=== PATIENT | female | born 1965 | race Caucasian/White ===

== ENCOUNTER 2021-01-20 10:37 | Inpatient (IN) | payer MEDICAID ==
[~2021-01-20] VITALS: Ht 165.1 cm; Wt 90.9 kg
[~2021-01-20 10:37] MED LIST: MAGN400C PO; MULT-1085 PO; TRAZ150T78 PO
[2021-01-20] MEDS ORDERED: normal saline 1000ML IV soln IVB ONE (11:35)
[2021-01-20 12:28] LABS: BASOPHILS # (AUTO) 0.1 X10'3 (0-0.2); BASOPHILS % (AUTO) 0.6 % (0-1); EOSINOPHILS # (AUTO) 0.1 X10'3 (0-0.9); EOSINOPHILS % (AUTO) 0.7 % (0-6); HEMOGLOBIN 13.5 g/dl (12.0-16.0); LYMPHOCYTES # (AUTO) 0.9 X10'3 (1.1-4.8); MEAN CORPUSCULAR HGB CONC 32.3 g/dL (33.0-36.5); MEAN CORPUSCULAR VOLUME 96.1 FL (78-98); MEAN PLATELET VOLUME 7.1 FL (7.4-10.4); MONOCYTES # (AUTO) 0.7 X10'3 (0-0.9); MONOCYTES % (AUTO) 7.9 % (2-12); NEUTROPHILS # (AUTO) 7.6 X10'3 (1.8-7.7); NEUTROPHILS % (AUTO) 80.8 % (42-75); PLATELET COUNT 237 X10'3 (140-440); RED BLOOD COUNT 4.37 X10'6 (4.20-5.60); RED CELL DISTRIBUTION WIDTH 16.2 % (11.5-14.5); WHITE BLOOD COUNT 9.4 X10'3 (4.5-11.0)
[2021-01-20] MEDS ORDERED: thiamine 100mg/ml 2ml inj. IV ONE (13:10)
[2021-01-20] MEDS ORDERED: folic acid 1mg/0.2ml inj IV ONE (13:10)
[2021-01-20] MEDS ORDERED: lactulose 20gm/30ml cup PO ONE (13:10)
[2021-01-20 13:15] LABS: ALANINE AMINOTRANSFERASE 50 U/L (12-78); ALBUMIN 3.1 G/DL (3.4-5.0); ALBUMIN/GLOBULIN RATIO 0.9 (1.1-1.5); ALKALINE PHOSPHATASE 119 IU/L (46-116); ANION GAP 15 (8-16); ASPARTATE AMINO TRANSFERASE 50 U/L (10-37); BILIRUBIN,TOTAL 0.6 MG/DL (0.1-1.0); BLOOD UREA NITROGEN 9 MG/DL (7-18); BUN/CREATININE RATIO 8.7 (6.6-38.0); CALCIUM 8.9 MG/DL (8.5-10.1); CHLORIDE 107 MMOL/L (99-107); CREATININE 1.04 MG/DL (0.40-0.90); GLUCOSE 124 MG/DL (70-104); POTASSIUM 4.1 MMOL/L (3.5-5.1); SODIUM 142 MMOL/L (135-145); TOTAL CARBON DIOXIDE 19.6 MMOL/L (24-32); TOTAL PROTEIN 6.5 G/DL (6.4-8.2); eGFR 55 ML/MIN
[2021-01-20 13:18] LABS: ETHANOL < 0.010 GM/DL (0.0-0.010); TROPONIN I < 0.04 NG/ML (0.0-0.05)
[2021-01-20] MEDS ORDERED: CefTRIAXone/D5W-Rocephin 1gm 50 ML IV ONE (14:35)
[2021-01-20] MEDS ORDERED: azithromycin/NS 500mg/250ml 250 ML IV ONE (14:35)
[2021-01-20] MEDS ORDERED: normal saline 1000ml 1,000 ML IV ONE (14:35)
[2021-01-20] MEDS ORDERED: ipratropium/albuterol 3ml nebule NEB PRN (14:50)
[2021-01-20] MEDS ORDERED: ondansetron/PF 4mg/2ml inj IV PRN (14:50)
[2021-01-20] MEDS ORDERED: potassium Cl 40MEQ/1/2NS 520ml 520 ML IV PRN ×2 (14:50)
[2021-01-20] MEDS ORDERED: mag hydrox/Alum hydrox/simeth 30ml oral suspension PO PRN (14:50)
[2021-01-20] MEDS ORDERED: potassium Cl 20 mEq SR tablet PO PRN ×2 (14:50)
[2021-01-20] MEDS ORDERED: HYDROcodone/acetaminophen 5mg/325mg tablet PO PRN (14:50)
[2021-01-20] MEDS ORDERED: magnesium 4gm in 100ml NS 100 ML IV PRN (14:50)
[2021-01-20] MEDS ORDERED: LORazepam 2 mg/ml vial IV PRN (14:50)
[2021-01-20] MEDS ORDERED: magnesium 2GM in 50ml NS 50 ML IV PRN (14:50)
[2021-01-20] MEDS ORDERED: albuterol 2.5 MG/3 ML nebule NEB PRN (14:50)
[2021-01-20] MEDS ORDERED: acetaminophen 325mg tablet PO PRN ×2 (14:50)
[2021-01-20] MEDS ORDERED: magnesium hydroxide 30ml (MOM) UD suspension PO PRN (14:50)
[2021-01-20] MEDS ORDERED: HYDROcodone/acetaminophen 10/325mg tab PO PRN (14:50)
[2021-01-20] MEDS ORDERED: thiamine inj. 100 MG in normal saline 100ml IV soln 100 ML IV ONE (14:50)
[2021-01-20] MEDS ORDERED: haloperidol lactate 5mg/ml inj IM PRN (14:50)
[2021-01-20] MEDS ORDERED: PANT40TA54 PO (15:26)
[2021-01-20] MEDS ORDERED: GABA300C PO (15:26)
[2021-01-20] MEDS: folic acid 1mg/0.2ml inj IV SCH (17:08)
[2021-01-20 18:39] LABS: URINE AMPHETAMINE SCREEN NEGATIVE (Neg); URINE BARBITUATE SCREEN NEGATIVE (Neg); URINE BENZODIAZEPINES SCREEN POSITIVE (Neg); URINE CANNABINOID SCREEN POSITIVE (Neg); URINE COCAINE SCREEN NEGATIVE (Neg); URINE METHADONE SCREEN NEGATIVE (Neg); URINE OPIATE SCREEN NEGATIVE (Neg); URINE PHENCYCLIDINE SCREEN NEGATIVE (Neg)
[2021-01-20 19:10] LABS: UA COLLECTION TYPE VOIDED
[2021-01-20 19:11] LABS: CLARITY,URINE CLEAR (Clear); COLOR,URINE YELLOW (Yellow)
[2021-01-20 19:12] LABS: GLUCOSE, URINE NEGATIVE (Neg); KETONES,URINE NEGATIVE (Neg); LEUKOCYTE ESTERASE ,URINE SMALL (Neg); NITRITES, URINE NEGATIVE (Neg); OCCULT BLOOD,URINE NEGATIVE (Neg); PROTEIN,URINE NEGATIVE (Neg); UROBILINOGEN,URINE 0.2 E.U/dL (0.2-1.0)
[2021-01-20 19:17] LABS: WBC,URINE 0-4 /HPF (0-4)
[2021-01-20 19:18] LABS: BACTERIA,URINE 2+ /HPF (Neg); RBC,URINE NONE SEEN /HPF (0-2); SQUAMOUS EPITHELIAL CELL,UR FEW /LPF (FEW)
[2021-01-20] MEDS: K and/or MAG REPLACEMENT MC SCH (20:00)
[2021-01-20] MEDS: gabapentin 300mg capsule PO SCH (20:36)
[2021-01-20] MEDS: traZODone 150mg tablet PO SCH (20:36)
[2021-01-20] MEDS: docusate sod 100mg capsule PO SCH (20:36)
[2021-01-20] MEDS: enoxaparin 40mg/0.4ml syringe SQ SCH (20:37)
[2021-01-20] MEDS: lactulose 20gm/30ml cup PO SCH (20:37)
--- NOTE | 2021-01-20 20:51 | NUR ---
PT BOYFRIEND CALLED, HE STATED PT HAS NOT HAD A DRINK IN OVER 2 WEEKS, DOES NOT FEEL LIKE SHE IS IN WITHDRAWL. STATES PT HAS NEGATIVE REACTION TO ATIVAN, STATING PT IN RESTRAINTS AFTER ATIVAN USE AT [facility]. JUSTINA CORDOVA [phone]
[2021-01-21 04:07] LABS: BASOPHILS % (AUTO) 0.9 % (0-1); EOSINOPHILS # (AUTO) 0.1 X10'3 (0-0.9); EOSINOPHILS % (AUTO) 2.5 % (0-6); HEMATOCRIT 36.3 % (35.0-45.0); LYMPHOCYTES # (AUTO) 1.3 X10'3 (1.1-4.8); LYMPHOCYTES % (AUTO) 30.5 % (21-51); MEAN CORPUSCULAR HEMOGLOBIN 31.9 PG (27.0-31.0); MEAN CORPUSCULAR HGB CONC 33.1 g/dL (33.0-36.5); MEAN CORPUSCULAR VOLUME 96.5 FL (78-98); MEAN PLATELET VOLUME 6.9 FL (7.4-10.4); MONOCYTES # (AUTO) 0.5 X10'3 (0-0.9); MONOCYTES % (AUTO) 10.5 % (2-12); NEUTROPHILS # (AUTO) 2.5 X10'3 (1.8-7.7); NEUTROPHILS % (AUTO) 55.6 % (42-75); PLATELET COUNT 188 X10'3 (140-440); RED BLOOD COUNT 3.76 X10'6 (4.20-5.60); RED CELL DISTRIBUTION WIDTH 16.2 % (11.5-14.5); WHITE BLOOD COUNT 4.4 X10'3 (4.5-11.0)
[2021-01-21 04:22] LABS: ALANINE AMINOTRANSFERASE 38 U/L (12-78); ALBUMIN 2.5 G/DL (3.4-5.0); ALBUMIN/GLOBULIN RATIO 0.8 (1.1-1.5); ALKALINE PHOSPHATASE 97 IU/L (46-116); ANION GAP 6 (8-16); ASPARTATE AMINO TRANSFERASE 33 U/L (10-37); BILIRUBIN,TOTAL 0.7 MG/DL (0.1-1.0); BLOOD UREA NITROGEN 7 MG/DL (7-18); BUN/CREATININE RATIO 7.5 (6.6-38.0); CALCIUM 8.3 MG/DL (8.5-10.1); CHLORIDE 110 MMOL/L (99-107); CREATININE 0.93 MG/DL (0.40-0.90); GLUCOSE 70 MG/DL (70-104); LIPASE < 50 U/L (73-393); MAGNESIUM 1.7 MG/DL (1.5-2.4); POTASSIUM 3.5 MMOL/L (3.5-5.1); SODIUM 145 MMOL/L (135-145); TOTAL CARBON DIOXIDE 29.3 MMOL/L (24-32); TOTAL PROTEIN 5.7 G/DL (6.4-8.2); eGFR 62 ML/MIN
[2021-01-21 08:00] VITALS: BP 115/50
[2021-01-21] MEDS ORDERED: thiamine inj. 100 MG in normal saline 100ml IV soln 100 ML IV SCH (08:00)
[2021-01-21] MEDS ORDERED: folic acid inj. 2 MG, thiamine inj. 100 MG, MVI, adult No.4 with vit. K 10 ML in dextro... IV SCH ×4 (08:00)
[2021-01-21] MEDS: K and/or MAG REPLACEMENT MC SCH ×2 (08:00→20:00)
[2021-01-21] MEDS: docusate sod 100mg capsule PO SCH ×2 (08:00→20:16)
[2021-01-21] MEDS ORDERED: CefTRIAXone/D5W-Rocephin 1gm 50 ML IV SCH (08:00)
--- NOTE | 2021-01-21 08:25 | NUR ---
Patient arrived to her assigned room from ER. Patient was alert, oriented x 2. She does not know where she was at, she thought she was at [facility]. Patient was reoriented. Patient's blood sugar was 53mg/dl, patient stated she has not been eaten. When I checked the eMAR, patient does not have hypoglycemia protocol order so I gave her jellos, 2 cups of orange juice, and 1 cup of apple juice.
--- NOTE | 2021-01-21 08:46 | NUR ---
Paged Dr. Xie PAGER ID: [phone] MESSAGE: Vivian Garibay RN ext [phone]. Bianca Alicia. Patient blood sugar this am was 53 mg/dl, she has not been eaten. I gave her food (clear liquid). Her sugar 91mg/dl. She has no order for hypoglycemia protocol.
[2021-01-21] MEDS: gabapentin 300mg capsule PO SCH ×3 (09:52→20:16)
[2021-01-21] MEDS: lactulose 20gm/30ml cup PO SCH ×3 (09:52→20:16)
[2021-01-21] MEDS: pantoprazole 40mg Tablet.DR PO SCH (09:52)
[2021-01-21 11:00] VITALS: BP 105/66
--- NOTE | 2021-01-21 11:20 | NUR ---
Dr. Xie was notified during his rounds that per report I got from ER, the boyfriend reported that patient ended up being on restraints at [facility] when she was given Ativan. When I asked Dr. Xie if she still want Ativan to be given to patient for withdrawal, he said yes. Dr. Xie also asked patient if she is okay with Ativan patient agreed with Ativan. Received order to change Ativan 1mg PO to Q8hrs prn.
[2021-01-21] MEDS: LORazepam 1 MG tablet PO PRN ×2 (11:24→20:16)
[2021-01-21] MEDS: azithromycin/NS 500mg/250ml 250 ML IV SCH (11:24)
[2021-01-21] MEDS: haloperidol 5mg tablet PO PRN (14:30)
--- NOTE | 2021-01-21 14:56 | NUR ---
Patient's boyfriend Jared came to visit patient. Per Jared, the patient can have Ativan but not too frequent and advised that patient should not get this as possible or avoid if not necessary as patient become more agitated previously and was restrained when patient was at [facility]. I told him that patient received Ativan PO today and was already discussed to the doctor about his concern of possible agitation with the Ativan. Patient's boyfriend was telling me that patient was admitted at [facility] previously due to DT. Patient's boyfriend also strongly denied that patient has been drinking recently when I told him that we are monitoring her condition for any possible withdrawal. Before the boyfriend left,he asked me to address the tremors. I gave Haldol PO to patient as indicated.
--- NOTE | 2021-01-21 18:25 | NUR ---
Problems reprioritized. Patient report given, questions answered & plan of care reviewed with Patrick CASTILLO.
[2021-01-21 18:35] VITALS: BP 90/50
[2021-01-21] MEDS: enoxaparin 40mg/0.4ml syringe SQ SCH (20:16)
[2021-01-21] MEDS: traZODone 150mg tablet PO SCH (20:16)
[2021-01-22] VITALS: BP 105/58
[2021-01-22] MEDS: haloperidol 5mg tablet PO PRN (02:16)
[2021-01-22] MEDS: LORazepam 1 MG tablet PO PRN (05:36)
[2021-01-22 06:14] LABS: ALANINE AMINOTRANSFERASE 30 U/L (12-78); ALBUMIN 2.3 G/DL (3.4-5.0); ALBUMIN/GLOBULIN RATIO 0.8 (1.1-1.5); ALKALINE PHOSPHATASE 82 IU/L (46-116); ANION GAP 6 (8-16); ASPARTATE AMINO TRANSFERASE 25 U/L (10-37); BILIRUBIN,TOTAL 0.4 MG/DL (0.1-1.0); BLOOD UREA NITROGEN 7 MG/DL (7-18); BUN/CREATININE RATIO 8.4 (6.6-38.0); CALCIUM 8.1 MG/DL (8.5-10.1); CHLORIDE 111 MMOL/L (99-107); CREATININE 0.83 MG/DL (0.40-0.90); GLUCOSE 88 MG/DL (70-104); LIPASE < 50 U/L (73-393); MAGNESIUM 1.8 MG/DL (1.5-2.4); PHOSPHORUS 4.4 MG/DL (2.3-4.5); POTASSIUM 3.6 MMOL/L (3.5-5.1); SODIUM 143 MMOL/L (135-145); TOTAL PROTEIN 5.1 G/DL (6.4-8.2); eGFR 71 ML/MIN
[2021-01-22 06:23] LABS: EOSINOPHILS # (AUTO) 0.1 X10'3 (0-0.9); EOSINOPHILS % (AUTO) 3.6 % (0-6); HEMATOCRIT 32.9 % (35.0-45.0); HEMOGLOBIN 11.1 g/dl (12.0-16.0); LYMPHOCYTES # (AUTO) 1.1 X10'3 (1.1-4.8); LYMPHOCYTES % (AUTO) 31.4 % (21-51); MEAN CORPUSCULAR HEMOGLOBIN 32.1 PG (27.0-31.0); MEAN CORPUSCULAR HGB CONC 33.6 g/dL (33.0-36.5); MEAN CORPUSCULAR VOLUME 95.4 FL (78-98); MONOCYTES # (AUTO) 0.3 X10'3 (0-0.9); MONOCYTES % (AUTO) 10.1 % (2-12); NEUTROPHILS # (AUTO) 1.8 X10'3 (1.8-7.7); NEUTROPHILS % (AUTO) 53.9 % (42-75); PLATELET COUNT 189 X10'3 (140-440); RED BLOOD COUNT 3.45 X10'6 (4.20-5.60); RED CELL DISTRIBUTION WIDTH 15.6 % (11.5-14.5); WHITE BLOOD COUNT 3.4 X10'3 (4.5-11.0)
--- NOTE | 2021-01-22 06:51 | NUR ---
Patient in room ATIF 359B. I have received report from JONATHAN GRANADOS and had the opportunity to ask questions and assume patient care.
--- NOTE | 2021-01-22 06:56 | NUR ---
Problems reprioritized. Patient report given, questions answered & plan of care reviewed with Elba CASTILLO.
[2021-01-22 07:00] VITALS: BP 110/58
[2021-01-22] MEDS: K and/or MAG REPLACEMENT MC SCH (08:00)
[2021-01-22] MEDS: docusate sod 100mg capsule PO SCH (08:20)
[2021-01-22] MEDS: lactulose 20gm/30ml cup PO SCH (08:20)
[2021-01-22] MEDS: gabapentin 300mg capsule PO SCH (08:21)
[2021-01-22] MEDS: pantoprazole 40mg Tablet.DR PO SCH (08:21)
[2021-01-22] MEDS: azithromycin/NS 500mg/250ml 250 ML IV SCH (08:21)
[2021-01-22] MEDS: folic acid 1mg/0.2ml inj IV SCH (08:26)
[2021-01-22 11:00] VITALS: BP 87/46
[2021-01-22] MEDS ORDERED: ATI1T PO (12:06)
[2021-01-22] MEDS ORDERED: LEVO750T46 PO (12:06)
[2021-01-22] MEDS ORDERED: LORazepam 2 mg/ml vial IV PRN (14:50)
[2021-01-22] MEDS ORDERED: LORazepam 1 MG tablet PO PRN (14:50)
--- NOTE | 2021-01-22 20:18 | NUR ---
PATIENT STABLE AND APPROPRIATE FOR DISCHARGE, IV TAKEN OUT, EDUCATION GIVEN, NEW MEDS E-SCRIPTED TO PREFERRED PHARMACY, SCRIPT FOR ATIVAN GIVEN TO PATIENT, ALL BELONGINGS SENT WITH PATIENT, PATIENT TAKEN TO LOBBY TO AN AWAITING CAR WHERE FAMILY MEMBER WILL TAKE PATIENT HOME
== END 2021-01-22 13:27 | disposition home or self-care (01) | DRG 720 ==
LOC: ER 10:38 → ED HOLD 14:59 → SUR 3N 01-21 07:47
PROVIDERS: ADMIT Family Medicine; ATTEND Family Medicine
DX: A41.9 Sepsis, unspecified organism (principal); G93.41 Metabolic encephalopathy; F10.231 Alcohol dependence with withdrawal delirium; K72.90 Hepatic failure, unspecified without coma; E46 Unspecified protein-calorie malnutrition; N17.9 Acute kidney failure, unspecified; J18.9 Pneumonia, unspecified organism; E86.0 Dehydration; F10.239 Alcohol dependence with withdrawal, unspecified; F32.9 Major depressive disorder, single episode, unspecified; F41.9 Anxiety disorder, unspecified; R47.81 Slurred speech; N39.0 Urinary tract infection, site not specified; Z20.822 Contact with and (suspected) exposure to COVID-19; Z79.899 Other long term (current) drug therapy; Z80.0 Family history of malignant neoplasm of digestive organs; Z80.3 Family history of malignant neoplasm of breast; Z80.51 Family history of malignant neoplasm of kidney; Z68.33 Body mass index [BMI] 33.0-33.9, adult; Z91.013 Allergy to seafood; Z90.49 Acquired absence of other specified parts of digestive tract; Z98.891 History of uterine scar from previous surgery
CPT/HCPCS: 36415; 70450; 71045; 80053; 80305; 80320; 81001; 82140; 82948; 83605; 83690; 83735; 84100; 84145; 84484; 85025; 85610; 87040; 87077; 87081; 87088; 87186; 87502; 87503; 87635; 93005; 94760; 96374; 99285; C9803; G0378; J0456; J0696; J1650; J3411; J3490; J7030

== ENCOUNTER → 2021-01-24 | Emergency (ER) | payer MEDICAID ==
[~2021-01-24] VITALS: Ht 162.6 cm; Wt 90.9 kg
[~2021-01-24] MED LIST changes: +ATI1T PO; +GABA300C PO; +LEVO750T46 PO; +PANT40TA54 PO; +normal saline 1000ML IV soln IVB ONE; +ondansetron/PF 4mg/2ml inj IV ONE
[2021-01-24 11:02] VITALS: BP 136/71
[2021-01-24 12:27] LABS: BASOPHILS % (AUTO) 0.4 % (0-1); EOSINOPHILS # (AUTO) 0.1 X10'3 (0-0.9); EOSINOPHILS % (AUTO) 1.7 % (0-6); HEMATOCRIT 36.1 % (35.0-45.0); HEMOGLOBIN 12.1 g/dl (12.0-16.0); LYMPHOCYTES # (AUTO) 0.9 X10'3 (1.1-4.8); LYMPHOCYTES % (AUTO) 18.7 % (21-51); MEAN CORPUSCULAR HGB CONC 33.5 g/dL (33.0-36.5); MEAN CORPUSCULAR VOLUME 95.7 FL (78-98); MEAN PLATELET VOLUME 6.8 FL (7.4-10.4); MONOCYTES # (AUTO) 0.7 X10'3 (0-0.9); MONOCYTES % (AUTO) 13.9 % (2-12); NEUTROPHILS # (AUTO) 3.2 X10'3 (1.8-7.7); NEUTROPHILS % (AUTO) 65.3 % (42-75); PLATELET COUNT 179 X10'3 (140-440); RED BLOOD COUNT 3.78 X10'6 (4.20-5.60); RED CELL DISTRIBUTION WIDTH 15.1 % (11.5-14.5); WHITE BLOOD COUNT 4.9 X10'3 (4.5-11.0)
[2021-01-24 12:41] LABS: ALANINE AMINOTRANSFERASE 28 U/L (12-78); ALBUMIN 2.6 G/DL (3.4-5.0); ALBUMIN/GLOBULIN RATIO 0.8 (1.1-1.5); ALKALINE PHOSPHATASE 97 IU/L (46-116); ANION GAP 8 (8-16); ASPARTATE AMINO TRANSFERASE 26 U/L (10-37); BILIRUBIN,TOTAL 0.6 MG/DL (0.1-1.0); BLOOD UREA NITROGEN 6 MG/DL (7-18); BUN/CREATININE RATIO 6.1 (6.6-38.0); CALCIUM 8.5 MG/DL (8.5-10.1); CHLORIDE 108 MMOL/L (99-107); CREATININE 0.98 MG/DL (0.40-0.90); ETHANOL < 0.010 GM/DL (0.0-0.010); GLUCOSE 76 MG/DL (70-104); POTASSIUM 3.3 MMOL/L (3.5-5.1); SODIUM 144 MMOL/L (135-145); TOTAL CARBON DIOXIDE 27.9 MMOL/L (24-32); TOTAL PROTEIN 5.9 G/DL (6.4-8.2); eGFR 59 ML/MIN
[2021-01-24 13:14] LABS: CLARITY,URINE CLEAR (Clear); COLOR,URINE STRAW (Yellow); GLUCOSE, URINE NEGATIVE (Neg); KETONES,URINE NEGATIVE (Neg); NITRITES, URINE NEGATIVE (Neg); OCCULT BLOOD,URINE NEGATIVE (Neg); PROTEIN,URINE NEGATIVE (Neg); UA COLLECTION TYPE CLN CATCH MIDSTREAM
[2021-01-24 13:15] LABS: LEUKOCYTE ESTERASE ,URINE NEGATIVE (Neg); UROBILINOGEN,URINE 0.2 E.U/dL (0.2-1.0)
== END | disposition home or self-care (01) ==
LOC: ER 10:38
DX: S09.90XA Unspecified injury of head, initial encounter (principal); M54.2 Cervicalgia; E86.0 Dehydration; F41.9 Anxiety disorder, unspecified; F32.9 Major depressive disorder, single episode, unspecified; Z91.013 Allergy to seafood; Z79.899 Other long term (current) drug therapy
CPT/HCPCS: 36415; 70450; 72125; 80053; 80320; 81003; 85025; 99285

== ENCOUNTER 2021-02-15 11:43 | Emergency (ER) | payer MEDICAID ==
[~2021-02-15] VITALS: Ht 162.6 cm; Wt 87.4 kg
[~2021-02-15 11:43] MED LIST changes: -LEVO750T46 PO; -normal saline 1000ML IV soln IVB ONE; -ondansetron/PF 4mg/2ml inj IV ONE
[2021-02-15] MEDS ORDERED: folic acid 1mg/0.2ml inj IV ONE (12:05)
[2021-02-15] MEDS ORDERED: LORazepam 2 mg/ml vial IV ONE ×2 (12:05→15:35)
[2021-02-15] MEDS ORDERED: ondansetron/PF 4mg/2ml inj IV ONE (12:05)
[2021-02-15] MEDS ORDERED: famotidine/PF 10 mg/ml inj IV ONE (12:05)
[2021-02-15] MEDS ORDERED: thiamine 100mg/ml 2ml inj. IV ONE (12:05)
[2021-02-15] MEDS ORDERED: normal saline 1000ML IV soln IV ONE (12:05)
[2021-02-15 12:58] LABS: BASOPHILS % (AUTO) 0.8 % (0-1); EOSINOPHILS % (AUTO) 0.4 % (0-6); HEMATOCRIT 46.3 % (35.0-45.0); HEMOGLOBIN 15.7 g/dl (12.0-16.0); LYMPHOCYTES # (AUTO) 1.1 X10'3 (1.1-4.8); LYMPHOCYTES % (AUTO) 22.3 % (21-51); MEAN CORPUSCULAR HEMOGLOBIN 32.5 PG (27.0-31.0); MEAN CORPUSCULAR HGB CONC 33.8 g/dL (33.0-36.5); MEAN CORPUSCULAR VOLUME 96.2 FL (78-98); MEAN PLATELET VOLUME 7.2 FL (7.4-10.4); MONOCYTES # (AUTO) 0.7 X10'3 (0-0.9); MONOCYTES % (AUTO) 13.7 % (2-12); NEUTROPHILS % (AUTO) 62.8 % (42-75); PLATELET COUNT 153 X10'3 (140-440); RED BLOOD COUNT 4.81 X10'6 (4.20-5.60); RED CELL DISTRIBUTION WIDTH 15.8 % (11.5-14.5); WHITE BLOOD COUNT 4.8 X10'3 (4.5-11.0)
[2021-02-15 13:12] LABS: ALANINE AMINOTRANSFERASE 76 U/L (12-78); ALBUMIN/GLOBULIN RATIO 0.8 (1.1-1.5); ALKALINE PHOSPHATASE 203 IU/L (46-116); ANION GAP 18 (8-16); ASPARTATE AMINO TRANSFERASE 145 U/L (10-37); BILIRUBIN,TOTAL 1.2 MG/DL (0.1-1.0); BLOOD UREA NITROGEN 8 MG/DL (7-18); BUN/CREATININE RATIO 11.8 (6.6-38.0); CHLORIDE 102 MMOL/L (99-107); CREATININE 0.68 MG/DL (0.40-0.90); GLUCOSE 152 MG/DL (70-104); MAGNESIUM 1.4 MG/DL (1.5-2.4); SODIUM 142 MMOL/L (135-145); TOTAL CARBON DIOXIDE 22.3 MMOL/L (24-32); TOTAL PROTEIN 6.9 G/DL (6.4-8.2); eGFR 90 ML/MIN
[2021-02-15 13:30] LABS: POTASSIUM 2.9 MMOL/L (3.5-5.1)
[2021-02-15] MEDS ORDERED: potassium Cl 20 mEq SR tablet PO STA (15:08)
--- NOTE | 2021-02-15 15:30 | NUR ---
PT ATTEMOTED UA IN BATHROOM WITH NO SUCCESS.
[2021-02-15] MEDS ORDERED: normal saline 1000ml 1,000 ML IV ONE (15:35)
[2021-02-15] MEDS ORDERED: CHLO25CA10 PO (16:46)
[2021-02-15 16:47] VITALS: BP 109/91
[2021-02-15] MEDS ORDERED: chlordiazePOXIDE 5mg capsule PO ONE (16:56)
[2021-02-15] MEDS: chlordiazePOXIDE 25mg capsule PO ONE ×2 (16:59→17:01)
== END 2021-02-15 17:22 | disposition home or self-care (01) ==
LOC: ER 11:44
DX: F10.239 Alcohol dependence with withdrawal, unspecified (principal); E87.6 Hypokalemia; F41.9 Anxiety disorder, unspecified; R11.2 Nausea with vomiting, unspecified; F32.9 Major depressive disorder, single episode, unspecified; Z72.89 Other problems related to lifestyle; Z90.49 Acquired absence of other specified parts of digestive tract; Z98.890 Other specified postprocedural states; Z91.013 Allergy to seafood; Z79.899 Other long term (current) drug therapy; Y90.9 Presence of alcohol in blood, level not specified
CPT/HCPCS: 36415; 80053; 83735; 85025; 93005; 96374; 96375; 96376; 99284; J2060; J2405; J3411; J3490; J7030

== ENCOUNTER → 2021-02-19 | Emergency (ER) | payer MEDICAID ==
[~2021-02-19] VITALS: Ht 162.6 cm; Wt 88.2 kg
[~2021-02-19] MED LIST changes: +CHLO25CA10 PO
[2021-02-19 19:25] VITALS: BP 109/80
== END | disposition left against medical advice (07) ==
LOC: ER 19:24
DX: F10.239 Alcohol dependence with withdrawal, unspecified (principal); Z53.21 Procedure and treatment not carried out due to patient leaving prior to being seen by health care provider; Y90.9 Presence of alcohol in blood, level not specified

== ENCOUNTER 2021-03-04 09:10 | Inpatient (IN) | payer MEDICAID ==
[~2021-03-04] VITALS: Ht 162.6 cm; Wt 89.6 kg
[2021-03-04] MEDS ORDERED: ondansetron/PF 4mg/2ml inj IV ONE ×2 (09:25→11:15)
[2021-03-04] MEDS ORDERED: normal saline 1000ML IV soln IVB ONE ×2 (09:25→11:15)
[2021-03-04 10:02] LABS: BASOPHILS % (AUTO) 0.7 % (0-1); EOSINOPHILS # (AUTO) 0.1 X10'3 (0-0.9); EOSINOPHILS % (AUTO) 1.9 % (0-6); HEMATOCRIT 37.5 % (35.0-45.0); LYMPHOCYTES # (AUTO) 1.2 X10'3 (1.1-4.8); LYMPHOCYTES % (AUTO) 30.7 % (21-51); MEAN CORPUSCULAR HEMOGLOBIN 33.5 PG (27.0-31.0); MEAN CORPUSCULAR HGB CONC 34.7 g/dL (33.0-36.5); MEAN CORPUSCULAR VOLUME 96.6 FL (78-98); MEAN PLATELET VOLUME 7.9 FL (7.4-10.4); MONOCYTES # (AUTO) 0.3 X10'3 (0-0.9); MONOCYTES % (AUTO) 6.6 % (2-12); NEUTROPHILS # (AUTO) 2.4 X10'3 (1.8-7.7); NEUTROPHILS % (AUTO) 60.1 % (42-75); PLATELET COUNT 134 X10'3 (140-440); RED BLOOD COUNT 3.89 X10'6 (4.20-5.60); RED CELL DISTRIBUTION WIDTH 20.7 % (11.5-14.5); WHITE BLOOD COUNT 3.9 X10'3 (4.5-11.0)
[2021-03-04 10:12] LABS: ALANINE AMINOTRANSFERASE 46 U/L (12-78); ALBUMIN 2.8 G/DL (3.4-5.0); ALBUMIN/GLOBULIN RATIO 0.8 (1.1-1.5); ALKALINE PHOSPHATASE 183 IU/L (46-116); ANION GAP 15 (8-16); ASPARTATE AMINO TRANSFERASE 146 U/L (10-37); BILIRUBIN,TOTAL 1.8 MG/DL (0.1-1.0); BLOOD UREA NITROGEN 7 MG/DL (7-18); BUN/CREATININE RATIO 6.5 (6.6-38.0); CHLORIDE 99 MMOL/L (99-107); CREATININE 1.07 MG/DL (0.40-0.90); GLUCOSE 148 MG/DL (70-104); LIPASE 137 U/L (73-393); SODIUM 137 MMOL/L (135-145); TOTAL CARBON DIOXIDE 22.6 MMOL/L (24-32); TOTAL PROTEIN 6.2 G/DL (6.4-8.2); eGFR 53 ML/MIN
[2021-03-04 10:18] LABS: POTASSIUM 2.4 MMOL/L (3.5-5.1)
[2021-03-04] MEDS ORDERED: potassium 10mEq/100ml NS w/LIDOcaine (10mg/bag) IV SCH (11:15)
[2021-03-04] MEDS ORDERED: thiamine 100mg tablet PO ONE (11:15)
[2021-03-04] MEDS ORDERED: pantoprazole 40 MG vial IV ONE (11:15)
[2021-03-04] MEDS ORDERED: LORazepam 2 mg/ml vial IV ONE (11:15)
[2021-03-04] MEDS ORDERED: folic acid 1mg tablet PO ONE (11:15)
[2021-03-04] MEDS ORDERED: metoclopramide 5 mg/ml inj IV ONE ×2 (11:20→22:05)
[2021-03-04 11:26] LABS: ANISOCYTOSIS 3+; PLATELET ESTIMATE DECREASED
[2021-03-04 11:27] LABS: HYPOCHROMASIA 1+; STOMATOCYTES 1+
[2021-03-04] MEDS: multivitamins, therapeutics tablet PO SCH ×2 (11:40→16:11)
[2021-03-04] MEDS: magnesium 2GM in 50ml NS 50 ML IV SCH ×2 (11:42→12:15)
[2021-03-04] MEDS ORDERED: potassium Cl 10 mEq/100mL bag IV SCH (11:42)
[2021-03-04] MEDS ORDERED: NO HOME MEDS (11:50)
[2021-03-04 12:22] LABS: ETHANOL < 0.010 GM/DL (0.0-0.010)
[2021-03-04 12:34] LABS: MAGNESIUM 0.7 MG/DL (1.5-2.4)
--- NOTE | 2021-03-04 12:55 | NUR ---
to ct via [facility]
[2021-03-04 13:07] LABS: ALBUMIN 2.3 G/DL (3.4-5.0); ANION GAP 8 (8-16); BLOOD UREA NITROGEN 6 MG/DL (7-18); BUN/CREATININE RATIO 6.9 (6.6-38.0); CHLORIDE 105 MMOL/L (99-107); CREATININE 0.87 MG/DL (0.40-0.90); GLUCOSE 104 MG/DL (70-104); MAGNESIUM 1.2 MG/DL (1.5-2.4); SODIUM 141 MMOL/L (135-145); TOTAL CARBON DIOXIDE 28.4 MMOL/L (24-32); eGFR 67 ML/MIN
[2021-03-04 13:11] LABS: CALCIUM 5.8 MG/DL (8.5-10.1)
--- NOTE | 2021-03-04 15:29 | NUR ---
pt brother Preet Nicholson [phone]
[2021-03-04] MEDS ORDERED: morphine 2 MG/ML inj. syringe IV PRN (15:55)
[2021-03-04] MEDS ORDERED: magnesium 4gm in 100ml NS 100 ML IV PRN (15:55)
[2021-03-04] MEDS ORDERED: PERFLUTREN PROTEIN-A MICROSPHR (Optison) 0.22 MG/ML 3ML VIAL IV ONE (15:55)
[2021-03-04] MEDS ORDERED: magnesium Cl slow-release 64mg tablet PO PRN (15:55)
[2021-03-04] MEDS ORDERED: potassium Cl 20 mEq SR tablet PO PRN (15:55)
[2021-03-04] MEDS ORDERED: magnesium hydroxide 30ml (MOM) UD suspension PO PRN (15:55)
[2021-03-04] MEDS ORDERED: acetaminophen 650mg rectal suppository RC PRN (15:55)
[2021-03-04] MEDS ORDERED: diphenhydrAMINE 25mg capsule PO PRN (15:55)
[2021-03-04] MEDS ORDERED: potassium Cl 40MEQ/1/2NS 520ml 520 ML IV PRN ×2 (15:55)
[2021-03-04] MEDS ORDERED: mag hydrox/Alum hydrox/simeth 30ml oral suspension PO PRN (15:55)
[2021-03-04] MEDS ORDERED: thiamine 100mg/ml 2ml inj. IV ONE (15:55)
[2021-03-04] MEDS ORDERED: bisacodyl 10mg suppository rectal RC PRN (15:55)
[2021-03-04] MEDS ORDERED: magnesium 2GM in 50ml NS 50 ML IV PRN (15:55)
[2021-03-04] MEDS ORDERED: acetaminophen 325mg tablet PO PRN ×2 (15:55)
[2021-03-04] MEDS ORDERED: dextrose 50%-water 50ml dispensing syringe IV PRN (15:55)
[2021-03-04] MEDS: thiamine 100mg tablet PO SCH (16:09)
[2021-03-04] MEDS: folic acid 1mg tablet PO SCH (16:11)
[2021-03-04] MEDS: dextrose 5%-normal saline 1,000 ML IV SCH (16:34)
[2021-03-04] MEDS: potassium Cl 20 mEq SR tablet PO PRN (16:34)
[2021-03-04 16:42] LABS: HEMOGLOBIN A1C 5.9 % (4.5-6.2)
--- NOTE | 2021-03-04 17:04 | NUR ---
ECHO AT BEDSIDE
[2021-03-04] MEDS: ondansetron/PF 4mg/2ml inj IV PRN (19:05)
[2021-03-04] MEDS: heparin, porcine 5000 units/ml vial SQ SCH (19:05)
[2021-03-04] MEDS: K and/or MAG REPLACEMENT MC SCH (19:11)
[2021-03-04] MEDS: LORazepam 2 mg/ml vial IV PRN (19:23)
[2021-03-04] MEDS: docusate sod 100mg capsule PO SCH (19:28)
--- NOTE | 2021-03-04 19:34 | NUR ---
Son Cory called for update. Pt gave verbal okay to discuss condition with son.
[2021-03-04] MEDS ORDERED: metoclopramide 10mg tablet PO PRN (22:05)
[2021-03-04] MEDS: morphine 2 MG/ML inj. syringe IV PRN (22:16)
[2021-03-04] MEDS: CALCIUM GLUC 1gm/50ml NACL,iso 50 ML IV SCH (23:03)
[2021-03-05] MEDS: dextrose 5%-normal saline 1,000 ML IV SCH ×3 (01:55→23:34)
--- NOTE | 2021-03-05 02:48 | NUR ---
Pt having pain at IV site r/t IV potassium administration. IV potassium rate turned down. Will continue to monitor.
[2021-03-05] MEDS: LORazepam 2 mg/ml vial IV PRN ×11 (04:05→23:17)
--- NOTE | 2021-03-05 07:00 | NUR ---
NOTED PT LEFT HAD IV INFILTRATED, PULLED IV AND IV CHANGED TO RIGHT WRIST IV.
[2021-03-05] MEDS: folic acid 1mg tablet PO SCH (07:31)
[2021-03-05] MEDS: docusate sod 100mg capsule PO SCH ×2 (07:31→20:00)
[2021-03-05] MEDS: thiamine 100mg tablet PO SCH (07:32)
[2021-03-05] MEDS: multivitamins, therapeutics tablet PO SCH ×2 (07:32→11:15)
[2021-03-05] MEDS: potassium Cl 20 mEq SR tablet PO PRN ×4 (07:32→23:55)
[2021-03-05] MEDS: ondansetron/PF 4mg/2ml inj IV PRN (07:33)
[2021-03-05] MEDS: heparin, porcine 5000 units/ml vial SQ SCH ×2 (07:33→23:42)
--- NOTE | 2021-03-05 07:36 | NUR ---
SPOKE TO MOTORCYCLE SUBASSEMBLER RN ADIS PINEDO: ERA PULLED FROM [place] @ 0082, SHE STATES THE MED WAS GIVEN AND THE SCANNER IN ROOM DOES NOT WORK. SHE WILL MAKE A NOTE TONIGHT WHEN SHE RETURNS.
[2021-03-05] MEDS ORDERED: folic acid inj. 2 MG, thiamine inj. 100 MG, MVI, adult No.4 with vit. K 10 ML in dextro... IV SCH ×4 (08:00)
[2021-03-05] MEDS: K and/or MAG REPLACEMENT MC SCH ×2 (08:00→20:00)
[2021-03-05] MEDS: CALCIUM GLUC 1gm/50ml NACL,iso 50 ML IV SCH (08:00)
--- NOTE | 2021-03-05 08:30 | NUR ---
LAB STATED PT PULLING AT IV. UPON ENTERING ROOM, PT SITTING UP ON SIDE OF BED, PT PULLED RIGHT IV OUT. STATES SHES HUNGRY. GIVEN BREAKFAST. WILL START IV ONCE FINISHED.
--- NOTE | 2021-03-05 08:50 | NUR ---
PT SPILLED COFFEE ON GROUND, EDUCATED PT ABOUT STAYING IN BED. EVS AWARE AND WILL MOP FLOOR.
[2021-03-05 08:54] LABS: BASOPHILS % (AUTO) 0.9 % (0-1); EOSINOPHILS # (AUTO) 0.1 X10'3 (0-0.9); EOSINOPHILS % (AUTO) 5.4 % (0-6); HEMATOCRIT 30.9 % (35.0-45.0); HEMOGLOBIN 10.4 g/dl (12.0-16.0); LYMPHOCYTES # (AUTO) 1.2 X10'3 (1.1-4.8); LYMPHOCYTES % (AUTO) 45.1 % (21-51); MEAN CORPUSCULAR HEMOGLOBIN 33.2 PG (27.0-31.0); MEAN CORPUSCULAR HGB CONC 33.9 g/dL (33.0-36.5); MEAN PLATELET VOLUME 7.8 FL (7.4-10.4); MONOCYTES # (AUTO) 0.3 X10'3 (0-0.9); MONOCYTES % (AUTO) 10.6 % (2-12); PLATELET COUNT 89 X10'3 (140-440); RED BLOOD COUNT 3.15 X10'6 (4.20-5.60); RED CELL DISTRIBUTION WIDTH 21.4 % (11.5-14.5); WHITE BLOOD COUNT 2.6 X10'3 (4.5-11.0)
--- NOTE | 2021-03-05 09:00 | NUR ---
PT WALKED OUT OF ROOM AND FELL ON GROUND, POWER SYSTEM ELECTRICAL ENGINEER NOTIFIED, PAGE TO DR BEARDEN SENT. PT HAS NO PAIN, NO INJURIES, PT GIVEN SITTER NOW.
[2021-03-05 09:17] LABS: ALANINE AMINOTRANSFERASE 36 U/L (12-78); ALBUMIN 2.3 G/DL (3.4-5.0); ALBUMIN/GLOBULIN RATIO 0.8 (1.1-1.5); ALKALINE PHOSPHATASE 139 IU/L (46-116); AMYLASE 27 U/L (25-115); ANION GAP 7 (8-16); ASPARTATE AMINO TRANSFERASE 94 U/L (10-37); BILIRUBIN,TOTAL 0.9 MG/DL (0.1-1.0); BLOOD UREA NITROGEN 6 MG/DL (7-18); CALCIUM 6.4 MG/DL (8.5-10.1); CHLORIDE 106 MMOL/L (99-107); CHOL/HDL RATIO 3.1 (0.00-4.99); CHOLESTEROL 160 MG/DL (0-200); CREATININE 0.75 MG/DL (0.40-0.90); GLUCOSE 121 MG/DL (70-104); HDL CHOLESTEROL 52 MG/DL (35-60); LDL CHOLESTEROL 81 MG/DL (50-100); MAGNESIUM 1.7 MG/DL (1.5-2.4); PHOSPHORUS 2.5 MG/DL (2.3-4.5); SODIUM 137 MMOL/L (135-145); TOTAL PROTEIN 5.2 G/DL (6.4-8.2); TRIGLYCERIDES 93 MG/DL (20-135); eGFR 80 ML/MIN
[2021-03-05 09:46] LABS: HIV ANTIBODY 1&2 RAPID NON-REACTIVE (Neg)
[2021-03-05 10:36] LABS: ANISOCYTOSIS 3+; HYPOCHROMASIA 1+; PLATELET ESTIMATE DECREASED; POLYCHROMASIA 1+; SMUDGE CELLS FEW; TOTAL CELLS COUNTED 100
[2021-03-05 10:37] LABS: STOMATOCYTES FEW
[2021-03-05 10:59] LABS: URINE AMPHETAMINE SCREEN NEGATIVE (Neg); URINE BARBITUATE SCREEN NEGATIVE (Neg); URINE BENZODIAZEPINES SCREEN POSITIVE (Neg); URINE CANNABINOID SCREEN POSITIVE (Neg); URINE COCAINE SCREEN NEGATIVE (Neg); URINE METHADONE SCREEN NEGATIVE (Neg); URINE OPIATE SCREEN POSITIVE (Neg); URINE PHENCYCLIDINE SCREEN NEGATIVE (Neg)
[2021-03-05 11:17] LABS: CLARITY,URINE CLOUDY (Clear); COLOR,URINE DARK YELLOW (Yellow); GLUCOSE, URINE NEGATIVE (Neg); KETONES,URINE NEGATIVE (Neg); NITRITES, URINE NEGATIVE (Neg); OCCULT BLOOD,URINE SMALL (Neg); PH,URINE 6.5 (4.8-8.0); PROTEIN,URINE TRACE mg/dl (Neg); UA COLLECTION TYPE CLN CATCH MIDSTREAM; UROBILINOGEN,URINE 0.2 E.U/dL (0.2-1.0)
[2021-03-05 11:18] LABS: BACTERIA,URINE 3+ /HPF (Neg); LEUKOCYTE ESTERASE ,URINE SMALL (Neg); MUCUS STRANDS NONE SEEN /LPF (Neg); SQUAMOUS EPITHELIAL CELL,UR FEW /LPF (FEW)
[2021-03-05 11:19] LABS: COARSE GRANULAR CAST 0-3 /LPF (NEGATIVE); FINE GRANULAR CAST 0-3 /LPF (NEGATIVE); TRANSITIONAL EPI CELLS,URINE FEW /HPF
--- NOTE | 2021-03-05 12:00 | NUR ---
PT CONFUSED AT BEDSIDE, WANTING TO PUT CLOTHES ON OVER HOSPITAL GOWN AND TAKE A SHOWER. STATED TO SITTER SHE WANTED TO LEAVE. AFTER EXPLAINING TO PT ABOUT REASON FOR ADMISSION PT AGREES TO STAY. IV REINFORCED WITH TEX
--- NOTE | 2021-03-05 12:15 | NUR ---
WAS NOTIFIED PT WAS YELLING/ THREATENING SITTER. PT AGGITATED WHILE IN ROOM. STATES SHE WANTS TO LEAVE TO LOOK AT PAPERWORK IN CAR. WAS ANGRY WHEN TOLD SHES ADMITTED. TREMORS PRESENT.
--- NOTE | 2021-03-05 13:07 | NUR ---
NOTED SECURITY AT BEDSIDE, PT STATES THAT HER FAMILY CALLED THE [facility]ERRI[facility] OFFICE. PT STILL AGGITATED WITH DELERIUM. VITALS STABLE.
--- NOTE | 2021-03-05 13:17 | NUR ---
PT GIVEN LUNCH TRAY, PT SITTING ON SIDE OF BED, NO DISTRESS. SITTER AT BEDSIDE.
[2021-03-05] MEDS: haloperidol lactate 5mg/ml inj IM PRN ×4 (13:57→23:16)
--- NOTE | 2021-03-05 16:43 | NUR ---
pt son at bedside, updated on pt condition. Addendum: 03/05/21 at 1643 by JERAMY note by akhil
--- NOTE | 2021-03-05 17:51 | NUR ---
PT FOUND OUTSIDE ROOM FOLDING BLANKETS AND PULLING CLEANING CLOTHS OFF OF EVS CART. DR BEARDEN ARRIVED TO SEE PT. ORDERED SITTER. PT HAS SON AT BEDSIDE STILL. PT PULLED OFF ALL CLOTHES, LEADS, NONSLIP SOCKS STATING SHES GETTING READY FOR HER DATE.
--- NOTE | 2021-03-05 17:55 | NUR ---
SITTER BACK IN ROOM, PT SON LEFT.
--- NOTE | 2021-03-05 18:04 | NUR ---
PT FELL OUT OF BED AGAIN.
[2021-03-05 21:00] VITALS: BP 116/80
--- NOTE | 2021-03-05 21:00 | NUR ---
Patient in room PCU 3025. I have received report from ADIS CASTILLO and had the opportunity to ask questions and assume patient care.
[2021-03-05] MEDS ORDERED: CALCIUM GLUC 1gm/50ml NACL,iso 50 ML IV ONE (22:05)
[2021-03-05] MEDS ORDERED: pantoprazole 40 MG vial IV ONE (22:10)
[2021-03-05 23:58] VITALS: BP 112/70
[2021-03-06] VITALS (7 sets, daily range): BP systolic 115–133; BP diastolic 68–87
--- NOTE | 2021-03-06 01:22 | NUR ---
GAVE PATIENT 2 MG OF ATIVAN AT 2210; INADVERTENTLY SELECTED 4 MG DOSE IN OMNICELL BY ACCIDENT AND CORRECTED COUNT IN OMNICELL PER PROTOCOL WITH PCU COMPLIANCE COORDINATOR FLORENTINO FELDER. COMPLIANCE COORDINATOR FLORENTINO FELDER WITNESSED ADMINISTRATION OF 2 MG TO PATIENT D[address];4 POINT RESTRAINTS INITIATED WITH MD ORDER FROM DR. GARCIA. PATIENT ORDERED TO HAVE SITTER BY DR BEARDEN. PATIENT CONTINUES TO DISPLAY AGITATION RELATED TO ALCOHOL WITHDRAWL. RUPERTO CASTILLO
[2021-03-06] MEDS: LORazepam 2 mg/ml vial IV PRN ×3 (03:00→13:06)
--- NOTE | 2021-03-06 06:21 | NUR ---
Problems reprioritized. Patient report given, questions answered & plan of care reviewed with ROSMERY CASTILLO.
--- NOTE | 2021-03-06 06:39 | NUR ---
Problems reprioritized. Patient report given, questions answered & plan of care reviewed with ROSMERY CASTILLO.
--- NOTE | 2021-03-06 07:24 | NUR ---
Patient in room PCU 3025B. I have received report from JONATHAN ORNELAS and had the opportunity to ask questions and assume patient care.
[2021-03-06 07:37] LABS: BASOPHILS % (AUTO) 0.9 % (0-1); EOSINOPHILS # (AUTO) 0.1 X10'3 (0-0.9); EOSINOPHILS % (AUTO) 3.2 % (0-6); HEMATOCRIT 27.9 % (35.0-45.0); HEMOGLOBIN 9.6 g/dl (12.0-16.0); LYMPHOCYTES # (AUTO) 0.5 X10'3 (1.1-4.8); LYMPHOCYTES % (AUTO) 30.8 % (21-51); MEAN CORPUSCULAR HEMOGLOBIN 33.6 PG (27.0-31.0); MEAN CORPUSCULAR HGB CONC 34.2 g/dL (33.0-36.5); MEAN CORPUSCULAR VOLUME 98.1 FL (78-98); MEAN PLATELET VOLUME 7.7 FL (7.4-10.4); MONOCYTES # (AUTO) 0.1 X10'3 (0-0.9); MONOCYTES % (AUTO) 8.4 % (2-12); NEUTROPHILS % (AUTO) 56.7 % (42-75); PLATELET COUNT 69 X10'3 (140-440); RED BLOOD COUNT 2.84 X10'6 (4.20-5.60); RED CELL DISTRIBUTION WIDTH 21.7 % (11.5-14.5); WHITE BLOOD COUNT 1.8 X10'3 (4.5-11.0)
[2021-03-06 07:50] LABS: ALANINE AMINOTRANSFERASE 45 U/L (12-78); ALBUMIN 2.2 G/DL (3.4-5.0); ALBUMIN/GLOBULIN RATIO 0.8 (1.1-1.5); ALKALINE PHOSPHATASE 133 IU/L (46-116); AMYLASE 26 U/L (25-115); ANION GAP 8 (8-16); ASPARTATE AMINO TRANSFERASE 97 U/L (10-37); BLOOD UREA NITROGEN 4 MG/DL (7-18); BUN/CREATININE RATIO 5.9 (6.6-38.0); CALCIUM 7.3 MG/DL (8.5-10.1); CHLORIDE 112 MMOL/L (99-107); CREATININE 0.68 MG/DL (0.40-0.90); GLUCOSE 96 MG/DL (70-104); MAGNESIUM 1.5 MG/DL (1.5-2.4); PHOSPHORUS 2.7 MG/DL (2.3-4.5); POTASSIUM 3.8 MMOL/L (3.5-5.1); SODIUM 143 MMOL/L (135-145); TOTAL CARBON DIOXIDE 23.5 MMOL/L (24-32); eGFR 90 ML/MIN
[2021-03-06] MEDS: heparin, porcine 5000 units/ml vial SQ SCH ×2 (08:00→19:25)
[2021-03-06] MEDS: K and/or MAG REPLACEMENT MC SCH ×2 (08:00→19:26)
[2021-03-06 08:06] LABS: ANISOCYTOSIS 3+; PLATELET ESTIMATE DECREASED; TOTAL CELLS COUNTED 100
[2021-03-06 08:07] LABS: HYPOCHROMASIA 1+; POLYCHROMASIA 2+; SMUDGE CELLS FEW; STOMATOCYTES FEW
[2021-03-06] MEDS ORDERED: CALCIUM GLUC 1gm/50ml NACL,iso 100 ML IV ONE (10:00)
[2021-03-06] MEDS: dextrose 5%-normal saline 1,000 ML IV SCH ×2 (10:59→17:55)
[2021-03-06] MEDS: pantoprazole 40 MG vial IV SCH (11:02)
[2021-03-06] MEDS: multivitamins, therapeutics tablet PO SCH (11:07)
[2021-03-06] MEDS: folic acid 1mg tablet PO SCH (11:07)
[2021-03-06] MEDS: thiamine 100mg tablet PO SCH (11:07)
[2021-03-06] MEDS: docusate sod 100mg capsule PO SCH ×2 (11:07→19:25)
[2021-03-06] MEDS: CALCIUM GLUC 1gm/50ml NACL,iso 50 ML IV SCH (12:06)
[2021-03-06] MEDS: CefTRIAXone/D5W-Rocephin 1gm 50 ML IV SCH (12:55)
[2021-03-06] MEDS: potassium Cl 20 mEq SR tablet PO PRN (13:06)
[2021-03-06] MEDS: LORazepam 1 MG tablet PO PRN (15:28)
--- NOTE | 2021-03-06 19:13 | NUR ---
Problems reprioritized. Patient report given, questions answered & plan of care reviewed with JONATHAN CORTEZ.
[2021-03-06] MEDS: HYDROcodone/acetaminophen 10/325mg tab PO PRN (19:25)
[2021-03-07 02:00] VITALS: BP 124/72
[2021-03-07] MEDS: dextrose 5%-normal saline 1,000 ML IV SCH ×3 (03:55→22:26)
--- NOTE | 2021-03-07 06:23 | NUR ---
Patient was agitated all night, fall precaution maintained will continue to monitor and report changes
--- NOTE | 2021-03-07 06:38 | NUR ---
Paged PICC RN multiple attempts for PIV, unable to obtain, Need assistance with PIV as soon as possible please, Thank you Tamiko CASTILLO
--- NOTE | 2021-03-07 07:09 | NUR ---
Problems reprioritized. Patient report given, questions answered & plan of care reviewed with KIRILL CASTILLO.
[2021-03-07] MEDS: multivitamins, therapeutics tablet PO SCH (07:19)
[2021-03-07] MEDS: folic acid 1mg tablet PO SCH (07:22)
[2021-03-07] MEDS: docusate sod 100mg capsule PO SCH ×2 (07:23→19:45)
[2021-03-07] MEDS: thiamine 100mg tablet PO SCH (07:23)
[2021-03-07] MEDS: heparin, porcine 5000 units/ml vial SQ SCH ×2 (07:26→19:46)
[2021-03-07] MEDS: CefTRIAXone/D5W-Rocephin 1gm 50 ML IV SCH ×2 (08:00→12:36)
[2021-03-07] MEDS: K and/or MAG REPLACEMENT MC SCH ×2 (08:00→20:36)
[2021-03-07] MEDS: CALCIUM GLUC 1gm/50ml NACL,iso 50 ML IV SCH ×2 (08:00→12:35)
[2021-03-07] MEDS: pantoprazole 40 MG vial IV SCH (08:00)
[2021-03-07 09:01] LABS: BASOPHILS % (AUTO) 0.7 % (0-1); EOSINOPHILS # (AUTO) 0.1 X10'3 (0-0.9); EOSINOPHILS % (AUTO) 3.2 % (0-6); HEMATOCRIT 32.6 % (35.0-45.0); HEMOGLOBIN 11.2 g/dl (12.0-16.0); LYMPHOCYTES # (AUTO) 1.1 X10'3 (1.1-4.8); LYMPHOCYTES % (AUTO) 36.9 % (21-51); MEAN CORPUSCULAR HGB CONC 34.2 g/dL (33.0-36.5); MEAN CORPUSCULAR VOLUME 99.2 FL (78-98); MONOCYTES # (AUTO) 0.3 X10'3 (0-0.9); MONOCYTES % (AUTO) 10.6 % (2-12); NEUTROPHILS # (AUTO) 1.5 X10'3 (1.8-7.7); NEUTROPHILS % (AUTO) 48.6 % (42-75); PLATELET COUNT 79 X10'3 (140-440); RED BLOOD COUNT 3.29 X10'6 (4.20-5.60); RED CELL DISTRIBUTION WIDTH 22.8 % (11.5-14.5); WHITE BLOOD COUNT 3.1 X10'3 (4.5-11.0)
[2021-03-07 09:18] LABS: ALANINE AMINOTRANSFERASE 47 U/L (12-78); ALBUMIN 2.3 G/DL (3.4-5.0); ALBUMIN/GLOBULIN RATIO 0.8 (1.1-1.5); ALKALINE PHOSPHATASE 148 IU/L (46-116); AMYLASE 25 U/L (25-115); ANION GAP 11 (8-16); ASPARTATE AMINO TRANSFERASE 105 U/L (10-37); BILIRUBIN,TOTAL 1.1 MG/DL (0.1-1.0); BLOOD UREA NITROGEN 3 MG/DL (7-18); BUN/CREATININE RATIO 4.7 (6.6-38.0); CALCIUM 7.4 MG/DL (8.5-10.1); CHLORIDE 107 MMOL/L (99-107); CREATININE 0.64 MG/DL (0.40-0.90); GLUCOSE 94 MG/DL (70-104); MAGNESIUM 1.3 MG/DL (1.5-2.4); PHOSPHORUS 4.1 MG/DL (2.3-4.5); POTASSIUM 3.7 MMOL/L (3.5-5.1); SODIUM 141 MMOL/L (135-145); TOTAL CARBON DIOXIDE 23.5 MMOL/L (24-32); TOTAL PROTEIN 5.3 G/DL (6.4-8.2); eGFR > 90 ML/MIN
[2021-03-07] MEDS: haloperidol lactate 5mg/ml inj IM PRN ×2 (09:28→12:29)
[2021-03-07 11:00] VITALS: BP 139/77
[2021-03-07] MEDS: LORazepam 2 mg/ml vial IV PRN ×2 (11:46→17:19)
[2021-03-07 15:00] VITALS: BP 127/70
[2021-03-07 18:00] VITALS: BP 131/78
--- NOTE | 2021-03-07 18:53 | NUR ---
Problems reprioritized. Patient report given, questions answered & plan of care reviewed with Tamiko CASTILLO.
[2021-03-07] MEDS: LORazepam 1 MG tablet PO PRN (19:45)
[2021-03-07] MEDS: HYDROcodone/acetaminophen 10/325mg tab PO PRN (19:45)
[2021-03-07 20:00] VITALS: BP 131/78
[2021-03-07 22:00] VITALS: BP 126/71
[2021-03-07] MEDS ORDERED: CALCIUM GLUC 1gm/50ml NACL,iso 50 ML IV ONE (23:00)
[2021-03-08 02:00] VITALS: BP 122/80
--- NOTE | 2021-03-08 06:44 | NUR ---
Problems reprioritized. Patient report given, questions answered & plan of care reviewed with Taryn Sanchez .
[2021-03-08 07:27] LABS: ALANINE AMINOTRANSFERASE 49 U/L (12-78); ALBUMIN 2.3 G/DL (3.4-5.0); ALBUMIN/GLOBULIN RATIO 0.7 (1.1-1.5); ALKALINE PHOSPHATASE 152 IU/L (46-116); ANION GAP 11 (8-16); ASPARTATE AMINO TRANSFERASE 83 U/L (10-37); BILIRUBIN,TOTAL 1.1 MG/DL (0.1-1.0); BLOOD UREA NITROGEN 4 MG/DL (7-18); BUN/CREATININE RATIO 6.1 (6.6-38.0); CHLORIDE 106 MMOL/L (99-107); CREATININE 0.66 MG/DL (0.40-0.90); GLUCOSE 118 MG/DL (70-104); MAGNESIUM 1.4 MG/DL (1.5-2.4); PHOSPHORUS 4.8 MG/DL (2.3-4.5); POTASSIUM 3.8 MMOL/L (3.5-5.1); SODIUM 139 MMOL/L (135-145); TOTAL CARBON DIOXIDE 22.3 MMOL/L (24-32); TOTAL PROTEIN 5.4 G/DL (6.4-8.2); eGFR > 90 ML/MIN
[2021-03-08 07:50] LABS: HBSAG SCREEN Negative (Negative); HEP A AB, IGM Negative (Negative); HEPATITIS C ANTIBODY <0.1 s/co ratio (0.0-0.9)
[2021-03-08] MEDS: K and/or MAG REPLACEMENT MC SCH ×2 (08:00→19:52)
[2021-03-08] MEDS: CefTRIAXone/D5W-Rocephin 1gm 50 ML IV SCH (08:03)
[2021-03-08] MEDS: pantoprazole 40mg Tablet.DR PO SCH (08:04)
[2021-03-08] MEDS: multivitamins, therapeutics tablet PO SCH (08:04)
[2021-03-08] MEDS: docusate sod 100mg capsule PO SCH ×2 (08:04→19:53)
[2021-03-08] MEDS: folic acid 1mg tablet PO SCH (08:04)
[2021-03-08] MEDS: LORazepam 1 MG tablet PO PRN (08:04)
[2021-03-08] MEDS: thiamine 100mg tablet PO SCH (08:05)
[2021-03-08] MEDS: heparin, porcine 5000 units/ml vial SQ SCH ×2 (08:05→19:13)
[2021-03-08] MEDS: CALCIUM GLUC 1gm/50ml NACL,iso 50 ML IV SCH (08:08)
[2021-03-08 08:39] LABS: BASOPHILS % (AUTO) 1.1 % (0-1); EOSINOPHILS # (AUTO) 0.1 X10'3 (0-0.9); EOSINOPHILS % (AUTO) 2.8 % (0-6); HEMATOCRIT 35.7 % (35.0-45.0); LYMPHOCYTES # (AUTO) 1.4 X10'3 (1.1-4.8); LYMPHOCYTES % (AUTO) 33.9 % (21-51); MEAN CORPUSCULAR HEMOGLOBIN 33.6 PG (27.0-31.0); MEAN CORPUSCULAR HGB CONC 33.5 g/dL (33.0-36.5); MEAN CORPUSCULAR VOLUME 100.3 FL (78-98); MEAN PLATELET VOLUME 7.8 FL (7.4-10.4); MONOCYTES # (AUTO) 0.6 X10'3 (0-0.9); MONOCYTES % (AUTO) 14.9 % (2-12); NEUTROPHILS # (AUTO) 1.9 X10'3 (1.8-7.7); NEUTROPHILS % (AUTO) 47.3 % (42-75); PLATELET COUNT 159 X10'3 (140-440); RED BLOOD COUNT 3.56 X10'6 (4.20-5.60); RED CELL DISTRIBUTION WIDTH 25.2 % (11.5-14.5)
[2021-03-08] MEDS: LORazepam 2 mg/ml vial IV PRN ×11 (09:21→23:00)
[2021-03-08] MEDS: dextrose 5%-normal saline 1,000 ML IV SCH ×2 (09:26→19:24)
[2021-03-08 09:52] LABS: ANISOCYTOSIS 3+; PLATELET ESTIMATE NORMAL
--- NOTE | 2021-03-08 10:11 | NUR ---
Initial: Pt admit for alcoholism with hypokalemia, hypomagnesemia, and hypocalcemia. Pt on EtOH w/d protocol receiving routine Thiamine, Folic acid, and MVI as well as calcium replacement. Pt A/O x 2 and confused per physical assessment. S/p BSS 03/[address] campos to continue regular diet as pt swallowing well. Noted pt initially refused the first two meals while being independent however up to average 50% PO intake at the following meals once pt started receiving assistance with meals. Per MD note pt is in restraints and undergoing withdrawals. Recommend continuing with assisting at meals and encouraging PO intake. D/w dietary to chop meat for further assistance while pt with decreased mentation. Noted pt receiving D5/NS at 100 mL/hr providing ~408 kcal/day. LBM 03/06. Will continue to follow and make recommendations as appropriate. Recommendations: 1) Continue regular diet 2) Chop meat BIDLD to assist with meals given decreased mentation 3) Assist with meals and encourage PO intake 4) Monitor need for ONS 5) Continue routine Thiamine, Folic acid, and MVI for EtOH hx 6) Routine bowel care 7) Scaled weight this admit; weekly scaled weights thereafter Addendum: 03/08/21 at [address] Amended: Links added.
[2021-03-08 11:00] VITALS: BP 144/72
[2021-03-08] MEDS: haloperidol lactate 5mg/ml inj IM PRN ×3 (11:08→21:18)
--- NOTE | 2021-03-08 14:19 | NUR ---
PATIENT SLEEPING. BLOOD SUGAR WAS TAKEN.
[2021-03-08 15:00] VITALS: BP 119/85
[2021-03-08] MEDS ORDERED: magnesium Cl slow-release 64mg tablet PO PRN (16:40)
--- NOTE | 2021-03-08 18:42 | NUR ---
Patient in room PCU 3025. I have received report from Taryn CASTILLO and Tiffany NOLAN and had the opportunity to ask questions and assume patient care.
[2021-03-08 20:04] VITALS: BP 136/84
[2021-03-08 20:09] VITALS: BP 136/84
[2021-03-08 23:00] VITALS: BP 97/66
--- NOTE | 2021-03-08 23:58 | NUR ---
patient has been refusing telemetry, aware
[2021-03-09] MEDS: LORazepam 2 mg/ml vial IV PRN ×11 (00:31→21:20)
[2021-03-09] MEDS: morphine 2 MG/ML inj. syringe IV PRN (01:00)
[2021-03-09] MEDS: haloperidol lactate 5mg/ml inj IM PRN (01:43)
[2021-03-09 02:15] VITALS: BP 96/60
[2021-03-09] MEDS: dextrose 5%-normal saline 1,000 ML IV SCH ×2 (04:52→16:23)
[2021-03-09 06:40] LABS: BASOPHILS % (AUTO) 0.9 % (0-1); EOSINOPHILS # (AUTO) 0.1 X10'3 (0-0.9); EOSINOPHILS % (AUTO) 3.4 % (0-6); HEMOGLOBIN 12.5 g/dl (12.0-16.0); LYMPHOCYTES # (AUTO) 1.7 X10'3 (1.1-4.8); LYMPHOCYTES % (AUTO) 47.1 % (21-51); MEAN CORPUSCULAR HEMOGLOBIN 33.8 PG (27.0-31.0); MEAN CORPUSCULAR HGB CONC 32.8 g/dL (33.0-36.5); MEAN CORPUSCULAR VOLUME 102.9 FL (78-98); MEAN PLATELET VOLUME 7.9 FL (7.4-10.4); MONOCYTES # (AUTO) 0.5 X10'3 (0-0.9); MONOCYTES % (AUTO) 15.2 % (2-12); NEUTROPHILS # (AUTO) 1.2 X10'3 (1.8-7.7); NEUTROPHILS % (AUTO) 33.4 % (42-75); PLATELET COUNT 138 X10'3 (140-440); RED BLOOD COUNT 3.69 X10'6 (4.20-5.60); RED CELL DISTRIBUTION WIDTH 24.8 % (11.5-14.5); WHITE BLOOD COUNT 3.5 X10'3 (4.5-11.0)
[2021-03-09 06:56] LABS: ALANINE AMINOTRANSFERASE 47 U/L (12-78); ALBUMIN 2.3 G/DL (3.4-5.0); ALBUMIN/GLOBULIN RATIO 0.7 (1.1-1.5); ALKALINE PHOSPHATASE 151 IU/L (46-116); ANION GAP 12 (8-16); ASPARTATE AMINO TRANSFERASE 72 U/L (10-37); BILIRUBIN,TOTAL 1.1 MG/DL (0.1-1.0); BLOOD UREA NITROGEN 3 MG/DL (7-18); BUN/CREATININE RATIO 4.5 (6.6-38.0); CALCIUM 7.7 MG/DL (8.5-10.1); CHLORIDE 112 MMOL/L (99-107); CREATININE 0.66 MG/DL (0.40-0.90); GLUCOSE 114 MG/DL (70-104); MAGNESIUM 1.5 MG/DL (1.5-2.4); PHOSPHORUS 4.2 MG/DL (2.3-4.5); POTASSIUM 3.3 MMOL/L (3.5-5.1); SODIUM 145 MMOL/L (135-145); TOTAL CARBON DIOXIDE 21.3 MMOL/L (24-32); TOTAL PROTEIN 5.7 G/DL (6.4-8.2); eGFR > 90 ML/MIN
--- NOTE | 2021-03-09 06:59 | NUR ---
Problems reprioritized. Patient report given, questions answered & plan of care reviewed with Jayna CASTILLO .
[2021-03-09 07:00] VITALS: BP 115/80
--- NOTE | 2021-03-09 07:02 | NUR ---
Patient in room PCU 3025. I have received report from JONATHAN Renee and had the opportunity to ask questions and assume patient care.
[2021-03-09] MEDS: pantoprazole 40mg Tablet.DR PO SCH (07:30)
[2021-03-09] MEDS: CALCIUM GLUC 1gm/50ml NACL,iso 50 ML IV SCH (07:42)
[2021-03-09] MEDS: heparin, porcine 5000 units/ml vial SQ SCH ×2 (07:49→20:50)
[2021-03-09] MEDS: thiamine 100mg tablet PO SCH (08:00)
[2021-03-09] MEDS: docusate sod 100mg capsule PO SCH ×2 (08:00→20:50)
[2021-03-09] MEDS: K and/or MAG REPLACEMENT MC SCH ×2 (08:00→20:00)
[2021-03-09] MEDS: folic acid 1mg tablet PO SCH (08:00)
[2021-03-09] MEDS: multivitamins, therapeutics tablet PO SCH (08:00)
--- NOTE | 2021-03-09 08:30 | NUR ---
Paged to notify Dr Minaya of Tele even. Hillary Howe [id number] had 12 beat run VTAC. VS stable pt sleeping during event. Jayna 1995
[2021-03-09] MEDS ORDERED: magnesium 4gm in 100ml NS 100 ML IV ONE (09:30)
[2021-03-09 11:00] VITALS: BP 108/71
[2021-03-09 11:10] LABS: LARGE PLATELETS FEW; PLATELET ESTIMATE DECREASED; TOTAL CELLS COUNTED 100
[2021-03-09 11:11] LABS: ANISOCYTOSIS 3+; MICROCYTOSIS FEW; TEAR DROP CELLS FEW
[2021-03-09 15:00] VITALS: BP 128/72
[2021-03-09] MEDS ORDERED: potassium Cl 40MEQ/1/2NS 520ml 520 ML IV PRN (15:50)
[2021-03-09 18:30] VITALS: BP 126/82
--- NOTE | 2021-03-09 18:52 | NUR ---
Problems reprioritized. Patient report given, questions answered & plan of care reviewed with Nancy RN.
[2021-03-09] MEDS: HYDROcodone/acetaminophen 10/325mg tab PO PRN (21:01)
[2021-03-09 22:00] VITALS: BP 129/95
[2021-03-10] VITALS (7 sets, daily range): BP systolic 113–138; BP diastolic 56–80
[2021-03-10] MEDS: dextrose 5%-normal saline 1,000 ML IV SCH ×3 (02:38→15:05)
[2021-03-10] MEDS: LORazepam 2 mg/ml vial IV PRN ×2 (03:52→08:38)
[2021-03-10] MEDS: K and/or MAG REPLACEMENT MC SCH ×2 (08:00→20:00)
[2021-03-10] MEDS: ondansetron/PF 4mg/2ml inj IV PRN (08:33)
[2021-03-10] MEDS: docusate sod 100mg capsule PO SCH ×2 (08:45→20:39)
[2021-03-10] MEDS: multivitamins, therapeutics tablet PO SCH (08:46)
[2021-03-10] MEDS: pantoprazole 40mg Tablet.DR PO SCH (08:46)
[2021-03-10] MEDS: folic acid 1mg tablet PO SCH (08:46)
[2021-03-10] MEDS: thiamine 100mg tablet PO SCH (08:46)
[2021-03-10] MEDS: CALCIUM GLUC 1gm/50ml NACL,iso 50 ML IV SCH (08:47)
[2021-03-10] MEDS: heparin, porcine 5000 units/ml vial SQ SCH ×2 (08:50→20:38)
[2021-03-10 10:26] LABS: ALANINE AMINOTRANSFERASE 45 U/L (12-78); ALBUMIN 2.2 G/DL (3.4-5.0); ALBUMIN/GLOBULIN RATIO 0.7 (1.1-1.5); ALKALINE PHOSPHATASE 141 IU/L (46-116); ANION GAP 6 (8-16); ASPARTATE AMINO TRANSFERASE 74 U/L (10-37); BILIRUBIN,TOTAL 1.2 MG/DL (0.1-1.0); BLOOD UREA NITROGEN 2 MG/DL (7-18); BUN/CREATININE RATIO 3.2 (6.6-38.0); CALCIUM 7.2 MG/DL (8.5-10.1); CHLORIDE 112 MMOL/L (99-107); CREATININE 0.63 MG/DL (0.40-0.90); GLUCOSE 98 MG/DL (70-104); MAGNESIUM 2.1 MG/DL (1.5-2.4); PHOSPHORUS 3.6 MG/DL (2.3-4.5); POTASSIUM 4.2 MMOL/L (3.5-5.1); SODIUM 141 MMOL/L (135-145); TOTAL PROTEIN 5.2 G/DL (6.4-8.2); eGFR > 90 ML/MIN
[2021-03-10] MEDS: CefTRIAXone/D5W-Rocephin 1gm 50 ML IV SCH (10:58)
[2021-03-10 11:36] LABS: BASOPHILS % (AUTO) 0.9 % (0-1); EOSINOPHILS # (AUTO) 0.2 X10'3 (0-0.9); EOSINOPHILS % (AUTO) 4.5 % (0-6); HEMATOCRIT 34.5 % (35.0-45.0); HEMOGLOBIN 11.5 g/dl (12.0-16.0); LYMPHOCYTES # (AUTO) 0.9 X10'3 (1.1-4.8); LYMPHOCYTES % (AUTO) 24.7 % (21-51); MEAN CORPUSCULAR HEMOGLOBIN 34.1 PG (27.0-31.0); MEAN CORPUSCULAR HGB CONC 33.4 g/dL (33.0-36.5); MEAN CORPUSCULAR VOLUME 102.1 FL (78-98); MONOCYTES # (AUTO) 0.6 X10'3 (0-0.9); MONOCYTES % (AUTO) 16.2 % (2-12); NEUTROPHILS % (AUTO) 53.7 % (42-75); PLATELET COUNT 164 X10'3 (140-440); RED BLOOD COUNT 3.38 X10'6 (4.20-5.60); RED CELL DISTRIBUTION WIDTH 24.2 % (11.5-14.5); WHITE BLOOD COUNT 3.8 X10'3 (4.5-11.0)
[2021-03-10 11:50] LABS: TOTAL CELLS COUNTED 100
[2021-03-10 11:51] LABS: ANISOCYTOSIS 3+; PLATELET ESTIMATE NORMAL
[2021-03-10 11:52] LABS: MICROCYTOSIS FEW; TEAR DROP CELLS FEW
[2021-03-10] MEDS: HYDROcodone/acetaminophen 5mg/325mg tablet PO PRN (16:19)
--- NOTE | 2021-03-10 18:02 | NUR ---
Extended PIV not drawing blood but easily flushed without s/s of extravastion. New y-port put on to test for aspiration but not successful. Blood draw obtained using ultrasound guidance. Addendum: 03/10/21 at 1807 by Ning Schaefer RN Amended: Links added.
--- NOTE | 2021-03-10 18:34 | NUR ---
Problems reprioritized. Patient report given, questions answered & plan of care reviewed with serenity barraza.
--- NOTE | 2021-03-10 18:36 | NUR ---
Patient in room PCU 3025. I have received report from JONATHAN Lemon and had the opportunity to ask questions and assume patient care.
[2021-03-11] VITALS (7 sets, daily range): BP systolic 116–153; BP diastolic 55–93
[2021-03-11] MEDS: LORazepam 2 mg/ml vial IV PRN ×3 (02:44→23:17)
--- NOTE | 2021-03-11 06:00 | NUR ---
Patient in room PCU 3025. I have received report from laverne barraza and had the opportunity to ask questions and assume patient care.
--- NOTE | 2021-03-11 06:15 | NUR ---
Problems reprioritized. Patient report given, questions answered & plan of care reviewed with JONATHAN Lemon.
[2021-03-11] MEDS: dextrose 5%-normal saline 1,000 ML IV SCH ×2 (07:55→16:39)
[2021-03-11] MEDS: K and/or MAG REPLACEMENT MC SCH ×2 (08:00→20:00)
[2021-03-11] MEDS: docusate sod 100mg capsule PO SCH ×2 (08:35→20:21)
[2021-03-11] MEDS: thiamine 100mg tablet PO SCH (08:35)
[2021-03-11] MEDS: CefTRIAXone/D5W-Rocephin 1gm 50 ML IV SCH (08:36)
[2021-03-11] MEDS: multivitamins, therapeutics tablet PO SCH (08:36)
[2021-03-11] MEDS: CALCIUM GLUC 1gm/50ml NACL,iso 50 ML IV SCH (08:36)
[2021-03-11] MEDS: pantoprazole 40mg Tablet.DR PO SCH (08:36)
[2021-03-11] MEDS: folic acid 1mg tablet PO SCH (08:36)
[2021-03-11] MEDS: heparin, porcine 5000 units/ml vial SQ SCH ×2 (08:38→20:22)
[2021-03-11] MEDS: HYDROcodone/acetaminophen 5mg/325mg tablet PO PRN (12:43)
[2021-03-11 12:46] LABS: EOSINOPHILS # (AUTO) 0.1 X10'3 (0-0.9); MONOCYTES # (AUTO) 0.7 X10'3 (0-0.9); WHITE BLOOD COUNT 3.8 X10'3 (4.5-11.0)
[2021-03-11 12:47] LABS: BASOPHILS % (AUTO) 0.9 % (0-1); EOSINOPHILS % (AUTO) 3.5 % (0-6); HEMATOCRIT 32.6 % (35.0-45.0); HEMOGLOBIN 10.8 g/dl (12.0-16.0); LYMPHOCYTES # (AUTO) 0.9 X10'3 (1.1-4.8); LYMPHOCYTES % (AUTO) 22.6 % (21-51); MEAN CORPUSCULAR HEMOGLOBIN 33.9 PG (27.0-31.0); MEAN CORPUSCULAR HGB CONC 33.3 g/dL (33.0-36.5); MEAN CORPUSCULAR VOLUME 101.9 FL (78-98); MEAN PLATELET VOLUME 7.7 FL (7.4-10.4); MONOCYTES % (AUTO) 17.1 % (2-12); NEUTROPHILS # (AUTO) 2.1 X10'3 (1.8-7.7); NEUTROPHILS % (AUTO) 55.9 % (42-75); PLATELET COUNT 183 X10'3 (140-440)
[2021-03-11 12:55] LABS: ALANINE AMINOTRANSFERASE 47 U/L (12-78); ALBUMIN 2.2 G/DL (3.4-5.0); ALBUMIN/GLOBULIN RATIO 0.7 (1.1-1.5); ALKALINE PHOSPHATASE 140 IU/L (46-116); ANION GAP 8 (8-16); ASPARTATE AMINO TRANSFERASE 64 U/L (10-37); BLOOD UREA NITROGEN 2 MG/DL (7-18); BUN/CREATININE RATIO 3.4 (6.6-38.0); CALCIUM 7.5 MG/DL (8.5-10.1); CHLORIDE 109 MMOL/L (99-107); CREATININE 0.59 MG/DL (0.40-0.90); GLUCOSE 93 MG/DL (70-104); MAGNESIUM 1.8 MG/DL (1.5-2.4); PHOSPHORUS 3.7 MG/DL (2.3-4.5); POTASSIUM 3.3 MMOL/L (3.5-5.1); SODIUM 145 MMOL/L (135-145); TOTAL CARBON DIOXIDE 28.1 MMOL/L (24-32); TOTAL PROTEIN 5.3 G/DL (6.4-8.2); eGFR > 90 ML/MIN
[2021-03-11] MEDS ORDERED: magnesium Cl slow-release 64mg tablet PO PRN (15:35)
[2021-03-11] MEDS ORDERED: potassium Cl 20 mEq SR tablet PO PRN (15:35)
[2021-03-11] MEDS: HYDROcodone/acetaminophen 10/325mg tab PO PRN ×2 (16:37→23:16)
[2021-03-11] MEDS: potassium Cl 20 mEq SR tablet PO PRN ×2 (16:37→22:28)
--- NOTE | 2021-03-11 18:25 | NUR ---
Patient in room PCU 3025. I have received report from Xochilt and had the opportunity to ask questions and assume patient care.
--- NOTE | 2021-03-11 18:25 | NUR ---
Patient in room PCU 3025. I have received report from JONATHAN Lemon and had the opportunity to ask questions and assume patient care.
[2021-03-12 02:55] VITALS: BP 93/55
[2021-03-12 06:00] VITALS: BP 122/80
[2021-03-12] MEDS ORDERED: dextrose ORAL solution 15 GM/59 ML bottle PO PRN ×2 (06:10)
[2021-03-12] MEDS ORDERED: glucagon, human recombinant 1mg kit SUBCUT PRN (06:10)
--- NOTE | 2021-03-12 06:15 | NUR ---
Problems reprioritized. Patient report given, questions answered & plan of care reviewed with JONATHAN Lemon.
--- NOTE | 2021-03-12 06:19 | NUR ---
Patient in room PCU 3025. I have received report from shraddha barraza and had the opportunity to ask questions and assume patient care.
[2021-03-12] MEDS: K and/or MAG REPLACEMENT MC SCH (08:00)
[2021-03-12] MEDS: multivitamins, therapeutics tablet PO SCH (08:03)
[2021-03-12] MEDS: thiamine 100mg tablet PO SCH (08:04)
[2021-03-12] MEDS: docusate sod 100mg capsule PO SCH ×2 (08:04→20:35)
[2021-03-12] MEDS: folic acid 1mg tablet PO SCH (08:04)
[2021-03-12] MEDS: pantoprazole 40mg Tablet.DR PO SCH (08:04)
[2021-03-12] MEDS: CefTRIAXone/D5W-Rocephin 1gm 50 ML IV SCH (08:05)
[2021-03-12] MEDS: heparin, porcine 5000 units/ml vial SQ SCH ×2 (08:07→20:36)
[2021-03-12] MEDS: dextrose 5%-normal saline 1,000 ML IV SCH ×3 (08:11→22:42)
[2021-03-12] MEDS: HYDROcodone/acetaminophen 10/325mg tab PO PRN ×3 (09:33→20:34)
[2021-03-12] MEDS: CALCIUM GLUC 1gm/50ml NACL,iso 50 ML IV SCH (09:33)
--- NOTE | 2021-03-12 10:40 | NUR ---
aware of yesterdays lab result. k-3.3. will continue to monitor no replacement at this time
[2021-03-12 10:50] VITALS: BP 112/59
--- NOTE | 2021-03-12 14:12 | NUR ---
Reassessment: Pt A/O x 1 and confused per physical assessment, currently in restraints per EMR. PO intake has decreased, down to 0% 03/09 to breakfast 03/10, though slowly improving documented with 25-50% PO intake at two most recent meals. Per EMR pt receiving moderate assistance with meals. Pt receiving chopped meat BIDLD for further assistance. Pt not likely to be accepting of ONS at this time. If poor PO persists pt would benefit from nutrition support to assist with meeting estimated nutrient needs. Noted pt continues with D5/NS at 100 mL/hr providing 408 kcal/day. LBM 03/10, documented as large. Pt continues receiving routine bowel care. Will continue to follow closely and make recommendations as appropriate. Recommendations: 1) Continue regular diet 2) Chop meat BIDLD to assist with meals given decreased mentation 3) Assist with meals and encourage PO intake 4) Monitor need for ONS; consider nutrition support if PO intake does not improve 5) Continue routine Thiamine, Folic acid, and MVI for EtOH hx 6) Routine bowel care 7) Scaled weight this admit; weekly scaled weights thereafter Addendum: 03/12/21 at [address] Amended: Links added.
[2021-03-12] MEDS: LORazepam 2 mg/ml vial IV PRN (14:51)
[2021-03-12 15:00] VITALS: BP 139/86
--- NOTE | 2021-03-12 16:46 | NUR ---
PAGER ID: [phone] MESSAGE: Xochilt barraza [phone] re: Bianca Alicia [id number]. LUE vascular report. Occlusive thrombus L cephalic vein. thank you.
[2021-03-12 17:19] VITALS: BP_SYST 118; BP_SYST 131; BP_DIAS 77; BP_DIAS 86
--- NOTE | 2021-03-12 17:22 | NUR ---
Pt was more alert today however continues to be confused. Pt stating "wheres the ping pong table?" and "When is the democrat, we are late". Performed trial without restraints however patient very quickly attempted to get out of the bed. Pt very unsteady on feet with physical therapy yesterday. MD notified and stated restraints will be renewed. MD also aware L midline unable to infuse/draw. AM labs not performed. R midline removed today. PIV placed in patients L breast by chargemaster analyst. Will continue to monitor patient. Addendum: 03/12/21 at 1739 by Xochilt Floyd RN Pt repositioned Q2h this shift. Heels floated with pillows.
--- NOTE | 2021-03-12 18:30 | NUR ---
Patient in room PCU 3025. I have received report from Xochilt CASTILLO and had the opportunity to ask questions and assume patient care.
[2021-03-12 22:00] VITALS: BP 124/61
[2021-03-13] MEDS: LORazepam 1 MG tablet PO PRN ×2 (00:34→07:27)
[2021-03-13] MEDS: K and/or MAG REPLACEMENT MC SCH ×5 (01:13→19:39)
--- NOTE | 2021-03-13 01:21 | NUR ---
Around 0040, pt.c/o chest pain. EKG order received, completed and shown to MD. Unable to get a troponin at this time as patient is an extremely hard stick and currently is w/o any IV access. MD aware and states to get lab in am. Have timed it for 0645 which would be the 6hr lab. Addendum: 03/13/21 at 0126 by Gracia Keyes RN Patient has since been given 4mg ativan and a norco 10 for pain. Pt. states that she has no more chest pain but pain to her R ankle and rosmery feet. Pt. is currently resting with 3 rails up and 3 point soft restraints. Bed low/locked, call light within reach.
[2021-03-13] MEDS: HYDROcodone/acetaminophen 10/325mg tab PO PRN ×3 (01:52→19:46)
[2021-03-13] MEDS ORDERED: potassium Cl 40MEQ/1/2NS 520ml 520 ML IV PRN ×2 (02:00)
[2021-03-13] MEDS ORDERED: potassium Cl 20 mEq SR tablet PO PRN (02:00)
[2021-03-13 05:14] VITALS: BP 142/85
--- NOTE | 2021-03-13 06:30 | NUR ---
Patient in room PCU 3025. I have received report from Gracia CASTILLO and had the opportunity to ask questions and assume patient care.
--- NOTE | 2021-03-13 06:37 | NUR ---
Problems reprioritized. Patient report given, questions answered & plan of care reviewed with Orion RN.
[2021-03-13] MEDS: pantoprazole 40mg Tablet.DR PO SCH (07:24)
[2021-03-13] MEDS: docusate sod 100mg capsule PO SCH ×2 (07:25→19:46)
[2021-03-13] MEDS: folic acid 1mg tablet PO SCH (07:25)
[2021-03-13] MEDS: multivitamins, therapeutics tablet PO SCH (07:26)
[2021-03-13] MEDS: thiamine 100mg tablet PO SCH (07:26)
[2021-03-13] MEDS: heparin, porcine 5000 units/ml vial SQ SCH ×2 (07:32→19:46)
[2021-03-13 07:40] VITALS: BP 134/64
[2021-03-13] MEDS: CefTRIAXone/D5W-Rocephin 1gm 50 ML IV SCH (08:00)
[2021-03-13] MEDS: CALCIUM GLUC 1gm/50ml NACL,iso 50 ML IV SCH (08:00)
[2021-03-13 12:02] VITALS: BP 119/64
[2021-03-13] MEDS: dextrose 5%-normal saline 1,000 ML IV SCH (15:02)
[2021-03-13 16:03] VITALS: BP 124/53
--- NOTE | 2021-03-13 18:25 | NUR ---
Problems reprioritized. Patient report given, questions answered & plan of care reviewed with Magda CASTILLO.
[2021-03-13 18:30] VITALS: BP 163/75
--- NOTE | 2021-03-13 18:30 | NUR ---
Patient in room U 3025. I have received report from JONATHAN SANDERSON and had the opportunity to ask questions and assume patient care. Addendum: 03/13/21 at 1934 by Rigo Mills RN Amended: Links added.
--- NOTE | 2021-03-13 19:00 | NUR ---
PT REFUSES TO ATTEMPT STANDING, OR SITTING, VERY UNSTEADY UNABLE TO OBTAIN. Addendum: 03/14/21 at 0115 by Rigo Mills RN Amended: Links added.
[2021-03-14] VITALS (7 sets, daily range): BP systolic 115–146; BP diastolic 53–91
[2021-03-14] MEDS: LORazepam 1 MG tablet PO PRN ×2 (00:49→17:20)
--- NOTE | 2021-03-14 00:57 | NUR ---
ATIVAN PO GIVEN FOR AGITATION AND ANXIETY. PULLING BLANKETS OFF TRYING TO COVER SELF UP WARM BLANKET GIVEN. PT ASKING ABOUT BROTHER, CONFUSED. Addendum: 03/14/21 at 0058 by Rigo Mills RN Amended: Links added.
--- NOTE | 2021-03-14 03:00 | NUR ---
pT REFUSES BLOOD GLUCOSE. Addendum: 03/14/21 at 0537 by Rigo Mills RN Amended: Links added.
[2021-03-14] MEDS: HYDROcodone/acetaminophen 10/325mg tab PO PRN ×3 (03:46→17:20)
[2021-03-14] MEDS: dextrose 5%-normal saline 1,000 ML IV SCH ×2 (04:22→10:54)
--- NOTE | 2021-03-14 06:46 | NUR ---
Problems reprioritized. Patient report given, questions answered & plan of care reviewed with JONATHAN Alonso. Addendum: 03/14/21 at 0647 by Rigo Mills RN Amended: Links added.
[2021-03-14 06:50] LABS: BASOPHILS % (AUTO) 1.3 % (0-1); EOSINOPHILS # (AUTO) 0.1 X10'3 (0-0.9); EOSINOPHILS % (AUTO) 2.6 % (0-6); HEMATOCRIT 29.2 % (35.0-45.0); HEMOGLOBIN 9.8 g/dl (12.0-16.0); LYMPHOCYTES # (AUTO) 0.9 X10'3 (1.1-4.8); LYMPHOCYTES % (AUTO) 29.1 % (21-51); MEAN CORPUSCULAR HEMOGLOBIN 34.1 PG (27.0-31.0); MEAN CORPUSCULAR HGB CONC 33.5 g/dL (33.0-36.5); MEAN CORPUSCULAR VOLUME 101.9 FL (78-98); MEAN PLATELET VOLUME 7.8 FL (7.4-10.4); MONOCYTES # (AUTO) 0.5 X10'3 (0-0.9); MONOCYTES % (AUTO) 14.8 % (2-12); NEUTROPHILS # (AUTO) 1.6 X10'3 (1.8-7.7); NEUTROPHILS % (AUTO) 52.2 % (42-75); PLATELET COUNT 180 X10'3 (140-440); RED BLOOD COUNT 2.87 X10'6 (4.20-5.60); RED CELL DISTRIBUTION WIDTH 23.1 % (11.5-14.5); WHITE BLOOD COUNT 3.1 X10'3 (4.5-11.0)
[2021-03-14 06:59] LABS: ALANINE AMINOTRANSFERASE 31 U/L (12-78); ALBUMIN 1.9 G/DL (3.4-5.0); ALBUMIN/GLOBULIN RATIO 0.5 (1.1-1.5); ALKALINE PHOSPHATASE 138 IU/L (46-116); ANION GAP 12 (8-16); ASPARTATE AMINO TRANSFERASE 53 U/L (10-37); BILIRUBIN,TOTAL 1.2 MG/DL (0.1-1.0); BLOOD UREA NITROGEN 9 MG/DL (7-18); CALCIUM 8.3 MG/DL (8.5-10.1); CHLORIDE 106 MMOL/L (99-107); MAGNESIUM 1.8 MG/DL (1.5-2.4); PHOSPHORUS 3.8 MG/DL (2.3-4.5); POTASSIUM 3.5 MMOL/L (3.5-5.1); SODIUM 141 MMOL/L (135-145); TOTAL CARBON DIOXIDE 23.1 MMOL/L (24-32); TOTAL PROTEIN 5.4 G/DL (6.4-8.2); eGFR > 90 ML/MIN
[2021-03-14 07:17] LABS: GLUCOSE 84 MG/DL (70-104)
--- NOTE | 2021-03-14 07:28 | NUR ---
paged critical lab PAGER ID: [phone] MESSAGE: room [id number] Bianca Alicia, critical lab Troponin:61
[2021-03-14] MEDS: K and/or MAG REPLACEMENT MC SCH ×4 (08:00→20:00)
[2021-03-14] MEDS: heparin, porcine 5000 units/ml vial SQ SCH ×2 (09:26→20:20)
[2021-03-14] MEDS: multivitamins, therapeutics tablet PO SCH (09:27)
[2021-03-14] MEDS: folic acid 1mg tablet PO SCH (09:27)
[2021-03-14] MEDS: docusate sod 100mg capsule PO SCH ×2 (09:27→20:17)
[2021-03-14] MEDS: pantoprazole 40mg Tablet.DR PO SCH (09:27)
[2021-03-14] MEDS: CALCIUM GLUC 1gm/50ml NACL,iso 50 ML IV SCH (09:28)
[2021-03-14] MEDS: thiamine 100mg tablet PO SCH (09:28)
--- NOTE | 2021-03-14 18:20 | NUR ---
Rounding on pt, pt reported her arm feeling warm and cold. Upon assessment found midline to be swollen ,red and bruised. IV fluid stopped and morning nurse notified. Left arm elevated and encouraged pt to keep her arm up on the pillow.
--- NOTE | 2021-03-14 19:08 | NUR ---
Problems reprioritized. Patient report given, questions answered & plan of care reviewed with Rosaline CASTILLO.
[2021-03-15] VITALS (8 sets, daily range): BP systolic 94–156; BP diastolic 49–76
[2021-03-15] MEDS: HYDROcodone/acetaminophen 5mg/325mg tablet PO PRN ×2 (01:20→12:58)
--- NOTE | 2021-03-15 02:00 | NUR ---
Pt refused blood glucose monitoring. Continue to monitor pt for fall and confusion. Pt reoriented to her room and bed.
[2021-03-15] MEDS: LORazepam 1 MG tablet PO PRN ×4 (02:08→19:55)
--- NOTE | 2021-03-15 06:20 | NUR ---
Patient in room PCU 3025. I have received report from Rosaline CASTILLO traveler and had the opportunity to ask questions and assume patient care.
[2021-03-15 06:28] LABS: BASOPHILS % (AUTO) 1.1 % (0-1); EOSINOPHILS # (AUTO) 0.1 X10'3 (0-0.9); EOSINOPHILS % (AUTO) 1.8 % (0-6); HEMATOCRIT 25.9 % (35.0-45.0); HEMOGLOBIN 8.7 g/dl (12.0-16.0); LYMPHOCYTES # (AUTO) 0.9 X10'3 (1.1-4.8); LYMPHOCYTES % (AUTO) 30.2 % (21-51); MEAN CORPUSCULAR HEMOGLOBIN 33.9 PG (27.0-31.0); MEAN CORPUSCULAR HGB CONC 33.4 g/dL (33.0-36.5); MEAN CORPUSCULAR VOLUME 101.4 FL (78-98); MEAN PLATELET VOLUME 7.6 FL (7.4-10.4); MONOCYTES # (AUTO) 0.4 X10'3 (0-0.9); MONOCYTES % (AUTO) 12.1 % (2-12); NEUTROPHILS # (AUTO) 1.7 X10'3 (1.8-7.7); NEUTROPHILS % (AUTO) 54.8 % (42-75); PLATELET COUNT 181 X10'3 (140-440); RED BLOOD COUNT 2.56 X10'6 (4.20-5.60); RED CELL DISTRIBUTION WIDTH 22.3 % (11.5-14.5)
--- NOTE | 2021-03-15 06:41 | NUR ---
Patient in room PCU 3025. I have received report from Rosaline CASTILLO Traveler PCU and had the opportunity to ask questions and assume patient care.
--- NOTE | 2021-03-15 06:51 | NUR ---
PAGED PICC NURSE: Good morning, could you please help get a PIV on this pt plz. Midline got infected/infiltrated. DC last night. Very hard stick. tried 2x. Thank you, Chantell RAMIREZU
[2021-03-15] MEDS: dextrose 5%-normal saline 1,000 ML IV SCH (07:02)
[2021-03-15 07:19] LABS: ALANINE AMINOTRANSFERASE 34 U/L (12-78); ALBUMIN 1.7 G/DL (3.4-5.0); ALBUMIN/GLOBULIN RATIO 0.5 (1.1-1.5); ALKALINE PHOSPHATASE 141 IU/L (46-116); ANION GAP 9 (8-16); ASPARTATE AMINO TRANSFERASE 55 U/L (10-37); BILIRUBIN,TOTAL 0.8 MG/DL (0.1-1.0); BLOOD UREA NITROGEN 7 MG/DL (7-18); BUN/CREATININE RATIO 11.7 (6.6-38.0); CALCIUM 8.1 MG/DL (8.5-10.1); CHLORIDE 107 MMOL/L (99-107); GLUCOSE 88 MG/DL (70-104); MAGNESIUM 1.8 MG/DL (1.5-2.4); PHOSPHORUS 4.2 MG/DL (2.3-4.5); POTASSIUM 3.4 MMOL/L (3.5-5.1); SODIUM 141 MMOL/L (135-145); TOTAL CARBON DIOXIDE 25.2 MMOL/L (24-32); TOTAL PROTEIN 5.1 G/DL (6.4-8.2); eGFR > 90 ML/MIN
[2021-03-15 07:40] LABS: ANISOCYTOSIS 3+; PLATELET ESTIMATE NORMAL; TOTAL CELLS COUNTED 100
[2021-03-15] MEDS: K and/or MAG REPLACEMENT MC SCH ×4 (08:00→20:00)
[2021-03-15] MEDS: docusate sod 100mg capsule PO SCH ×2 (09:04→19:55)
--- NOTE | 2021-03-15 09:04 | NUR ---
spoke to pharmacist and inquired about the need of Calcium Gluc. Pharmacist will page Dr Minaya to see if pt still needs this or it can be DC'ed.
[2021-03-15] MEDS: pantoprazole 40mg Tablet.DR PO SCH (09:05)
[2021-03-15] MEDS: potassium Cl 20 mEq SR tablet PO PRN ×3 (09:06→20:08)
[2021-03-15] MEDS: folic acid 1mg tablet PO SCH (09:06)
[2021-03-15] MEDS: multivitamins, therapeutics tablet PO SCH (09:06)
[2021-03-15] MEDS: thiamine 100mg tablet PO SCH (09:07)
[2021-03-15] MEDS: heparin, porcine 5000 units/ml vial SQ SCH ×2 (09:13→19:55)
[2021-03-15 12:21] LABS: % IRON SATURATION 12 % (11-46); IRON 23 UG/DL (49-151); TOTAL IRON BINDING CAPACITY 195 UG/DL (259-388)
--- NOTE | 2021-03-15 12:36 | NUR ---
Student documentation: I have reviewed and agree with all interventions, assessments performed and documented by Lilli Moon Percy student.
--- NOTE | 2021-03-15 14:37 | NUR ---
Reassessment: Pt more alert this assessment and withdrawals are mostly resolved per MD note; no restraints noted. Pt w/ slight improvement in PO, avg 50% of meals on regular diet partially meeting needs. Will add shakes BID LD for extra calories and protein, d/w dietary. LBM 03/12 receiving routine colace. Will continue to monitor. Recommendations: 1) Continue regular diet 2) Chop meat BIDLD to assist with meals given decreased mentation 3) Shakes BIDLD 4) Monitor need for ONS; consider nutrition support if PO intake does not improve 5) Continue routine Thiamine, Folic acid, and MVI for EtOH hx 6) Routine bowel care 7) Scaled weight this admit; weekly scaled weights thereafter Addendum: 03/15/21 at [address] Amended: Links added.
--- NOTE | 2021-03-15 14:45 | NUR ---
Discontinued midline, left upper arm. Catheter 9 cm long with a kink near the middle. The end appears to have been cut. Showed to charger tester Gary and verified. Addendum: 03/15/21 at 1456 by Chantell Vines RN Information verified by and Luciano Franco RN.
--- NOTE | 2021-03-15 16:38 | NUR ---
PT WAS GIVEN A NORCO AT 1300. AFTER 1 HR OF GIVING HER THE MEDICATION, PT HAS BECOME MORE CONFUSED. SHE WAS CONFUSED BUT CALM, A&OX1. AFTER NORCO, PT HAS BECOME ANXIOUS, MORE CONFUSED, NOT EASILY RE-DIRECTED. HAS STARTING TO TAKE OFF HER MONITOR, TRYING TO GET OFF BED, WONDER OFF ROOM, TURNING ALARM OFF, TAKING TABS OFF. CONTINUES TO THING SHE IS ELSEWHERE, STORE, [facility], ETC. WILL PASS ALONG INFO TO NOC NURSE TO NOT GIVE NORCO. CHARGE NURSE IS AWARE.
--- NOTE | 2021-03-15 18:12 | NUR ---
Problems reprioritized. Patient report given to Sarah CASTILLO, questions answered & plan of care reviewed with .
--- NOTE | 2021-03-15 18:12 | NUR ---
Problems reprioritized. Patient report given, questions answered & plan of care reviewed with burton CASTILLO.
--- NOTE | 2021-03-15 18:42 | NUR ---
Patient in room PCU 3025. I have received report from JONATHAN Abdul and had the opportunity to ask questions and assume patient care.
[2021-03-15] MEDS: haloperidol lactate 5mg/ml inj IM PRN (23:13)
--- NOTE | 2021-03-15 23:45 | NUR ---
Pt has been agitated and confused and getting out of her bed throughout the night. Gave PRN ativan and pt continued to be agitated and confused and getting out of bed. Spoke with Dr. Barrett she ordered soft restraints for the pt. Pt was also given PRN haldol and is still having moments of agitation but does seem calmer with fewer outbursts.
[2021-03-16] VITALS (7 sets, daily range): BP systolic 114–141; BP diastolic 56–75
--- NOTE | 2021-03-16 06:30 | NUR ---
Problems reprioritized. Patient report given, questions answered & plan of care reviewed with JONATHAN Zee.
[2021-03-16] MEDS: K and/or MAG REPLACEMENT MC SCH ×4 (08:00→21:00)
[2021-03-16] MEDS: pantoprazole 40mg Tablet.DR PO SCH (08:35)
[2021-03-16] MEDS: thiamine 100mg tablet PO SCH (08:35)
[2021-03-16] MEDS: folic acid 1mg tablet PO SCH (08:35)
[2021-03-16] MEDS: docusate sod 100mg capsule PO SCH ×2 (08:35→20:00)
[2021-03-16] MEDS: heparin, porcine 5000 units/ml vial SQ SCH ×2 (08:35→19:50)
[2021-03-16] MEDS: multivitamins, therapeutics tablet PO SCH (08:35)
[2021-03-16] MEDS ORDERED: iron sucrose complex injection 200 MG in normal saline 100ml IV soln 100 ML IV SCH (08:35)
[2021-03-16 09:54] LABS: ALANINE AMINOTRANSFERASE 62 U/L (12-78); ALBUMIN/GLOBULIN RATIO 0.5 (1.1-1.5); ALKALINE PHOSPHATASE 176 IU/L (46-116); ANION GAP 8 (8-16); ASPARTATE AMINO TRANSFERASE 112 U/L (10-37); BILIRUBIN,TOTAL 0.7 MG/DL (0.1-1.0); BLOOD UREA NITROGEN 5 MG/DL (7-18); BUN/CREATININE RATIO 9.8 (6.6-38.0); CALCIUM 8.3 MG/DL (8.5-10.1); CHLORIDE 108 MMOL/L (99-107); CREATININE 0.51 MG/DL (0.40-0.90); GLUCOSE 81 MG/DL (70-104); SODIUM 140 MMOL/L (135-145); TOTAL CARBON DIOXIDE 23.6 MMOL/L (24-32); TOTAL PROTEIN 5.8 G/DL (6.4-8.2); eGFR > 90 ML/MIN
[2021-03-16 09:55] LABS: POTASSIUM 4.1 MMOL/L (3.5-5.1)
[2021-03-16] MEDS: LORazepam 1 MG tablet PO PRN ×2 (10:11→16:13)
[2021-03-16] MEDS: haloperidol lactate 5mg/ml inj IM PRN ×2 (11:22→17:05)
--- NOTE | 2021-03-16 11:45 | NUR ---
Security bedside to assist patient back into her bed. Patient was found sitting in her neighbor's bed putting on her clothes. She states she wants to go home, but isn't making logical sense. She was yelling and being verbally aggressive. Dr. Abdalla was called with the update. Order placed for pham pena. Patient in bed with restraints in place.
[2021-03-16 12:18] LABS: BASOPHILS % (AUTO) 1.4 % (0-1); EOSINOPHILS % (AUTO) 2.1 % (0-6); LYMPHOCYTES # (AUTO) 0.5 X10'3 (1.1-4.8); LYMPHOCYTES % (AUTO) 27.2 % (21-51); MEAN CORPUSCULAR HEMOGLOBIN 33.7 PG (27.0-31.0); MEAN CORPUSCULAR HGB CONC 33.5 g/dL (33.0-36.5); MEAN CORPUSCULAR VOLUME 100.9 FL (78-98); MEAN PLATELET VOLUME 7.5 FL (7.4-10.4); MONOCYTES # (AUTO) 0.2 X10'3 (0-0.9); MONOCYTES % (AUTO) 12.9 % (2-12); NEUTROPHILS % (AUTO) 56.4 % (42-75); PLATELET COUNT 221 X10'3 (140-440); RED BLOOD COUNT 2.97 X10'6 (4.20-5.60); WHITE BLOOD COUNT 1.9 X10'3 (4.5-11.0)
[2021-03-16 13:19] LABS: TOTAL CELLS COUNTED 100
[2021-03-16 13:20] LABS: ANISOCYTOSIS 3+; PLATELET ESTIMATE NORMAL
[2021-03-16 15:33] LABS: OCCULT BLOOD STOOL NEGATIVE (Neg)
[2021-03-16] MEDS ORDERED: ziprasidone IM 20mg inj **IM only IM PRN (17:50)
--- NOTE | 2021-03-16 18:26 | NUR ---
Problems reprioritized. Patient report given, questions answered & plan of care reviewed with Rosaline CASTILLO.
--- NOTE | 2021-03-16 18:30 | NUR ---
PT walking in the room, appears very anxious. restraints not in use. Pt guided to her bed and instructed to stay in bed and call for assistance if needed. call light placed within reach
--- NOTE | 2021-03-16 19:51 | NUR ---
Pt grabbing the linen and leaving the room and stated that she is going to the laundromat; pt reoriented and i let her know that she is in the hospital and she needs to go back to bed. pt refused but sitting at the edge of bed ; IM medication given
[2021-03-17] MEDS: LORazepam 1 MG tablet PO PRN (00:37)
--- NOTE | 2021-03-17 03:40 | NUR ---
Pt is sleeping.
--- NOTE | 2021-03-17 06:00 | NUR ---
refused vitals for 0600
--- NOTE | 2021-03-17 06:47 | NUR ---
pt rested well, no agitation, no confusion, slept after being medicated for anxiety.
[2021-03-17 08:00] VITALS: BP 135/61
[2021-03-17] MEDS: docusate sod 100mg capsule PO SCH ×2 (08:00→19:58)
[2021-03-17] MEDS: K and/or MAG REPLACEMENT MC SCH ×4 (08:00→20:00)
[2021-03-17] MEDS: pantoprazole 40mg Tablet.DR PO SCH (08:17)
[2021-03-17] MEDS: folic acid 1mg tablet PO SCH (08:17)
[2021-03-17] MEDS: HYDROcodone/acetaminophen 10/325mg tab PO PRN ×2 (08:17→19:57)
[2021-03-17] MEDS: thiamine 100mg tablet PO SCH (08:17)
[2021-03-17] MEDS: multivitamins, therapeutics tablet PO SCH (08:17)
[2021-03-17] MEDS: heparin, porcine 5000 units/ml vial SQ SCH ×2 (08:17→19:57)
[2021-03-17] MEDS: iron sucrose complex injection 200 MG in normal saline 100ml IV soln 90 ML IV SCH (08:22)
[2021-03-17 10:41] LABS: BASOPHILS % (AUTO) 0.9 % (0-1); EOSINOPHILS # (AUTO) 0.1 X10'3 (0-0.9); EOSINOPHILS % (AUTO) 1.3 % (0-6); HEMATOCRIT 33.3 % (35.0-45.0); HEMOGLOBIN 11.2 g/dl (12.0-16.0); LYMPHOCYTES # (AUTO) 0.9 X10'3 (1.1-4.8); MEAN CORPUSCULAR HEMOGLOBIN 33.5 PG (27.0-31.0); MEAN CORPUSCULAR HGB CONC 33.5 g/dL (33.0-36.5); MEAN CORPUSCULAR VOLUME 99.8 FL (78-98); MEAN PLATELET VOLUME 7.2 FL (7.4-10.4); MONOCYTES # (AUTO) 0.4 X10'3 (0-0.9); MONOCYTES % (AUTO) 9.7 % (2-12); NEUTROPHILS # (AUTO) 2.5 X10'3 (1.8-7.7); NEUTROPHILS % (AUTO) 65.1 % (42-75); PLATELET COUNT 305 X10'3 (140-440); RED BLOOD COUNT 3.34 X10'6 (4.20-5.60); RED CELL DISTRIBUTION WIDTH 21.6 % (11.5-14.5); WHITE BLOOD COUNT 3.9 X10'3 (4.5-11.0)
[2021-03-17 10:54] LABS: ALANINE AMINOTRANSFERASE 94 U/L (12-78); ALBUMIN 2.5 G/DL (3.4-5.0); ALBUMIN/GLOBULIN RATIO 0.6 (1.1-1.5); ALKALINE PHOSPHATASE 201 IU/L (46-116); ANION GAP 11 (8-16); ASPARTATE AMINO TRANSFERASE 153 U/L (10-37); BILIRUBIN,TOTAL 0.7 MG/DL (0.1-1.0); BLOOD UREA NITROGEN 6 MG/DL (7-18); BUN/CREATININE RATIO 7.8 (6.6-38.0); CALCIUM 8.8 MG/DL (8.5-10.1); CHLORIDE 107 MMOL/L (99-107); CREATININE 0.77 MG/DL (0.40-0.90); GLUCOSE 102 MG/DL (70-104); POTASSIUM 4.1 MMOL/L (3.5-5.1); SODIUM 142 MMOL/L (135-145); TOTAL CARBON DIOXIDE 23.7 MMOL/L (24-32); TOTAL PROTEIN 6.9 G/DL (6.4-8.2); eGFR 78 ML/MIN
--- NOTE | 2021-03-17 11:00 | NUR ---
refused vitals for 1100
--- NOTE | 2021-03-17 11:52 | NUR ---
PT very agitated, 4mg IM ativan given. Dr. Abdalla aware that pt wont cooperate with MRI.
[2021-03-17] MEDS: LORazepam 0.5 MG tablet PO SCH ×2 (14:30→19:57)
[2021-03-17 15:00] VITALS: BP 122/65
[2021-03-17] MEDS ORDERED: ondansetron 4mg rapidly disintigrating tab PO PRN (15:55)
--- NOTE | 2021-03-17 17:44 | NUR ---
PAGER ID: [phone] MESSAGE: [id number] Maral: Patient left foot increased swelling and redness. Also warm to touch.
--- NOTE | 2021-03-17 18:00 | NUR ---
PATIENT REFUSED VITAL SIGNS . RUPERTO CASTILLO
[2021-03-17] MEDS ORDERED: CefTRIAXone/D5W-Rocephin 1gm 50 ML IV ONE (18:10)
[2021-03-17] MEDS: LORazepam 2 mg/ml vial IM PRN (18:41)
[2021-03-17 20:00] VITALS: BP 121/60
--- NOTE | 2021-03-18 00:17 | NUR ---
patient refused this nurse to put an IV lines in her arm, very agitated and confused
--- NOTE | 2021-03-18 01:20 | NUR ---
patient very agitated and confused stated she want to go home, PRN Ativan administered as ordered
[2021-03-18] MEDS: LORazepam 0.5 MG tablet PO SCH ×3 (02:58→13:41)
[2021-03-18 06:00] VITALS: BP 115/39
--- NOTE | 2021-03-18 06:18 | NUR ---
Problems reprioritized. Patient report given, questions answered & plan of care reviewed with Debi CASTILLO .
[2021-03-18] MEDS: pantoprazole 40mg Tablet.DR PO SCH (07:30)
[2021-03-18] MEDS: LORazepam 2 mg/ml vial IM PRN (07:46)
--- NOTE | 2021-03-18 07:53 | NUR ---
Pt is resistive to care. Refuses blood sugar check. Refuses morning medication and lab draw. Refuses to be assisted with everything. She is confused but alert. Reoriented helped but only for a few minutes. Gave IM ativan. Will let that take effect and try again. Monitoring
[2021-03-18] MEDS: thiamine 100mg tablet PO SCH (08:00)
[2021-03-18] MEDS: multivitamins, therapeutics tablet PO SCH (08:00)
[2021-03-18] MEDS ORDERED: CefTRIAXone/D5W-Rocephin 1gm 50 ML IV SCH (08:00)
[2021-03-18] MEDS: docusate sod 100mg capsule PO SCH (08:00)
[2021-03-18] MEDS: K and/or MAG REPLACEMENT MC SCH ×2 (08:00)
[2021-03-18] MEDS: heparin, porcine 5000 units/ml vial SQ SCH (08:00)
[2021-03-18] MEDS: iron sucrose complex injection 200 MG in normal saline 100ml IV soln 90 ML IV SCH (08:00)
[2021-03-18] MEDS: folic acid 1mg tablet PO SCH (08:00)
--- NOTE | 2021-03-18 08:00 | NUR ---
pt refused 0800 blood sugar check Addendum: 03/18/21 at 0942 by Jessica Reyes RN Amended: Links added.
[2021-03-18 11:00] VITALS: BP 134/45
--- NOTE | 2021-03-18 11:00 | NUR ---
Pt is still refusing care and has started to pee on the floor. She is walking around with her pants off. She has been re-directed numerous times and by numerous staff. She continues to raise her voice. "I don't care" "will the 5 piece course meal be ready? how about the cake. I want it to be perfect for them". When asked for whom she says "you're not helping, you didn't answer my question" "if you can't answer my questions then leave!" Tried to explain what was happening and it was too much for the pt. She agreed to take 4mg ativan PO. Will continue to approach pt with ease and try to assist with all pt care. So far she has been resistive to most care. MD Abdalla is aware.
[2021-03-18] MEDS: LORazepam 1 MG tablet PO PRN (11:07)
--- NOTE | 2021-03-18 11:53 | NUR ---
Lengthy conversation with sister in law, Lanette and brother, Walter Nicholson on speaker re: pts health. They advised that the pt has been in 4 treatment facilities with negative results each time. Last time she was hospitalized the facility d/c'd her to her ex-boyfriends house with the understanding that she needs proper follow up and assistance. He was not able to follow through and she was kicked out and her son, Boyd took her in, temporarily. Per Lanette, her son is a high functioning autistic individual who adores his mom. Neither him or Lanette or Walter are able to fully care for pt. Thanked them for their information. I will page CM to review note.
--- NOTE | 2021-03-18 13:40 | NUR ---
VL ultrasound on left leg completed. Pending results.
--- NOTE | 2021-03-18 14:11 | NUR ---
Pt refused 1400 blood sugar check. Addendum: 03/18/21 at 1411 by Jessica Reyes RN Amended: Links added.
--- NOTE | 2021-03-18 14:12 | NUR ---
Problems reprioritized. Patient report given, questions answered & plan of care reviewed with JONATHAN Rojas.
--- NOTE | 2021-03-18 14:13 | NUR ---
Received patient to room 356B via bed accompanied by x2 staff. x2 patient belongings bags placed in patient's closet. Patient appears to be sleeping comfortably respirations even and unlabored. Bed is low and locked, x2 side rails up, patient has non skid socks on.
--- NOTE | 2021-03-18 14:25 | NUR ---
Patient up to bathroom with SBA. Patient reports she does feel dizzy when up and let patient know bed alarm will be placed and educated to use call light. Patient oriented to room and call light. Call light placed within patient's reach. Patient refuses to have vitals taken as well as having physical assessment done. Will continue to monitor.
--- NOTE | 2021-03-18 15:26 | NUR ---
This RN was on lunch break and upon returning notified by balance truing inspector Jayna that patient had gone AMA and she had notified nursing supervisor carbon paper coating, Dr. Abdalla and patient's son.
--- NOTE | 2021-03-18 15:28 | NUR ---
Notified son of pt's leaving AMA.
== END 2021-03-18 15:17 | disposition left against medical advice (07) | DRG 463 ==
LOC: ER 09:11 → ED HOLD 15:59 → EDBEDREQ 03-05 19:34 → PCU 3S 03-05 20:56 → SUR 3N 03-18 14:14
PROVIDERS: ADMIT Family Medicine; ATTEND Family Medicine
DX: N39.0 Urinary tract infection, site not specified (principal); I47.2 Ventricular tachycardia; E51.2 Wernicke's encephalopathy; E83.51 Hypocalcemia; D64.9 Anemia, unspecified; E61.1 Iron deficiency; E83.42 Hypomagnesemia; E87.6 Hypokalemia; F10.239 Alcohol dependence with withdrawal, unspecified; F32.A Depression, unspecified; F41.9 Anxiety disorder, unspecified; G62.9 Polyneuropathy, unspecified; I82.612 Acute embolism and thrombosis of superficial veins of left upper extremity; R74.01 Elevation of levels of liver transaminase levels; R45.1 Restlessness and agitation; Z20.822 Contact with and (suspected) exposure to COVID-19; B96.1 Klebsiella pneumoniae [K. pneumoniae] as the cause of diseases classified elsewhere; R60.0 Localized edema; K21.9 Gastro-esophageal reflux disease without esophagitis; K52.9 Noninfective gastroenteritis and colitis, unspecified; Z53.29 Procedure and treatment not carried out because of patient's decision for other reasons; Z78.1 Physical restraint status; Z80.0 Family history of malignant neoplasm of digestive organs; Z80.3 Family history of malignant neoplasm of breast; Z80.51 Family history of malignant neoplasm of kidney; Z87.891 Personal history of nicotine dependence; Z98.84 Bariatric surgery status; Z91.013 Allergy to seafood; Z90.49 Acquired absence of other specified parts of digestive tract
CPT/HCPCS: 36415; 70450; 70551; 71045; 76700; 76937; 80048; 80053; 80061; 80305; 80320; 81001; 82140; 82150; 82272; 82330; 82948; 83036; 83540; 83550; 83605; 83690; 83735; 84100; 84145; 84443; 84484; 85007; 85008; 85025; 85610; 86703; 86705; 86706; 86709; 86803; 87040; 87077; 87081; 87088; 87186; 87340; 87635; 92508; 92616; 93005; 93306; 93971; 96365; 96368; 96375; 96376; 97110; 97530; 99285; C9113; C9803; G0378; J0696; J1630; J1644; J1756; J2060; J2270; J2405; J2765; J3475; J3480; J3486; J7030; J7042

== ENCOUNTER 2021-03-28 14:36 | Emergency (ER) | payer MEDICAID ==
[~2021-03-28] VITALS: Ht 165.1 cm; Wt 84.1 kg
[~2021-03-28 14:36] MED LIST changes: -ATI1T PO; -CHLO25CA10 PO; -GABA300C PO; -MAGN400C PO; -MULT-1085 PO; +NO HOME MEDS; -PANT40TA54 PO; -TRAZ150T78 PO
[2021-03-28 14:54] VITALS: BP 126/74
== END 2021-03-28 16:12 | disposition home or self-care (01) ==
LOC: ER 14:36
DX: F10.10 Alcohol abuse, uncomplicated (principal); F41.9 Anxiety disorder, unspecified; F32.9 Major depressive disorder, single episode, unspecified; Z90.49 Acquired absence of other specified parts of digestive tract; Z86.69 Personal history of other diseases of the nervous system and sense organs; Z98.890 Other specified postprocedural states; Z72.89 Other problems related to lifestyle; Z91.013 Allergy to seafood; Y90.9 Presence of alcohol in blood, level not specified
CPT/HCPCS: 99281

== ENCOUNTER 2021-04-01 07:49 | Emergency (ER) | payer MEDICAID ==
[~2021-04-01] VITALS: Ht 162.6 cm; Wt 80.9 kg
[2021-04-01 07:58] VITALS: BP 103/69
[2021-04-01 10:49] LABS: EOSINOPHILS # (AUTO) 0.1 X10'3 (0-0.9); EOSINOPHILS % (AUTO) 1.9 % (0-6); MONOCYTES # (AUTO) 0.4 X10'3 (0-0.9)
[2021-04-01 10:52] LABS: BASOPHILS % (AUTO) 0.6 % (0-1); HEMATOCRIT 39.8 % (35.0-45.0); HEMOGLOBIN 13.4 g/dl (12.0-16.0); LYMPHOCYTES # (AUTO) 1.3 X10'3 (1.1-4.8); LYMPHOCYTES % (AUTO) 24.5 % (21-51); MEAN CORPUSCULAR HEMOGLOBIN 33.9 PG (27.0-31.0); MEAN CORPUSCULAR HGB CONC 33.8 g/dL (33.0-36.5); MEAN CORPUSCULAR VOLUME 100.4 FL (78-98); MEAN PLATELET VOLUME 7.5 FL (7.4-10.4); NEUTROPHILS # (AUTO) 3.6 X10'3 (1.8-7.7); PLATELET COUNT 189 X10'3 (140-440); RED BLOOD COUNT 3.96 X10'6 (4.20-5.60); RED CELL DISTRIBUTION WIDTH 23.2 % (11.5-14.5); WHITE BLOOD COUNT 5.4 X10'3 (4.5-11.0)
[2021-04-01 11:01] LABS: ALANINE AMINOTRANSFERASE 48 U/L (12-78); ALBUMIN/GLOBULIN RATIO 0.7 (1.1-1.5); ALKALINE PHOSPHATASE 175 IU/L (46-116); ANION GAP 10 (8-16); ASPARTATE AMINO TRANSFERASE 68 U/L (10-37); BILIRUBIN,TOTAL 1.2 MG/DL (0.1-1.0); BLOOD UREA NITROGEN 6 MG/DL (7-18); BUN/CREATININE RATIO 6.5 (6.6-38.0); CALCIUM 8.8 MG/DL (8.5-10.1); CHLORIDE 100 MMOL/L (99-107); CREATININE 0.92 MG/DL (0.40-0.90); GLUCOSE 99 MG/DL (70-104); MAGNESIUM 1.9 MG/DL (1.5-2.4); POTASSIUM 3.3 MMOL/L (3.5-5.1); SODIUM 140 MMOL/L (135-145); TOTAL CARBON DIOXIDE 29.8 MMOL/L (24-32); TOTAL PROTEIN 7.1 G/DL (6.4-8.2); eGFR 63 ML/MIN
[2021-04-01] MEDS ORDERED: POTA-205 PO (11:39)
--- NOTE | 2021-04-01 12:04 | NUR ---
pt seen and dc/d by provider, attempted to contact [facility], no answer, left brief message asking for them to call back, called winter for pt to return to [facility]
[2021-04-01 12:37] LABS: ANISOCYTOSIS 3+; PLATELET ESTIMATE NORMAL; POLYCHROMASIA FEW
[2021-04-01 12:38] LABS: STOMATOCYTES 1+
== END 2021-04-01 12:11 | disposition home or self-care (01) ==
LOC: ER 07:50
DX: R53.1 Weakness (principal); E87.6 Hypokalemia; R05.9 Cough, unspecified; R11.2 Nausea with vomiting, unspecified; R19.7 Diarrhea, unspecified; F41.9 Anxiety disorder, unspecified; F32.9 Major depressive disorder, single episode, unspecified; Z86.69 Personal history of other diseases of the nervous system and sense organs; Z90.49 Acquired absence of other specified parts of digestive tract; Z98.890 Other specified postprocedural states; Z72.89 Other problems related to lifestyle; Z91.013 Allergy to seafood; Z79.899 Other long term (current) drug therapy
CPT/HCPCS: 36415; 80053; 83735; 85008; 85025; 99283

== ENCOUNTER 2021-04-03 18:03 | Emergency (ER) | payer MEDICAID ==
[~2021-04-03] VITALS: Ht 162.6 cm; Wt 85.0 kg
[~2021-04-03 18:03] MED LIST changes: +POTA-205 PO
[2021-04-03 18:18] VITALS: BP 114/85
[2021-04-03] MEDS ORDERED: ketorolac trometh. 30mg/ml inj. IM ONE (19:50)
[2021-04-03] MEDS ORDERED: predniSONE 20 mg tablet PO ONE (19:50)
[2021-04-03] MEDS ORDERED: PRED20TA PO (20:01)
[2021-04-03] MEDS ORDERED: IBUP-1984 PO (20:01)
== END 2021-04-03 20:14 | disposition home or self-care (01) ==
LOC: ER 18:03
DX: M10.9 Gout, unspecified (principal); F41.9 Anxiety disorder, unspecified; F32.9 Major depressive disorder, single episode, unspecified; Z91.013 Allergy to seafood; Z79.899 Other long term (current) drug therapy
CPT/HCPCS: 96372; 99283; J1885; J7512

== ENCOUNTER 2021-05-06 03:16 | Inpatient (IN) | payer MEDICAID ==
[~2021-05-06] VITALS: Ht 165.1 cm; Wt 84.8 kg
[2021-05-06] VITALS (8 sets, daily range): BP systolic 124–148; BP diastolic 67–87
[2021-05-06] MEDS ORDERED: octreotide inj. 1,250 MCG in normal saline 250ml IV soln 243.75 ML IV ONE (03:35)
[2021-05-06] MEDS ORDERED: ondansetron/PF 4mg/2ml inj IV ONE (03:35)
[2021-05-06] MEDS ORDERED: phenobarbital inj 260 MG in normal saline 100ml IV soln 100 ML IV ONE (03:35)
[2021-05-06] MEDS ORDERED: famotidine/PF 10 mg/ml inj IV ONE (03:35)
[2021-05-06] MEDS ORDERED: normal saline 1000ML IV soln IV ONE (03:35)
[2021-05-06] MEDS ORDERED: pantoprazole 40MG/NS 100ML BAG 100 ML IV ONE (03:35)
[2021-05-06] MEDS ORDERED: magnesium 2GM in 50ml NS 50 ML IV ONE (03:35)
[2021-05-06] MEDS ORDERED: normal saline 1000ML IV soln IVB ONE (03:35)
[2021-05-06] MEDS ORDERED: thiamine inj. 100 MG in normal saline 100ml IV soln 99 ML IV ONE (03:35)
[2021-05-06] MEDS ORDERED: metoclopramide 5 mg/ml inj IV ONE (03:40)
[2021-05-06] MEDS ORDERED: thiamine inj. 100 MG in normal saline 100ml IV soln 100 ML IV ONE (03:45)
[2021-05-06] MEDS ORDERED: phenobarbital inj 260 MG in normal saline 100ml IV soln 98 ML IV ONE (03:50)
[2021-05-06 03:52] LABS: BASOPHILS % (AUTO) 0.7 % (0-1); EOSINOPHILS % (AUTO) 0.4 % (0-6); HEMATOCRIT 41.3 % (35.0-45.0); LYMPHOCYTES % (AUTO) 34.1 % (21-51); MEAN CORPUSCULAR HEMOGLOBIN 31.9 PG (27.0-31.0); MEAN CORPUSCULAR HGB CONC 33.8 g/dL (33.0-36.5); MEAN CORPUSCULAR VOLUME 94.6 FL (78-98); MEAN PLATELET VOLUME 7.2 FL (7.4-10.4); MONOCYTES # (AUTO) 0.5 X10'3 (0-0.9); NEUTROPHILS # (AUTO) 3.3 X10'3 (1.8-7.7); NEUTROPHILS % (AUTO) 55.8 % (42-75); PLATELET COUNT 183 X10'3 (140-440); RED BLOOD COUNT 4.37 X10'6 (4.20-5.60); RED CELL DISTRIBUTION WIDTH 18.1 % (11.5-14.5)
[2021-05-06 04:04] LABS: APTT 25 SECONDS (22-32)
[2021-05-06 04:06] LABS: ALANINE AMINOTRANSFERASE 31 U/L (12-78); ALBUMIN 2.9 G/DL (3.4-5.0); ALBUMIN/GLOBULIN RATIO 0.9 (1.1-1.5); ALKALINE PHOSPHATASE 156 IU/L (46-116); ANION GAP 21 (8-16); ASPARTATE AMINO TRANSFERASE 60 U/L (10-37); BILIRUBIN,TOTAL 0.8 MG/DL (0.1-1.0); BLOOD UREA NITROGEN 9 MG/DL (7-18); BUN/CREATININE RATIO 11.7 (6.6-38.0); CHLORIDE 101 MMOL/L (99-107); CREATININE 0.77 MG/DL (0.40-0.90); ETHANOL 0.187 GM/DL (0.0-0.010); GLUCOSE 141 MG/DL (70-104); MAGNESIUM 1.3 MG/DL (1.5-2.4); SODIUM 141 MMOL/L (135-145); TOTAL CARBON DIOXIDE 19.3 MMOL/L (24-32); TOTAL PROTEIN 6.2 G/DL (6.4-8.2); eGFR 77 ML/MIN
[2021-05-06 04:16] LABS: POTASSIUM 2.8 MMOL/L (3.5-5.1)
[2021-05-06] MEDS ORDERED: potassium Cl 40 mEq/0.45% sodium chloride IV soln 520ml IV ONE (04:20)
[2021-05-06] MEDS ORDERED: phenobarbital inj 130 MG in normal saline 100ml IV soln 99 ML IV ONE (04:25)
[2021-05-06] MEDS: potassium Cl 10 mEq/100mL bag IV SCH ×4 (05:30→09:43)
[2021-05-06] MEDS ORDERED: FOLI0.4T14 PO (05:31)
[2021-05-06] MEDS ORDERED: magnesium 2GM in 50ml NS 50 ML IV PRN (05:40)
[2021-05-06] MEDS ORDERED: acetaminophen 650mg rectal suppository RC PRN (05:40)
[2021-05-06] MEDS ORDERED: magnesium hydroxide 30ml (MOM) UD suspension PO PRN (05:40)
[2021-05-06] MEDS ORDERED: HYDROmorphone inj. 0.5 MG/0.5 ML DISP.SYRIN IV PRN (05:40)
[2021-05-06] MEDS ORDERED: acetaminophen 325mg tablet PO PRN ×2 (05:40)
[2021-05-06] MEDS ORDERED: diphenhydrAMINE 50 mg/ml inj IV PRN (05:40)
[2021-05-06] MEDS ORDERED: mag hydrox/Alum hydrox/simeth 30ml oral suspension PO PRN (05:40)
[2021-05-06] MEDS ORDERED: diphenhydrAMINE 25mg capsule PO PRN (05:40)
[2021-05-06] MEDS ORDERED: magnesium 4gm in 100ml NS 100 ML IV PRN (05:40)
[2021-05-06] MEDS ORDERED: bisacodyl 10mg suppository rectal RC PRN (05:40)
[2021-05-06] MEDS ORDERED: magnesium Cl slow-release 64mg tablet PO PRN (05:40)
[2021-05-06] MEDS ORDERED: morphine 2 MG/ML inj. syringe IV PRN ×2 (05:40)
[2021-05-06] MEDS ORDERED: potassium CL 10mEq/100ml bag 100 ML IV PRN (05:40)
[2021-05-06] MEDS ORDERED: LORazepam 2 mg/ml vial IV PRN ×2 (05:45)
[2021-05-06] MEDS ORDERED: haloperidol lactate 5mg/ml inj IM PRN (05:45)
[2021-05-06] MEDS ORDERED: dextrose 50%-water 50ml dispensing syringe IV PRN (05:45)
[2021-05-06] MEDS ORDERED: octreotide inj. 500 MCG in normal saline 100ml IV soln 97.5 ML IV SCH (05:45)
[2021-05-06] MEDS ORDERED: octreotide inj. 1,250 MCG in normal saline 250ml IV soln 243.75 ML IV SCH (05:56)
[2021-05-06] MEDS ORDERED: pantoprazole 40MG/NS 100ML BAG 100 ML IV SCH (06:00)
[2021-05-06 07:00] LABS: HEMOGLOBIN A1C 5.1 % (4.5-6.2)
[2021-05-06 07:06] LABS: LIPASE 61 U/L (73-393); PHOSPHORUS 3.4 MG/DL (2.3-4.5)
[2021-05-06] MEDS: docusate sod 100mg capsule PO SCH ×2 (08:00→20:05)
[2021-05-06] MEDS: normal saline 1000ml 1,000 ML IV SCH ×2 (08:31→18:39)
[2021-05-06] MEDS: pantoprazole 40MG/NS 100ML BAG 100 ML IV SCH ×4 (08:36→21:00)
[2021-05-06] MEDS: thiamine 100mg/ml 2ml inj. IV SCH ×2 (08:43→21:00)
[2021-05-06] MEDS: folic acid 1mg/0.2ml inj IV SCH (08:44)
[2021-05-06] MEDS: K and/or MAG REPLACEMENT MC SCH ×2 (08:46→20:11)
[2021-05-06] MEDS: ondansetron/PF 4mg/2ml inj IV PRN ×2 (09:47→15:45)
[2021-05-06 11:28] LABS: BASOPHILS % (AUTO) 0.6 % (0-1); EOSINOPHILS % (AUTO) 0.3 % (0-6); HEMATOCRIT 33.3 % (35.0-45.0); HEMOGLOBIN 11.6 g/dl (12.0-16.0); LYMPHOCYTES # (AUTO) 1.1 X10'3 (1.1-4.8); LYMPHOCYTES % (AUTO) 15.2 % (21-51); MEAN CORPUSCULAR HEMOGLOBIN 32.6 PG (27.0-31.0); MEAN CORPUSCULAR HGB CONC 34.8 g/dL (33.0-36.5); MEAN CORPUSCULAR VOLUME 93.6 FL (78-98); MEAN PLATELET VOLUME 7.3 FL (7.4-10.4); MONOCYTES # (AUTO) 0.6 X10'3 (0-0.9); MONOCYTES % (AUTO) 8.9 % (2-12); NEUTROPHILS # (AUTO) 5.2 X10'3 (1.8-7.7); PLATELET COUNT 143 X10'3 (140-440); RED BLOOD COUNT 3.56 X10'6 (4.20-5.60); RED CELL DISTRIBUTION WIDTH 17.8 % (11.5-14.5)
--- NOTE | 2021-05-06 11:28 | NUR ---
tachy up to 130's even after morphine 1mg for headache,no reported cp.Paged Dr. Xie.
--- NOTE | 2021-05-06 11:32 | NUR ---
Admin 2mg ativan iv per Dr. Xie.
[2021-05-06] MEDS ORDERED: MIDAZolam 1 MG/ML 5ML VIAL ONE (16:25)
[2021-05-06] MEDS ORDERED: LIDOcaine Viscous 15ml cup ONE (16:25)
[2021-05-06] MEDS ORDERED: fentaNYL/PF 50MCG/1 ML 2ML syringe ONE (16:25)
--- NOTE | 2021-05-06 17:00 | NUR ---
patient at GI lab
--- NOTE | 2021-05-06 18:45 | NUR ---
Problems reprioritized. Patient report given, questions answered & plan of care reviewed with Viola CASTILLO.
[2021-05-06] MEDS: potassium Cl 20 mEq SR tablet PO PRN ×2 (19:58→20:00)
[2021-05-06] MEDS: HYDROcodone/acetaminophen 10/325mg tab PO PRN (20:08)
[2021-05-06] MEDS ORDERED: temazepam 15mg capsule PO PRN (21:00)
[2021-05-07] MEDS: ondansetron/PF 4mg/2ml inj IV PRN ×2 (01:08→15:43)
[2021-05-07] MEDS: normal saline 1000ml 1,000 ML IV SCH ×3 (01:40→21:40)
[2021-05-07] MEDS: pantoprazole 40MG/NS 100ML BAG 100 ML IV SCH (01:50)
--- NOTE | 2021-05-07 06:01 | NUR ---
Problems reprioritized. Patient report given, questions answered & plan of care reviewed with
--- NOTE | 2021-05-07 06:34 | NUR ---
Patient in room PCU 3009. I have received report from Viola CASTILLO and had the opportunity to ask questions and assume patient care.
[2021-05-07 07:00] VITALS: BP 136/72
[2021-05-07] MEDS: thiamine 100mg/ml 2ml inj. IV SCH ×3 (07:40→21:00)
[2021-05-07] MEDS: folic acid 1mg/0.2ml inj IV SCH (07:42)
[2021-05-07] MEDS: docusate sod 100mg capsule PO SCH ×2 (08:00→19:43)
[2021-05-07] MEDS: K and/or MAG REPLACEMENT MC SCH ×2 (08:00→20:00)
--- NOTE | 2021-05-07 08:50 | NUR ---
Patient yelling out from room that she needed help and was bleeding. Upon entering room, patient found standing in the doorway with a puddle of blood coming from her groin around the size of a dinner plate. She stated that she fell in the bathroom and that the IV in her groin came out. Maryann Shukla RN and I assisted the patient back to bed and Maryann held pressure while I located the primary RN, Ning. After holding pressure for roughly 10 minutes a pressure dressing was applied. The patient stated that she asked for help to the bathroom but couldn't wait anymore. Patient will be moved to a room closer to the nurses station. Patient states that she hit her head in the fall. She also had a bruise on her medial right knee, but stated that she wasn't sure if she hit it or not. Paged Dr Xie... awaiting call back.
--- NOTE | 2021-05-07 08:57 | NUR ---
Paged Dr Xie "PAGER ID: [phone] MESSAGE: [phone] Ning [phone] Bianca Alicia patient fell in bathroom, femoral art line came out during fall. Patient states she also hit her head"
[2021-05-07 11:00] VITALS: BP 122/78
[2021-05-07 11:07] LABS: BASOPHILS % (AUTO) 0.5 % (0-1); EOSINOPHILS # (AUTO) 0.2 X10'3 (0-0.9); EOSINOPHILS % (AUTO) 5.2 % (0-6); HEMATOCRIT 31.6 % (35.0-45.0); HEMOGLOBIN 10.7 g/dl (12.0-16.0); LYMPHOCYTES # (AUTO) 1.2 X10'3 (1.1-4.8); MEAN CORPUSCULAR HEMOGLOBIN 32.1 PG (27.0-31.0); MEAN CORPUSCULAR HGB CONC 33.8 g/dL (33.0-36.5); MEAN CORPUSCULAR VOLUME 95.2 FL (78-98); MEAN PLATELET VOLUME 7.3 FL (7.4-10.4); MONOCYTES # (AUTO) 0.2 X10'3 (0-0.9); MONOCYTES % (AUTO) 6.1 % (2-12); NEUTROPHILS # (AUTO) 2.5 X10'3 (1.8-7.7); NEUTROPHILS % (AUTO) 60.2 % (42-75); PLATELET COUNT 79 X10'3 (140-440); RED BLOOD COUNT 3.32 X10'6 (4.20-5.60); WHITE BLOOD COUNT 4.1 X10'3 (4.5-11.0)
[2021-05-07 11:17] LABS: ALANINE AMINOTRANSFERASE 22 U/L (12-78); ALBUMIN 2.4 G/DL (3.4-5.0); ALBUMIN/GLOBULIN RATIO 0.9 (1.1-1.5); ALKALINE PHOSPHATASE 126 IU/L (46-116); ANION GAP 7 (8-16); ASPARTATE AMINO TRANSFERASE 55 U/L (10-37); BILIRUBIN,TOTAL 1.1 MG/DL (0.1-1.0); BLOOD UREA NITROGEN 4 MG/DL (7-18); BUN/CREATININE RATIO 5.6 (6.6-38.0); CALCIUM 7.6 MG/DL (8.5-10.1); CHLORIDE 105 MMOL/L (99-107); CREATININE 0.72 MG/DL (0.40-0.90); GLUCOSE 144 MG/DL (70-104); POTASSIUM 3.6 MMOL/L (3.5-5.1); SODIUM 136 MMOL/L (135-145); TOTAL CARBON DIOXIDE 24.2 MMOL/L (24-32); TOTAL PROTEIN 5.1 G/DL (6.4-8.2); eGFR 83 ML/MIN
[2021-05-07 11:22] VITALS: BP 112/55
[2021-05-07] MEDS: HYDROcodone/acetaminophen 5mg/325mg tablet PO PRN (13:58)
[2021-05-07 15:00] VITALS: BP 112/81
--- NOTE | 2021-05-07 16:28 | NUR ---
Gout concern.. Dr. Xie made aware that patient's been complaining of her gout but doesn't recall what medication she is on. PAGER ID: [phone] MESSAGE: [phone]-Bianca Alicia: doc, patient just want to let u know ankle xray came back with no fracture or sprain found but she is complaining a lot of arthritis. but i couldnt see in her med ronciliation that she has gout medications. -julissa
[2021-05-07 18:00] VITALS: BP 142/82
[2021-05-07] MEDS: HYDROcodone/acetaminophen 10/325mg tab PO PRN (19:45)
[2021-05-07] MEDS: ondansetron 4mg rapidly disintigrating tab PO PRN (19:48)
[2021-05-07] MEDS ORDERED: pantoprazole 40MG/NS 100ML BAG 100 ML IV SCH (20:00)
[2021-05-07 22:00] VITALS: BP 111/72
[2021-05-08] MEDS: HYDROcodone/acetaminophen 10/325mg tab PO PRN ×4 (00:34→16:53)
[2021-05-08 02:00] VITALS: BP 145/77
[2021-05-08 06:00] VITALS: BP 129/82
--- NOTE | 2021-05-08 06:42 | NUR ---
Problems reprioritized. Patient report given, questions answered & plan of care reviewed with Violeta.
[2021-05-08 07:12] LABS: BASOPHILS % (AUTO) 0.4 % (0-1); EOSINOPHILS # (AUTO) 0.1 X10'3 (0-0.9); EOSINOPHILS % (AUTO) 4.5 % (0-6); HEMATOCRIT 27.4 % (35.0-45.0); HEMOGLOBIN 9.5 g/dl (12.0-16.0); LYMPHOCYTES # (AUTO) 1.2 X10'3 (1.1-4.8); LYMPHOCYTES % (AUTO) 46.7 % (21-51); MEAN CORPUSCULAR HEMOGLOBIN 32.2 PG (27.0-31.0); MEAN CORPUSCULAR HGB CONC 34.6 g/dL (33.0-36.5); MEAN CORPUSCULAR VOLUME 93.2 FL (78-98); MEAN PLATELET VOLUME 7.5 FL (7.4-10.4); MONOCYTES # (AUTO) 0.2 X10'3 (0-0.9); MONOCYTES % (AUTO) 7.8 % (2-12); NEUTROPHILS # (AUTO) 1.1 X10'3 (1.8-7.7); NEUTROPHILS % (AUTO) 40.6 % (42-75); PLATELET COUNT 67 X10'3 (140-440); RED BLOOD COUNT 2.94 X10'6 (4.20-5.60); RED CELL DISTRIBUTION WIDTH 16.9 % (11.5-14.5); WHITE BLOOD COUNT 2.6 X10'3 (4.5-11.0)
[2021-05-08 07:34] LABS: ALANINE AMINOTRANSFERASE 22 U/L (12-78); ALBUMIN 2.3 G/DL (3.4-5.0); ALBUMIN/GLOBULIN RATIO 0.9 (1.1-1.5); ALKALINE PHOSPHATASE 115 IU/L (46-116); ANION GAP 6 (8-16); ASPARTATE AMINO TRANSFERASE 39 U/L (10-37); BILIRUBIN,TOTAL 0.9 MG/DL (0.1-1.0); BLOOD UREA NITROGEN 2 MG/DL (7-18); BUN/CREATININE RATIO 3.8 (6.6-38.0); CALCIUM 7.6 MG/DL (8.5-10.1); CHLORIDE 106 MMOL/L (99-107); CREATININE 0.52 MG/DL (0.40-0.90); GLUCOSE 87 MG/DL (70-104); SODIUM 141 MMOL/L (135-145); TOTAL CARBON DIOXIDE 28.8 MMOL/L (24-32); eGFR > 90 ML/MIN
[2021-05-08] MEDS: K and/or MAG REPLACEMENT MC SCH ×2 (08:00→20:00)
[2021-05-08 08:07] LABS: ANISOCYTOSIS 1+; PLATELET ESTIMATE DECREASED; TOTAL CELLS COUNTED 100
[2021-05-08] MEDS: ondansetron 4mg rapidly disintigrating tab PO PRN ×2 (09:25→20:31)
[2021-05-08] MEDS: thiamine 100mg tablet PO SCH ×2 (09:27→20:01)
[2021-05-08] MEDS: folic acid 1mg tablet PO SCH (09:27)
[2021-05-08] MEDS: potassium Cl 20 mEq SR tablet PO PRN ×2 (09:27→16:53)
[2021-05-08] MEDS: docusate sod 100mg capsule PO SCH ×2 (09:28→20:00)
[2021-05-08] MEDS: pantoprazole 40mg Tablet.DR PO SCH ×2 (09:28→20:00)
[2021-05-08 11:00] VITALS: BP 106/67
--- NOTE | 2021-05-08 13:00 | NUR ---
NO IV ACCESS Dr. Syed informed of inability to obtain IV access; Dr. Syed informed via page of inability to give ativan, asked to get it switched to PO for the time being. [facility]
[2021-05-08 15:00] VITALS: BP 124/58
--- NOTE | 2021-05-08 15:00 | NUR ---
No IV Access No page back from Dr. Syed. Will continue to page Violeta [facility]
[2021-05-08] MEDS: normal saline 1000ml 1,000 ML IV SCH ×2 (17:40→17:43)
[2021-05-08 18:00] VITALS: BP 154/94
--- NOTE | 2021-05-08 18:37 | NUR ---
Patient in room PCU 3012. I have received report from Jammie Sanchez and had the opportunity to ask questions and assume patient care.
--- NOTE | 2021-05-08 18:53 | NUR ---
Problems reprioritized. Patient report given Gracia RN, questions answered & plan of care reviewed with Gracia RN.
--- NOTE | 2021-05-08 19:38 | NUR ---
Patient was found ambulating in hallway stating that she will not stay in her room and accused the sitter of talking about porn(which on questioning the lpn private duty, he stated he was absolutely not ). Instructed patient that we would change the male sitter for a female sitter. Pt. stated that she still wants to go home. Called son who was not picking up. Pt. called her brother Walter who this nurse spoke with and he stated that she does not have a home to go to as the son is away working and then he hung up on me. advised of situation and states that patient is to stay tonight and renal social worker will have to see pt. in the morning. Male sitter now replaced by female sitter and patient is back in her room.
[2021-05-09 02:00] VITALS: BP 133/53
--- NOTE | 2021-05-09 03:11 | NUR ---
Patient c/o chest pain. EKG performed. Er MD noted no stemi. Dr Barrett ordered a troponin to be drawn.
[2021-05-09] MEDS: normal saline 1000ml 1,000 ML IV SCH ×3 (03:40→23:40)
[2021-05-09 04:00] LABS: BASOPHILS % (AUTO) 0.3 % (0-1); EOSINOPHILS # (AUTO) 0.1 X10'3 (0-0.9); EOSINOPHILS % (AUTO) 2.6 % (0-6); HEMATOCRIT 27.3 % (35.0-45.0); HEMOGLOBIN 9.4 g/dl (12.0-16.0); MEAN CORPUSCULAR HEMOGLOBIN 32.1 PG (27.0-31.0); MEAN CORPUSCULAR HGB CONC 34.3 g/dL (33.0-36.5); MEAN CORPUSCULAR VOLUME 93.7 FL (78-98); MEAN PLATELET VOLUME 7.7 FL (7.4-10.4); MONOCYTES # (AUTO) 0.3 X10'3 (0-0.9); MONOCYTES % (AUTO) 10.2 % (2-12); NEUTROPHILS # (AUTO) 1.5 X10'3 (1.8-7.7); NEUTROPHILS % (AUTO) 51.9 % (42-75); PLATELET COUNT 81 X10'3 (140-440); RED BLOOD COUNT 2.92 X10'6 (4.20-5.60); RED CELL DISTRIBUTION WIDTH 17.1 % (11.5-14.5); WHITE BLOOD COUNT 2.9 X10'3 (4.5-11.0)
[2021-05-09 04:14] LABS: ALANINE AMINOTRANSFERASE 19 U/L (12-78); ALBUMIN 2.3 G/DL (3.4-5.0); ALBUMIN/GLOBULIN RATIO 0.8 (1.1-1.5); ALKALINE PHOSPHATASE 119 IU/L (46-116); ANION GAP 11 (8-16); ASPARTATE AMINO TRANSFERASE 33 U/L (10-37); BILIRUBIN,TOTAL 0.9 MG/DL (0.1-1.0); BLOOD UREA NITROGEN 4 MG/DL (7-18); BUN/CREATININE RATIO 7.8 (6.6-38.0); CALCIUM 7.8 MG/DL (8.5-10.1); CHLORIDE 101 MMOL/L (99-107); CREATININE 0.51 MG/DL (0.40-0.90); GLUCOSE 68 MG/DL (70-104); POTASSIUM 3.1 MMOL/L (3.5-5.1); SODIUM 139 MMOL/L (135-145); TOTAL CARBON DIOXIDE 27.2 MMOL/L (24-32); TOTAL PROTEIN 5.2 G/DL (6.4-8.2); eGFR > 90 ML/MIN
[2021-05-09 04:37] LABS: ANISOCYTOSIS 1+; PLATELET ESTIMATE DECREASED; STOMATOCYTES FEW; TOTAL CELLS COUNTED 100
--- NOTE | 2021-05-09 06:56 | NUR ---
Patient in room PCU 3012. I have received report from Gracia CASTILLO and had the opportunity to ask questions and assume patient care.
--- NOTE | 2021-05-09 07:23 | NUR ---
Messaged PICC nurse: Pt lost groin IV since yesterday no one able to start a new IV. Thank you Chantell Penaloza [facility] [id number]
[2021-05-09] MEDS: K and/or MAG REPLACEMENT MC SCH ×2 (08:00→20:00)
[2021-05-09] MEDS: folic acid 1mg tablet PO SCH (09:29)
[2021-05-09] MEDS: pantoprazole 40mg Tablet.DR PO SCH ×2 (09:29→21:39)
[2021-05-09] MEDS: thiamine 100mg tablet PO SCH ×2 (09:29→21:38)
[2021-05-09] MEDS: docusate sod 100mg capsule PO SCH ×2 (09:29→20:00)
--- NOTE | 2021-05-09 09:40 | NUR ---
PAGER ID: [phone] MESSAGE: Bianca Coker #[id number]- K 3.1, can I please get K protocol and PO Ativan. Pt anxious, NO IV. Thank you. Chantell Penaloza [facility] [phone]
[2021-05-09] MEDS ORDERED: magnesium 4gm in 100ml NS 100 ML IV PRN (09:50)
[2021-05-09] MEDS ORDERED: LORazepam 1 MG tablet PO PRN (09:50)
[2021-05-09] MEDS ORDERED: magnesium 2GM in 50ml NS 50 ML IV PRN (09:50)
[2021-05-09] MEDS ORDERED: magnesium Cl slow-release 64mg tablet PO PRN (09:50)
[2021-05-09] MEDS ORDERED: potassium Cl 20 mEq SR tablet PO PRN ×2 (09:50)
[2021-05-09] MEDS ORDERED: potassium CL 10mEq/100ml bag 100 ML IV PRN (09:50)
[2021-05-09] MEDS: ondansetron 4mg rapidly disintigrating tab PO PRN (09:54)
[2021-05-09] MEDS: HYDROcodone/acetaminophen 5mg/325mg tablet PO PRN (09:55)
[2021-05-09 11:00] VITALS: BP 123/72
[2021-05-09] MEDS ORDERED: POTASSIUM BICARB 20meq eff tab 20 MEQ TABLET.EFF PO PRN (11:07)
[2021-05-09] MEDS: POTASSIUM BICARB 20meq eff tab 20 MEQ TABLET.EFF PO PRN (13:33)
[2021-05-09 15:00] VITALS: BP 121/76
[2021-05-09 18:30] VITALS: BP 149/92
--- NOTE | 2021-05-09 18:48 | NUR ---
Problems reprioritized. Patient report given, questions answered & plan of care reviewed with Kym CASTILLO.
[2021-05-09] MEDS: HYDROcodone/acetaminophen 10/325mg tab PO PRN (21:56)
[2021-05-09 22:00] VITALS: BP 158/77
[2021-05-10 02:00] VITALS: BP 117/70
[2021-05-10] MEDS: HYDROcodone/acetaminophen 10/325mg tab PO PRN ×2 (03:12→09:48)
[2021-05-10] MEDS: LORazepam 1 MG tablet PO PRN ×2 (05:35→11:49)
[2021-05-10] MEDS: normal saline 1000ml 1,000 ML IV SCH (05:45)
--- NOTE | 2021-05-10 06:36 | NUR ---
Patient in room PCU 3012. I have received report from Kym CASTILLO and had the opportunity to ask questions and assume patient care.
[2021-05-10 06:59] VITALS: BP 117/70
[2021-05-10] MEDS: docusate sod 100mg capsule PO SCH (07:29)
[2021-05-10] MEDS: thiamine 100mg tablet PO SCH (07:29)
[2021-05-10] MEDS: pantoprazole 40mg Tablet.DR PO SCH (07:30)
[2021-05-10] MEDS: folic acid 1mg tablet PO SCH (07:30)
[2021-05-10] MEDS ORDERED: thiamine 100mg tablet PO SCH (08:00)
[2021-05-10] MEDS ORDERED: folic acid 1mg tablet PO SCH (08:00)
[2021-05-10] MEDS: K and/or MAG REPLACEMENT MC SCH (08:00)
[2021-05-10 08:48] LABS: BASOPHILS % (AUTO) 0.4 % (0-1); EOSINOPHILS # (AUTO) 0.1 X10'3 (0-0.9); EOSINOPHILS % (AUTO) 2.5 % (0-6); HEMOGLOBIN 10.5 g/dl (12.0-16.0); LYMPHOCYTES # (AUTO) 1.8 X10'3 (1.1-4.8); LYMPHOCYTES % (AUTO) 50.1 % (21-51); MEAN CORPUSCULAR HEMOGLOBIN 32.3 PG (27.0-31.0); MEAN CORPUSCULAR HGB CONC 33.9 g/dL (33.0-36.5); MEAN CORPUSCULAR VOLUME 95.1 FL (78-98); MEAN PLATELET VOLUME 7.8 FL (7.4-10.4); MONOCYTES # (AUTO) 0.4 X10'3 (0-0.9); MONOCYTES % (AUTO) 10.2 % (2-12); NEUTROPHILS # (AUTO) 1.3 X10'3 (1.8-7.7); NEUTROPHILS % (AUTO) 36.8 % (42-75); PLATELET COUNT 102 X10'3 (140-440); RED BLOOD COUNT 3.26 X10'6 (4.20-5.60); RED CELL DISTRIBUTION WIDTH 17.3 % (11.5-14.5); WHITE BLOOD COUNT 3.5 X10'3 (4.5-11.0)
[2021-05-10 08:54] LABS: ALANINE AMINOTRANSFERASE 20 U/L (12-78); ALBUMIN 2.4 G/DL (3.4-5.0); ALBUMIN/GLOBULIN RATIO 0.7 (1.1-1.5); ALKALINE PHOSPHATASE 124 IU/L (46-116); ANION GAP 5 (8-16); ASPARTATE AMINO TRANSFERASE 30 U/L (10-37); BILIRUBIN,TOTAL 0.7 MG/DL (0.1-1.0); BLOOD UREA NITROGEN 6 MG/DL (7-18); BUN/CREATININE RATIO 9.8 (6.6-38.0); CALCIUM 8.5 MG/DL (8.5-10.1); CHLORIDE 105 MMOL/L (99-107); CREATININE 0.61 MG/DL (0.40-0.90); GLUCOSE 95 MG/DL (70-104); POTASSIUM 3.3 MMOL/L (3.5-5.1); SODIUM 139 MMOL/L (135-145); TOTAL CARBON DIOXIDE 28.6 MMOL/L (24-32); TOTAL PROTEIN 5.7 G/DL (6.4-8.2); eGFR > 90 ML/MIN
[2021-05-10] MEDS ORDERED: PANT40TA54 PO (09:03)
[2021-05-10] MEDS ORDERED: MULT-1085 PO (09:06)
--- NOTE | 2021-05-10 09:18 | NUR ---
Initial: Pt admitted w/ upper GI bleed s/p egd with findings of esophagitis and w/ EtOH hx, apparently drinks a pint of vodka daily per EMR. Pt still complains of nausea though is able to eat avg 52% of meals on Heart Healthy diet since 05/07 which meets approximately 88% of est energy needs and 96% of est protein needs. LBM 05/07 receiving routine colace. No nutrition intervention implemented at this time, will continue to monitor. Recs: 1. Continue Heart healthy diet as tolerated 2. Routine folic acid, thiamine for EtOH hx 3. Bowel care per rx 4. Scaled wt this admit, subsequent weekly wts Addendum: 05/10/21 at [address] Amended: Links added.
[2021-05-10] MEDS: ondansetron 4mg rapidly disintigrating tab PO PRN (09:47)
[2021-05-10 12:11] VITALS: BP 153/83
[2021-05-10] MEDS: POTASSIUM BICARB 20meq eff tab 20 MEQ TABLET.EFF PO PRN (13:14)
--- NOTE | 2021-05-10 15:45 | NUR ---
Patient discharge teaching prior to the patients pickup. Patient expressed verbal understanding of the discharge teaching and new medications teaching. patients IV taken out at this time as well. Canula was whole and intact upon inspection and site showed minimal bleeding after removal. Patient left in private vehicle with son after going down to vehicle in wheelchair. Patient aware to follow up with primary in 1 weeks time.
== END 2021-05-10 15:37 | disposition home or self-care (01) | DRG 243 ==
LOC: ER 03:17 → ED HOLD 05:40 → PCU 3S 16:07
PROVIDERS: ADMIT Family Medicine; ATTEND Internal Medicine
PROC: 0DB38ZX Excision of Lower Esophagus, Via Natural or Artificial Opening Endoscopic, Diagnostic (ICD-10-PCS; principal; 2021-05-06)
PROC: 0DB68ZX Excision of Stomach, Via Natural or Artificial Opening Endoscopic, Diagnostic (ICD-10-PCS; 2021-05-06)
PROC: 06HY33Z Insertion of Infusion Device into Lower Vein, Percutaneous Approach (ICD-10-PCS; 2021-05-06)
PROC: B54BZZA Ultrasonography of Right Lower Extremity Veins, Guidance (ICD-10-PCS; 2021-05-06)
DX: K21.01 Gastro-esophageal reflux disease with esophagitis, with bleeding (principal); E87.2 Acidosis; K29.21 Alcoholic gastritis with bleeding; D62 Acute posthemorrhagic anemia; E86.1 Hypovolemia; I50.9 Heart failure, unspecified; I48.91 Unspecified atrial fibrillation; I11.0 Hypertensive heart disease with heart failure; E83.42 Hypomagnesemia; Z20.822 Contact with and (suspected) exposure to COVID-19; E87.6 Hypokalemia; F10.220 Alcohol dependence with intoxication, uncomplicated; F10.230 Alcohol dependence with withdrawal, uncomplicated; K44.9 Diaphragmatic hernia without obstruction or gangrene; K76.0 Fatty (change of) liver, not elsewhere classified; Y90.6 Blood alcohol level of 120-199 mg/100 ml; F32.A Depression, unspecified; F41.9 Anxiety disorder, unspecified; Z80.3 Family history of malignant neoplasm of breast; Z91.013 Allergy to seafood; Z90.49 Acquired absence of other specified parts of digestive tract; Z80.8 Family history of malignant neoplasm of other organs or systems; Z79.899 Other long term (current) drug therapy
CPT/HCPCS: 36415; 36569; 43239; 71045; 73600; 80053; 80320; 83036; 83690; 83735; 83880; 84100; 84484; 85007; 85025; 85610; 85730; 86885; 86900; 86901; 87635; 93005; 96365; 96366; 96368; 96375; 99152; 99285; A4620; C9113; G0378; J2060; J2250; J2270; J2354; J2405; J2560; J2765; J3010; J3411; J3475; J3480; J3490; J7030; J7050

== ENCOUNTER 2021-12-08 16:37 | Emergency (ER) | payer MEDICAID ==
[~2021-12-08] VITALS: Ht 165.1 cm; Wt 85.0 kg
[~2021-12-08 16:37] MED LIST changes: +FOLI0.4T14 PO; +MULT-1085 PO; -NO HOME MEDS; +PANT40TA54 PO; -POTA-205 PO
[2021-12-08 17:10] LABS: BASOPHILS # (AUTO) 0.1 X10'3 (0-0.2); BASOPHILS % (AUTO) 0.8 % (0-1); EOSINOPHILS # (AUTO) 0.1 X10'3 (0-0.9); EOSINOPHILS % (AUTO) 0.8 % (0-6); HEMATOCRIT 44.3 % (35.0-45.0); HEMOGLOBIN 15.1 g/dl (12.0-16.0); LYMPHOCYTES # (AUTO) 3.3 X10'3 (1.1-4.8); LYMPHOCYTES % (AUTO) 46.9 % (21-51); MEAN CORPUSCULAR HGB CONC 34.1 g/dL (33.0-36.5); MEAN CORPUSCULAR VOLUME 85.1 FL (78-98); MEAN PLATELET VOLUME 6.6 FL (7.4-10.4); MONOCYTES # (AUTO) 0.3 X10'3 (0-0.9); NEUTROPHILS # (AUTO) 3.4 X10'3 (1.8-7.7); NEUTROPHILS % (AUTO) 47.5 % (42-75); PLATELET COUNT 199 X10'3 (140-440); RED CELL DISTRIBUTION WIDTH 13.5 % (11.5-14.5); WHITE BLOOD COUNT 7.1 X10'3 (4.5-11.0)
[2021-12-08 17:34] LABS: ALANINE AMINOTRANSFERASE 55 U/L (12-78); ALBUMIN 3.6 G/DL (3.4-5.0); ALKALINE PHOSPHATASE 150 IU/L (46-116); ANION GAP 15 (8-16); ASPARTATE AMINO TRANSFERASE 50 U/L (10-37); BLOOD UREA NITROGEN 16 MG/DL (7-18); BUN/CREATININE RATIO 23.2 (6.6-38.0); CALCIUM 8.2 MG/DL (8.5-10.1); CHLORIDE 104 MMOL/L (99-107); CREATININE 0.69 MG/DL (0.40-0.90); GLUCOSE 108 MG/DL (70-104); POTASSIUM 3.4 MMOL/L (3.5-5.1); SODIUM 142 MMOL/L (135-145); TOTAL CARBON DIOXIDE 23.1 MMOL/L (24-32); TOTAL PROTEIN 7.2 G/DL (6.4-8.2); eGFR 88 ML/MIN
[2021-12-08 17:58] LABS: MAGNESIUM 1.8 MG/DL (1.5-2.4)
[2021-12-08 18:01] LABS: ETHANOL 0.364 GM/DL (0.0-0.010)
[2021-12-08] MEDS ORDERED: normal saline 1000ml 1,000 ML IV ONE ×2 (18:05)
[2021-12-08] MEDS ORDERED: ondansetron 4mg rapidly disintigrating tab PO ONE (18:10)
[2021-12-08] MEDS ORDERED: LORazepam 1 MG tablet PO ONE (18:10)
[2021-12-08] MEDS ORDERED: POTASSIUM BICARB 20meq eff tab 20 MEQ TABLET.EFF PO ONE (18:15)
[2021-12-08] MEDS ORDERED: LORA-269 PO (18:37)
[2021-12-08] MEDS ORDERED: ONDA4TAB12 PO (18:37)
[2021-12-08 20:02] LABS: CLARITY,URINE CLEAR (Clear); COLOR,URINE YELLOW (Yellow); GLUCOSE, URINE NEGATIVE (Neg); KETONES,URINE NEGATIVE (Neg); LEUKOCYTE ESTERASE ,URINE NEGATIVE (Neg); NITRITES, URINE NEGATIVE (Neg); OCCULT BLOOD,URINE NEGATIVE (Neg); PH,URINE 5.5 (4.8-8.0); PROTEIN,URINE NEGATIVE (Neg); UROBILINOGEN,URINE 0.2 E.U/dL (0.2-1.0)
[2021-12-08 20:11] LABS: URINE AMPHETAMINE SCREEN NEGATIVE (Neg); URINE BARBITUATE SCREEN NEGATIVE (Neg); URINE BENZODIAZEPINES SCREEN NEGATIVE (Neg); URINE CANNABINOID SCREEN NEGATIVE (Neg); URINE COCAINE SCREEN NEGATIVE (Neg); URINE METHADONE SCREEN NEGATIVE (Neg); URINE OPIATE SCREEN NEGATIVE (Neg); URINE PHENCYCLIDINE SCREEN NEGATIVE (Neg)
[2021-12-08 20:25] LABS: UA COLLECTION TYPE CLN CATCH MIDSTREAM
[2021-12-08 21:10] VITALS: BP 136/87
== END 2021-12-08 21:16 | disposition home or self-care (01) ==
LOC: ER 16:38
DX: F10.129 Alcohol abuse with intoxication, unspecified (principal); Z91.013 Allergy to seafood; Z90.49 Acquired absence of other specified parts of digestive tract; Z98.890 Other specified postprocedural states; Y90.9 Presence of alcohol in blood, level not specified
CPT/HCPCS: 36415; 80053; 80305; 80320; 81003; 83735; 84484; 85025; 93005; 96360; 99284; J7030

== ENCOUNTER 2021-12-19 11:53 | Emergency (ER) | payer MEDICAID ==
[~2021-12-19] VITALS: Ht 162.6 cm; Wt 72.7 kg
[~2021-12-19 11:53] MED LIST changes: +LORA-269 PO; +ONDA4TAB12 PO
[2021-12-19] MEDS ORDERED: ondansetron 4mg rapidly disintigrating tab PO ONE ×2 (15:40→16:10)
[2021-12-19] MEDS ORDERED: normal saline 1000ML IV soln IVB ONE (16:10)
[2021-12-19 16:27] LABS: BASOPHILS % (AUTO) 0.2 % (0-1); EOSINOPHILS % (AUTO) 0.1 % (0-6); HEMATOCRIT 44.3 % (35.0-45.0); HEMOGLOBIN 14.9 g/dl (12.0-16.0); LYMPHOCYTES # (AUTO) 1.5 X10'3 (1.1-4.8); LYMPHOCYTES % (AUTO) 18.6 % (21-51); MEAN CORPUSCULAR HEMOGLOBIN 29.1 PG (27.0-31.0); MEAN CORPUSCULAR HGB CONC 33.6 g/dL (33.0-36.5); MEAN CORPUSCULAR VOLUME 86.5 FL (78-98); MEAN PLATELET VOLUME 7.9 FL (7.4-10.4); MONOCYTES # (AUTO) 0.8 X10'3 (0-0.9); MONOCYTES % (AUTO) 9.8 % (2-12); NEUTROPHILS # (AUTO) 5.6 X10'3 (1.8-7.7); NEUTROPHILS % (AUTO) 71.3 % (42-75); PLATELET COUNT 95 X10'3 (140-440); RED BLOOD COUNT 5.12 X10'6 (4.20-5.60); WHITE BLOOD COUNT 7.9 X10'3 (4.5-11.0)
[2021-12-19 16:38] LABS: ALANINE AMINOTRANSFERASE 43 U/L (12-78); ALBUMIN 2.6 G/DL (3.4-5.0); ALBUMIN/GLOBULIN RATIO 0.8 (1.1-1.5); ALKALINE PHOSPHATASE 183 IU/L (46-116); ANION GAP 17 (8-16); ASPARTATE AMINO TRANSFERASE 50 U/L (10-37); BILIRUBIN,TOTAL 1.5 MG/DL (0.1-1.0); BLOOD UREA NITROGEN 17 MG/DL (7-18); BUN/CREATININE RATIO 25.8 (6.6-38.0); CALCIUM 7.7 MG/DL (8.5-10.1); CHLORIDE 95 MMOL/L (99-107); CREATININE 0.66 MG/DL (0.40-0.90); GLUCOSE 122 MG/DL (70-104); LIPASE 152 U/L (73-393); SODIUM 132 MMOL/L (135-145); TOTAL CARBON DIOXIDE 20.1 MMOL/L (24-32); TOTAL PROTEIN 5.9 G/DL (6.4-8.2); eGFR > 90 ML/MIN
[2021-12-19 16:57] LABS: POTASSIUM 2.9 MMOL/L (3.5-5.1)
--- NOTE | 2021-12-19 16:57 | NUR ---
K 2.9. INFORMED JONATHAN CALERO, RONAN HONG.
[2021-12-19] MEDS ORDERED: potassium Cl 20 mEq SR tablet PO ONE (17:10)
[2021-12-19] MEDS ORDERED: potassium Cl 10 mEq/100mL bag IV ONE (17:10)
[2021-12-19] MEDS ORDERED: magnesium 2GM in 50ml NS 50 ML IV ONE (17:10)
[2021-12-19] MEDS ORDERED: proCHLORperazine 10 MG/2 ml inj IV ONE (19:00)
[2021-12-19] MEDS ORDERED: ONDA8TAB13 PO (19:54)
[2021-12-19] MEDS ORDERED: POTASSIUM BICARB 20meq eff tab 20 MEQ TABLET.EFF PO SCH (21:35)
[2021-12-19 21:46] VITALS: BP 132/91
== END 2021-12-19 21:47 | disposition home or self-care (01) ==
LOC: ER 11:54
DX: K92.0 Hematemesis (principal); Z79.899 Other long term (current) drug therapy; F41.9 Anxiety disorder, unspecified; F32.A Depression, unspecified; Z98.890 Other specified postprocedural states; Z91.013 Allergy to seafood
CPT/HCPCS: 36415; 80053; 83690; 85025; 96361; 96365; 96375; 99284; J0780; J3475; J3480; J7030

== ENCOUNTER 2022-05-25 21:26 | Emergency (ER) | payer MEDICAID ==
[~2022-05-25] VITALS: Ht 162.6 cm; Wt 80.0 kg
[~2022-05-25 21:26] MED LIST changes: +ONDA8TAB13 PO
[2022-05-25 22:46] LABS: BASOPHILS # (AUTO) 0.1 X10'3 (0-0.2); BASOPHILS % (AUTO) 0.6 % (0-1); EOSINOPHILS % (AUTO) 0.1 % (0-6); HEMATOCRIT 40.5 % (35.0-45.0); HEMOGLOBIN 13.7 g/dl (12.0-16.0); LYMPHOCYTES # (AUTO) 2.2 X10'3 (1.1-4.8); LYMPHOCYTES % (AUTO) 27.5 % (21-51); MEAN CORPUSCULAR HEMOGLOBIN 28.5 PG (27.0-31.0); MEAN CORPUSCULAR HGB CONC 33.8 g/dL (33.0-36.5); MEAN CORPUSCULAR VOLUME 84.2 FL (78-98); MEAN PLATELET VOLUME 6.3 FL (7.4-10.4); MONOCYTES # (AUTO) 0.8 X10'3 (0-0.9); MONOCYTES % (AUTO) 9.4 % (2-12); NEUTROPHILS # (AUTO) 5.1 X10'3 (1.8-7.7); NEUTROPHILS % (AUTO) 62.4 % (42-75); PLATELET COUNT 205 X10'3 (140-440); RED CELL DISTRIBUTION WIDTH 17.3 % (11.5-14.5); WHITE BLOOD COUNT 8.1 X10'3 (4.5-11.0)
[2022-05-25 22:58] LABS: ALANINE AMINOTRANSFERASE 23 U/L (12-78); ALBUMIN 3.5 G/DL (3.4-5.0); ALBUMIN/GLOBULIN RATIO 1.1 (1.1-1.5); ALKALINE PHOSPHATASE 110 IU/L (46-116); ANION GAP 14 (8-16); ASPARTATE AMINO TRANSFERASE 22 U/L (10-37); BLOOD UREA NITROGEN 12 MG/DL (7-18); BUN/CREATININE RATIO 18.5 (6.6-38.0); CALCIUM 8.4 MG/DL (8.5-10.1); CHLORIDE 100 MMOL/L (99-107); CREATININE 0.65 MG/DL (0.40-0.90); GLUCOSE 132 MG/DL (70-104); POTASSIUM 3.2 MMOL/L (3.5-5.1); SODIUM 137 MMOL/L (135-145); TOTAL CARBON DIOXIDE 23.2 MMOL/L (24-32); TOTAL PROTEIN 6.6 G/DL (6.4-8.2); eGFR > 90 ML/MIN
[2022-05-26] MEDS ORDERED: ondansetron/PF 4mg/2ml inj IV STA ×2 (00:51→02:39)
[2022-05-26] MEDS ORDERED: normal saline 1000ml 1,000 ML IV ONE (01:15)
[2022-05-26] MEDS ORDERED: normal saline 1000ML IV soln IVB ONE (02:50)
[2022-05-26] MEDS ORDERED: famotidine/PF 10 mg/ml inj IV ONE (02:50)
[2022-05-26] MEDS ORDERED: magnesium 2GM in 50ml NS 50 ML IV ONE (02:50)
[2022-05-26] MEDS ORDERED: diazepam inj 5 MG/ML inj. IV ONE (02:50)
[2022-05-26] MEDS: potassium CL 10mEq/100ml bag 100 ML IV SCH ×2 (02:55→03:55)
[2022-05-26] MEDS ORDERED: chlordiazePOXIDE 25mg capsule PO ONE ×2 (04:15)
[2022-05-26] MEDS ORDERED: CHLO25CA10 PO (04:20)
[2022-05-26] MEDS ORDERED: potassium chloride 10mEq ER tablet PO STA (04:36)
[2022-05-26] MEDS ORDERED: potassium Cl 20 mEq SR tablet PO STA (04:56)
[2022-05-26 05:10] VITALS: BP 134/78
== END 2022-05-26 05:12 | disposition home or self-care (01) ==
LOC: ER 21:26
DX: F10.239 Alcohol dependence with withdrawal, unspecified (principal); F41.9 Anxiety disorder, unspecified; K92.0 Hematemesis; R10.84 Generalized abdominal pain; F32.9 Major depressive disorder, single episode, unspecified; Z90.49 Acquired absence of other specified parts of digestive tract; Z98.890 Other specified postprocedural states; Z72.89 Other problems related to lifestyle; Z91.013 Allergy to seafood; Z79.899 Other long term (current) drug therapy; Y90.0 Blood alcohol level of less than 20 mg/100 ml
CPT/HCPCS: 36415; 71045; 80053; 83880; 84484; 85025; 85730; 86900; 86901; 93005; 96365; 96366; 96375; 96376; 99285; A6258; J2405; J3360; J3475; J3480; J3490; J7030

== ENCOUNTER 2022-10-30 22:24 | Emergency (ER) | payer MEDICAID ==
[~2022-10-30] VITALS: Ht 165.1 cm; Wt 84.1 kg
[~2022-10-30 22:24] MED LIST changes: +CYAN500T71 PO; -MULT-1085 PO; +MULT-25 PO; -ONDA4TAB12 PO; -ONDA8TAB13 PO; +QUET100T34 PO; +VENL50TA4 PO
[2022-10-30 23:54] LABS: URINE AMPHETAMINE SCREEN NEGATIVE (Neg); URINE BARBITUATE SCREEN NEGATIVE (Neg); URINE BENZODIAZEPINES SCREEN NEGATIVE (Neg); URINE CANNABINOID SCREEN NEGATIVE (Neg); URINE COCAINE SCREEN NEGATIVE (Neg); URINE METHADONE SCREEN NEGATIVE (Neg); URINE OPIATE SCREEN NEGATIVE (Neg); URINE PHENCYCLIDINE SCREEN NEGATIVE (Neg)
[2022-10-31 00:29] LABS: BASOPHILS # (AUTO) 0.1 X10'3 (0-0.2); BASOPHILS % (AUTO) 1.9 % (0-1); EOSINOPHILS % (AUTO) 0.7 % (0-6); HEMATOCRIT 39.8 % (35.0-45.0); HEMOGLOBIN 12.9 g/dl (12.0-16.0); LYMPHOCYTES # (AUTO) 2.1 X10'3 (1.1-4.8); MEAN CORPUSCULAR HEMOGLOBIN 27.7 PG (27.0-31.0); MEAN CORPUSCULAR HGB CONC 32.4 g/dL (33.0-36.5); MEAN CORPUSCULAR VOLUME 85.6 FL (78-98); MEAN PLATELET VOLUME 6.6 FL (7.4-10.4); MONOCYTES # (AUTO) 0.7 X10'3 (0-0.9); MONOCYTES % (AUTO) 11.8 % (2-12); NEUTROPHILS # (AUTO) 2.7 X10'3 (1.8-7.7); NEUTROPHILS % (AUTO) 47.6 % (42-75); PLATELET COUNT 343 X10'3 (140-440); RED BLOOD COUNT 4.65 X10'6 (4.20-5.60); RED CELL DISTRIBUTION WIDTH 18.2 % (11.5-14.5); WHITE BLOOD COUNT 5.6 X10'3 (4.5-11.0)
[2022-10-31 00:36] LABS: ALANINE AMINOTRANSFERASE 49 U/L (12-78); ALBUMIN 3.2 G/DL (3.4-5.0); ALBUMIN/GLOBULIN RATIO 0.9 (1.1-1.5); ALKALINE PHOSPHATASE 103 IU/L (46-116); ANION GAP 17 (8-16); ASPARTATE AMINO TRANSFERASE 62 U/L (10-37); BILIRUBIN,TOTAL 0.8 MG/DL (0.1-1.0); BLOOD UREA NITROGEN 12 MG/DL (7-18); BUN/CREATININE RATIO 16.2 (10.0-20.0); CALCIUM 8.3 MG/DL (8.5-10.1); CHLORIDE 106 MMOL/L (99-107); CREATININE 0.74 MG/DL (0.40-0.90); ETHANOL 0.237 GM/DL (0.0-0.010); GLUCOSE 120 MG/DL (70-104); POTASSIUM 3.2 MMOL/L (3.5-5.1); SODIUM 144 MMOL/L (135-145); TOTAL CARBON DIOXIDE 20.6 MMOL/L (24-32); TOTAL PROTEIN 6.7 G/DL (6.4-8.2); eGFR 81 ML/MIN
[2022-10-31 00:44] LABS: ACETAMINOPHEN < 2.0 UG/ML (10-30)
[2022-10-31] MEDS ORDERED: thiamine 100mg/ml 2ml inj. IV ONE ×2 (01:30→20:40)
[2022-10-31] MEDS ORDERED: normal saline 1000ML IV soln IVB ONE (01:30)
[2022-10-31] MEDS ORDERED: ondansetron/PF 4mg/2ml inj IV ONE ×3 (04:45→10:50)
--- NOTE | 2022-10-31 04:48 | NUR ---
PT RETCHING. INFORMED ORDERS RECEIVED
[2022-10-31] MEDS ORDERED: potassium Cl 20 mEq SR tablet PO STA (05:27)
[2022-10-31] MEDS ORDERED: POTASSIUM CL IV ONE (05:40)
[2022-10-31] MEDS ORDERED: NORMAL SALINE IV ONE (05:40)
[2022-10-31 07:02] LABS: ALBUMIN 2.7 G/DL (3.4-5.0); ANION GAP 16 (8-16); BLOOD UREA NITROGEN 10 MG/DL (7-18); BUN/CREATININE RATIO 16.1 (10.0-20.0); CALCIUM 7.7 MG/DL (8.5-10.1); CHLORIDE 110 MMOL/L (99-107); CREATININE 0.62 MG/DL (0.40-0.90); ETHANOL 0.099 GM/DL (0.0-0.010); GLUCOSE 107 MG/DL (70-104); POTASSIUM 3.7 MMOL/L (3.5-5.1); SODIUM 146 MMOL/L (135-145); TOTAL CARBON DIOXIDE 20.5 MMOL/L (24-32); eGFR > 90 ML/MIN
[2022-10-31] MEDS ORDERED: LORazepam 2 mg/ml vial IV ONE ×2 (07:40→20:40)
[2022-10-31] MEDS ORDERED: LORazepam 2 mg/ml vial ONE ×2 (07:43→07:45)
--- NOTE | 2022-10-31 08:30 | NUR ---
Received pt from ED RM 14, and received report from BEATRIZ Enrique. Patient is in green scrubs, fluids present. Patient is in no acute distress. Bed locked/ lowest level, non slip socks on, SRx2. Pt in room 22 now in ER over flow. Will CTM.
--- NOTE | 2022-10-31 09:00 | NUR ---
Pt was compliant with physical assessment and SI questions (denies). Patients' VS WNL. No current w/d s/s of ETOH . Color is pale but no juandice, no tremors, no tendorsness upon palpation in abd, stedy gait.
[2022-10-31 09:31] LABS: CLARITY,URINE CLOUDY (Clear); COLOR,URINE YELLOW (Yellow); GLUCOSE, URINE NEGATIVE (Neg); KETONES,URINE NEGATIVE (Neg); LEUKOCYTE ESTERASE ,URINE NEGATIVE (Neg); NITRITES, URINE NEGATIVE (Neg); OCCULT BLOOD,URINE NEGATIVE (Neg); PROTEIN,URINE 30 mg/dl (Neg); UROBILINOGEN,URINE 0.2 E.U/dL (0.2-1.0)
[2022-10-31 09:38] LABS: UA COLLECTION TYPE CLN CATCH MIDSTREAM
[2022-10-31 09:40] LABS: MUCUS STRANDS FEW /LPF (Neg); SQUAMOUS EPITHELIAL CELL,UR MODERATE /LPF (FEW)
[2022-10-31 09:41] LABS: CAL OXALATE CRYSTALS 4+ /HPF (NEGATIVE)
[2022-10-31 09:43] LABS: BACTERIA,URINE 1+ /HPF (Neg); RBC,URINE 0-2 /HPF (0-2); TRANSITIONAL EPI CELLS,URINE FEW /HPF; WBC,URINE 0-4 /HPF (0-4)
--- NOTE | 2022-10-31 10:46 | NUR ---
CIWA flow sheet performed with the pt: scored a 11, mild tremors and very mild vomiting. NO acute distress. Received an order for Zofran and Ativan.
[2022-10-31] MEDS ORDERED: LORazepam 1 MG tablet PO PRN (10:50)
--- NOTE | 2022-10-31 11:38 | NUR ---
Patient is now sleeping in bed, no acute distress. N/v has stopped and tremors decreased. Relieved by the Ativan and Zofran. Will CTM, VS stable.
--- NOTE | 2022-10-31 13:00 | NUR ---
Pt has been sleeping on and off. Ate a little bit of lunch, still has a decrease in appetite. Patient has non slip socks on, bed locked/ lowest position. No acute distress at this time.
--- NOTE | 2022-10-31 14:10 | NUR ---
Pt has had great relief of ETOH withdraw sx after PO PRN medication was administered. VS have been stable throughout the shift. Appears to be comortaeble laying up in bed. Patient has non slip socks on, bed locked/ lowest position. Pt has been in no acute distress.
[2022-10-31] MEDS: LORazepam 1 MG tablet PO PRN ×2 (14:46→19:20)
--- NOTE | 2022-10-31 15:10 | NUR ---
Obtained an increase in Ativan order from the doctor for the patient due to the first dose just minorly helping the pt's w/d symtoms. NAD
--- NOTE | 2022-10-31 16:30 | NUR ---
Pt is pleasent and cooperative at this time. No s/s of w/d from ETOH at this current time. Will continue to monitor, in line of site. Patients son is visiting at this time.
--- NOTE | 2022-10-31 17:55 | NUR ---
Margot (nurse) [facility] in [facility] called in re: patients status and seeking potential placement.
--- NOTE | 2022-10-31 18:30 | NUR ---
Pt ate 75% of dinner. Appears to be comfortable sitting up in chair at bedside w/ sitter. Patient has non slip socks on, bed locked/ lowest position. No acute distress at this time. Ambulating on and off around the unit with 1:1 sitter.
[2022-10-31] MEDS: ondansetron 4mg rapidly disintigrating tab PO PRN (18:36)
--- NOTE | 2022-10-31 19:15 | NUR ---
CIWA score 0f 9 at this time. Very minimal output of vomiting (bile) reported by pt. Administer PO zofran, will administer Ativan at time due. Minimal upper extremity tremors, N/V, tactile disturbance. Will CTM VS WNL.
--- NOTE | 2022-10-31 19:27 | NUR ---
Sammie from [facility] called and stated the pt was accepted to a facility called [facility] near [place]. Phone number to the facility is: [phone]. Accepting MD is Dr. Guevara. Estimated the pt brick picker time would be in the morning at sometime. They will call in the morning and give more of an idea. Also requested the ER med req to be faxed to Sammie at [phone].
[2022-10-31] MEDS ORDERED: normal saline 1000ml 1,000 ML IV ONE (20:30)
--- NOTE | 2022-10-31 21:00 | NUR ---
Patient had very minimal affect of PO PRN medications that where administered to help with her sx's; consulted w/ the ER MD and got new order for Vit B1, Normal saline bolus, and ativan IV. A new IV was started in the left hand with a 22g, CDI. IV medications where administered and patient is stable at this time laying in bed, bolus running by gravity/ pressure bag. Will CTM.
--- NOTE | 2022-10-31 23:00 | NUR ---
Patient checked on, no acute distress at this time. Bed locked/ lowest position, q15 rounds, non slip socks on. 1:1 sitter present at bedside, fluids present. Pt is laying in bed at this time, used the BR x2. Fluids running.
[2022-11-01] MEDS: LORazepam 1 MG tablet PO PRN ×4 (00:11→16:51)
--- NOTE | 2022-11-01 00:51 | NUR ---
The patient appears to be sleeping
--- NOTE | 2022-11-01 01:46 | NUR ---
Patient checked on, no acute distress at this time. Bed locked/ lowest position, q15 rounds, non slip socks on. No current s/s of ETOH w/d at this time; sleeping in bed.
--- NOTE | 2022-11-01 03:20 | NUR ---
Patient checked on, no acute distress at this time. Sleeping at this time. Bed locked/ lowest position, q15 rounds, non slip socks on. 1:1 sitter present at bedside, fluids present. No observant s/s of ETOH w/d at this current time.
[2022-11-01] MEDS: ondansetron 4mg rapidly disintigrating tab PO PRN ×3 (03:45→19:22)
--- NOTE | 2022-11-01 04:45 | NUR ---
Patient checked on, no acute distress at this time. Used the BR. Bed locked/ lowest position, q15 rounds, non slip socks on. 1:1 sitter present at bedside, fluids present. Patient had a little bit of anxiety Addendum: 11/01/22 at 0446 by SONJA PO Ativan administered. CTM Addendum: 11/01/22 at 0446 by SONJA *Line of site* disregard the 1:1.
--- NOTE | 2022-11-01 05:51 | NUR ---
Patient checked on,sleeping; no acute distress at this time. Bed locked/ lowest position, q15 rounds, non slip socks on. Will relay patients current status of the night to the oncoming nurse.
--- NOTE | 2022-11-01 07:00 | NUR ---
Pt resting comfortably with covers pulled over her head, able to see rise and fall of chest. RR even and unlabored.
[2022-11-01] MEDS ORDERED: lactose-reduced food (Ensure Enlive) - 237ml bottle PO SCH (08:00)
[2022-11-01] MEDS ORDERED: QUET100T34 PO (08:19)
[2022-11-01] MEDS ORDERED: MULT-1085 PO (08:19)
[2022-11-01] MEDS ORDERED: FOLI0.4T6 PO (08:19)
[2022-11-01] MEDS ORDERED: MULT-661 PO (08:19)
[2022-11-01] MEDS ORDERED: VENL25TA48 PO (08:19)
[2022-11-01] MEDS ORDERED: CYAN500T71 PO (08:19)
[2022-11-01] MEDS ORDERED: OSC500T PO (08:19)
[2022-11-01] MEDS ORDERED: CHOL10006 PO (08:19)
[2022-11-01] MEDS ORDERED: PANT40TA54 PO (08:19)
[2022-11-01] MEDS ORDERED: folic acid 0.4mg tablet PO SCH (09:00)
[2022-11-01] MEDS ORDERED: venlafaxine 25mg tablet PO SCH ×2 (09:00→20:00)
[2022-11-01] MEDS ORDERED: cholecalciferol (vitamin D3) 1,000 unit (25mcg) tablet PO SCH (09:00)
[2022-11-01] MEDS ORDERED: cyanocobalamin 500mcg tablet PO SCH (09:00)
[2022-11-01] MEDS ORDERED: multivitamins, therapeutics tablet PO SCH (09:00)
--- NOTE | 2022-11-01 09:00 | NUR ---
Pt walked abruptly up to nurses station tearful "I want to go home." "No one care about what I want." "I haven't had my medication." Toll Line Repairer had kept pt in the loop, there were multiple requests and medication administration as soon as shift started. Pt's medication required a clarification as her med rec wasn't completed. Pt was upset earlier, around shift change demanding breakfast "What am I supposed to do not eat?" Other options were offered, however pt refused.
--- NOTE | 2022-11-01 09:30 | NUR ---
Coining Press Operator called NATALI Ackerman regarding pt's diet. Pt reports hx of gastric bypass surgery. Received order from Dr. Morfin for high protein shake, MV, and supplements.
--- NOTE | 2022-11-01 09:57 | NUR ---
Pt woke this morning around 0645- very tearful. She told this science writer that she is STARVING and hasn't been given food in days. This science writer worked with her yesterday and provided her food, but pt states she does not like jello, crackers, etc. so she is still hungry. During shift change this science writer was told she basically refused to eat the meal that was sent down for dinner last night.
[2022-11-01] MEDS: calcium carbonate 500mg tablet PO SCH ×2 (10:43→19:21)
[2022-11-01] MEDS: pantoprazole 40mg Tablet.DR PO SCH ×2 (10:43→19:22)
[2022-11-01] MEDS ORDERED: venlafaxine 25mg tablet PO ONE (11:05)
--- NOTE | 2022-11-01 11:56 | NUR ---
Pt resting comfortably, rr even and unlabored.
--- NOTE | 2022-11-01 11:57 | NUR ---
IV saline lock pulled from left wrist. Cannula intact.
[2022-11-01] MEDS: lactose-reduced food (Ensure High Protein) 237ml bottle PO SCH ×2 (12:06→19:03)
[2022-11-01] MEDS ORDERED: loperamide 2mg capsule PO ONE ×2 (13:10→19:05)
--- NOTE | 2022-11-01 13:10 | NUR ---
Pt c/o loose stool. Received order for Loperamide 2mg. CTM.
--- NOTE | 2022-11-01 15:10 | NUR ---
Pt resting comfortably, rr even and unlabored.
--- NOTE | 2022-11-01 18:10 | NUR ---
Pt ate about 75% of her dinner. Pt presents anxious as she doesn't want to go to [facility]. "I just can't do this."
--- NOTE | 2022-11-01 19:45 | NUR ---
NURSE TO NURSE WITH JONATHAN PAGE - AT [facility].
--- NOTE | 2022-11-01 20:00 | NUR ---
Pt was told she would be discharged tonight. Pt suddenly began to c/o "nausea and diarrhea." Pt was administered zofran and another dose of loperamide with her HS medications.
[2022-11-01] MEDS ORDERED: quetiapine 100mg tablet PO SCH (21:00)
--- NOTE | 2022-11-01 21:55 | NUR ---
Pt was transferred out of unit to [facility]. Pt left with all personal belongings. Pt was irritated saying "this is all ridiculous." Pt was escorted to transportation van without issue with security and [facility] patient transportation driver.
[2022-11-01] MEDS ORDERED: LORazepam 1 MG tablet PO PRN (22:00)
[2022-11-01 23:38] VITALS: BP 142/78
== END 2022-11-01 21:45 ==
LOC: ER 22:25
DX: R45.851 Suicidal ideations (principal); Z20.822 Contact with and (suspected) exposure to COVID-19; F10.920 Alcohol use, unspecified with intoxication, uncomplicated; F31.9 Bipolar disorder, unspecified; Z98.890 Other specified postprocedural states; Z91.013 Allergy to seafood; Z88.8 Allergy status to other drugs, medicaments and biological substances; Z79.899 Other long term (current) drug therapy
CPT/HCPCS: 36415; 80048; 80053; 80305; 80320; 80329; 81001; 84443; 85025; 87811; 96361; 96365; 96375; 96376; 99285; J2060; J2405; J3411; J3480; J3490; J7030

== ENCOUNTER 2023-03-30 16:22 | Inpatient (IN) | payer MEDICAID ==
[~2023-03-30] VITALS: Ht 165.1 cm; Wt 86.4 kg
[~2023-03-30 16:22] MED LIST changes: +CHOL10006 PO; -FOLI0.4T14 PO; +FOLI0.4T6 PO; -LORA-269 PO; -MULT-25 PO; +MULT-661 PO; +OSC500T PO; +VENL25TA48 PO; -VENL50TA4 PO
[2023-03-30] MEDS ORDERED: morphine 4 MG/ML inj SYRINge IV ONE (17:00)
[2023-03-30] MEDS ORDERED: ringers solution, lactated 1000ml IV soln IV ONE (17:00)
[2023-03-30] MEDS ORDERED: ondansetron/PF 4mg/2ml inj IV ONE (17:00)
[2023-03-30] MEDS ORDERED: LORazepam 2 mg/ml vial IV ONE (17:00)
[2023-03-30 17:30] LABS: WHITE BLOOD COUNT 4.6 X10'3 (4.5-11.0)
[2023-03-30] MEDS ORDERED: pantoprazole 40MG/NS 100ML BAG 100 ML IV SCH (17:30)
[2023-03-30 17:31] LABS: BASOPHILS % (AUTO) 0.2 % (0-1); EOSINOPHILS % (AUTO) 0.4 % (0-6); HEMATOCRIT 30.1 % (35.0-45.0); HEMOGLOBIN 10.4 g/dl (12.0-16.0); LYMPHOCYTES # (AUTO) 0.7 X10'3 (1.1-4.8); LYMPHOCYTES % (AUTO) 15.9 % (21-51); MEAN CORPUSCULAR HEMOGLOBIN 32.2 PG (27.0-31.0); MEAN CORPUSCULAR HGB CONC 34.7 g/dL (33.0-36.5); MEAN CORPUSCULAR VOLUME 92.8 FL (78-98); MEAN PLATELET VOLUME 7.6 FL (7.4-10.4); MONOCYTES # (AUTO) 0.8 X10'3 (0-0.9); MONOCYTES % (AUTO) 17.8 % (2-12); NEUTROPHILS % (AUTO) 65.7 % (42-75); PLATELET COUNT 284 X10'3 (140-440); RED BLOOD COUNT 3.24 X10'6 (4.20-5.60); RED CELL DISTRIBUTION WIDTH 16.9 % (11.5-14.5)
[2023-03-30 17:37] LABS: APTT 23 SECONDS (22-32); INR 1.2 INR; PROTHROMBIN TIME 12.5 SECONDS (9.0-12.0)
[2023-03-30 17:48] LABS: ALANINE AMINOTRANSFERASE 60 U/L (12-78); ALBUMIN 2.5 G/DL (3.4-5.0); ALBUMIN/GLOBULIN RATIO 0.9 (1.1-1.5); ALKALINE PHOSPHATASE 210 IU/L (46-116); ANION GAP 15 (8-16); ASPARTATE AMINO TRANSFERASE 106 U/L (10-37); BLOOD UREA NITROGEN 4 MG/DL (7-18); BUN/CREATININE RATIO 3.8 (10.0-20.0); CALCIUM 6.8 MG/DL (8.5-10.1); CHLORIDE 87 MMOL/L (99-107); CREATININE 1.04 MG/DL (0.40-0.90); GLUCOSE 204 MG/DL (70-104); PRO BRAIN NATRIURETIC PEPTIDE 169 PG/ML (0-125); SODIUM 125 MMOL/L (135-145); TOTAL CARBON DIOXIDE 23.3 MMOL/L (24-32); TOTAL PROTEIN 5.4 G/DL (6.4-8.2); eCRCL 53 ML/MIN; eGFR 54 ML/MIN
[2023-03-30 17:50] LABS: ANISOCYTOSIS 1+; PLATELET ESTIMATE NORMAL; POLYCHROMASIA 1+
[2023-03-30 17:51] LABS: POTASSIUM 1.9 MMOL/L (3.5-5.1)
[2023-03-30] MEDS ORDERED: iohexol 300mg/ml 100ml inj. ONE (18:02)
[2023-03-30] MEDS ORDERED: potassium 20mEq/D5LR 1000ml bag IV ONE (18:05)
[2023-03-30] MEDS ORDERED: potassium 20mEq/D5LR 1,000 ML IV SCH (18:10)
[2023-03-30 18:26] LABS: MAGNESIUM 0.6 MG/DL (1.5-2.4)
[2023-03-30] MEDS ORDERED: ringers solution, lacted 1,000 ML IV ONE (18:30)
[2023-03-30] MEDS ORDERED: magnesium 2GM in 50ml NS 50 ML IV ONE (18:30)
[2023-03-30 18:49] LABS: ETHANOL < 10 MG/DL (<10)
--- NOTE | 2023-03-30 19:04 | NUR ---
to ct scan.
[2023-03-30] MEDS ORDERED: mag hydrox/Alum hydrox/simeth 30ml oral suspension PO PRN (19:40)
[2023-03-30] MEDS ORDERED: haloperidol 5mg tablet PO PRN (19:40)
[2023-03-30] MEDS ORDERED: acetaminophen 325mg tablet PO PRN (19:40)
[2023-03-30] MEDS ORDERED: HYDROcodone/acetaminophen 5mg/325mg tablet PO PRN (19:40)
[2023-03-30] MEDS ORDERED: haloperidol lactate 5mg/ml inj IM PRN (19:40)
[2023-03-30] MEDS ORDERED: magnesium 4gm in 100ml NS 100 ML IV PRN (19:40)
[2023-03-30] MEDS ORDERED: magnesium Cl slow-release 64mg tablet PO PRN (19:40)
[2023-03-30] MEDS: potassium cl 20mEq in 1/2 NS 1,000 ML IV SCH (19:40)
[2023-03-30] MEDS ORDERED: magnesium hydroxide 30ml (MOM) UD suspension PO PRN (19:40)
[2023-03-30] MEDS ORDERED: potassium Cl 40MEQ/1/2NS 520ml 520 ML IV PRN (19:40)
[2023-03-30] MEDS ORDERED: magnesium 2GM in 50ml NS 50 ML IV PRN (19:40)
[2023-03-30] MEDS ORDERED: dextrose 50%-water 50ml dispensing syringe IV PRN (19:40)
[2023-03-30] MEDS ORDERED: potassium Cl 20 mEq SR tablet PO PRN (19:40)
[2023-03-30] MEDS ORDERED: ondansetron/PF 4mg/2ml inj IV PRN (19:40)
[2023-03-30] MEDS ORDERED: potassium Cl 20 mEq SR tablet PO STA (19:42)
[2023-03-30] MEDS ORDERED: pantoprazole 40 MG vial IV SCH (19:45)
[2023-03-30] MEDS ORDERED: potassium CL 10mEq/100ml bag 100 ML IV ONE ×2 (19:45)
--- NOTE | 2023-03-30 19:47 | NUR ---
dr rivas at bedside informed md that pt is getting iv potassium 20 mEq in 1000 ml bag over 10 hr and pt k+ is 1.9 as per md verbal order to admin potassium 10 mEq x 2 bag and potassium chloride 40 mEq PO once and also informed md that pt is getting pantaprazole over 5 hr or does he want bolus dose ,as per md cancel the german order of pantaprozole and infuse as bolus.
[2023-03-30] MEDS: K and/or MAG REPLACEMENT MC SCH (20:00)
[2023-03-30] MEDS: docusate sod 100mg capsule PO SCH (20:00)
--- NOTE | 2023-03-30 20:18 | NUR ---
SPOKE TO PHARMACIST DU TO INFORMED THAT PT K+ IS 1.9 IS OK IF WE INFUSE 2 BAG OF IV POTASSIUM THROUGH DIFFERENT IV LINE AT THE SAME TIME , PT HAS 3 PERIPHERAL IV LINES,HE OKAY TO INFUSE AT SAME TIME,ALSO INFORMED TO GET IV 40 mEq POTASSIUM IN 520 ML K+ REPLACEMENT PROTOCOL BAG READY TOO FOR INFUSION, PER PHARMACIST HE WILL GET IT READY IN [address] MOROCHO GIVEN VERBAL ORDER TO STOP THE KCL 20 mEq with d5 LR .
[2023-03-30] MEDS: piperacillin/tazo 3.375gm/50ml 50 ML IV STA ×2 (20:42→20:44)
[2023-03-30] MEDS: folic acid 1mg/0.2ml inj IV SCH (20:42)
[2023-03-30] MEDS: thiamine 100mg/ml 2ml inj. IV SCH (20:57)
[2023-03-30 21:58] LABS: URINE AMPHETAMINE SCREEN NEGATIVE (Neg); URINE BARBITUATE SCREEN NEGATIVE (Neg); URINE BENZODIAZEPINES SCREEN NEGATIVE (Neg); URINE CANNABINOID SCREEN NEGATIVE (Neg); URINE COCAINE SCREEN NEGATIVE (Neg); URINE METHADONE SCREEN NEGATIVE (Neg); URINE OPIATE SCREEN POSITIVE (Neg); URINE PHENCYCLIDINE SCREEN NEGATIVE (Neg)
[2023-03-30 22:00] VITALS: BP 102/46; PULSE 92; RESP 18; TEMP 97.6; O2SAT 98
[2023-03-30 23:00] VITALS: RESP 24; O2SAT 92
[2023-03-30] MEDS: potassium Cl 20 mEq SR tablet PO PRN (23:36)
[2023-03-31] VITALS (8 sets, daily range): BP systolic 78–150; BP diastolic 42–113; PULSE 87–111; RESP 15–26; TEMP 97.5–99.4; O2SAT 92–100
[2023-03-31 04:00] LABS: HEMATOCRIT 25.4 % (35.0-45.0); HEMOGLOBIN 8.8 g/dl (12.0-16.0); MEAN CORPUSCULAR HEMOGLOBIN 32.3 PG (27.0-31.0); MEAN CORPUSCULAR HGB CONC 34.6 g/dL (33.0-36.5); MEAN CORPUSCULAR VOLUME 93.5 FL (78-98); MEAN PLATELET VOLUME 7.5 FL (7.4-10.4); PLATELET COUNT 198 X10'3 (140-440); RED BLOOD COUNT 2.71 X10'6 (4.20-5.60); RED CELL DISTRIBUTION WIDTH 17.2 % (11.5-14.5); WHITE BLOOD COUNT 3.5 X10'3 (4.5-11.0)
[2023-03-31 04:22] LABS: ALANINE AMINOTRANSFERASE 49 U/L (12-78); ALBUMIN 2.1 G/DL (3.4-5.0); ALBUMIN/GLOBULIN RATIO 0.8 (1.1-1.5); ALKALINE PHOSPHATASE 171 IU/L (46-116); ANION GAP 4 (8-16); ASPARTATE AMINO TRANSFERASE 72 U/L (10-37); BILIRUBIN,TOTAL 1.3 MG/DL (0.1-1.0); BLOOD UREA NITROGEN 2 MG/DL (7-18); BUN/CREATININE RATIO 2.6 (10.0-20.0); CALCIUM 6.5 MG/DL (8.5-10.1); CHLORIDE 98 MMOL/L (99-107); CREATININE 0.77 MG/DL (0.40-0.90); GLUCOSE 102 MG/DL (70-104); MAGNESIUM 1.3 MG/DL (1.5-2.4); SODIUM 132 MMOL/L (135-145); TOTAL PROTEIN 4.7 G/DL (6.4-8.2); eCRCL 72 ML/MIN; eGFR 77 ML/MIN
[2023-03-31 04:27] LABS: POTASSIUM 2.8 MMOL/L (3.5-5.1)
[2023-03-31 04:58] LABS: NUCLEATED RED BLOOD CELLS 1 /100WBC (0-0); PLATELET ESTIMATE NORMAL; TOTAL CELLS COUNTED 100
[2023-03-31 04:59] LABS: ANISOCYTOSIS 1+; HYPERSEGMENTED NEUTROPHILS 1+; SMUDGE CELLS FEW
[2023-03-31 05:02] LABS: POIKILOCYTOSIS FEW; POLYCHROMASIA FEW
[2023-03-31 05:04] LABS: ELLIPTOCYTES FEW
[2023-03-31] MEDS: LORazepam 2 mg/ml vial IV PRN ×5 (05:11→21:04)
[2023-03-31] MEDS: potassium Cl 20 mEq SR tablet PO PRN ×3 (05:13→13:28)
[2023-03-31] MEDS: potassium cl 20mEq in 1/2 NS 1,000 ML IV SCH ×3 (05:20→16:45)
[2023-03-31] MEDS ORDERED: glucagon, human recombinant 1mg kit SUBCUT PRN (06:10)
[2023-03-31] MEDS ORDERED: DEXTROSE 15 GM of carb/4 tabs (each vial/BOTTLE has 4 tablets) PO PRN ×2 (06:10)
[2023-03-31] MEDS ORDERED: dextrose 50%-water 50ml dispensing syringe IV PRN ×2 (06:10)
[2023-03-31] MEDS ORDERED: insulin Lispro (HumaLOG) vial - multi-dose SQ SCH (06:10)
[2023-03-31] MEDS ORDERED: MESSAGE TO PHARMACY PO ONE (06:10)
--- NOTE | 2023-03-31 06:27 | NUR ---
Patient in room U 3023. I have received report from Luis CASTILLO and had the opportunity to ask questions and assume patient care. Addendum: 03/31/23 at 0627 by Kavita Rae RN Amended: Links added.
[2023-03-31] MEDS ORDERED: pantoprazole 40MG/NS 100ML BAG 100 ML IV SCH (08:00)
[2023-03-31] MEDS: K and/or MAG REPLACEMENT MC SCH ×2 (08:00→20:00)
[2023-03-31] MEDS: thiamine 100mg/ml 2ml inj. IV SCH ×2 (08:33→13:27)
[2023-03-31] MEDS: docusate sod 100mg capsule PO SCH ×2 (08:33→20:00)
[2023-03-31] MEDS: enoxaparin 40mg/0.4ml syringe SUBCUT SCH (08:33)
[2023-03-31] MEDS: folic acid 1mg/0.2ml inj IV SCH (09:14)
[2023-03-31] MEDS: HYDROcodone/acetaminophen 10/325mg tab PO PRN ×2 (11:06→21:05)
[2023-03-31] MEDS: potassium Cl 20mEq in NS 1,000 ML IV SCH (17:35)
--- NOTE | 2023-03-31 18:16 | NUR ---
Problems reprioritized. Patient report given, questions answered & plan of care reviewed with Luis CASTILLO. Addendum: 03/31/23 at 1816 by Kavita Rae RN Amended: Links added.
[2023-03-31] MEDS: insulin glargine (Lantus) pen - multi-dose SQ SCH (21:00)
[2023-04-01 02:00] VITALS: BP 84/48; PULSE 92; RESP 27; TEMP 98.1; O2SAT 92
[2023-04-01] MEDS: potassium Cl 20mEq in NS 1,000 ML IV SCH (03:57)
[2023-04-01] MEDS: LORazepam 2 mg/ml vial IV PRN ×2 (05:25→09:03)
[2023-04-01 07:25] VITALS: BP 117/70; PULSE 108; RESP 22; TEMP 98.8; O2SAT 96
[2023-04-01] MEDS: enoxaparin 40mg/0.4ml syringe SUBCUT SCH (07:39)
[2023-04-01] MEDS: pantoprazole 40mg Tablet.DR PO SCH (07:39)
[2023-04-01] MEDS: docusate sod 100mg capsule PO SCH (07:39)
[2023-04-01 08:00] VITALS: RESP 18; O2SAT 98
[2023-04-01] MEDS: K and/or MAG REPLACEMENT MC SCH ×2 (08:00→20:00)
[2023-04-01 08:14] LABS: BASOPHILS % (AUTO) 0.3 % (0-1); EOSINOPHILS % (AUTO) 0.5 % (0-6); HEMATOCRIT 26.1 % (35.0-45.0); HEMOGLOBIN 8.7 g/dl (12.0-16.0); LYMPHOCYTES # (AUTO) 0.4 X10'3 (1.1-4.8); LYMPHOCYTES % (AUTO) 7.7 % (21-51); MEAN CORPUSCULAR HEMOGLOBIN 32.6 PG (27.0-31.0); MEAN CORPUSCULAR HGB CONC 33.4 g/dL (33.0-36.5); MEAN CORPUSCULAR VOLUME 97.6 FL (78-98); MEAN PLATELET VOLUME 6.9 FL (7.4-10.4); MONOCYTES # (AUTO) 0.4 X10'3 (0-0.9); MONOCYTES % (AUTO) 7.4 % (2-12); NEUTROPHILS # (AUTO) 4.7 X10'3 (1.8-7.7); NEUTROPHILS % (AUTO) 84.1 % (42-75); PLATELET COUNT 253 X10'3 (140-440); RED BLOOD COUNT 2.67 X10'6 (4.20-5.60); RED CELL DISTRIBUTION WIDTH 16.9 % (11.5-14.5); WHITE BLOOD COUNT 5.6 X10'3 (4.5-11.0)
[2023-04-01 08:40] LABS: ALANINE AMINOTRANSFERASE 44 U/L (12-78); ALBUMIN/GLOBULIN RATIO 0.7 (1.1-1.5); ALKALINE PHOSPHATASE 160 IU/L (46-116); ANION GAP 4 (8-16); ASPARTATE AMINO TRANSFERASE 62 U/L (10-37); BILIRUBIN,TOTAL 1.1 MG/DL (0.1-1.0); BLOOD UREA NITROGEN 1 MG/DL (7-18); BUN/CREATININE RATIO 1.4 (10.0-20.0); CHLORIDE 103 MMOL/L (99-107); FERRITIN 577 NG/ML (8-252); GLUCOSE 101 MG/DL (70-104); MAGNESIUM 1.5 MG/DL (1.5-2.4); POTASSIUM 4.7 MMOL/L (3.5-5.1); SODIUM 133 MMOL/L (135-145); TOTAL CARBON DIOXIDE 26.3 MMOL/L (24-32); TOTAL PROTEIN 4.7 G/DL (6.4-8.2); eCRCL 79 ML/MIN; eGFR 86 ML/MIN
[2023-04-01 09:35] LABS: % IRON SATURATION 25 % (11-46); IRON 49 UG/DL (49-151); TOTAL IRON BINDING CAPACITY 200 UG/DL (259-388)
--- NOTE | 2023-04-01 11:05 | NUR ---
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 Current wt in EMR of 86.36kg(190 pounds) verbalized not scaled and wt hx in EMR of 84kg (185 pounds) on 10/17/22 suggest wt overall is stable/slightly higher than previously, if verbalized wt is correct. Will monitor for scaled wt this admit. Pt is not appropriate for interview at this time due to pt on Etoh withdraw protocol, documented A0x1, and agitated at this time per EMR. Per MD note pt states is really hungry and wants a regular diet since she currently is on full liquids of which is eating 75-100%. Pt does not present with edema at this time. Pt lacks a minimum of two malnutrition criteria at this time. Will continue to monitor and make recommendations as appropriate. Addendum: 04/01/23 at [address] Amended: Links added.
--- NOTE | 2023-04-01 17:25 | NUR ---
Fall Report Filed
[2023-04-01 18:00] VITALS: BP 98/40; PULSE 100; RESP 18; TEMP 99.4; O2SAT 100
[2023-04-01] MEDS ORDERED: LORazepam 2 mg/ml vial IV PRN (19:40)
[2023-04-01 20:00] VITALS: RESP 18; O2SAT 100
[2023-04-01] MEDS: LORazepam 1 MG tablet PO PRN ×2 (20:10→23:12)
[2023-04-01] MEDS: insulin glargine (Lantus) pen - multi-dose SQ SCH (20:12)
[2023-04-01 23:15] VITALS: BP 95/42; PULSE 97; RESP 16; TEMP 99.9; O2SAT 97
[2023-04-02] MEDS: LORazepam 1 MG tablet PO PRN ×6 (03:50→23:06)
[2023-04-02 06:30] VITALS: BP 100/53; PULSE 98; RESP 21; TEMP 98.7; O2SAT 100
[2023-04-02 07:19] LABS: BASOPHILS % (AUTO) 0.3 % (0-1); EOSINOPHILS # (AUTO) 0.1 X10'3 (0-0.9); EOSINOPHILS % (AUTO) 1.4 % (0-6); HEMATOCRIT 24.3 % (35.0-45.0); HEMOGLOBIN 8.1 g/dl (12.0-16.0); LYMPHOCYTES # (AUTO) 0.6 X10'3 (1.1-4.8); LYMPHOCYTES % (AUTO) 17.1 % (21-51); MEAN CORPUSCULAR HEMOGLOBIN 32.9 PG (27.0-31.0); MEAN CORPUSCULAR HGB CONC 33.2 g/dL (33.0-36.5); MEAN PLATELET VOLUME 7.3 FL (7.4-10.4); MONOCYTES # (AUTO) 0.4 X10'3 (0-0.9); MONOCYTES % (AUTO) 11.7 % (2-12); NEUTROPHILS # (AUTO) 2.6 X10'3 (1.8-7.7); NEUTROPHILS % (AUTO) 69.5 % (42-75); PLATELET COUNT 205 X10'3 (140-440); RED BLOOD COUNT 2.46 X10'6 (4.20-5.60); RED CELL DISTRIBUTION WIDTH 19.3 % (11.5-14.5); WHITE BLOOD COUNT 3.7 X10'3 (4.5-11.0)
[2023-04-02 07:24] LABS: ALANINE AMINOTRANSFERASE 40 U/L (12-78); ALBUMIN 1.8 G/DL (3.4-5.0); ALBUMIN/GLOBULIN RATIO 0.8 (1.1-1.5); ALKALINE PHOSPHATASE 140 IU/L (46-116); ANION GAP 5 (8-16); ASPARTATE AMINO TRANSFERASE 44 U/L (10-37); BILIRUBIN,TOTAL 0.9 MG/DL (0.1-1.0); BLOOD UREA NITROGEN 4 MG/DL (7-18); BUN/CREATININE RATIO 6.9 (10.0-20.0); CALCIUM 7.3 MG/DL (8.5-10.1); CHLORIDE 106 MMOL/L (99-107); CREATININE 0.58 MG/DL (0.40-0.90); GLUCOSE 76 MG/DL (70-104); MAGNESIUM 1.4 MG/DL (1.5-2.4); POTASSIUM 3.6 MMOL/L (3.5-5.1); SODIUM 138 MMOL/L (135-145); TOTAL CARBON DIOXIDE 27.3 MMOL/L (24-32); TOTAL PROTEIN 4.2 G/DL (6.4-8.2); eCRCL 95 ML/MIN; eGFR > 90 ML/MIN
[2023-04-02] MEDS: pantoprazole 40mg Tablet.DR PO SCH (07:44)
[2023-04-02] MEDS: enoxaparin 40mg/0.4ml syringe SUBCUT SCH (08:00)
[2023-04-02] MEDS: K and/or MAG REPLACEMENT MC SCH ×2 (08:00→20:00)
[2023-04-02] MEDS ORDERED: thiamine tablet PO (11:53)
[2023-04-02] MEDS ORDERED: HYDROcodone/acetaminophen 5mg/325mg tablet PO PRN (13:40)
[2023-04-02] MEDS ORDERED: HYDROcodone/acetaminophen 10/325mg tab PO PRN (13:40)
[2023-04-02] MEDS: ondansetron 4mg rapidly disintigrating tab PO PRN (14:39)
[2023-04-02 18:00] VITALS: BP 108/68; PULSE 91; RESP 19; TEMP 98.8; O2SAT 98
[2023-04-02] MEDS ORDERED: loperamide 2mg capsule PO PRN (19:20)
[2023-04-02] MEDS ORDERED: proCHLORperazine 10mg tablet PO PRN (19:20)
[2023-04-02 20:00] VITALS: RESP 19; O2SAT 98
[2023-04-02] MEDS: insulin glargine (Lantus) pen - multi-dose SQ SCH (20:54)
--- NOTE | 2023-04-02 22:54 | NUR ---
pt refused 2200 vitals on 04/02/2023
--- NOTE | 2023-04-03 00:20 | NUR ---
pt at beginning of shift vomited and said had diarrhea, by time i got imodium and compazine pt was asleep, when pt woke up about an hour later she said she did not feel nv
--- NOTE | 2023-04-03 04:14 | NUR ---
pt refused 0200 vitals on
--- NOTE | 2023-04-03 05:45 | NUR ---
I agree with all assessment findings by Silverio HENDERSON, except as charted in behavior.
[2023-04-03] MEDS: pantoprazole 40mg Tablet.DR PO SCH (07:07)
[2023-04-03] MEDS: LORazepam 1 MG tablet PO PRN (07:07)
[2023-04-03] MEDS ORDERED: thiamine 100mg tablet PO SCH (08:00)
[2023-04-03] MEDS: enoxaparin 40mg/0.4ml syringe SUBCUT SCH (08:00)
[2023-04-03] MEDS: K and/or MAG REPLACEMENT MC SCH (08:00)
[2023-04-03 08:05] VITALS: RESP 16; O2SAT 97
[2023-04-03 08:38] LABS: BASOPHILS % (AUTO) 0.8 % (0-1); EOSINOPHILS # (AUTO) 0.1 X10'3 (0-0.9); EOSINOPHILS % (AUTO) 2.1 % (0-6); HEMATOCRIT 27.4 % (35.0-45.0); LYMPHOCYTES % (AUTO) 29.3 % (21-51); MEAN CORPUSCULAR HEMOGLOBIN 32.5 PG (27.0-31.0); MEAN CORPUSCULAR HGB CONC 32.8 g/dL (33.0-36.5); MEAN CORPUSCULAR VOLUME 99.2 FL (78-98); MEAN PLATELET VOLUME 7.1 FL (7.4-10.4); MONOCYTES # (AUTO) 0.4 X10'3 (0-0.9); MONOCYTES % (AUTO) 12.8 % (2-12); NEUTROPHILS # (AUTO) 1.8 X10'3 (1.8-7.7); PLATELET COUNT 276 X10'3 (140-440); RED BLOOD COUNT 2.76 X10'6 (4.20-5.60); RED CELL DISTRIBUTION WIDTH 24.8 % (11.5-14.5); WHITE BLOOD COUNT 3.3 X10'3 (4.5-11.0)
[2023-04-03 09:06] LABS: ALANINE AMINOTRANSFERASE 41 U/L (12-78); ALBUMIN/GLOBULIN RATIO 0.6 (1.1-1.5); ALKALINE PHOSPHATASE 157 IU/L (46-116); ANION GAP 7 (8-16); ASPARTATE AMINO TRANSFERASE 42 U/L (10-37); BILIRUBIN,TOTAL 0.7 MG/DL (0.1-1.0); BLOOD UREA NITROGEN 4 MG/DL (7-18); BUN/CREATININE RATIO 5.9 (10.0-20.0); CALCIUM 7.6 MG/DL (8.5-10.1); CHLORIDE 105 MMOL/L (99-107); CREATININE 0.68 MG/DL (0.40-0.90); GLUCOSE 109 MG/DL (70-104); MAGNESIUM 1.3 MG/DL (1.5-2.4); POTASSIUM 3.7 MMOL/L (3.5-5.1); SODIUM 137 MMOL/L (135-145); TOTAL CARBON DIOXIDE 24.9 MMOL/L (24-32); TOTAL PROTEIN 5.1 G/DL (6.4-8.2); eCRCL 81 ML/MIN; eGFR 89 ML/MIN
[2023-04-03 09:41] LABS: ANISOCYTOSIS 3+; PLATELET ESTIMATE NORMAL
[2023-04-03 09:43] LABS: POIKILOCYTOSIS FEW; POLYCHROMASIA 1+; STOMATOCYTES FEW; TEAR DROP CELLS FEW
--- NOTE | 2023-04-03 10:27 | NUR ---
Patient in room PCU 3016. I have received report from Saman CASTILLO and had the opportunity to ask questions and assume patient care.
[2023-04-03 11:00] VITALS: BP 101/74; PULSE 76; RESP 16; TEMP 97.8; O2SAT 96
[2023-04-03] MEDS ORDERED: magnesium 4gm in 100ml NS 100 ML IV PRN (11:45)
[2023-04-03] MEDS ORDERED: magnesium 2GM in 50ml NS 50 ML IV PRN (11:45)
[2023-04-03] MEDS ORDERED: magnesium Cl slow-release 64mg tablet PO PRN (11:45)
--- NOTE | 2023-04-03 13:11 | NUR ---
Called patient's son. Son verbalizes he will come get her.
[2023-04-03] MEDS: ondansetron 4mg rapidly disintigrating tab PO PRN (13:15)
--- NOTE | 2023-04-03 13:30 | NUR ---
Patient discharged home with all belongings and discharge instructions. No IV and no tele monitor. Offered patient pants and a gown. Patient refused pants and didn't want a new gown. Patient escorted out via wheel chair and left in private vehicle.
[2023-04-03] MEDS ORDERED: LORazepam 2 mg/ml vial IV PRN (19:40)
[2023-04-03] MEDS ORDERED: LORazepam 1 MG tablet PO PRN (19:40)
[2023-04-04] MEDS ORDERED: folic acid 1mg tablet PO SCH (08:00)
== END 2023-04-03 13:32 | disposition home or self-care (01) | DRG 253 ==
LOC: ER 16:22 → ED HOLD 19:43 → EDBEDREQ 21:17 → PCU 3S 21:50
PROVIDERS: ADMIT Internal Medicine; ATTEND Internal Medicine
PROC: BW211ZZ Computerized Tomography (CT Scan) of Abdomen and Pelvis using Low Osmolar Contrast (ICD-10-PCS; principal; 2023-03-30)
DX: K92.2 Gastrointestinal hemorrhage, unspecified (principal); D64.9 Anemia, unspecified; F20.9 Schizophrenia, unspecified; F10.139 Alcohol abuse with withdrawal, unspecified; F10.129 Alcohol abuse with intoxication, unspecified; E87.6 Hypokalemia; F32.A Depression, unspecified; E66.01 Morbid (severe) obesity due to excess calories; F41.9 Anxiety disorder, unspecified; E83.42 Hypomagnesemia; Z91.013 Allergy to seafood; Z98.84 Bariatric surgery status; Z90.49 Acquired absence of other specified parts of digestive tract; Z68.31 Body mass index [BMI] 31.0-31.9, adult; Z98.891 History of uterine scar from previous surgery; Z80.0 Family history of malignant neoplasm of digestive organs; Z80.3 Family history of malignant neoplasm of breast
CPT/HCPCS: 36415; 71045; 74177; 80053; 80305; 80320; 82607; 82728; 82948; 83036; 83540; 83550; 83605; 83735; 83880; 84145; 84484; 85007; 85008; 85025; 85610; 85730; 87081; 97161; 97530; 97535; 99291; 99292; A4615; A6258; C9113; J1650; J1815; J2060; J2270; J2405; J2543; J3411; J3475; J3480; J3490; J7030; J7040; J7120; Q9967

== ENCOUNTER 2023-08-18 15:35 | Inpatient (IN) | payer MEDICAID ==
[~2023-08-18] VITALS: Ht 162.6 cm; Wt 95.0 kg
[~2023-08-18 15:35] MED LIST changes: +thiamine tablet PO
[2023-08-18] MEDS: ondansetron/PF 4mg/2ml inj IV ONE (16:52)
[2023-08-18] MEDS: normal saline 1000ml 1,000 ML IV ONE ×2 (16:52→18:06)
[2023-08-18] MEDS: LORazepam 2 mg/ml vial IV ONE (16:52)
[2023-08-18 16:56] LABS: BASOPHILS % (AUTO) 0.7 % (0-1); EOSINOPHILS % (AUTO) 0.9 % (0-6); HEMATOCRIT 32.5 % (35.0-45.0); HEMOGLOBIN 10.6 g/dl (12.0-16.0); LYMPHOCYTES # (AUTO) 0.7 X10'3 (1.1-4.8); LYMPHOCYTES % (AUTO) 13.1 % (21-51); MEAN CORPUSCULAR HEMOGLOBIN 31.4 PG (27.0-31.0); MEAN CORPUSCULAR HGB CONC 32.7 g/dL (33.0-36.5); MEAN CORPUSCULAR VOLUME 96.1 FL (78-98); MEAN PLATELET VOLUME 6.9 FL (7.4-10.4); MONOCYTES # (AUTO) 0.4 X10'3 (0-0.9); MONOCYTES % (AUTO) 7.4 % (2-12); NEUTROPHILS % (AUTO) 77.9 % (42-75); PLATELET COUNT 193 X10'3 (140-440); RED BLOOD COUNT 3.38 X10'6 (4.20-5.60); WHITE BLOOD COUNT 5.1 X10'3 (4.5-11.0)
[2023-08-18 17:08] LABS: MAGNESIUM 1.5 MG/DL (1.5-2.4)
[2023-08-18 17:12] LABS: ALANINE AMINOTRANSFERASE 40 U/L (12-78); ALBUMIN 2.1 G/DL (3.4-5.0); ALBUMIN/GLOBULIN RATIO 0.5 (1.1-1.5); ALKALINE PHOSPHATASE 169 IU/L (46-116); ANION GAP 16 (8-16); BLOOD UREA NITROGEN 4 MG/DL (7-18); CALCIUM 8.4 MG/DL (8.5-10.1); CHLORIDE 107 MMOL/L (99-107); CREATININE 0.67 MG/DL (0.40-0.90); GLUCOSE 102 MG/DL (70-104); LIPASE 25 U/L (16-77); SODIUM 140 MMOL/L (135-145); TOTAL CARBON DIOXIDE 16.9 MMOL/L (24-32); TOTAL PROTEIN 6.3 G/DL (6.4-8.2); eCRCL 78 ML/MIN; eGFR 90 ML/MIN
[2023-08-18 17:13] LABS: ASPARTATE AMINO TRANSFERASE 149 U/L (10-37); POTASSIUM 4.1 MMOL/L (3.5-5.1)
[2023-08-18 17:16] LABS: PLATELET ESTIMATE NORMAL
[2023-08-18 17:17] LABS: ANISOCYTOSIS 2+; ELLIPTOCYTES FEW; STOMATOCYTES FEW; TEAR DROP CELLS FEW
[2023-08-18] MEDS ORDERED: iohexol 300mg/ml 100ml inj. ONE (18:21)
[2023-08-18] MEDS: piperacillin/tazo 4.5gm/100ml 100 ML IV ONE (19:57)
[2023-08-18] MEDS ORDERED: magnesium Cl slow-release 64mg tablet PO PRN (22:35)
[2023-08-18] MEDS ORDERED: potassium Cl 40MEQ/1/2NS 520ml 520 ML IV PRN (22:35)
[2023-08-18] MEDS ORDERED: magnesium 4gm in 100ml NS 100 ML IV PRN (22:35)
[2023-08-18] MEDS ORDERED: magnesium 2GM in 50ml NS 50 ML IV PRN (22:35)
[2023-08-18] MEDS ORDERED: potassium Cl 20 mEq SR tablet PO PRN (22:35)
[2023-08-18] MEDS: ondansetron/PF 4mg/2ml inj IV PRN (23:01)
[2023-08-18] MEDS: HYDROmorphone inj. 0.5 MG/0.5 ML DISP.SYRIN IV ONE (23:01)
[2023-08-18] MEDS: normal saline 1000ml 1,000 ML IV SCH (23:09)
[2023-08-19 00:49] VITALS: BP 138/70; PULSE 90; RESP 20; TEMP 97.9; O2SAT 100
[2023-08-19 01:30] VITALS: RESP 20; O2SAT 98
[2023-08-19] MEDS ORDERED: QUET-1 PO (01:47)
[2023-08-19] MEDS ORDERED: GABA-535 PO (01:56)
[2023-08-19] MEDS ORDERED: GABA600T13 PO (01:56)
[2023-08-19] MEDS: morphine 2 MG/ML inj. syringe IV PRN (01:59)
[2023-08-19] MEDS: CefTRIAXone/D5W-Rocephin 1gm 50 ML IV SCH (02:51)
[2023-08-19] MEDS: quetiapine 100mg tablet PO SCH (05:14)
[2023-08-19 06:00] VITALS: BP 117/53; PULSE 95; RESP 20; TEMP 97.9; O2SAT 95
[2023-08-19 07:54] LABS: BASOPHILS % (AUTO) 0.9 % (0-1); EOSINOPHILS # (AUTO) 0.1 X10'3 (0-0.9); EOSINOPHILS % (AUTO) 3.1 % (0-6); HEMATOCRIT 29.9 % (35.0-45.0); HEMOGLOBIN 9.7 g/dl (12.0-16.0); LYMPHOCYTES # (AUTO) 0.8 X10'3 (1.1-4.8); MEAN CORPUSCULAR HEMOGLOBIN 31.3 PG (27.0-31.0); MEAN CORPUSCULAR HGB CONC 32.6 g/dL (33.0-36.5); MEAN CORPUSCULAR VOLUME 96.3 FL (78-98); MEAN PLATELET VOLUME 6.8 FL (7.4-10.4); MONOCYTES # (AUTO) 0.4 X10'3 (0-0.9); MONOCYTES % (AUTO) 10.1 % (2-12); NEUTROPHILS # (AUTO) 2.6 X10'3 (1.8-7.7); NEUTROPHILS % (AUTO) 65.9 % (42-75); PLATELET COUNT 186 X10'3 (140-440); RED BLOOD COUNT 3.11 X10'6 (4.20-5.60); RED CELL DISTRIBUTION WIDTH 18.9 % (11.5-14.5); WHITE BLOOD COUNT 3.9 X10'3 (4.5-11.0)
[2023-08-19] MEDS: pantoprazole 40 MG vial IV SCH (07:56)
[2023-08-19 07:59] LABS: ALBUMIN 1.6 G/DL (3.4-5.0); ANION GAP 8 (8-16); BLOOD UREA NITROGEN 3 MG/DL (7-18); BUN/CREATININE RATIO 4.5 (10.0-20.0); CALCIUM 7.8 MG/DL (8.5-10.1); CHLORIDE 110 MMOL/L (99-107); CREATININE 0.66 MG/DL (0.40-0.90); GLUCOSE 84 MG/DL (70-104); MAGNESIUM 1.4 MG/DL (1.5-2.4); POTASSIUM 3.1 MMOL/L (3.5-5.1); SODIUM 140 MMOL/L (135-145); TOTAL CARBON DIOXIDE 21.8 MMOL/L (24-32); eCRCL 79 ML/MIN; eGFR > 90 ML/MIN
[2023-08-19] MEDS ORDERED: magnesium 4gm in 100ml NS 100 ML IV PRN (08:45)
[2023-08-19] MEDS: magnesium 2GM in 50ml NS 50 ML IV PRN (08:53)
[2023-08-19 09:55] LABS: APTT 22 SECONDS (22-32); INR 1.1 INR; PROTHROMBIN TIME 11.3 SECONDS (9.0-12.0)
[2023-08-19] MEDS: K and/or MAG REPLACEMENT MC SCH (10:20)
[2023-08-19 11:00] VITALS: BP 124/75; PULSE 89; RESP 16; TEMP 98.3; O2SAT 95
[2023-08-19] MEDS: octreotide inj. 500 MCG in normal saline 100ml IV soln 97.5 ML IV SCH (11:00)
[2023-08-19] MEDS: potassium Cl 20 mEq SR tablet PO PRN (13:49)
[2023-08-19] MEDS: pantoprazole 40MG/NS 100ML BAG 100 ML IV SCH (14:26)
[2023-08-19] MEDS: LORazepam 1 MG tablet PO PRN (16:58)
[2023-08-19 20:00] VITALS: RESP 16; O2SAT 96
[2023-08-19] MEDS: magnesium Cl slow-release 64mg tablet PO PRN (21:12)
[2023-08-19] MEDS: HYDROcodone/acetaminophen 5mg/325mg tablet PO PRN (21:13)
[2023-08-20 06:00] VITALS: BP 113/54; PULSE 87; RESP 15; TEMP 98.1; O2SAT 97
[2023-08-20 07:03] LABS: ALBUMIN 1.6 G/DL (3.4-5.0); ANION GAP 12 (8-16); BLOOD UREA NITROGEN 2 MG/DL (7-18); BUN/CREATININE RATIO 3.5 (10.0-20.0); CALCIUM 8.2 MG/DL (8.5-10.1); CHLORIDE 111 MMOL/L (99-107); CREATININE 0.57 MG/DL (0.40-0.90); GLUCOSE 92 MG/DL (70-104); SODIUM 141 MMOL/L (135-145); eCRCL 92 ML/MIN; eGFR > 90 ML/MIN
[2023-08-20 07:10] LABS: POTASSIUM 4.1 MMOL/L (3.5-5.1)
[2023-08-20 10:00] VITALS: BP 131/71; PULSE 95; RESP 16; TEMP 97.4; O2SAT 99
[2023-08-20 10:21] LABS: BASOPHILS % (AUTO) 0.8 % (0-1); EOSINOPHILS # (AUTO) 0.1 X10'3 (0-0.9); EOSINOPHILS % (AUTO) 3.2 % (0-6); HEMATOCRIT 30.3 % (35.0-45.0); HEMOGLOBIN 9.4 g/dl (12.0-16.0); LYMPHOCYTES # (AUTO) 0.5 X10'3 (1.1-4.8); LYMPHOCYTES % (AUTO) 20.4 % (21-51); MEAN CORPUSCULAR HEMOGLOBIN 30.9 PG (27.0-31.0); MEAN CORPUSCULAR HGB CONC 31.1 g/dL (33.0-36.5); MEAN CORPUSCULAR VOLUME 99.2 FL (78-98); MONOCYTES # (AUTO) 0.3 X10'3 (0-0.9); NEUTROPHILS # (AUTO) 1.6 X10'3 (1.8-7.7); NEUTROPHILS % (AUTO) 63.6 % (42-75); PLATELET COUNT 111 X10'3 (140-440); RED BLOOD COUNT 3.05 X10'6 (4.20-5.60); RED CELL DISTRIBUTION WIDTH 18.8 % (11.5-14.5); WHITE BLOOD COUNT 2.5 X10'3 (4.5-11.0)
[2023-08-20 10:47] LABS: TOTAL CELLS COUNTED 100
[2023-08-20 10:48] LABS: ANISOCYTOSIS 2+; PLATELET ESTIMATE NORMAL
[2023-08-20 10:49] LABS: ELLIPTOCYTES FEW; TEAR DROP CELLS FEW
[2023-08-20 18:00] VITALS: BP 142/69; PULSE 91; RESP 19; TEMP 97.3; O2SAT 97
[2023-08-20] MEDS: furosemide 40mg/4ml inj IV SCH (19:53)
[2023-08-20 20:00] VITALS: RESP 19; O2SAT 98
[2023-08-20 22:00] VITALS: BP 98/44; PULSE 96; RESP 18; TEMP 98.6; O2SAT 96
[2023-08-21 07:10] LABS: BASOPHILS % (AUTO) 1.1 % (0-1); EOSINOPHILS # (AUTO) 0.1 X10'3 (0-0.9); EOSINOPHILS % (AUTO) 2.9 % (0-6); HEMATOCRIT 31.1 % (35.0-45.0); HEMOGLOBIN 10.1 g/dl (12.0-16.0); LYMPHOCYTES # (AUTO) 0.9 X10'3 (1.1-4.8); LYMPHOCYTES % (AUTO) 29.7 % (21-51); MEAN CORPUSCULAR HEMOGLOBIN 31.1 PG (27.0-31.0); MEAN CORPUSCULAR HGB CONC 32.5 g/dL (33.0-36.5); MEAN CORPUSCULAR VOLUME 95.7 FL (78-98); MEAN PLATELET VOLUME 6.9 FL (7.4-10.4); MONOCYTES # (AUTO) 0.3 X10'3 (0-0.9); MONOCYTES % (AUTO) 11.6 % (2-12); NEUTROPHILS # (AUTO) 1.6 X10'3 (1.8-7.7); NEUTROPHILS % (AUTO) 54.7 % (42-75); PLATELET COUNT 165 X10'3 (140-440); RED BLOOD COUNT 3.25 X10'6 (4.20-5.60); RED CELL DISTRIBUTION WIDTH 18.2 % (11.5-14.5)
[2023-08-21 07:26] LABS: ALBUMIN 1.8 G/DL (3.4-5.0); ANION GAP 8 (8-16); BLOOD UREA NITROGEN 1 MG/DL (7-18); BUN/CREATININE RATIO 1.4 (10.0-20.0); CHLORIDE 108 MMOL/L (99-107); GLUCOSE 89 MG/DL (70-104); MAGNESIUM 1.4 MG/DL (1.5-2.4); POTASSIUM 3.2 MMOL/L (3.5-5.1); SODIUM 141 MMOL/L (135-145); TOTAL CARBON DIOXIDE 25.1 MMOL/L (24-32); eCRCL 75 ML/MIN; eGFR 86 ML/MIN
[2023-08-21 07:54] VITALS: BP 139/79; PULSE 95; RESP 20; TEMP 98.2; O2SAT 98
[2023-08-21 08:00] VITALS: RESP 18; O2SAT 97
[2023-08-21 08:34] LABS: TOTAL CELLS COUNTED 100
[2023-08-21 08:35] LABS: ANISOCYTOSIS 2+; ELLIPTOCYTES FEW; PLATELET ESTIMATE NORMAL; TEAR DROP CELLS FEW
[2023-08-21 14:00] VITALS: BP 130/66; PULSE 53; RESP 18; TEMP 98.5; O2SAT 97
[2023-08-21] MEDS: pantoprazole 40mg Tablet.DR PO SCH (14:59)
[2023-08-21 15:39] LABS: HBSAG SCREEN Negative (Negative); HEP B CORE AB, IGM Negative (Negative); HEP B CORE AB, TOT Negative (Negative)
== END 2023-08-21 15:30 | disposition home or self-care (01) | DRG 249 ==
LOC: ER 15:35 → ED HOLD 22:38 → ORTHO 4S 08-19 00:41
PROVIDERS: ADMIT Internal Medicine; ATTEND Family Medicine
PROC: BW211ZZ Computerized Tomography (CT Scan) of Abdomen and Pelvis using Low Osmolar Contrast (ICD-10-PCS; principal; 2023-08-18)
DX: K52.9 Noninfective gastroenteritis and colitis, unspecified (principal); D61.818 Other pancytopenia; N17.9 Acute kidney failure, unspecified; R18.8 Other ascites; K74.60 Unspecified cirrhosis of liver; K92.1 Melena; E87.6 Hypokalemia; F10.21 Alcohol dependence, in remission; E83.42 Hypomagnesemia; Y90.9 Presence of alcohol in blood, level not specified; M79.661 Pain in right lower leg; G40.909 Epilepsy, unspecified, not intractable, without status epilepticus; M79.89 Other specified soft tissue disorders; F32.A Depression, unspecified; F41.9 Anxiety disorder, unspecified; Z80.3 Family history of malignant neoplasm of breast; Z81.8 Family history of other mental and behavioral disorders; Z80.0 Family history of malignant neoplasm of digestive organs; Z90.49 Acquired absence of other specified parts of digestive tract; Z80.51 Family history of malignant neoplasm of kidney; Z98.84 Bariatric surgery status; Z91.013 Allergy to seafood; Z79.899 Other long term (current) drug therapy; Z98.891 History of uterine scar from previous surgery
CPT/HCPCS: 36415; 71045; 74177; 80048; 80053; 82140; 83690; 83735; 83880; 85007; 85008; 85025; 85610; 85730; 86704; 86705; 87081; 87340; 93971; 99285; C9113; G0378; J0696; J1170; J1940; J2060; J2270; J2354; J2405; J2543; J3475; J3490; J7030; Q9967

== ENCOUNTER 2023-10-13 19:45 | Inpatient (IN) | payer MEDICAID ==
[~2023-10-13] VITALS: Ht 162.6 cm; Wt 97.9 kg
[~2023-10-13 19:45] MED LIST changes: +GABA-535 PO; +GABA600T13 PO; +QUET-1 PO; -QUET100T34 PO
[2023-10-13] MEDS: morphine 4 MG/ML inj SYRINge IV ONE (20:10)
[2023-10-13] MEDS ORDERED: pantoprazole 40mg IV 80 MG in normal saline 100ml IV soln 100 ML IV ONE (20:15)
[2023-10-13] MEDS: ondansetron/PF 4mg/2ml inj IV ONE (20:15)
[2023-10-13 21:16] LABS: ALANINE AMINOTRANSFERASE 40 U/L (12-78); ALBUMIN/GLOBULIN RATIO 0.5 (1.1-1.5); ALKALINE PHOSPHATASE 208 IU/L (46-116); ANION GAP 13 (8-16); ASPARTATE AMINO TRANSFERASE 90 U/L (10-37); BILIRUBIN,TOTAL 1.2 MG/DL (0.1-1.0); BLOOD UREA NITROGEN 3 MG/DL (7-18); BUN/CREATININE RATIO 5.1 (10.0-20.0); CALCIUM 8.2 MG/DL (8.5-10.1); CHLORIDE 105 MMOL/L (99-107); CREATININE 0.59 MG/DL (0.40-0.90); ETHANOL 210 MG/DL (<10); GLUCOSE 126 MG/DL (70-104); LIPASE 21 U/L (16-77); SODIUM 141 MMOL/L (135-145); TOTAL CARBON DIOXIDE 23.2 MMOL/L (24-32); eCRCL 89 ML/MIN; eGFR > 90 ML/MIN
[2023-10-13 21:27] LABS: POTASSIUM 2.6 MMOL/L (3.5-5.1)
[2023-10-13 21:58] LABS: INR 1.2 INR; PROTHROMBIN TIME 12.8 SECONDS (9.0-12.0)
[2023-10-13] MEDS: normal saline 1000ML IV soln IVB ONE ×2 (22:15→22:37)
[2023-10-13] MEDS: thiamine 100mg/ml 2ml inj. IV ONE (22:17)
[2023-10-13] MEDS: CefTRIAXone/D5W-Rocephin 1gm 50 ML IV ONE (22:18)
[2023-10-13] MEDS: pantoprazole 40 MG vial IV ONE (22:20)
[2023-10-13] MEDS: potassium CL 10mEq/100ml bag 100 ML IV SCH (22:21)
[2023-10-13] MEDS ORDERED: iohexol 300mg/ml 100ml inj. ONE (23:51)
[2023-10-14] VITALS (12 sets, daily range): BP systolic 107–135; BP diastolic 60–93; PULSE 104–123; RESP 12–26; TEMP 97.8–98.8; O2SAT 92–100
[2023-10-14 00:39] LABS: BILIRUBIN,URINE NEGATIVE (Neg); CLARITY,URINE CLEAR (Clear); COLOR,URINE YELLOW (Yellow); GLUCOSE, URINE NEGATIVE (Neg); KETONES,URINE NEGATIVE (Neg); LEUKOCYTE ESTERASE ,URINE TRACE (Neg); NITRITES, URINE NEGATIVE (Neg); OCCULT BLOOD,URINE TRACE-INTACT (Neg); PH,URINE 6.5 (4.8-8.0); PROTEIN,URINE NEGATIVE (Neg)
[2023-10-14 00:42] LABS: URINE HCG NEGATIVE (NEG)
[2023-10-14 00:45] LABS: UA COLLECTION TYPE CLN CATCH MIDSTREAM
[2023-10-14 00:46] LABS: SQUAMOUS EPITHELIAL CELL,UR MANY /LPF (FEW)
[2023-10-14 00:47] LABS: BACTERIA,URINE 2+ /HPF (Neg); RBC,URINE 0-2 /HPF (0-2); WBC,URINE 0-4 /HPF (0-4)
[2023-10-14 01:22] LABS: BASOPHILS # (AUTO) 0.1 X10'3 (0-0.2); BASOPHILS % (AUTO) 1.2 % (0-1); EOSINOPHILS # (AUTO) 0.1 X10'3 (0-0.9); EOSINOPHILS % (AUTO) 2.8 % (0-6); HEMATOCRIT 29.7 % (35.0-45.0); HEMOGLOBIN 9.5 g/dl (12.0-16.0); LYMPHOCYTES # (AUTO) 1.4 X10'3 (1.1-4.8); LYMPHOCYTES % (AUTO) 30.4 % (21-51); MEAN CORPUSCULAR HEMOGLOBIN 28.7 PG (27.0-31.0); MEAN CORPUSCULAR HGB CONC 32.1 g/dL (33.0-36.5); MEAN CORPUSCULAR VOLUME 89.2 FL (78-98); MEAN PLATELET VOLUME 6.6 FL (7.4-10.4); MONOCYTES # (AUTO) 0.5 X10'3 (0-0.9); MONOCYTES % (AUTO) 11.2 % (2-12); NEUTROPHILS # (AUTO) 2.5 X10'3 (1.8-7.7); NEUTROPHILS % (AUTO) 54.4 % (42-75); PLATELET COUNT 169 X10'3 (140-440); RED BLOOD COUNT 3.33 X10'6 (4.20-5.60); RED CELL DISTRIBUTION WIDTH 17.2 % (11.5-14.5); WHITE BLOOD COUNT 4.6 X10'3 (4.5-11.0)
[2023-10-14] MEDS ORDERED: potassium Cl 20 mEq SR tablet PO PRN (02:25)
[2023-10-14] MEDS ORDERED: magnesium Cl slow-release 64mg tablet PO PRN (02:25)
[2023-10-14] MEDS ORDERED: ondansetron/PF 4mg/2ml inj IV PRN (02:25)
[2023-10-14] MEDS: morphine 4 MG/ML inj SYRINge IV ONE (03:19)
[2023-10-14] MEDS: ondansetron/PF 4mg/2ml inj IV ONE (03:19)
[2023-10-14] MEDS: normal saline 1000ml 1,000 ML IV SCH ×2 (04:58→12:37)
[2023-10-14] MEDS: LORazepam 0.5 MG tablet PO PRN (05:29)
[2023-10-14 05:41] LABS: MAGNESIUM 1.3 MG/DL (1.5-2.4)
[2023-10-14 05:47] LABS: POTASSIUM 2.7 MMOL/L (3.5-5.1)
[2023-10-14] MEDS: potassium Cl 40MEQ/1/2NS 520ml 520 ML IV PRN (06:11)
[2023-10-14] MEDS: proCHLORperazine 10 MG/2 ml inj IV PRN (07:09)
[2023-10-14] MEDS ORDERED: LORazepam 2 mg/ml vial IV PRN (07:40)
[2023-10-14] MEDS ORDERED: haloperidol lactate 5mg/ml inj IM PRN (07:40)
[2023-10-14] MEDS: CefTRIAXone/D5W-Rocephin 1gm 50 ML IV SCH (08:00)
[2023-10-14] MEDS ORDERED: pantoprazole 40MG/NS 100ML BAG 100 ML IV SCH (08:00)
[2023-10-14] MEDS: K and/or MAG REPLACEMENT MC SCH (08:00)
[2023-10-14] MEDS: folic acid 1mg/0.2ml inj IV SCH (08:00)
[2023-10-14] MEDS: thiamine 100mg/ml 2ml inj. IV SCH (09:02)
[2023-10-14] MEDS: pantoprazole 40 MG vial IV SCH (09:02)
[2023-10-14] MEDS: magnesium 2GM in 50ml NS 50 ML IV PRN (09:02)
[2023-10-14] MEDS: diazepam inj 5 MG/ML inj. IV PRN (09:19)
[2023-10-14] MEDS: magnesium 4gm in 100ml NS 100 ML IV PRN (11:06)
[2023-10-14 12:44] LABS: HEMATOCRIT 32.6 % (35.0-45.0); HEMOGLOBIN 10.6 g/dl (12.0-16.0); MEAN CORPUSCULAR HEMOGLOBIN 29.3 PG (27.0-31.0); MEAN CORPUSCULAR HGB CONC 32.6 g/dL (33.0-36.5); MEAN CORPUSCULAR VOLUME 89.8 FL (78-98); PLATELET COUNT 180 X10'3 (140-440); RED BLOOD COUNT 3.63 X10'6 (4.20-5.60); RED CELL DISTRIBUTION WIDTH 17.6 % (11.5-14.5)
[2023-10-14 12:47] LABS: FIBRINOGEN 173 MG/DL (177-424)
[2023-10-14 12:53] LABS: ALANINE AMINOTRANSFERASE 33 U/L (12-78); ALBUMIN 1.9 G/DL (3.4-5.0); ALBUMIN/GLOBULIN RATIO 0.5 (1.1-1.5); ALKALINE PHOSPHATASE 202 IU/L (46-116); ANION GAP 7 (8-16); ASPARTATE AMINO TRANSFERASE 79 U/L (10-37); BILIRUBIN,TOTAL 1.5 MG/DL (0.1-1.0); BLOOD UREA NITROGEN 2 MG/DL (7-18); BUN/CREATININE RATIO 3.1 (10.0-20.0); CALCIUM 7.7 MG/DL (8.5-10.1); CHLORIDE 108 MMOL/L (99-107); CREATININE 0.64 MG/DL (0.40-0.90); GLUCOSE 120 MG/DL (70-104); POTASSIUM 3.3 MMOL/L (3.5-5.1); SODIUM 140 MMOL/L (135-145); TOTAL CARBON DIOXIDE 25.4 MMOL/L (24-32); TOTAL PROTEIN 5.5 G/DL (6.4-8.2); eCRCL 82 ML/MIN; eGFR > 90 ML/MIN
[2023-10-14] MEDS ORDERED: fentaNYL/PF 50MCG/1 ML 2ML syringe ONE (16:27)
[2023-10-14] MEDS ORDERED: MIDAZolam 1 MG/ML 5ML VIAL ONE (16:28)
[2023-10-14] MEDS ORDERED: LIDOcaine 2% Viscous 15ml cup ONE (16:28)
[2023-10-14] MEDS: gabapentin 300mg capsule PO SCH (19:44)
[2023-10-14] MEDS: morphine 2 MG/ML inj. syringe IV ONE (19:45)
[2023-10-14] MEDS: quetiapine 100mg tablet PO SCH (21:09)
[2023-10-14 21:49] LABS: MAGNESIUM 2.2 MG/DL (1.5-2.4); POTASSIUM 3.3 MMOL/L (3.5-5.1)
[2023-10-15] VITALS (11 sets, daily range): BP systolic 95–124; BP diastolic 45–76; PULSE 69–134; RESP 16–24; TEMP 97.9–99.8; O2SAT 94–100
[2023-10-15 03:02] LABS: BASOPHILS % (AUTO) 0.9 % (0-1); EOSINOPHILS # (AUTO) 0.2 X10'3 (0-0.9); EOSINOPHILS % (AUTO) 4.7 % (0-6); HEMATOCRIT 29.3 % (35.0-45.0); HEMOGLOBIN 9.1 g/dl (12.0-16.0); LYMPHOCYTES # (AUTO) 1.4 X10'3 (1.1-4.8); LYMPHOCYTES % (AUTO) 38.6 % (21-51); MEAN CORPUSCULAR HEMOGLOBIN 28.7 PG (27.0-31.0); MEAN CORPUSCULAR HGB CONC 31.2 g/dL (33.0-36.5); MEAN CORPUSCULAR VOLUME 91.9 FL (78-98); MEAN PLATELET VOLUME 7.2 FL (7.4-10.4); MONOCYTES # (AUTO) 0.2 X10'3 (0-0.9); MONOCYTES % (AUTO) 6.9 % (2-12); NEUTROPHILS # (AUTO) 1.8 X10'3 (1.8-7.7); NEUTROPHILS % (AUTO) 48.9 % (42-75); PLATELET COUNT 97 X10'3 (140-440); RED BLOOD COUNT 3.19 X10'6 (4.20-5.60); RED CELL DISTRIBUTION WIDTH 17.6 % (11.5-14.5); WHITE BLOOD COUNT 3.6 X10'3 (4.5-11.0)
[2023-10-15 03:15] LABS: INR 1.2 INR; PROTHROMBIN TIME 12.4 SECONDS (9.0-12.0)
[2023-10-15 03:19] LABS: ALANINE AMINOTRANSFERASE 28 U/L (12-78); ALBUMIN 1.7 G/DL (3.4-5.0); ALBUMIN/GLOBULIN RATIO 0.5 (1.1-1.5); ALKALINE PHOSPHATASE 184 IU/L (46-116); AMYLASE 18 U/L (25-115); ANION GAP 5 (8-16); ASPARTATE AMINO TRANSFERASE 62 U/L (10-37); BILIRUBIN,TOTAL 1.4 MG/DL (0.1-1.0); BLOOD UREA NITROGEN 3 MG/DL (7-18); BUN/CREATININE RATIO 3.9 (10.0-20.0); CALCIUM 7.4 MG/DL (8.5-10.1); CHLORIDE 110 MMOL/L (99-107); CREATININE 0.77 MG/DL (0.40-0.90); GLUCOSE 104 MG/DL (70-104); LIPASE 12 U/L (16-77); MAGNESIUM 2.3 MG/DL (1.5-2.4); PHOSPHORUS 3.9 MG/DL (2.3-4.5); POTASSIUM 3.2 MMOL/L (3.5-5.1); SODIUM 144 MMOL/L (135-145); TOTAL CARBON DIOXIDE 29.5 MMOL/L (24-32); eCRCL 68 ML/MIN; eGFR 77 ML/MIN
[2023-10-15 04:31] LABS: ABG OXYGEN SATURATION 95.7 % (94-97); ABG PCO2 (T) 32.7 mmHg (32.0-45.0); ABG PH (T) 7.483 (7.350-7.450); ABG PO2 (T) 78.5 mmHg (75.0-100.0); ALLEN'S TEST Modified; FCOHb 0.7 % (0.0-3.9); FHHb 4.3 % (0.0-5.0); FLOW 2 L/min; FMetHb 0.3 % (0.0-1.5); FO2Hb 94.7 % (94-97); MODE NC; PATIENT TEMPERATURE 37.3; TOTAL HEMOGLOBIN 10.3 G/dl (12.0-16.0)
[2023-10-15] MEDS: potassium Cl 20 mEq SR tablet PO PRN (09:03)
[2023-10-15 10:08] LABS: HIV ANTIBODY 1&2 RAPID NON-REACTIVE (Neg)
[2023-10-15] MEDS: propranolol 10mg tablet PO SCH (13:28)
[2023-10-15] MEDS: chlordiazePOXIDE 25mg capsule PO SCH (13:29)
[2023-10-15] MEDS: lactulose 20gm/30ml cup PO SCH (13:29)
[2023-10-15 15:02] LABS: C DIFF ANTIGEN NEGATIVE (NEGATIVE); C DIFF SPECIMEN=DIARRHEA? ACCEPTABLE; C DIFFICILE TOXINS A&B NEGATIVE (Neg)
[2023-10-16] VITALS (10 sets, daily range): BP systolic 95–127; BP diastolic 57–81; PULSE 65–105; RESP 16–21; TEMP 97.1–98.6; O2SAT 96–100
[2023-10-16] MEDS: spironolactone 25 MG tablet PO SCH (08:30)
[2023-10-16 08:42] LABS: INR 1.4 INR; PROTHROMBIN TIME 14.6 SECONDS (9.0-12.0)
[2023-10-16 08:59] LABS: ALANINE AMINOTRANSFERASE 22 U/L (12-78); ALBUMIN 1.4 G/DL (3.4-5.0); ALBUMIN/GLOBULIN RATIO 0.5 (1.1-1.5); ALKALINE PHOSPHATASE 134 IU/L (46-116); AMYLASE 17 U/L (25-115); ANION GAP 6 (8-16); ASPARTATE AMINO TRANSFERASE 46 U/L (10-37); BILIRUBIN,TOTAL 1.1 MG/DL (0.1-1.0); BLOOD UREA NITROGEN 6 MG/DL (7-18); BUN/CREATININE RATIO 10.2 (10.0-20.0); CALCIUM 7.4 MG/DL (8.5-10.1); CHLORIDE 110 MMOL/L (99-107); CREATININE 0.59 MG/DL (0.40-0.90); GLUCOSE 80 MG/DL (70-104); LIPASE 10 U/L (16-77); MAGNESIUM 1.8 MG/DL (1.5-2.4); POTASSIUM 3.4 MMOL/L (3.5-5.1); SODIUM 141 MMOL/L (135-145); TOTAL CARBON DIOXIDE 25.4 MMOL/L (24-32); TOTAL PROTEIN 4.5 G/DL (6.4-8.2); eCRCL 89 ML/MIN; eGFR > 90 ML/MIN
[2023-10-16 09:56] LABS: BASOPHILS % (AUTO) 0.5 % (0-1); EOSINOPHILS # (AUTO) 0.3 X10'3 (0-0.9); EOSINOPHILS % (AUTO) 8.8 % (0-6); HEMATOCRIT 27.4 % (35.0-45.0); HEMOGLOBIN 8.7 g/dl (12.0-16.0); LYMPHOCYTES # (AUTO) 1.1 X10'3 (1.1-4.8); LYMPHOCYTES % (AUTO) 38.7 % (21-51); MEAN CORPUSCULAR HEMOGLOBIN 28.7 PG (27.0-31.0); MEAN CORPUSCULAR HGB CONC 31.7 g/dL (33.0-36.5); MEAN CORPUSCULAR VOLUME 90.6 FL (78-98); MEAN PLATELET VOLUME 7.3 FL (7.4-10.4); MONOCYTES # (AUTO) 0.2 X10'3 (0-0.9); MONOCYTES % (AUTO) 5.1 % (2-12); NEUTROPHILS # (AUTO) 1.4 X10'3 (1.8-7.7); NEUTROPHILS % (AUTO) 46.9 % (42-75); PLATELET COUNT 92 X10'3 (140-440); RED BLOOD COUNT 3.03 X10'6 (4.20-5.60); RED CELL DISTRIBUTION WIDTH 16.9 % (11.5-14.5); WHITE BLOOD COUNT 2.9 X10'3 (4.5-11.0)
[2023-10-16] MEDS ORDERED: LORazepam 2 mg/ml vial IV PRN (10:00)
[2023-10-16 11:20] LABS: TOTAL CELLS COUNTED 100
[2023-10-16 11:22] LABS: ANISOCYTOSIS 1+; PLATELET ESTIMATE DECREASED
[2023-10-16] MEDS: albumin (human) 25% 100ml IV 100 ML IV ONE (13:57)
[2023-10-16] MEDS: chlordiazePOXIDE 25mg capsule PO SCH (14:10)
[2023-10-16] MEDS: LORazepam 1 MG tablet PO PRN (14:10)
[2023-10-16] MEDS: CefTRIAXone/D5W-Rocephin 1gm 50 ML IV ONE (14:13)
[2023-10-16 15:28] LABS: AMYLASE,BODY FLUID 10 U/L; BF BILI 0.3 MG/DL; GLUCOSE,BODY FLUID 95 MG/DL; LDH,BODY FLUID 41 U/L; LIPASE,BODY FLUID 10 U/L; TRIGLYCERIDES,BODY FLUID 37 MG/DL
[2023-10-16 16:14] LABS: BFAPPEAR HAZY; BFCOLOR YELLOW; BFSOURCE ASCITES FLD; BFVOLUME 55 ML
[2023-10-16 16:15] LABS: BF RBC COUNT 39 /CU MM; BF WBC COUNT 122 /CU MM (0-1000); LYMPHOCYTES,BODY FLUID 50 %; MONOCYTES,BODY FLUID 3 %; NEUTROPHILS,BODY FLUID 47 %
[2023-10-16 16:19] LABS: ALBUMIN,BODY FLUID < 0.6 G/DL
[2023-10-16 16:22] LABS: TOTAL PROTEIN,BODY FLUID < 2.0 G/DL
[2023-10-16 18:23] LABS: HBSAG SCREEN Negative (Negative); HEP B CORE AB, IGM Negative (Negative); HEPATITIS C VIRUS ANTIBODY Non Reactive (Non Reactive)
[2023-10-16] MEDS: gabapentin 300mg capsule PO SCH (20:23)
[2023-10-16] MEDS: pantoprazole 40mg Tablet.DR PO SCH (20:23)
[2023-10-16] MEDS ORDERED: quetiapine 100mg tablet PO SCH (21:00)
[2023-10-17] VITALS (7 sets, daily range): BP systolic 106–125; BP diastolic 48–76; PULSE 69–105; RESP 14–28; TEMP 97.4–99.8; O2SAT 95–100
[2023-10-17 06:26] LABS: AFP,SERUM, TUMOR MARKER 8.3 ng/mL (0.0-9.2)
[2023-10-17] MEDS ORDERED: CefTRIAXone 2gm/D5W 50ml BAG 50 ML IV SCH (08:00)
[2023-10-17 08:06] LABS: INR 1.2 INR; PROTHROMBIN TIME 12.8 SECONDS (9.0-12.0)
[2023-10-17] MEDS ORDERED: albuterol 2.5 MG/3 ML nebule NEB PRN (12:25)
[2023-10-17] MEDS: chlordiazePOXIDE 25mg capsule PO SCH (13:00)
[2023-10-17 15:33] LABS: BASOPHILS % (AUTO) 0.4 % (0-1); EOSINOPHILS # (AUTO) 0.3 X10'3 (0-0.9); EOSINOPHILS % (AUTO) 6.1 % (0-6); HEMATOCRIT 28.3 % (35.0-45.0); HEMOGLOBIN 9.1 g/dl (12.0-16.0); LYMPHOCYTES % (AUTO) 21.2 % (21-51); MEAN CORPUSCULAR HEMOGLOBIN 29.3 PG (27.0-31.0); MEAN CORPUSCULAR HGB CONC 32.2 g/dL (33.0-36.5); MEAN CORPUSCULAR VOLUME 91.1 FL (78-98); MEAN PLATELET VOLUME 7.4 FL (7.4-10.4); MONOCYTES # (AUTO) 0.3 X10'3 (0-0.9); MONOCYTES % (AUTO) 6.9 % (2-12); NEUTROPHILS # (AUTO) 2.9 X10'3 (1.8-7.7); NEUTROPHILS % (AUTO) 65.4 % (42-75); PLATELET COUNT 127 X10'3 (140-440); RED BLOOD COUNT 3.11 X10'6 (4.20-5.60); RED CELL DISTRIBUTION WIDTH 16.6 % (11.5-14.5); WHITE BLOOD COUNT 4.5 X10'3 (4.5-11.0)
[2023-10-17 15:45] LABS: ALANINE AMINOTRANSFERASE 32 U/L (12-78); ALBUMIN 1.7 G/DL (3.4-5.0); ALBUMIN/GLOBULIN RATIO 0.5 (1.1-1.5); ALKALINE PHOSPHATASE 135 IU/L (46-116); AMYLASE 23 U/L (25-115); ANION GAP 5 (8-16); ASPARTATE AMINO TRANSFERASE 52 U/L (10-37); BILIRUBIN,TOTAL 1.3 MG/DL (0.1-1.0); BLOOD UREA NITROGEN 5 MG/DL (7-18); BUN/CREATININE RATIO 7.7 (10.0-20.0); CALCIUM 7.7 MG/DL (8.5-10.1); CHLORIDE 108 MMOL/L (99-107); CREATININE 0.65 MG/DL (0.40-0.90); GLUCOSE 84 MG/DL (70-104); LIPASE 30 U/L (16-77); MAGNESIUM 1.5 MG/DL (1.5-2.4); PHOSPHORUS 3.4 MG/DL (2.3-4.5); POTASSIUM 3.5 MMOL/L (3.5-5.1); SODIUM 140 MMOL/L (135-145); TOTAL CARBON DIOXIDE 27.1 MMOL/L (24-32); eCRCL 80 ML/MIN; eGFR > 90 ML/MIN
[2023-10-17] MEDS: propranolol 10mg tablet PO SCH (23:40)
[2023-10-17] MEDS: folic acid 1mg tablet PO SCH (23:40)
[2023-10-17] MEDS: thiamine 100mg tablet PO SCH (23:40)
[2023-10-18] MEDS: LORazepam 1 MG tablet PO PRN (00:13)
[2023-10-18 02:00] VITALS: BP_SYST 100; BP_SYST 89; BP_DIAS 41; BP_DIAS 62; PULSE 69; RESP 22; TEMP 97.5; O2SAT 97
[2023-10-18 06:47] VITALS: BP 103/56; PULSE 67; RESP 12; TEMP 97.9; O2SAT 100
[2023-10-18] MEDS: lactulose 20gm/30ml cup PO SCH (07:14)
[2023-10-18] MEDS: chlordiazePOXIDE 25mg capsule PO SCH (07:15)
[2023-10-18 07:31] VITALS: PULSE 69; RESP 15; O2SAT 99
[2023-10-18] MEDS ORDERED: spironolactone 50 MG tablet PO SCH (07:33)
[2023-10-18 07:39] LABS: MEAN CORPUSCULAR HEMOGLOBIN 29.1 PG (27.0-31.0); MONOCYTES # (AUTO) 0.3 X10'3 (0-0.9); NEUTROPHILS # (AUTO) 2.1 X10'3 (1.8-7.7); RED CELL DISTRIBUTION WIDTH 16.6 % (11.5-14.5)
[2023-10-18 07:44] LABS: BASOPHILS % (AUTO) 0.8 % (0-1); EOSINOPHILS # (AUTO) 0.3 X10'3 (0-0.9); EOSINOPHILS % (AUTO) 6.2 % (0-6); HEMATOCRIT 29.5 % (35.0-45.0); HEMOGLOBIN 9.5 g/dl (12.0-16.0); LYMPHOCYTES # (AUTO) 1.4 X10'3 (1.1-4.8); LYMPHOCYTES % (AUTO) 33.7 % (21-51); MEAN CORPUSCULAR HGB CONC 32.2 g/dL (33.0-36.5); MEAN CORPUSCULAR VOLUME 90.2 FL (78-98); MEAN PLATELET VOLUME 7.5 FL (7.4-10.4); MONOCYTES % (AUTO) 7.4 % (2-12); NEUTROPHILS % (AUTO) 51.9 % (42-75); PLATELET COUNT 132 X10'3 (140-440); RED BLOOD COUNT 3.27 X10'6 (4.20-5.60); WHITE BLOOD COUNT 4.1 X10'3 (4.5-11.0)
[2023-10-18 07:53] LABS: INR 1.1 INR; PROTHROMBIN TIME 11.7 SECONDS (9.0-12.0)
[2023-10-18 08:01] LABS: ALANINE AMINOTRANSFERASE 25 U/L (12-78); ALBUMIN 1.7 G/DL (3.4-5.0); ALBUMIN/GLOBULIN RATIO 0.5 (1.1-1.5); ALKALINE PHOSPHATASE 124 IU/L (46-116); AMYLASE 26 U/L (25-115); ANION GAP 6 (8-16); ASPARTATE AMINO TRANSFERASE 50 U/L (10-37); BILIRUBIN,TOTAL 0.9 MG/DL (0.1-1.0); BLOOD UREA NITROGEN 5 MG/DL (7-18); BUN/CREATININE RATIO 7.8 (10.0-20.0); CALCIUM 7.8 MG/DL (8.5-10.1); CHLORIDE 110 MMOL/L (99-107); CREATININE 0.64 MG/DL (0.40-0.90); GLUCOSE 74 MG/DL (70-104); LIPASE 34 U/L (16-77); MAGNESIUM 1.6 MG/DL (1.5-2.4); PHOSPHORUS 3.8 MG/DL (2.3-4.5); POTASSIUM 3.6 MMOL/L (3.5-5.1); SODIUM 142 MMOL/L (135-145); TOTAL CARBON DIOXIDE 26.1 MMOL/L (24-32); TOTAL PROTEIN 5.1 G/DL (6.4-8.2); eCRCL 82 ML/MIN; eGFR > 90 ML/MIN
[2023-10-18] MEDS: spironolactone 50 MG tablet PO SCH (10:04)
[2023-10-18 11:00] VITALS: BP 89/33; PULSE 71; RESP 14; TEMP 98.5; O2SAT 96
[2023-10-18] MEDS: acetaminophen 325mg tablet PO PRN (14:36)
[2023-10-18 15:00] VITALS: BP 119/68; PULSE 76; RESP 28; TEMP 98.6; O2SAT 96
[2023-10-18] MEDS ORDERED: FURO40TA4 PO (16:59)
[2023-10-18] MEDS ORDERED: SPIR50TA5 PO (17:17)
[2023-10-19] MEDS ORDERED: PANT-47 PO (12:23)
[2023-10-23 11:19] LABS: OCCULT BLOOD STOOL POSITIVE (Neg)
== END 2023-10-18 17:34 | disposition home health service (06) | DRG 243 ==
LOC: ER 19:45 → ED HOLD 10-14 02:30 → PCU 3S 10-14 04:48
PROVIDERS: ADMIT Internal Medicine; ATTEND Family Medicine
PROC: 0DJ08ZZ Inspection of Upper Intestinal Tract, Via Natural or Artificial Opening Endoscopic (ICD-10-PCS; 2023-10-14)
PROC: 0W9G3ZZ Drainage of Peritoneal Cavity, Percutaneous Approach (ICD-10-PCS; principal; 2023-10-16)
PROC: 05HC33Z Insertion of Infusion Device into Left Basilic Vein, Percutaneous Approach (ICD-10-PCS; 2023-10-17)
DX: K21.01 Gastro-esophageal reflux disease with esophagitis, with bleeding (principal); K76.82 Hepatic encephalopathy; K70.31 Alcoholic cirrhosis of liver with ascites; I82.891 Chronic embolism and thrombosis of other specified veins; K76.6 Portal hypertension; K76.0 Fatty (change of) liver, not elsewhere classified; F20.9 Schizophrenia, unspecified; F32.A Depression, unspecified; K31.89 Other diseases of stomach and duodenum; F41.9 Anxiety disorder, unspecified; D64.9 Anemia, unspecified; E87.6 Hypokalemia; F10.229 Alcohol dependence with intoxication, unspecified; G40.909 Epilepsy, unspecified, not intractable, without status epilepticus; Z79.899 Other long term (current) drug therapy; Z91.013 Allergy to seafood; Z85.528 Personal history of other malignant neoplasm of kidney; Z95.1 Presence of aortocoronary bypass graft; Z98.84 Bariatric surgery status; Z98.891 History of uterine scar from previous surgery; Z80.3 Family history of malignant neoplasm of breast
CPT/HCPCS: 36410; 36415; 36600; 43235; 49083; 71045; 74177; 76937; 80053; 80320; 81001; 81025; 82042; 82103; 82140; 82150; 82247; 82272; 82570; 82803; 82945; 83605; 83615; 83690; 83735; 84100; 84132; 84157; 84478; 85007; 85018; 85025; 85027; 85384; 85610; 86703; 86705; 86803; 86885; 86900; 86901; 87040; 87070; 87075; 87324; 87340; 87449; 87522; 89051; 93975; 94760; 96365; 96368; 96375; 97116; 97161; 97530; 97535; 99152; 99285; A4620; A6258; A6455; C1751; C9113; G0378; J0696; J0780; J2250; J2270; J2405; J3010; J3360; J3411; J3475; J3480; J3490; J7030; Q9967

== ENCOUNTER 2024-01-22 11:27 | Emergency (ER) | payer MEDICAID ==
[~2024-01-22] VITALS: Ht 165.1 cm; Wt 87.0 kg
[~2024-01-22 11:27] MED LIST changes: +PANT-47 PO; +SPIR50TA5 PO
[2024-01-22 12:19] LABS: BASOPHILS # (AUTO) 0.1 X10'3 (0-0.2); BASOPHILS % (AUTO) 1.1 % (0-1); EOSINOPHILS % (AUTO) 0.5 % (0-6); HEMATOCRIT 37.5 % (35.0-45.0); HEMOGLOBIN 11.9 g/dl (12.0-16.0); LYMPHOCYTES # (AUTO) 0.9 X10'3 (1.1-4.8); LYMPHOCYTES % (AUTO) 11.4 % (21-51); MEAN CORPUSCULAR HEMOGLOBIN 25.5 PG (27.0-31.0); MEAN CORPUSCULAR HGB CONC 31.7 g/dL (33.0-36.5); MEAN CORPUSCULAR VOLUME 80.3 FL (78-98); MEAN PLATELET VOLUME 6.4 FL (7.4-10.4); MONOCYTES # (AUTO) 0.6 X10'3 (0-0.9); MONOCYTES % (AUTO) 7.2 % (2-12); NEUTROPHILS # (AUTO) 6.2 X10'3 (1.8-7.7); NEUTROPHILS % (AUTO) 79.8 % (42-75); PLATELET COUNT 222 X10'3 (140-440); RED BLOOD COUNT 4.67 X10'6 (4.20-5.60); RED CELL DISTRIBUTION WIDTH 18.2 % (11.5-14.5); WHITE BLOOD COUNT 7.8 X10'3 (4.5-11.0)
[2024-01-22 12:31] LABS: ALANINE AMINOTRANSFERASE 13 U/L (12-78); ALBUMIN 2.2 G/DL (3.4-5.0); ALBUMIN/GLOBULIN RATIO 0.5 (1.1-1.5); ALKALINE PHOSPHATASE 135 IU/L (46-116); AMYLASE 29 U/L (25-115); ANION GAP 12 (8-16); ASPARTATE AMINO TRANSFERASE 32 U/L (10-37); BILIRUBIN,TOTAL 1.4 MG/DL (0.1-1.0); BLOOD UREA NITROGEN 2 MG/DL (7-18); BUN/CREATININE RATIO 3.8 (10.0-20.0); CALCIUM 8.4 MG/DL (8.5-10.1); CHLORIDE 108 MMOL/L (99-107); CREATININE 0.52 MG/DL (0.40-0.90); GLUCOSE 117 MG/DL (70-104); LIPASE 16 U/L (16-77); SODIUM 144 MMOL/L (135-145); TOTAL CARBON DIOXIDE 23.7 MMOL/L (24-32); TOTAL PROTEIN 6.3 G/DL (6.4-8.2); eCRCL 105 ML/MIN; eGFR > 90 ML/MIN
[2024-01-22 15:48] LABS: APTT 24 SECONDS (22-32); INR 1.2 INR
[2024-01-22 16:31] LABS: OCCULT BLOOD STOOL NEGATIVE (Neg)
[2024-01-22] MEDS: ondansetron/PF 4mg/2ml inj IV ONE ×2 (17:16→19:35)
[2024-01-22] MEDS ORDERED: iohexol 300mg/ml 100ml inj. ONE (17:32)
[2024-01-22 17:34] LABS: BASOPHILS # (AUTO) 0.2 X10'3 (0-0.2); BASOPHILS % (AUTO) 1.9 % (0-1); EOSINOPHILS % (AUTO) 0.2 % (0-6); HEMATOCRIT 37.4 % (35.0-45.0); HEMOGLOBIN 11.9 g/dl (12.0-16.0); LYMPHOCYTES % (AUTO) 12.1 % (21-51); MEAN CORPUSCULAR HEMOGLOBIN 25.7 PG (27.0-31.0); MEAN CORPUSCULAR HGB CONC 31.9 g/dL (33.0-36.5); MEAN CORPUSCULAR VOLUME 80.5 FL (78-98); MEAN PLATELET VOLUME 6.7 FL (7.4-10.4); MONOCYTES # (AUTO) 0.8 X10'3 (0-0.9); MONOCYTES % (AUTO) 9.6 % (2-12); NEUTROPHILS # (AUTO) 6.3 X10'3 (1.8-7.7); NEUTROPHILS % (AUTO) 76.2 % (42-75); PLATELET COUNT 222 X10'3 (140-440); RED BLOOD COUNT 4.65 X10'6 (4.20-5.60); RED CELL DISTRIBUTION WIDTH 17.9 % (11.5-14.5); WHITE BLOOD COUNT 8.2 X10'3 (4.5-11.0)
[2024-01-22 17:47] LABS: ALANINE AMINOTRANSFERASE 15 U/L (12-78); ALBUMIN 2.4 G/DL (3.4-5.0); ALBUMIN/GLOBULIN RATIO 0.5 (1.1-1.5); ALKALINE PHOSPHATASE 142 IU/L (46-116); ANION GAP 11 (8-16); ASPARTATE AMINO TRANSFERASE 34 U/L (10-37); BILIRUBIN,TOTAL 2.1 MG/DL (0.1-1.0); BLOOD UREA NITROGEN 3 MG/DL (7-18); BUN/CREATININE RATIO 5.2 (10.0-20.0); CALCIUM 8.3 MG/DL (8.5-10.1); CHLORIDE 107 MMOL/L (99-107); CREATININE 0.58 MG/DL (0.40-0.90); ETHANOL < 10 MG/DL (<10); GLUCOSE 111 MG/DL (70-104); LIPASE 16 U/L (16-77); MAGNESIUM 1.2 MG/DL (1.5-2.4); POTASSIUM 3.3 MMOL/L (3.5-5.1); SODIUM 145 MMOL/L (135-145); TOTAL CARBON DIOXIDE 27.2 MMOL/L (24-32); TOTAL PROTEIN 6.8 G/DL (6.4-8.2); eCRCL 94 ML/MIN; eGFR > 90 ML/MIN
[2024-01-22 17:50] LABS: LACTIC SEPSIS 2.3 MMOL/L (0.4-2.0)
[2024-01-22] MEDS: albumin (human) 25% 100 ML IV solution IV ONE (21:19)
[2024-01-22] MEDS: proCHLORperazine 10 MG/2 ml inj IM ONE (22:08)
[2024-01-22 22:18] VITALS: BP 124/77; PULSE 89; RESP 19; TEMP 99.2; O2SAT 99
== END 2024-01-22 22:23 | disposition home or self-care (01) ==
LOC: ER 11:28
DX: K70.31 Alcoholic cirrhosis of liver with ascites (principal); F41.9 Anxiety disorder, unspecified; F32.A Depression, unspecified; F10.10 Alcohol abuse, uncomplicated; Z91.013 Allergy to seafood; Z90.49 Acquired absence of other specified parts of digestive tract; Z98.890 Other specified postprocedural states; Z79.899 Other long term (current) drug therapy
CPT/HCPCS: 36415; 49083; 71260; 74177; 80053; 80320; 82140; 82150; 82272; 83605; 83690; 83735; 85025; 85610; 85730; 93005; 96365; 96372; 96375; 96376; 99285; J0780; J2405; P9047; Q9967

== ENCOUNTER 2024-02-27 08:51 | Emergency (ER) | payer MEDICAID ==
[~2024-02-27] VITALS: Ht 162.6 cm; Wt 85.4 kg
[2024-02-27 10:11] LABS: BILIRUBIN,URINE NEGATIVE (Neg); CLARITY,URINE SLIGHTLY CLOUDY (Clear); COLOR,URINE YELLOW (Yellow); GLUCOSE, URINE NEGATIVE (Neg); KETONES,URINE NEGATIVE (Neg); LEUKOCYTE ESTERASE ,URINE NEGATIVE (Neg); NITRITES, URINE NEGATIVE (Neg); OCCULT BLOOD,URINE SMALL (Neg); PROTEIN,URINE NEGATIVE (Neg); UROBILINOGEN,URINE 0.2 E.U/dL (0.2-1.0)
[2024-02-27 10:14] VITALS: TEMP 98
[2024-02-27 10:14] LABS: URINE HCG NEGATIVE (NEG)
[2024-02-27 10:17] LABS: UA COLLECTION TYPE OTHER
[2024-02-27 10:18] LABS: AMORPHOUS URATES 1+; BACTERIA,URINE FEW /HPF (Neg); RBC,URINE 20-50 /HPF (0-2); SQUAMOUS EPITHELIAL CELL,UR MANY /LPF (FEW); WBC,URINE 0-4 /HPF (0-4)
[2024-02-27] MEDS ORDERED: FURO-150 PO (10:33)
[2024-02-27] MEDS ORDERED: SPIR50TA5 PO (10:33)
[2024-02-27] MEDS: albumin (human) 25% 100 ML IV solution IV ONE (11:21)
[2024-02-27 11:43] LABS: BASOPHILS % (AUTO) 0.7 % (0-1); EOSINOPHILS # (AUTO) 0.1 X10'3 (0-0.9); EOSINOPHILS % (AUTO) 2.3 % (0-6); HEMATOCRIT 28.7 % (35.0-45.0); HEMOGLOBIN 9.1 g/dl (12.0-16.0); LYMPHOCYTES # (AUTO) 0.5 X10'3 (1.1-4.8); LYMPHOCYTES % (AUTO) 20.1 % (21-51); MEAN CORPUSCULAR HEMOGLOBIN 25.8 PG (27.0-31.0); MEAN CORPUSCULAR HGB CONC 31.6 g/dL (33.0-36.5); MEAN CORPUSCULAR VOLUME 81.7 FL (78-98); MEAN PLATELET VOLUME 7.1 FL (7.4-10.4); MONOCYTES # (AUTO) 0.2 X10'3 (0-0.9); NEUTROPHILS # (AUTO) 1.6 X10'3 (1.8-7.7); NEUTROPHILS % (AUTO) 66.9 % (42-75); PLATELET COUNT 98 X10'3 (140-440); RED BLOOD COUNT 3.52 X10'6 (4.20-5.60); RED CELL DISTRIBUTION WIDTH 17.9 % (11.5-14.5); WHITE BLOOD COUNT 2.4 X10'3 (4.5-11.0)
[2024-02-27 12:01] LABS: ALANINE AMINOTRANSFERASE 11 U/L (12-78); ALBUMIN/GLOBULIN RATIO 0.6 (1.1-1.5); ALKALINE PHOSPHATASE 92 IU/L (46-116); ANION GAP 8 (8-16); ASPARTATE AMINO TRANSFERASE 26 U/L (10-37); BLOOD UREA NITROGEN 2 MG/DL (7-18); BUN/CREATININE RATIO 4.4 (10.0-20.0); CHLORIDE 107 MMOL/L (99-107); CREATININE 0.45 MG/DL (0.40-0.90); GLUCOSE 76 MG/DL (70-104); LIPASE 32 U/L (16-77); SODIUM 141 MMOL/L (135-145); TOTAL CARBON DIOXIDE 26.1 MMOL/L (24-32); TOTAL PROTEIN 5.3 G/DL (6.4-8.2); eCRCL 116 ML/MIN; eGFR > 90 ML/MIN
[2024-02-27 12:04] LABS: ANISOCYTOSIS 1+; PLATELET ESTIMATE DECREASED; TOTAL CELLS COUNTED 100
[2024-02-27 12:05] LABS: GIANT PLATELET FEW; LARGE PLATELETS FEW
[2024-02-27] MEDS ORDERED: potassium CL 10mEq/100ml bag 100 ML IV PRN (12:15)
[2024-02-27] MEDS ORDERED: potassium Cl 20mEq/100mL bag 100 ML IV PRN (12:15)
[2024-02-27] MEDS ORDERED: potassium Cl 40MEQ/1/2NS 520ml 520 ML IV PRN (12:15)
[2024-02-27] MEDS ORDERED: magnesium sulf-water 4G/100mL 100 ML IV PRN (12:15)
[2024-02-27] MEDS ORDERED: potassium Cl 40MEQ/270ML bag 250 ML IV PRN (12:15)
[2024-02-27] MEDS ORDERED: magnesium sulf-water 2g/50mL 50 ML IV PRN (12:15)
[2024-02-27] MEDS: acetaminophen 325mg tablet PO ONE (12:22)
[2024-02-27] MEDS: potassium Cl 20 mEq SR tablet PO PRN (12:41)
[2024-02-27 13:07] VITALS: BP 142/71; PULSE 82; RESP 14; O2SAT 100
== END 2024-02-27 13:08 | disposition home or self-care (01) ==
LOC: ER 08:52
DX: F10.10 Alcohol abuse, uncomplicated (principal); F41.9 Anxiety disorder, unspecified; F32.A Depression, unspecified; Z90.49 Acquired absence of other specified parts of digestive tract; Z91.013 Allergy to seafood; Z79.899 Other long term (current) drug therapy
CPT/HCPCS: 49082; 80053; 81001; 81025; 83690; 85007; 85025; 96374; 99285; P9047; 99283

== ENCOUNTER 2024-03-22 20:36 | Emergency (ER) | payer MEDICAID ==
[~2024-03-22] VITALS: Ht 162.6 cm; Wt 76.0 kg
[~2024-03-22 20:36] MED LIST changes: +FURO-150 PO; +GABA-1405 PO; -GABA600T13 PO
[2024-03-22] MEDS: normal saline 1000ML IV soln IVB ONE ×2 (21:56→22:46)
[2024-03-22] MEDS: ondansetron/PF 4mg/2ml inj IV ONE (22:02)
[2024-03-22] MEDS: LORazepam 2 mg/ml vial IV ONE (22:02)
[2024-03-22 22:13] LABS: BASOPHILS % (AUTO) 0.2 % (0-1); EOSINOPHILS % (AUTO) 0.1 % (0-6); HEMATOCRIT 35.9 % (35.0-45.0); HEMOGLOBIN 11.9 g/dl (12.0-16.0); LYMPHOCYTES # (AUTO) 0.6 X10'3 (1.1-4.8); LYMPHOCYTES % (AUTO) 5.5 % (21-51); MEAN CORPUSCULAR HEMOGLOBIN 25.3 PG (27.0-31.0); MEAN CORPUSCULAR HGB CONC 33.1 g/dL (33.0-36.5); MEAN CORPUSCULAR VOLUME 76.6 FL (78-98); MEAN PLATELET VOLUME 6.6 FL (7.4-10.4); MONOCYTES # (AUTO) 0.8 X10'3 (0-0.9); MONOCYTES % (AUTO) 7.1 % (2-12); NEUTROPHILS # (AUTO) 9.4 X10'3 (1.8-7.7); NEUTROPHILS % (AUTO) 87.1 % (42-75); PLATELET COUNT 138 X10'3 (140-440); RED BLOOD COUNT 4.69 X10'6 (4.20-5.60); RED CELL DISTRIBUTION WIDTH 17.1 % (11.5-14.5); WHITE BLOOD COUNT 10.8 X10'3 (4.5-11.0)
[2024-03-22] MEDS ORDERED: CHLO25CA10 PO (22:41)
[2024-03-22] MEDS ORDERED: ONDA-243 PO (22:41)
[2024-03-22 23:03] LABS: ALBUMIN 2.6 G/DL (3.4-5.0); ANION GAP 7 (8-16); BLOOD UREA NITROGEN 15 MG/DL (7-18); CALCIUM 7.1 MG/DL (8.5-10.1); CHLORIDE 92 MMOL/L (99-107); CREATININE 0.88 MG/DL (0.40-0.90); GLUCOSE 97 MG/DL (70-104); POTASSIUM 3.4 MMOL/L (3.5-5.1); SODIUM 127 MMOL/L (135-145); TOTAL CARBON DIOXIDE 28.3 MMOL/L (24-32); eCRCL 59 ML/MIN; eGFR 66 ML/MIN
[2024-03-22 23:05] LABS: MAGNESIUM 0.8 MG/DL (1.5-2.4)
[2024-03-22] MEDS ORDERED: MAGN400T52 PO (23:43)
[2024-03-22] MEDS: chlordiazePOXIDE 25mg capsule PO ONE (23:47)
[2024-03-22] MEDS: potassium Cl 20 mEq SR tablet PO STA (23:48)
[2024-03-22] MEDS: magnesium sulf-water 2g/50mL 50 ML IV ONE (23:58)
[2024-03-23] MEDS: thiamine 100mg tablet PO ONE (00:46)
[2024-03-23 01:14] VITALS: BP 143/85; PULSE 108; RESP 18; TEMP 97.8; O2SAT 99
== END 2024-03-23 01:08 | disposition home or self-care (01) ==
LOC: ER 20:37
DX: F10.239 Alcohol dependence with withdrawal, unspecified (principal); E83.42 Hypomagnesemia; K46.9 Unspecified abdominal hernia without obstruction or gangrene; F41.9 Anxiety disorder, unspecified; F32.A Depression, unspecified; Z91.013 Allergy to seafood; Z79.899 Other long term (current) drug therapy; Z90.49 Acquired absence of other specified parts of digestive tract; Z98.890 Other specified postprocedural states
CPT/HCPCS: 36415; 80048; 83735; 85025; 93005; 96361; 96365; 96375; 99284; J2060; J2405; J7030

== ENCOUNTER 2024-04-14 17:10 | Emergency (ER) | payer MEDICAID ==
[~2024-04-14] VITALS: Ht 162.6 cm; Wt 81.3 kg
[~2024-04-14 17:10] MED LIST changes: +CHLO25CA10 PO; -FURO-150 PO; +MAGN400T52 PO; +ONDA-243 PO
[2024-04-14 17:18] VITALS: TEMP 98.3
[2024-04-14 18:32] LABS: ALBUMIN 2.7 G/DL (3.4-5.0); ALKALINE PHOSPHATASE 141 IU/L (46-116); BLOOD UREA NITROGEN 5 MG/DL (7-18); BUN/CREATININE RATIO 6.8 (10.0-20.0); CALCIUM 8.9 MG/DL (8.5-10.1); CREATININE 0.74 MG/DL (0.40-0.90); GLUCOSE 93 MG/DL (70-104); LIPASE 40 U/L (16-77); eCRCL 71 ML/MIN; eGFR 80 ML/MIN
[2024-04-14 18:34] LABS: ALANINE AMINOTRANSFERASE 32 U/L (12-78); ALBUMIN/GLOBULIN RATIO 0.6 (1.1-1.5); ANION GAP 7 (8-16); ASPARTATE AMINO TRANSFERASE 53 U/L (10-37); BILIRUBIN,TOTAL 0.9 MG/DL (0.1-1.0); CHLORIDE 107 MMOL/L (99-107); POTASSIUM 4.5 MMOL/L (3.5-5.1); SODIUM 140 MMOL/L (135-145)
[2024-04-14] MEDS ORDERED: iohexol 300mg/ml 100ml inj. ONE (19:05)
[2024-04-14 19:17] LABS: APTT 22 SECONDS (22-32); PROTHROMBIN TIME 10.9 SECONDS (9.0-12.0)
[2024-04-14 19:20] LABS: EOSINOPHILS # (AUTO) 0.1 X10'3 (0-0.9); HEMATOCRIT 31.1 % (35.0-45.0); MEAN PLATELET VOLUME 7.5 FL (7.4-10.4); MONOCYTES # (AUTO) 0.5 X10'3 (0-0.9); RED BLOOD COUNT 3.86 X10'6 (4.20-5.60)
[2024-04-14 19:22] LABS: BASOPHILS % (AUTO) 1.2 % (0-1); EOSINOPHILS % (AUTO) 2.9 % (0-6); LYMPHOCYTES % (AUTO) 26.6 % (21-51); MEAN CORPUSCULAR HEMOGLOBIN 25.9 PG (27.0-31.0); MEAN CORPUSCULAR HGB CONC 32.1 g/dL (33.0-36.5); MEAN CORPUSCULAR VOLUME 80.6 FL (78-98); NEUTROPHILS # (AUTO) 2.2 X10'3 (1.8-7.7); NEUTROPHILS % (AUTO) 57.3 % (42-75); PLATELET COUNT 125 X10'3 (140-440); RED CELL DISTRIBUTION WIDTH 18.4 % (11.5-14.5); WHITE BLOOD COUNT 3.8 X10'3 (4.5-11.0)
[2024-04-14 19:27] LABS: BILIRUBIN,URINE NEGATIVE (Neg); CLARITY,URINE CLEAR (Clear); COLOR,URINE YELLOW (Yellow); GLUCOSE, URINE NEGATIVE (Neg); KETONES,URINE NEGATIVE (Neg); LEUKOCYTE ESTERASE ,URINE NEGATIVE (Neg); NITRITES, URINE NEGATIVE (Neg); OCCULT BLOOD,URINE NEGATIVE (Neg); PROTEIN,URINE NEGATIVE (Neg); UROBILINOGEN,URINE 0.2 E.U/dL (0.2-1.0)
[2024-04-14 19:28] LABS: URINE HCG NEGATIVE (NEG)
[2024-04-14 19:36] LABS: UA COLLECTION TYPE CLN CATCH MIDSTREAM
[2024-04-14] MEDS: HYDROmorphone inj. 0.5 MG/0.5 ML DISP.SYRIN IV ONE ×2 (19:41→21:49)
[2024-04-14] MEDS: ondansetron/PF 4mg/2ml inj IV ONE (19:45)
[2024-04-14] MEDS ORDERED: HYDR-3965 PO (21:42)
[2024-04-14] MEDS: HYDROmorphone 1 mg/ml syringe ONE (21:48)
[2024-04-14 22:13] VITALS: BP 97/47; PULSE 83; RESP 16; O2SAT 98
== END 2024-04-14 22:29 | disposition home or self-care (01) ==
LOC: ER 17:10
DX: K42.9 Umbilical hernia without obstruction or gangrene (principal); R18.8 Other ascites; R79.1 Abnormal coagulation profile; Z91.013 Allergy to seafood; Z88.8 Allergy status to other drugs, medicaments and biological substances; Z88.5 Allergy status to narcotic agent; Z90.49 Acquired absence of other specified parts of digestive tract; Z98.84 Bariatric surgery status
CPT/HCPCS: 36415; 71270; 74177; 80053; 81003; 81025; 83690; 85025; 85610; 85730; 96374; 96376; 99285; J1171; Q9967

== ENCOUNTER 2024-04-21 16:33 | Emergency (ER) | payer MEDICAID ==
[~2024-04-21] VITALS: Ht 162.6 cm; Wt 67.9 kg
[2024-04-21 17:29] LABS: BASOPHILS % (AUTO) 0.7 % (0-1); EOSINOPHILS # (AUTO) 0.1 X10'3 (0-0.9); HEMOGLOBIN 10.7 g/dl (12.0-16.0); MONOCYTES # (AUTO) 0.5 X10'3 (0-0.9); NEUTROPHILS # (AUTO) 3.4 X10'3 (1.8-7.7)
[2024-04-21 17:45] LABS: EOSINOPHILS % (AUTO) 1.8 % (0-6); HEMATOCRIT 33.4 % (35.0-45.0); LYMPHOCYTES # (AUTO) 1.1 X10'3 (1.1-4.8); LYMPHOCYTES % (AUTO) 20.6 % (21-51); MEAN CORPUSCULAR HEMOGLOBIN 25.5 PG (27.0-31.0); MEAN CORPUSCULAR HGB CONC 32.1 g/dL (33.0-36.5); MEAN CORPUSCULAR VOLUME 79.6 FL (78-98); MEAN PLATELET VOLUME 6.8 FL (7.4-10.4); MONOCYTES % (AUTO) 10.1 % (2-12); NEUTROPHILS % (AUTO) 66.8 % (42-75); PLATELET COUNT 172 X10'3 (140-440); RED CELL DISTRIBUTION WIDTH 18.6 % (11.5-14.5); WHITE BLOOD COUNT 5.2 X10'3 (4.5-11.0)
[2024-04-21 18:00] LABS: ALBUMIN 2.5 G/DL (3.4-5.0); ANION GAP 12 (8-16); BLOOD UREA NITROGEN 4 MG/DL (7-18); BUN/CREATININE RATIO 5.8 (10.0-20.0); CALCIUM 8.3 MG/DL (8.5-10.1); CHLORIDE 102 MMOL/L (99-107); CREATININE 0.69 MG/DL (0.40-0.90); ETHANOL 239 MG/DL (<10); GLUCOSE 88 MG/DL (70-104); SALICYLATE 0.6 MG/DL (4.0-20.0); SODIUM 143 MMOL/L (135-145); THYROID STIMULATING HORMONE 2.71 ulU/ml (0.34-4.50); TOTAL CARBON DIOXIDE 29.3 MMOL/L (24-32); eCRCL 76 ML/MIN; eGFR 87 ML/MIN
[2024-04-21 18:10] LABS: ACETAMINOPHEN < 2.0 UG/ML (10-30); POTASSIUM 2.1 MMOL/L (3.5-5.1)
[2024-04-21 18:51] LABS: ANISOCYTOSIS 2+; HYPOCHROMASIA 1+; MICROCYTOSIS 1+; PLATELET ESTIMATE NORMAL
[2024-04-21 18:52] LABS: POLYCHROMASIA FEW
[2024-04-21 19:39] LABS: URINE HCG NEGATIVE (NEG)
[2024-04-21 19:40] LABS: BILIRUBIN,URINE NEGATIVE (Neg); CLARITY,URINE CLEAR (Clear); COLOR,URINE YELLOW (Yellow); GLUCOSE, URINE NEGATIVE (Neg); KETONES,URINE NEGATIVE (Neg); LEUKOCYTE ESTERASE ,URINE TRACE (Neg); NITRITES, URINE NEGATIVE (Neg); OCCULT BLOOD,URINE NEGATIVE (Neg); PROTEIN,URINE NEGATIVE (Neg); UROBILINOGEN,URINE 0.2 E.U/dL (0.2-1.0)
[2024-04-21 19:53] LABS: BACTERIA,URINE FEW /HPF (Neg); RBC,URINE NONE SEEN /HPF (0-2); SQUAMOUS EPITHELIAL CELL,UR FEW /LPF (FEW); UA COLLECTION TYPE CLN CATCH MIDSTREAM; WBC,URINE 0-4 /HPF (0-4)
[2024-04-21 19:58] LABS: URINE AMPHETAMINE SCREEN NEGATIVE (Neg); URINE BARBITUATE SCREEN NEGATIVE (Neg); URINE BENZODIAZEPINES SCREEN POSITIVE (Neg); URINE CANNABINOID SCREEN NEGATIVE (Neg); URINE COCAINE SCREEN NEGATIVE (Neg); URINE METHADONE SCREEN NEGATIVE (Neg); URINE OPIATE SCREEN NEGATIVE (Neg); URINE PHENCYCLIDINE SCREEN NEGATIVE (Neg)
[2024-04-21] MEDS: normal saline 1000ml 1,000 ML IV ONE (20:42)
[2024-04-21] MEDS: thiamine 100mg/ml 2ml inj. IV ONE (20:42)
[2024-04-21] MEDS: ondansetron/PF 4mg/2ml inj IV ONE (20:42)
[2024-04-21] MEDS: potassium Cl 20 mEq SR tablet PO ONE (20:43)
[2024-04-21] MEDS: potassium Cl 20mEq/100mL bag 100 ML IV ONE (20:43)
[2024-04-21] MEDS: LORazepam 2 mg/ml vial IV ONE (20:43)
[2024-04-21] MEDS ORDERED: FURO20TA4 PO (20:44)
[2024-04-21] MEDS ORDERED: ONDA-243 PO (20:45)
[2024-04-21] MEDS: potassium CL 10mEq/100ml bag 100 ML IV STA ×2 (21:31→21:44)
[2024-04-21] MEDS: potassium Cl 20 mEq SR tablet PO STA (21:41)
[2024-04-21] MEDS: potassium CL 10mEq/100ml bag 100 ML IV ONE (22:13)
[2024-04-21] MEDS: ondansetron 4mg rapidly disintigrating tab PO PRN (23:01)
[2024-04-22 00:08] LABS: ALANINE AMINOTRANSFERASE 18 U/L (12-78); ALBUMIN 2.1 G/DL (3.4-5.0); ALBUMIN/GLOBULIN RATIO 0.6 (1.1-1.5); ALKALINE PHOSPHATASE 108 IU/L (46-116); ANION GAP 7 (8-16); ASPARTATE AMINO TRANSFERASE 28 U/L (10-37); BILIRUBIN,TOTAL 0.5 MG/DL (0.1-1.0); BLOOD UREA NITROGEN 3 MG/DL (7-18); BUN/CREATININE RATIO 4.5 (10.0-20.0); CALCIUM 7.2 MG/DL (8.5-10.1); CHLORIDE 109 MMOL/L (99-107); CREATININE 0.66 MG/DL (0.40-0.90); ETHANOL 113 MG/DL (<10); GLUCOSE 98 MG/DL (70-104); SODIUM 145 MMOL/L (135-145); TOTAL CARBON DIOXIDE 28.7 MMOL/L (24-32); TOTAL PROTEIN 5.6 G/DL (6.4-8.2); eCRCL 79 ML/MIN; eGFR > 90 ML/MIN
[2024-04-22 00:25] LABS: POTASSIUM 2.8 MMOL/L (3.5-5.1)
[2024-04-22] MEDS: potassium Cl 20 mEq SR tablet PO STA (00:39)
[2024-04-22] MEDS: normal saline 1000ml 1,000 ML IV ONE (08:15)
[2024-04-22] MEDS: metoclopramide 5 mg/ml inj IV ONE (08:33)
[2024-04-22] MEDS: ketorolac trometh 30MG/ML vial 30 MG/ML VIAL IV ONE (08:34)
[2024-04-22 12:02] VITALS: BP 99/51; PULSE 79; RESP 14; TEMP 98.1; O2SAT 98
== END 2024-04-22 11:57 | disposition home or self-care (01) ==
LOC: ER 16:33
DX: R45.851 Suicidal ideations (principal); F32.A Depression, unspecified; E87.6 Hypokalemia; F10.129 Alcohol abuse with intoxication, unspecified; F41.9 Anxiety disorder, unspecified; K74.60 Unspecified cirrhosis of liver; Z20.822 Contact with and (suspected) exposure to COVID-19; Z91.013 Allergy to seafood; Z79.899 Other long term (current) drug therapy; Z90.49 Acquired absence of other specified parts of digestive tract; Z98.84 Bariatric surgery status; Y90.9 Presence of alcohol in blood, level not specified
CPT/HCPCS: 36415; 74176; 80048; 80053; 80305; 80320; 80329; 81001; 81025; 84132; 84443; 85008; 85025; 87811; 96361; 96365; 96366; 96375; 99285; C2617; J1885; J2060; J2405; J2765; J3411; J3480; J7030

== ENCOUNTER 2024-06-17 17:39 | Inpatient (IN) | payer MEDICAID ==
[~2024-06-17] VITALS: Ht 162.6 cm; Wt 75.0 kg
[~2024-06-17 17:39] MED LIST changes: -CHLO25CA10 PO; -CHOL10006 PO; -CYAN500T71 PO; -FOLI0.4T6 PO; +FURO20TA4 PO; -GABA-1405 PO; -GABA-535 PO; -MAGN400T52 PO; -MULT-661 PO; -OSC500T PO; -PANT-47 PO; -PANT40TA54 PO; -QUET-1 PO; -SPIR50TA5 PO; -VENL25TA48 PO; -thiamine tablet PO
[2024-06-17] MEDS ORDERED: ondansetron/PF 4mg/2ml inj IV ONE (18:40)
[2024-06-17] MEDS ORDERED: iohexol 300mg/ml 100ml inj. ONE (18:45)
[2024-06-17] MEDS: proCHLORperazine 10 MG/2 ml inj IV ONE (19:13)
[2024-06-17 19:14] LABS: ALANINE AMINOTRANSFERASE 15 U/L (12-78); ALBUMIN 2.9 G/DL (3.4-5.0); ALBUMIN/GLOBULIN RATIO 0.7 (1.1-1.5); ALKALINE PHOSPHATASE 163 IU/L (46-116); ANION GAP 13 (8-16); ASPARTATE AMINO TRANSFERASE 35 U/L (10-37); BILIRUBIN,TOTAL 2.1 MG/DL (0.1-1.0); BLOOD UREA NITROGEN 8 MG/DL (7-18); BUN/CREATININE RATIO 8.9 (10.0-20.0); CALCIUM 8.3 MG/DL (8.5-10.1); CHLORIDE 96 MMOL/L (99-107); GLUCOSE 128 MG/DL (70-104); LIPASE 24 U/L (16-77); SODIUM 135 MMOL/L (135-145); TOTAL CARBON DIOXIDE 25.7 MMOL/L (24-32); TOTAL PROTEIN 7.2 G/DL (6.4-8.2); eCRCL 57 ML/MIN; eGFR 64 ML/MIN
[2024-06-17] MEDS: fentaNYL/PF 50MCG/1 ML 2ML syringe IV ONE (19:14)
[2024-06-17] MEDS: normal saline 1000ml 1,000 ML IV ONE (19:16)
[2024-06-17 19:22] LABS: HEMOGLOBIN 9.2 g/dl (12.0-16.0); LYMPHOCYTES # (AUTO) 0.4 X10'3 (1.1-4.8); MEAN CORPUSCULAR HEMOGLOBIN 24.6 PG (27.0-31.0); MONOCYTES # (AUTO) 0.3 X10'3 (0-0.9); WHITE BLOOD COUNT 2.6 X10'3 (4.5-11.0)
[2024-06-17 19:24] LABS: BASOPHILS % (AUTO) 0.8 % (0-1); EOSINOPHILS % (AUTO) 0.4 % (0-6); LYMPHOCYTES % (AUTO) 15.5 % (21-51); MEAN CORPUSCULAR HGB CONC 32.8 g/dL (33.0-36.5); MEAN CORPUSCULAR VOLUME 75.1 FL (78-98); MEAN PLATELET VOLUME 6.2 FL (7.4-10.4); MONOCYTES % (AUTO) 12.8 % (2-12); NEUTROPHILS # (AUTO) 1.9 X10'3 (1.8-7.7); NEUTROPHILS % (AUTO) 70.5 % (42-75); PLATELET COUNT 68 X10'3 (140-440); RED BLOOD COUNT 3.72 X10'6 (4.20-5.60)
[2024-06-17 19:28] VITALS: PULSE 62; RESP 18; O2SAT 98
[2024-06-17] MEDS: propofol 10mg/ml 20ml vial IV ONE (19:29)
[2024-06-17 19:30] VITALS: PULSE 76; RESP 12; O2SAT 93
[2024-06-17 19:32] VITALS: PULSE 78; RESP 12; O2SAT 92
[2024-06-17 19:34] VITALS: PULSE 78; RESP 16; O2SAT 99
[2024-06-17 19:42] LABS: POTASSIUM 2.6 MMOL/L (3.5-5.1)
[2024-06-17 19:56] LABS: TOTAL CELLS COUNTED 100
[2024-06-17 19:58] LABS: ANISOCYTOSIS 1+; MICROCYTOSIS 1+; PLATELET ESTIMATE DECREASED
[2024-06-17 20:01] LABS: PHOSPHORUS 3.1 MG/DL (2.3-4.5)
[2024-06-17] MEDS ORDERED: CLON0.1T2 PO (20:01)
[2024-06-17] MEDS ORDERED: GABA300T28 (20:01)
[2024-06-17] MEDS ORDERED: QUET100T34 (20:01)
[2024-06-17 20:26] LABS: MAGNESIUM 0.7 MG/DL (1.5-2.4)
[2024-06-17] MEDS ORDERED: acetaminophen 325mg tablet PO PRN (20:30)
[2024-06-17] MEDS ORDERED: morphine 2 MG/ML inj. syringe IV PRN (20:30)
[2024-06-17] MEDS ORDERED: magnesium hydroxide 30ml (MOM) UD suspension PO PRN (20:30)
[2024-06-17] MEDS ORDERED: potassium Cl 20 mEq SR tablet PO PRN (20:30)
[2024-06-17] MEDS ORDERED: potassium Cl 40MEQ/1/2NS 520ml 520 ML IV PRN (20:30)
[2024-06-17] MEDS ORDERED: magnesium Cl slow-release 64mg tablet PO PRN (20:30)
[2024-06-17] MEDS ORDERED: magnesium sulf-water 4G/100mL 100 ML IV PRN (20:30)
[2024-06-17] MEDS ORDERED: magnesium sulf-water 2g/50mL 50 ML IV PRN (20:30)
[2024-06-17] MEDS: normal saline 1000ML IV soln IVB ONE (20:47)
[2024-06-17] MEDS: magnesium sulf-water 2g/50mL 50 ML IV ONE (21:04)
[2024-06-17] MEDS: potassium Cl 20 mEq SR tablet PO ONE (21:05)
[2024-06-17] MEDS: potassium Cl 40MEQ/1/2NS 520ml 520 ML IV SCH (21:41)
[2024-06-17] MEDS: normal saline 1000ml 1,000 ML IV SCH (22:44)
[2024-06-17] MEDS: morphine 2 MG/ML inj. syringe IV PRN (23:01)
[2024-06-17 23:14] LABS: APTT 25 SECONDS (22-32); INR 1.3 INR; PROTHROMBIN TIME 13.4 SECONDS (9.0-12.0)
[2024-06-18] VITALS (21 sets, daily range): BP systolic 117–159; BP diastolic 62–92; PULSE 61–114; RESP 15–29; TEMP 98.1–98.8; O2SAT 90–100
[2024-06-18] MEDS: magnesium sulf-water 2g/50mL 50 ML IV ONE (01:07)
[2024-06-18 01:39] LABS: EOSINOPHILS % (AUTO) 0.5 % (0-6); HEMOGLOBIN 8.6 g/dl (12.0-16.0); LYMPHOCYTES # (AUTO) 0.8 X10'3 (1.1-4.8); NEUTROPHILS # (AUTO) 1.4 X10'3 (1.8-7.7)
[2024-06-18 01:41] LABS: BASOPHILS % (AUTO) 0.5 % (0-1); LYMPHOCYTES % (AUTO) 31.5 % (21-51); MEAN CORPUSCULAR HEMOGLOBIN 24.8 PG (27.0-31.0); MEAN PLATELET VOLUME 6.1 FL (7.4-10.4); MONOCYTES # (AUTO) 0.2 X10'3 (0-0.9); MONOCYTES % (AUTO) 8.9 % (2-12); NEUTROPHILS % (AUTO) 58.6 % (42-75); PLATELET COUNT 63 X10'3 (140-440); RED BLOOD COUNT 3.47 X10'6 (4.20-5.60); RED CELL DISTRIBUTION WIDTH 17.4 % (11.5-14.5); WHITE BLOOD COUNT 2.4 X10'3 (4.5-11.0)
[2024-06-18 01:51] LABS: ALANINE AMINOTRANSFERASE 17 U/L (12-78); ALBUMIN 2.3 G/DL (3.4-5.0); ALBUMIN/GLOBULIN RATIO 0.7 (1.1-1.5); ALKALINE PHOSPHATASE 135 IU/L (46-116); ANION GAP 5 (8-16); ASPARTATE AMINO TRANSFERASE 26 U/L (10-37); BILIRUBIN,DIRECT 0.5 MG/DL (0-0.3); BILIRUBIN,TOTAL 1.6 MG/DL (0.1-1.0); BLOOD UREA NITROGEN 8 MG/DL (7-18); BUN/CREATININE RATIO 11.9 (10.0-20.0); CALCIUM 6.8 MG/DL (8.5-10.1); CHLORIDE 106 MMOL/L (99-107); CREATININE 0.67 MG/DL (0.40-0.90); GLUCOSE 95 MG/DL (70-104); MAGNESIUM 1.5 MG/DL (1.5-2.4); POTASSIUM 3.9 MMOL/L (3.5-5.1); SODIUM 142 MMOL/L (135-145); TOTAL PROTEIN 5.6 G/DL (6.4-8.2); eCRCL 77 ML/MIN; eGFR 90 ML/MIN
[2024-06-18 02:43] LABS: TOTAL CELLS COUNTED 100
[2024-06-18] MEDS: potassium Cl 40MEQ/1/2NS 520ml 520 ML IV ONE (03:14)
[2024-06-18 05:51] LABS: BILIRUBIN,URINE NEGATIVE (Neg); CLARITY,URINE CLEAR (Clear); COLOR,URINE YELLOW (Yellow); GLUCOSE, URINE NEGATIVE (Neg); KETONES,URINE NEGATIVE (Neg); LEUKOCYTE ESTERASE ,URINE NEGATIVE (Neg); NITRITES, URINE NEGATIVE (Neg); OCCULT BLOOD,URINE TRACE-INTACT (Neg); PROTEIN,URINE NEGATIVE (Neg)
[2024-06-18 05:58] LABS: URINE HCG NEGATIVE (NEG)
[2024-06-18 05:59] LABS: UA COLLECTION TYPE NON-SPECIFIED
[2024-06-18 06:00] LABS: BACTERIA,URINE NONE SEEN /HPF (Neg); SQUAMOUS EPITHELIAL CELL,UR NONE SEEN /LPF (FEW); WBC,URINE NONE SEEN /HPF (0-4)
[2024-06-18] MEDS: K and/or MAG REPLACEMENT MC SCH (07:58)
[2024-06-18] MEDS: docusate sod 100mg capsule PO SCH (07:58)
[2024-06-18] MEDS: morphine 2 MG/ML inj. syringe IV PRN (10:51)
[2024-06-18] MEDS ORDERED: BUPIVACAINE liposomal/PF 13.3 MG/ML 10mL vial IM ONE (13:31)
[2024-06-18] MEDS ORDERED: BUPIVAcaine 2.5mg/ml inj 50ml vial (contains preservative) ONE (13:31)
[2024-06-18] MEDS ORDERED: BUPIVAcaine/PF 2.5mg/ml (0.25%) 10ml vial ONE (13:31)
[2024-06-18] MEDS: cefazolin 2gm/D5W 100mL 100 ML IV ONE (14:32)
[2024-06-18] MEDS: ceFAZolin 2gm in dextrose, iso 50 ML IV ONE (14:46)
[2024-06-18] MEDS ORDERED: sevoflurane 250ml liquid IH ONE (15:26)
[2024-06-18] MEDS ORDERED: midazolam 1 mg/ML 2ml injection ONE (15:29)
[2024-06-18] MEDS ORDERED: fentaNYL /PF 50mcg/ml 5ml ampule ONE (15:55)
[2024-06-18] MEDS ORDERED: LIDOcaine 2% (20mg/ml) 5ml vial ONE (15:55)
[2024-06-18] MEDS ORDERED: propofol inj 20 ML IV ONE (15:55)
[2024-06-18] MEDS ORDERED: ondansetron/PF 4mg/2ml inj ONE (15:55)
[2024-06-18] MEDS ORDERED: dexamethasone sod phosphate 4mg/ml inj. ONE (15:56)
[2024-06-18] MEDS ORDERED: glycopyrrolate 0.2mg/ml inj ONE (16:59)
[2024-06-18] MEDS: BUPIVAcaine/PF 2.5 mg/ml (0.25%) 30ml vial IJ ONE (17:01)
[2024-06-18] MEDS ORDERED: meperidine/PF 25mg/ml syringe ONE (17:15)
[2024-06-18] MEDS ORDERED: naloxone 0.4 mg/ml inj IV PRN (17:15)
[2024-06-18] MEDS ORDERED: proCHLORperazine 10 MG/2 ml inj IV PRN (17:20)
[2024-06-18] MEDS ORDERED: ondansetron/PF 4mg/2ml inj IV PRN (17:20)
[2024-06-18] MEDS: ringers solution, lacted 1,000 ML IV SCH (17:20)
[2024-06-18] MEDS ORDERED: morphine 2 MG/ML inj. syringe IV PRN (17:20)
[2024-06-18] MEDS ORDERED: labetalol 20mg/4ml (5mg/ml) syringe IV PRN (17:20)
[2024-06-18] MEDS ORDERED: HYDROmorphone/PF 0.2 MG/ML SYRINGE IV PRN (17:20)
[2024-06-18] MEDS ORDERED: morphine 4 MG/ML inj SYRINge IV PRN (17:20)
[2024-06-18] MEDS ORDERED: hydrALAZINE 20mg/ml inj. IV PRN (17:20)
[2024-06-18] MEDS: HYDROmorphone/PF 0.2 MG/ML SYRINGE IV PRN (17:57)
[2024-06-18] MEDS: acetaminophen 1,000mg/100ml IV 100 ML IV PRN (18:12)
[2024-06-18] MEDS: HYDROmorphone inj. 0.5 MG/0.5 ML DISP.SYRIN IV PRN (19:58)
[2024-06-18] MEDS: HYDROcodone/acetaminophen 5mg/325mg tablet PO PRN (22:25)
[2024-06-19] VITALS (12 sets, daily range): BP systolic 124–157; BP diastolic 63–68; PULSE 61–90; RESP 16–20; TEMP 97.9–98.5; O2SAT 88–99
[2024-06-19] MEDS: ceFAZolin/D5W- 1GM premix 50 ML IV SCH (01:30)
[2024-06-19 05:03] LABS: BASOPHILS % (AUTO) 0.1 % (0-1); NEUTROPHILS # (AUTO) 2.3 X10'3 (1.8-7.7); WHITE BLOOD COUNT 2.9 X10'3 (4.5-11.0)
[2024-06-19 05:05] LABS: EOSINOPHILS % (AUTO) 0 % (0-6); HEMATOCRIT 29.1 % (35.0-45.0); HEMOGLOBIN 9.2 g/dl (12.0-16.0); LYMPHOCYTES # (AUTO) 0.3 X10'3 (1.1-4.8); LYMPHOCYTES % (AUTO) 11.1 % (21-51); MEAN CORPUSCULAR HEMOGLOBIN 24.4 PG (27.0-31.0); MEAN CORPUSCULAR HGB CONC 31.5 g/dL (33.0-36.5); MEAN CORPUSCULAR VOLUME 77.4 FL (78-98); MEAN PLATELET VOLUME 7.9 FL (7.4-10.4); MONOCYTES # (AUTO) 0.2 X10'3 (0-0.9); MONOCYTES % (AUTO) 8.6 % (2-12); NEUTROPHILS % (AUTO) 80.2 % (42-75); PLATELET COUNT 67 X10'3 (140-440); RED BLOOD COUNT 3.76 X10'6 (4.20-5.60); RED CELL DISTRIBUTION WIDTH 18.2 % (11.5-14.5)
[2024-06-19 05:19] LABS: TOTAL CELLS COUNTED 100
[2024-06-19 05:23] LABS: ALANINE AMINOTRANSFERASE 11 U/L (12-78); ALBUMIN 2.3 G/DL (3.4-5.0); ALBUMIN/GLOBULIN RATIO 0.6 (1.1-1.5); ALKALINE PHOSPHATASE 143 IU/L (46-116); ANION GAP 11 (8-16); ASPARTATE AMINO TRANSFERASE 29 U/L (10-37); BILIRUBIN,TOTAL 1.3 MG/DL (0.1-1.0); BLOOD UREA NITROGEN 7 MG/DL (7-18); BUN/CREATININE RATIO 14.6 (10.0-20.0); CALCIUM 7.5 MG/DL (8.5-10.1); CHLORIDE 106 MMOL/L (99-107); CREATININE 0.48 MG/DL (0.40-0.90); GLUCOSE 97 MG/DL (70-104); MAGNESIUM 1.7 MG/DL (1.5-2.4); POTASSIUM 3.8 MMOL/L (3.5-5.1); SODIUM 139 MMOL/L (135-145); TOTAL PROTEIN 6.1 G/DL (6.4-8.2); eCRCL 108 ML/MIN; eGFR > 90 ML/MIN
[2024-06-19] MEDS ORDERED: QUET-1 PO (18:20)
[2024-06-19] MEDS: cloNIDine 0.1 mg tablet PO SCH (20:14)
[2024-06-20] MEDS: mag hydrox/Alum hydrox/simeth 30ml oral suspension PO PRN (00:30)
[2024-06-20] MEDS: ondansetron/PF 4mg/2ml inj IV PRN (03:46)
[2024-06-20 05:22] LABS: BASOPHILS % (AUTO) 0.5 % (0-1); EOSINOPHILS # (AUTO) 0.1 X10'3 (0-0.9); EOSINOPHILS % (AUTO) 4.1 % (0-6); HEMATOCRIT 30.4 % (35.0-45.0); HEMOGLOBIN 9.6 g/dl (12.0-16.0); LYMPHOCYTES # (AUTO) 0.9 X10'3 (1.1-4.8); LYMPHOCYTES % (AUTO) 30.4 % (21-51); MEAN CORPUSCULAR HEMOGLOBIN 24.5 PG (27.0-31.0); MEAN CORPUSCULAR HGB CONC 31.5 g/dL (33.0-36.5); MEAN CORPUSCULAR VOLUME 77.7 FL (78-98); MEAN PLATELET VOLUME 6.7 FL (7.4-10.4); MONOCYTES # (AUTO) 0.3 X10'3 (0-0.9); MONOCYTES % (AUTO) 10.1 % (2-12); NEUTROPHILS # (AUTO) 1.7 X10'3 (1.8-7.7); NEUTROPHILS % (AUTO) 54.9 % (42-75); PLATELET COUNT 73 X10'3 (140-440); RED BLOOD COUNT 3.91 X10'6 (4.20-5.60); RED CELL DISTRIBUTION WIDTH 18.4 % (11.5-14.5); WHITE BLOOD COUNT 3.1 X10'3 (4.5-11.0)
[2024-06-20 05:44] LABS: ALANINE AMINOTRANSFERASE 12 U/L (12-78); ALBUMIN 2.2 G/DL (3.4-5.0); ALBUMIN/GLOBULIN RATIO 0.7 (1.1-1.5); ALKALINE PHOSPHATASE 116 IU/L (46-116); ANION GAP 5 (8-16); ASPARTATE AMINO TRANSFERASE 17 U/L (10-37); BLOOD UREA NITROGEN 6 MG/DL (7-18); BUN/CREATININE RATIO 12.5 (10.0-20.0); CALCIUM 7.7 MG/DL (8.5-10.1); CHLORIDE 111 MMOL/L (99-107); CREATININE 0.48 MG/DL (0.40-0.90); GLUCOSE 98 MG/DL (70-104); MAGNESIUM 1.6 MG/DL (1.5-2.4); POTASSIUM 3.3 MMOL/L (3.5-5.1); SODIUM 144 MMOL/L (135-145); TOTAL CARBON DIOXIDE 28.1 MMOL/L (24-32); TOTAL PROTEIN 5.4 G/DL (6.4-8.2); eCRCL 108 ML/MIN; eGFR > 90 ML/MIN
[2024-06-20 06:00] VITALS: BP 128/56; PULSE 62; RESP 18; TEMP 97.8; O2SAT 97
[2024-06-20] MEDS: potassium Cl 20 mEq SR tablet PO PRN (08:36)
[2024-06-20] MEDS ORDERED: HYDROmorphone 1 mg/ml syringe ONE (08:51)
[2024-06-20] MEDS: HYDROmorphone 1 mg/ml syringe ONE (08:57)
[2024-06-20 09:01] VITALS: RESP 16; O2SAT 97
[2024-06-20] MEDS ORDERED: HYDR-3965 PO (11:19)
[2024-06-20] MEDS ORDERED: LACT-373 PO (11:19)
[2024-06-20] MEDS ORDERED: SPIR25TA5 PO (11:19)
== END 2024-06-20 12:50 | disposition home or self-care (01) | DRG 228 ==
LOC: ER 17:39 → ED HOLD 20:32 → SUR 3N 06-18 18:45
PROVIDERS: ADMIT Surgery Surgical Critical Care; ATTEND Internal Medicine
PROC: 8E0W4CZ Robotic Assisted Procedure of Trunk Region, Percutaneous Endoscopic Approach (ICD-10-PCS; 2024-06-18)
PROC: 30233R1 Transfusion of Nonautologous Platelets into Peripheral Vein, Percutaneous Approach (ICD-10-PCS; 2024-06-18)
PROC: 0WUF4JZ Supplement Abdominal Wall with Synthetic Substitute, Percutaneous Endoscopic Approach (ICD-10-PCS; principal; 2024-06-18 15:26)
DX: K42.0 Umbilical hernia with obstruction, without gangrene (principal); D61.818 Other pancytopenia; K65.2 Spontaneous bacterial peritonitis; K70.31 Alcoholic cirrhosis of liver with ascites; E83.42 Hypomagnesemia; E80.6 Other disorders of bilirubin metabolism; N13.30 Unspecified hydronephrosis; K52.89 Other specified noninfective gastroenteritis and colitis; E87.6 Hypokalemia; F41.9 Anxiety disorder, unspecified; K43.9 Ventral hernia without obstruction or gangrene; D50.8 Other iron deficiency anemias; Z98.84 Bariatric surgery status; Z90.49 Acquired absence of other specified parts of digestive tract; Z98.891 History of uterine scar from previous surgery
CPT/HCPCS: 36415; 36430; 74177; 76705; 80053; 81001; 81025; 82248; 82948; 83605; 83690; 83735; 84100; 85007; 85025; 85610; 85730; 86885; 86900; 86901; 87081; 93005; 97116; 97161; 97530; 99291; 99292; A4215; A4314; A4615; A4618; A4620; A5200; C1781; G0378; J0131; J0666; J0690; J0780; J1100; J1171; J2003; J2175; J2250; J2270; J2405; J2704; J2710; J3010; J3480; J3490; J7030; J7120; P9035; Q9967

== ENCOUNTER 2024-08-05 17:00 | Inpatient (IN) | payer MEDICAID ==
[~2024-08-05] VITALS: Ht 165.1 cm; Wt 71.8 kg
[~2024-08-05 17:00] MED LIST changes: +CLON0.1T2 PO; +FLUO-81 PO; -ONDA-243 PO; +PANT-47 PO; +QUET-1 PO
[2024-08-05] MEDS ORDERED: acetaminophen 325mg tablet PO PRN ×2 (23:10)
[2024-08-05] MEDS ORDERED: mag hydrox/Alum hydrox/simeth 30ml oral suspension PO PRN (23:10)
[2024-08-05] MEDS ORDERED: loperamide 2mg capsule PO PRN (23:10)
[2024-08-05] MEDS: LORazepam 1 MG tablet PO ONE (23:11)
[2024-08-05 23:32] VITALS: RESP 18; O2SAT 92
[2024-08-05] MEDS ORDERED: QUET100T34 PO (23:40)
[2024-08-05] MEDS ORDERED: FURO-149 PO (23:40)
[2024-08-05] MEDS ORDERED: FLUO-331 PO (23:40)
[2024-08-06] MEDS: HYDROcodone/acetaminophen 10/325mg tab PO ONE (04:12)
[2024-08-06 07:47] LABS: BASOPHILS % (AUTO) 0.5 % (0-1); EOSINOPHILS # (AUTO) 0.1 X10'3 (0-0.9); EOSINOPHILS % (AUTO) 3.3 % (0-6); HEMOGLOBIN 8.2 g/dl (12.0-16.0); LYMPHOCYTES # (AUTO) 0.6 X10'3 (1.1-4.8); LYMPHOCYTES % (AUTO) 31.8 % (21-51); MEAN CORPUSCULAR HEMOGLOBIN 24.1 PG (27.0-31.0); MEAN CORPUSCULAR HGB CONC 31.4 g/dL (33.0-36.5); MEAN PLATELET VOLUME 6.9 FL (7.4-10.4); MONOCYTES # (AUTO) 0.2 X10'3 (0-0.9); MONOCYTES % (AUTO) 10.7 % (2-12); NEUTROPHILS % (AUTO) 53.7 % (42-75); RED BLOOD COUNT 3.38 X10'6 (4.20-5.60); WHITE BLOOD COUNT 1.9 X10'3 (4.5-11.0)
[2024-08-06 07:50] VITALS: BP 102/40; PULSE 80; RESP 16; TEMP 98.7; O2SAT 94
[2024-08-06 08:02] LABS: PLATELET COUNT 50 X10'3 (140-440)
[2024-08-06 08:08] LABS: ALANINE AMINOTRANSFERASE 10 U/L (12-78); ALBUMIN 2.3 G/DL (3.4-5.0); ALBUMIN/GLOBULIN RATIO 0.7 (1.1-1.5); ALKALINE PHOSPHATASE 123 IU/L (46-116); ANION GAP 4 (8-16); ASPARTATE AMINO TRANSFERASE 17 U/L (10-37); BILIRUBIN,TOTAL 0.8 MG/DL (0.1-1.0); BLOOD UREA NITROGEN 7 MG/DL (7-18); BUN/CREATININE RATIO 11.3 (10.0-20.0); CHLORIDE 108 MMOL/L (99-107); CREATININE 0.62 MG/DL (0.40-0.90); GLUCOSE 80 MG/DL (70-104); POTASSIUM 4.2 MMOL/L (3.5-5.1); SODIUM 138 MMOL/L (135-145); TOTAL PROTEIN 5.6 G/DL (6.4-8.2); eCRCL 87 ML/MIN; eGFR > 90 ML/MIN
[2024-08-06] MEDS: FLUoxetine 10mg capsule PO SCH (08:25)
[2024-08-06 08:48] LABS: ANISOCYTOSIS 3+; MICROCYTOSIS 1+; PLATELET ESTIMATE DECREASED; TOTAL CELLS COUNTED 100
[2024-08-06] MEDS: oxyCODONE IR 5mg (immed. release) tablet PO PRN (08:48)
[2024-08-06] MEDS: LORazepam 1 MG tablet PO PRN ×2 (08:48→13:10)
[2024-08-06 08:49] LABS: TEAR DROP CELLS FEW
[2024-08-06] MEDS: pantoprazole 40mg Tablet.DR PO ONE (08:49)
[2024-08-06 08:58] VITALS: RESP 16; O2SAT 94
[2024-08-06] MEDS: thiamine 100mg tablet PO ONE (13:09)
[2024-08-06] MEDS: folic acid 1mg tablet PO ONE (13:09)
[2024-08-06] MEDS: ondansetron 4mg rapidly disintigrating tab PO PRN (16:02)
[2024-08-06 19:35] VITALS: RESP 18; O2SAT 98
[2024-08-06 19:40] VITALS: BP 125/61; PULSE 93; RESP 18; TEMP 99.2; O2SAT 98
[2024-08-06] MEDS: pantoprazole 40mg Tablet.DR PO SCH (20:14)
[2024-08-06] MEDS: quetiapine 100mg tablet PO SCH (20:14)
[2024-08-07 07:00] VITALS: RESP 18; O2SAT 98
[2024-08-07 08:00] VITALS: BP 124/64; PULSE 75; RESP 18; TEMP 96.9; O2SAT 98
[2024-08-07 08:16] VITALS: BP 124/64; RESP 18; TEMP 96.9; O2SAT 98
[2024-08-07] MEDS: FLUoxetine 10mg capsule PO SCH (08:26)
[2024-08-07] MEDS: thiamine 100mg tablet PO SCH (08:26)
[2024-08-07] MEDS: folic acid 1mg tablet PO SCH (08:27)
[2024-08-07 19:00] VITALS: RESP 18
[2024-08-07] MEDS ORDERED: ondansetron 4mg rapidly disintigrating tab PO PRN (19:10)
[2024-08-07 20:00] VITALS: BP 111/55; PULSE 83; RESP 18; TEMP 99.8; O2SAT 95
[2024-08-07 21:00] VITALS: TEMP 97.5
[2024-08-08 07:20] LABS: HEMOGLOBIN 7.9 g/dl (12.0-16.0); LYMPHOCYTES # (AUTO) 0.6 X10'3 (1.1-4.8); MONOCYTES # (AUTO) 0.2 X10'3 (0-0.9); NEUTROPHILS # (AUTO) 0.7 X10'3 (1.8-7.7); WHITE BLOOD COUNT 1.6 X10'3 (4.5-11.0)
[2024-08-08 07:22] LABS: BASOPHILS % (AUTO) 0.8 % (0-1); EOSINOPHILS % (AUTO) 2.9 % (0-6); HEMATOCRIT 25.4 % (35.0-45.0); LYMPHOCYTES % (AUTO) 39.1 % (21-51); MEAN CORPUSCULAR HEMOGLOBIN 24.3 PG (27.0-31.0); MEAN CORPUSCULAR HGB CONC 31.1 g/dL (33.0-36.5); MEAN PLATELET VOLUME 6.8 FL (7.4-10.4); MONOCYTES % (AUTO) 14.2 % (2-12); PLATELET COUNT 54 X10'3 (140-440); RED BLOOD COUNT 3.26 X10'6 (4.20-5.60); RED CELL DISTRIBUTION WIDTH 21.2 % (11.5-14.5)
[2024-08-08 07:30] VITALS: BP 116/60; PULSE 63; RESP 15; TEMP 98.1; O2SAT 93
[2024-08-08 08:04] LABS: ANISOCYTOSIS 3+; MICROCYTOSIS 1+; PLATELET ESTIMATE DECREASED; TOTAL CELLS COUNTED 100
[2024-08-08 08:05] LABS: ELLIPTOCYTES FEW; HYPOCHROMASIA 1+; STOMATOCYTES 1+
[2024-08-08] MEDS: magnesium hydroxide 30ml (MOM) UD suspension PO PRN (08:54)
[2024-08-08] MEDS: ferrous sulfate 325mg tablet PO SCH (17:54)
[2024-08-08 19:00] VITALS: RESP 18; O2SAT 98
[2024-08-08] MEDS: LORazepam 1 MG tablet PO ONE (19:08)
[2024-08-08 20:00] VITALS: BP 115/67; PULSE 87; RESP 16; TEMP 98.2; O2SAT 98
[2024-08-09 07:40] VITALS: BP 106/52; PULSE 55; RESP 16; TEMP 97.8; O2SAT 97
[2024-08-09] MEDS ORDERED: iron sucrose complex injection 200 MG in normal saline 100ml IV soln 100 ML IV SCH (08:00)
[2024-08-09 08:46] LABS: ANISOCYTOSIS 3+; HYPOCHROMASIA 1+; MICROCYTOSIS 1+; PLATELET ESTIMATE DECREASED; TOTAL CELLS COUNTED 100
[2024-08-09 08:47] LABS: ELLIPTOCYTES 1+; POLYCHROMASIA 1+; SCHISTOCYTES 1+
[2024-08-09 08:57] LABS: BASOPHILS % (AUTO) 0.9 % (0-1); EOSINOPHILS # (AUTO) 0.1 X10'3 (0-0.9); EOSINOPHILS % (AUTO) 3.1 % (0-6); HEMATOCRIT 25.8 % (35.0-45.0); HEMOGLOBIN 8.1 g/dl (12.0-16.0); LYMPHOCYTES # (AUTO) 0.7 X10'3 (1.1-4.8); LYMPHOCYTES % (AUTO) 40.1 % (21-51); MEAN CORPUSCULAR HEMOGLOBIN 24.5 PG (27.0-31.0); MEAN CORPUSCULAR HGB CONC 31.5 g/dL (33.0-36.5); MEAN CORPUSCULAR VOLUME 77.6 FL (78-98); MEAN PLATELET VOLUME 7.5 FL (7.4-10.4); MONOCYTES # (AUTO) 0.3 X10'3 (0-0.9); MONOCYTES % (AUTO) 15.4 % (2-12); NEUTROPHILS # (AUTO) 0.7 X10'3 (1.8-7.7); NEUTROPHILS % (AUTO) 40.5 % (42-75); PLATELET COUNT 74 X10'3 (140-440); RED BLOOD COUNT 3.32 X10'6 (4.20-5.60); RED CELL DISTRIBUTION WIDTH 20.8 % (11.5-14.5); WHITE BLOOD COUNT 1.7 X10'3 (4.5-11.0)
[2024-08-09] MEDS: lactulose 20gm/30ml cup PO SCH (09:00)
[2024-08-09 19:00] VITALS: RESP 16; O2SAT 99
[2024-08-09 19:40] VITALS: BP 129/63; PULSE 92; RESP 16; TEMP 98.4; O2SAT 99
[2024-08-10 07:30] VITALS: BP 98/46; PULSE 79; RESP 16; TEMP 98.6; O2SAT 98
[2024-08-10 07:52] LABS: HEMATOCRIT 24.8 % (35.0-45.0); HEMOGLOBIN 7.8 g/dl (12.0-16.0); MEAN CORPUSCULAR HEMOGLOBIN 24.6 PG (27.0-31.0); WHITE BLOOD COUNT 1.8 X10'3 (4.5-11.0)
[2024-08-10 07:55] LABS: MEAN CORPUSCULAR HGB CONC 31.7 g/dL (33.0-36.5); MEAN CORPUSCULAR VOLUME 77.6 FL (78-98); MEAN PLATELET VOLUME 7.3 FL (7.4-10.4); PLATELET COUNT 75 X10'3 (140-440); RED BLOOD COUNT 3.19 X10'6 (4.20-5.60); RED CELL DISTRIBUTION WIDTH 20.6 % (11.5-14.5)
[2024-08-10 08:52] LABS: PLATELET ESTIMATE DECREASED; TOTAL CELLS COUNTED 100
[2024-08-10 08:53] LABS: ANISOCYTOSIS 3+; MICROCYTOSIS 1+
[2024-08-10 08:54] LABS: ELLIPTOCYTES FEW; HYPOCHROMASIA 1+; POLYCHROMASIA FEW; SCHISTOCYTES FEW
[2024-08-10 13:31] VITALS: BP 125/69; PULSE 83
[2024-08-10] MEDS: cloNIDine 0.1 mg tablet PO PRN (13:32)
[2024-08-10] MEDS: simethicone 125mg capsule PO ONE (16:22)
[2024-08-10 19:00] VITALS: RESP 18; O2SAT 98
[2024-08-10 20:00] VITALS: BP 142/71; PULSE 71; RESP 18; TEMP 98; O2SAT 98
[2024-08-11 07:26] VITALS: BP 93/54; PULSE 62; RESP 16; TEMP 98; O2SAT 97
[2024-08-11 08:59] VITALS: BP 109/50; PULSE 79; RESP 16; O2SAT 97
[2024-08-11] MEDS: FLUoxetine 20mg capsule PO ONE (13:21)
[2024-08-11 19:00] VITALS: RESP 16; O2SAT 100
[2024-08-11 20:00] VITALS: BP 131/60; PULSE 65; RESP 16; TEMP 98.9; O2SAT 100
[2024-08-11] MEDS: quetiapine 100mg tablet PO SCH (21:10)
[2024-08-12 07:16] VITALS: BP 125/55; PULSE 76; RESP 16; TEMP 99.3; O2SAT 99
[2024-08-12] MEDS: FLUoxetine 20mg capsule PO SCH (09:11)
[2024-08-12 09:17] VITALS: RESP 15; O2SAT 100
[2024-08-12] MEDS: furosemide 20MG tablet PO ONE (11:16)
[2024-08-12] MEDS ORDERED: FLUO-167 PO (16:08)
[2024-08-12] MEDS ORDERED: FER325T PO (16:08)
[2024-08-12] MEDS ORDERED: LACT-373 PO (16:08)
[2024-08-12] MEDS ORDERED: FOLI1TAB27 PO (16:08)
[2024-08-12] MEDS ORDERED: QUET100T34 PO (16:08)
[2024-08-12] MEDS ORDERED: thiamine tablet PO (16:08)
[2024-08-12] MEDS ORDERED: PANT40TA54 PO (16:08)
[2024-08-12 20:00] VITALS: RESP 16
[2024-08-12] MEDS: oxyCODONE IR 5mg (immed. release) tablet PO PRN (21:35)
[2024-08-13 07:30] VITALS: BP 132/67; PULSE 75; RESP 17; TEMP 98.8; O2SAT 99
[2024-08-13] MEDS ORDERED: furosemide 40mg tablet PO ONE (07:40)
[2024-08-13] MEDS: furosemide 20MG tablet PO ONE ×2 (07:42→07:45)
[2024-08-13 08:40] LABS: ALBUMIN 2.8 G/DL (3.4-5.0); ANION GAP 10 (8-16); BLOOD UREA NITROGEN 5 MG/DL (7-18); BUN/CREATININE RATIO 7.7 (10.0-20.0); CALCIUM 8.4 MG/DL (8.5-10.1); CHLORIDE 108 MMOL/L (99-107); CREATININE 0.65 MG/DL (0.40-0.90); GLUCOSE 106 MG/DL (70-104); POTASSIUM 3.5 MMOL/L (3.5-5.1); SODIUM 142 MMOL/L (135-145); TOTAL CARBON DIOXIDE 24.2 MMOL/L (24-32); eCRCL 83 ML/MIN; eGFR > 90 ML/MIN
== END 2024-08-13 13:30 | disposition home or self-care (01) | DRG 751 ==
LOC: UNDOADMIN 17:00 → ADULT MH 17:00
PROVIDERS: ADMIT Psychiatry & Neurology Psychiatry; ATTEND Psychiatry & Neurology Psychiatry
PROC: GZHZZZZ Group Psychotherapy (ICD-10-PCS; principal; 2024-08-13)
DX: F33.9 Major depressive disorder, recurrent, unspecified (principal); D61.818 Other pancytopenia; R18.8 Other ascites; K74.60 Unspecified cirrhosis of liver; F10.20 Alcohol dependence, uncomplicated; F41.9 Anxiety disorder, unspecified; K21.9 Gastro-esophageal reflux disease without esophagitis; R45.851 Suicidal ideations; Z90.49 Acquired absence of other specified parts of digestive tract; Z98.84 Bariatric surgery status; Z98.891 History of uterine scar from previous surgery; Z87.891 Personal history of nicotine dependence; Z91.013 Allergy to seafood
CPT/HCPCS: 36415; 80048; 80053; 85007; 85025; 87081

== ENCOUNTER 2024-11-10 19:09 | Inpatient (IN) | payer MEDICAID ==
[~2024-11-10] VITALS: Ht 165.1 cm; Wt 75.0 kg
[~2024-11-10 19:09] MED LIST changes: +FER325T PO; +FLUO-167 PO; -FLUO-81 PO; +FOLI1TAB27 PO; +FURO-149 PO; -FURO20TA4 PO; +LACT-373 PO; -PANT-47 PO; +PANT40TA54 PO; -QUET-1 PO; +QUET100T34 PO
--- NOTE | 2024-11-10 19:22 | ELECTROCARDIOGRAPH REPORT ---
[facility] Test Date: 2024-11-10 Test Time: 19:21:16 Pat Name: HOANG WALTON Department: EMERGENCY ROOM Room: Gender: F Lie Detector Operator: NICK : 1965 Requested By: MICHELET AGUILAR Order Number: [id number] Reading MD: Measurements Intervals [place] Rate: 90 P: -28 MI: 143 QRS: -4 QRSD: 104 T: 40 QT: 502 QTc: 615 Interpretive Statements Sinus rhythm Borderline T abnormalities, anterior leads Prolonged QT interval Please click the below link to view image of tracing.
--- NOTE | 2024-11-10 19:23 | Physician Documentation ---
History of Present Illness ~ Chief Complaint: Mechanical Fall Stated Complaint: FALL Time Seen by MD: 19:18 Primary Medical Doctor: Dr. Camara. [facility] Patient presents to the emergency room for evaluation of fall. She is not on blood thinners. She endorses alcohol in his endorsing significant drinking the past 1-2 weeks. Last drink just before coming to our facility. She reports falling a proximally 1 hour prior to exam time. Positive loss of consciousness fell to hit her left face. She also reports falling yesterday. She reports right hand pain. Also reporting coccyx and back pain. History of cirrhosis. Tetanus within 5 Years?: Yes Medication Reconciliation Allergies: Coded Allergies: shellfish derived (Verified Allergy, Unknown, 11/10/24) Scheduled Ferrous Sulfate (Ferrous Sulfate), 325 MG PO DAILY Fluoxetine HCl (Fluoxetine HCl), 40 MG PO DAILY Folic Acid* (Folic Acid*), 1 MG PO DAILY Furosemide (Lasix), 40 MG PO DAILY, (Reported) Lactulose (Lactulose), 20 GM PO DAILY Pantoprazole Sodium (Pantoprazole Sodium), 40 MG PO BID Quetiapine Fumarate (Quetiapine Fumarate), 200 MG PO HS Scheduled PRN Clonidine HCl (Clonidine HCl), 1 TAB PO TID PRN for for anxiety/agitation, (Reported) Past Medical History Past Medical History: Seizures, Cirrohsis, Extremity Fracture, Anxiety, Depression Past Surgical History: cholecystectomy, , gastric bypass, orthopedic surgeries Patient History: FH: breast cancer FATHER MOTHER FH: kidney cancer FATHER, Onset:Unknown FH: pancreatic cancer FATHER MOTHER, Onset:Unknown FH: schizophrenia FATHER Alcohol Use: Abuse Drug Use: none Lives with: Other Lives In: Home Occupation: unemployed Review of Systems ROS All review of systems negative except as per HPI Physical Exam Vital Signs: Temperature: 98.4, Source: Oral, Heart Rate: 94, Respiratory Rate: 16, BP: 102/69, Pulse Oximetry: 99, Weight: 75.000 Physical Exam General: Patient is awake, alert, oriented x4 in no acute distress Head: Normocephalic with ecchymosis to the left side of face and hematoma noted to occiput Eyes: Conjunctival normal. EOMI. PERRL. ENT: Mucous membranes moist. Neck: Supple, trachea is midline. Chest: Clear to auscultation bilaterally without rales, rhonchi, or wheezes. There is no accessory muscle use or retractions. Cardiac: RRR without murmurs, gallops, or rubs. Abd: Soft, nondistended, nontender, with normoactive bowel sounds. No guarding, rebound, or rigidity. Extremities: Noted and ecchymosis to patient's right thumb. 5/5 strength to both extension and flexion x4. Progress Results/Orders Results/Orders Orders - ELIO OLMOS MD Ct Cervical Spine (11/10/24 19:35) Ct Facial Bones/Soft Tissue (11/10/24 19:35) Ct Head (11/10/24 19:35) Ct Chest Abdomen Pelvis (11/10/24 19:35) Hand, Complete (3vw Min) (11/10/24:25) Accucheck (11/10/24 19:18) Urinalysis, Cult If Indicated (11/10/24 19:18) Ethanol (11/10/24 19:18) Drug Screen, Urine (11/10/24 19:18) Monitor (11/10/24 19:18) Saline Lock (11/10/24 19:18) CMP (11/10/24 19:18) MG (11/10/24 19:23) Page Hospitalist (11/10/24 20:49) Fill Out Med Reconciliation (11/10/24 20:49) Potassium Cl 40meq/1/2ns 520ml ([place] (11/10/24 21:20) Osmolality (11/10/24 19:31) Osmoality Ua (11/11/24 00:55) Ua Sodium Random (11/11/24 00:55) Completed Orders - ELIO OLMOS MD Ct Cervical Spine (11/10/24 19:35) Ct Facial Bones/Soft Tissue (11/10/24 19:35) Ct Head (11/10/24 19:35) Ct Chest Abdomen Pelvis (11/10/24 19:35) Hand, Complete (3vw Min) (11/10/24 19:25) Electrocardiogram (11/10/24 19:18) Cbc/Diff (11/10/24 19:18) Ammonia (11/10/24 19:18) Thiamine Inj. (Thiamine Inj.) (11/10/24 19:25) Normal Saline 1000ml (Sodium Chloride 10 (11/10/24 19:25) Chlordiazepoxide Capsule (Librium Capsul (11/10/24 20:40) PHOS (11/10/24 20:46) Magnesium Sulf-Water 4g/100ml (Magnesium (11/10/24 20:50) Potassium Cl 40meq/1/2ns 520ml ([place] (11/11/24 00:00) Potassium Cl Sr Tablet (K-Dur Tablet) (11/10/24 20:50) Sodium Chloride Tablet (Sodium Chloride (11/10/24 20:50) Ondansetron Inj. (Zofran 4mg/2ml Vial) (11/10/24 20:50) Metoclopramide Inj (Reglan Inj) (11/10/24 20:50) Calcium Gluc 1gm/50ml Nacl,Iso (Calcium (11/10/24 21:00) Medications Received in ER Medications (Trade) Dose Ordered Sig/Denice Route PRN Reason Start Time Stop Time Status Last Admin Dose Admin (thiamine inj.) 100 mg ONCE ONCE IV 11/10/24 19:25 11/10/24 19:26 DC 11/10/24 21:02 100 MG Sodium Chloride 1,000 ml @ 1,000 mls/hr ONCE ONCE IV 11/10/24 19:25 11/10/24 20:24 DC 11/10/24 20:55 1,000 MLS/HR (Librium capsule) 50 mg ONCE ONCE PO 11/10/24 20:40 11/10/24 20:49 DC 11/10/24 21:54 50 MG Magnesium Sulfate 100 ml @ 25 mls/hr ONCE ONCE IV 11/10/24 20:50 11/11/24 00:49 DC 11/10/24 20:56 25 MLS/HR (K-DUR tablet) 40 meq ONCE ONCE PO 11/10/24 20:50 11/10/24 20:51 DC 11/10/24 21:54 40 MEQ (sodium chloride tablet) 1 gm ONCE ONCE PO 11/10/24 20:50 11/10/24 20:51 DC 11/10/24 21:54 1 GM (Reglan inj) 5 mg ONCE ONCE IV 11/10/24 20:50 11/10/24 21:03 DC 11/10/24 21:14 5 MG Calcium Gluconate 50 ml @ 50 mls/hr ONCE ONCE IV 11/10/24 21:00 11/10/24 21:59 DC 11/10/24 21:39 50 MLS/HR Potassium Chloride 520 ml @ 130 mls/hr Q4H IV 11/10/24 21:20 11/11/24 03:59 11/10/24 21:28 130 MLS/HR Vital Signs 11/10/24 11/10/24 11/10/24 19:12 20:13 20:17 Temp 98.4 98.4 Pulse 94 90 Resp 16 16 16 B/P (MAP) 102/69 102/69 (80) Pulse Ox 99 99 Laboratory Tests Test 11/10/24 00:14 11/10/24 00:27 11/10/24 19:31 11/10/24 20:11 Sodium Level 122 L 119 *L Creatinine 0.79 1.11 H Estimated GFR/1.73 m2 74 50 Hemoglobin A1c 4.7 Lactic Acid Level 4.8 *H Calcium Level 7.2 L 7.0 L Ionized Calcium (Measured) 0.88 L Lipase 26 Coagulation Comments Ammonia < 10 L 31 White Blood Count 9.9 Red Blood Count 4.46 Hemoglobin 13.0 Hematocrit 36.0 Mean Corpuscular Volume 80.7 Mean Corpuscular Hemoglobin 29.1 Mean Corpuscular Hemoglobin Concent 36.0 Red Cell Distribution Width 20.9 H Platelet Count 85 L Mean Platelet Volume 6.5 L Neutrophils (%) (Auto) 78.7 H Lymphocytes (%) (Auto) 10.4 L Monocytes (%) (Auto) 10.7 Eosinophils (%) (Auto) 0 Basophils (%) (Auto) 0.2 Neutrophils # (Auto) 7.8 H Lymphocytes # (Auto) 1.0 L Monocytes # (Auto) 1.1 H Eosinophils # (Auto) 0.0 Basophils # (Auto) 0.0 CBC Comment Platelet Estimate Decreased Red Blood Cell Morphology Perf Polychromasia Few Basophilic Stippling Anisocytosis 1+ Spherocytes 1+ Potassium Level 2.1 *L Chloride Level 78 L Carbon Dioxide Level 18.3 L Anion Gap 23 H Blood Urea Nitrogen 19 H BUN/Creatinine Ratio 17.1 Glucose Level 120 H Magnesium Level 0.6 *L Total Bilirubin 3.3 H Aspartate Amino Transf (AST/SGOT) 79 H Alanine Aminotransferase (ALT/SGPT) 37 Alkaline Phosphatase 180 H Total Protein 6.3 L Albumin 3.1 L Globulin 3.2 Albumin/Globulin Ratio 1.0 L Chemistry Comments Ethyl Alcohol Level 127 H Glucometer 125 H Test 11/10/24 21:18 Phosphorus Level 2.0 L EKG/XRAY/CT/US/VASC/MRI EKG : Additional Comment EKG interpreted by myself shows time of 192, rate 90, sinus rhythm, borderline left axis deviation, no ST changes, prolonged QT Medical Decision Making Findings Patient presented to the emergency room after fall. Patient endorses significant alcohol intoxication/abuse. Differentials include but are not limited to fractures, dislocations, intracranial bleeds, electrolyte disturbances, alcohol intoxication therefore emergent labs and imaging in dicated. CT scans are reassuring as his chest x-ray. Of concern is patient's emergently low electrolytes likely from significant alcohol abuse. IV sodium replacement along with calcium replacement along with magnesium replacement has been initiated. Given patient's severe electrolyte disturbances along with prolonged QT split leather department supervisor was consulted and given the fact that patient's vitals are stable we believe the patient will be safe for the floor at this time. No seizure activity. We can expect significant alcohol withdrawal symptoms. Departure Admitted to Inpatient Unit: yes, to hospitalist Impression: Primary Impression: Hypokalemia Additional Impressions: Hyponatremia Hyperchloremia Hypomagnesemia Hypocalcemia Alcohol intoxication Prolonged QT interval Cirrhosis Referrals: NO PRIMARY CARE PROVIDER (PCP) Critical Care Note Total Time (mins): 45 Critical Care Note The very real possibility of a deterioration of this patient's condition re quired the highest level of my preparedness for sudden, emergent intervention. I provided critical care services, which included medication orders, frequent reevaluations of the patient's condition and response to treatment, ordering and reviewing test results, and discussing the case with various consultants. Excludes time spent performing separately billable procedures. The critical care time associated with the care of the patient was 45 minutes not counting procedures Signature Scribe Signature: No scribe Attestation: The note accurately reflects work and decisions made by me.Elio Olmos MD 11/10/24 21:03 ELIO OLMOS MD Nov 10, 2024 19:23
[2024-11-10 19:45] LABS: MEAN PLATELET VOLUME 6.5 FL (7.4-10.4); RED CELL DISTRIBUTION WIDTH 20.9 % (11.5-14.5)
--- NOTE | 2024-11-10 20:00 | RADIOLOGY REPORT ---
EXAM: CT CT HEAD INDICATION: fall, neck pain TECHNIQUE: CT of the head without intravenous contrast. Radiation Dose Information: CT Dose: CTDI volume is 55.33 mGy. Dose-length product is 988.66 mGy*cm The dose indicators for CT are the volume Computed Tomography (CT) Dose Index (CTDIvol) and the Dose Length Product (DLP), and are measured in units of mGy and mGy-cm, respectively. These indicators are not patient dose, but values generated from the CT scanner acquisition factors. The report includes radiation exposure data for exposures received during this examination. COMPARISON: MRI HEAD on DOS: 03/17/21, CT HEAD on DOS: 03/04/21 FINDINGS: Evaluation is degraded by motion artifact. No acute territorial infarct, intracranial hemorrhage, or mass effect. There are global involutional changes with compensatory prominence of the ventricles and sulci. Patchy periventricular and subcorti cecilia white matter hypoattenuation is nonspecific but may be related to small vessel ischemic disease. The orbits are normal. The paranasal sinuses and mastoid air cells are clear. Mild hyperostosis fron talis interna. There is a small right posterior scalp hematoma. No acute fracture. IMPRESSION: 1. No acute territorial infarct, intracranial hemorrhage, or mass effect. 2. Age-related involutional changes. Chronic microvascular changes. 3. Small right posterior scalp hematoma without underlying fracture.
--- NOTE | 2024-11-10 20:04 | RADIOLOGY REPORT ---
EXAM: CT CT CERVICAL SPINE INDICATION: fall, neck pain EXAM DATE: 11/10/2024 07:35 PM COMPARISON: CT CERVICAL SPINE on DOS: 01/24/21 TECHNIQUE: Multiple axial CT images of the cervical spine were obtained using bone algorithm. Axial a nd coronal reformatting was done. Bone and soft tissue windows were reviewed. Radiation Dose Information: CT Dose: CTDI volume is 23.7 mGy. Dose-length product is 505.18 mGy*cm FINDINGS: There is no acute displaced fracture. There are degenerative changes of the cervical spine character ized by endplate osteophytosis and intervertebral disc space narrowing. There is grade 1 anterolisth esis at C3 on C4 and C7 on T1. A disc osteophyte complex at C5-6 effaces the thecal sac. There is de generative uncovertebral and facet hypertrophy without high-grade neural foraminal narrowing. No high -grade spinal canal stenosis. The lung apices are unremarkable. There is a 12 mm calcification in the right thyroid gland. IMPRESSION: 1. No acute displaced fracture. 2. Degenerative changes of the cervical spine as detailed. 3. 12 mm calcification in the right thyroid gland, which may be further evaluated with a nonemergent thyroid ultrasound as clinically indicated. All CT scans at this medical facility are performed using dose modulation techniques as appropriate t o a performed exam including the following: Automated exposure control was utilized; adjustment of th e MA and/or KV according to patient size; and use of iterative reconstruction technique.
--- NOTE | 2024-11-10 20:07 | RADIOLOGY REPORT ---
CLINICAL INDICATION: pain RIGHT TECHNIQUE: 3 radiographic views of the right hand were obtained. Comparison: DI FOOT, COMPLETE (3VW MIN) on DOS: 08/02/24 FINDINGS/IMPRESSION: There is acute mildly displaced fracture through the bases of the proximal and distal phalanges of th e 1st digit with intra-articular extension and associated soft tissue edema.
--- NOTE | 2024-11-10 20:12 | RADIOLOGY REPORT ---
CLINICAL INFORMATION: 59 years old, Female; fall, neck pain. TECHNIQUE: Axial CT images of the maxillofacial region were obtained without contrast. Coronal and sa gittal reformatted images were obtained, reviewed, and stored. One or more of the following dose redu ction techniques were used: Automated exposure control. Adjustment of mA and/or kV according to patie nt size. COMPARISON: None FINDINGS: The pterygoid plates and zygomatic arches are intact. Sinus vargas and orbital vargas are i ntact. Nasal bones and mandible are intact. No evidence of facial bone fracture. No abnormality ident ified in the orbits. Globes and orbital structures appear intact. No periorbital or orbital hemorrhag e. Paranasal sinuses are clear. No significant soft tissue abnormality identified. Few periapical lucency surrounding maxillary teeth. IMPRESSION: 1. No acute maxillofacial injury 2. Few periapical abscesses within the maxillary teeth , recommend dental examination in the nonemerg ent setting.
[2024-11-10 20:28] LABS: CREATININE 1.11 MG/DL (0.40-0.90); ETHANOL 127 MG/DL (<10); TOTAL CARBON DIOXIDE 18.3 MMOL/L (24-32); eCRCL 49 ML/MIN; eGFR 50 ML/MIN
[2024-11-10 20:43] LABS: PLATELET ESTIMATE DECREASED
--- NOTE | 2024-11-10 20:48 | RADIOLOGY REPORT ---
Procedure: CT CT CHEST ABDOMEN PELVIS 11/10/2024 07:39 PM Indication: fall, neck pain Comparison Study: CT CT ABDOMEN PELVIS on DOS: 08/01/24, CT CT ABDOMEN PELVIS W/ IV CONTRAST on DOS: , CT CT ABDOMEN PELVIS on DOS: 04/21/24, CT CT CHEST ABDOMEN PELVIS on DOS: 04/14/24, CT CT CHES T ABDOMEN PELVIS IV CON on DOS: 01/22/24 Technique: Axial images were obtained and reformatted in coronal and sagittal planes. All CT scans at this medical facility are performed using dose modulation techniques as appropriate to a performed e xam including the following: Automated exposure control was utilized; adjustment of the MA and/or KV according to patient size; and use of iterative reconstruction technique. CT Dose: CTDI volume is 2 a 1.36 mGy. Dose-length product is 2876.06 mGy*cm FINDINGS: CT chest: Evaluation is degraded by respiratory motion. Lungs: Unremarkable. Pleura: Unremarkable. Heart/Great vessels: The heart is normal in size. Mild coronary artery calcifications. Mild atherosc lerotic calcifications of the aorta. Mediastinum: No significant adenopathy. Fluid-filled esophagus. Soft tissues/Bones: No definite acute displaced fracture. Evaluation for rib and sternal fractures i s suboptimal due to significant motion artifact. CT abdomen/ pelvis: Limited evaluation of the solid organs in the absence of IV contrast. Evaluation is also degraded by motion artifact. Liver: Diffuse hypoattenuation of the liver suggestive of hepatic steatosis. Possible cirrhotic hepat ic contour. Spleen: Unremarkable. Pancreas: Unremarkable. Gallbladder: Prior cholecystectomy. Adrenals: Unremarkable. Kidneys: Right nephrolithiasis. No hydronephrosis. Pelvic Viscera: Unremarkable. Vasculature: Mild atherosclerotic aortoiliac calcifications. Retroperitoneum: Slight increase in size of the now 3.8 x 3.8 cm presacral intermediate density lesio n. Mild nonspecific mesenteric edema. Bowel: No bowel obstruction. No CT evidence of appendicitis. Probable hiatal hernia. Musculoskeletal: No acute displaced fracture. Chronic deformity of the coccyx. Soft tissues: Unremarkable. IMPRESSION: 1. Motion degraded evaluation. No definite acute traumatic abnormality identified in the chest, abdo men, or pelvis. 2. Slight interval increase in size of a now 3.8 cm presacral lesion, further clinical correlation i s suggested. 3. Additional findings as detailed.
[2024-11-10] MEDS ORDERED: ondansetron/PF 4mg/2ml inj IV ONE (20:50)
[2024-11-10] MEDS: normal saline 1000ml 1,000 ML IV ONE (20:55)
[2024-11-10] MEDS: magnesium sulf-water 4G/100mL 100 ML IV ONE (20:56)
[2024-11-10] MEDS: thiamine 100mg/ml 2ml inj. IV ONE (21:02)
[2024-11-10] MEDS: metoclopramide 5 mg/ml inj IV ONE (21:14)
[2024-11-10] MEDS: potassium Cl 40MEQ/1/2NS 520ml 520 ML IV SCH (21:28)
[2024-11-10] MEDS: CALCIUM GLUC 1gm/50ml NACL,iso 50 ML IV ONE (21:39)
[2024-11-10] MEDS: potassium Cl 20 mEq SR tablet PO ONE (21:54)
[2024-11-10 22:44] VITALS: BP 133/84; PULSE 81; RESP 16; TEMP 97; O2SAT 97
[2024-11-10 23:00] VITALS: RESP 16; O2SAT 97
[2024-11-10] MEDS ORDERED: mag hydrox/Alum hydrox/simeth 30ml oral suspension PO PRN (23:15)
[2024-11-10] MEDS ORDERED: dextrose 50%-water 50ml dispensing syringe IV PRN (23:15)
[2024-11-10] MEDS ORDERED: magnesium hydroxide 30ml (MOM) UD suspension PO PRN (23:15)
[2024-11-10] MEDS ORDERED: potassium Cl 20 mEq SR tablet PO PRN (23:15)
[2024-11-10] MEDS ORDERED: ondansetron/PF 4mg/2ml inj IV PRN (23:15)
[2024-11-10] MEDS ORDERED: magnesium sulf-water 2g/50mL 50 ML IV PRN (23:15)
[2024-11-10] MEDS ORDERED: magnesium Cl slow-release 64mg tablet PO PRN (23:15)
[2024-11-10] MEDS ORDERED: magnesium sulf-water 4G/100mL 100 ML IV PRN (23:15)
--- NOTE | 2024-11-10 23:29 | HISTORY AND PHYSICAL-Residence ---
History & Physical Providers to CC Resident Creating Document: BRADYAURORATABATHA PENG, RES CC: RACHEL WOOD MD ~ History of Present Illness Primary Medical Doctor: Dr. Camara. [facility] Reason for Admit\Complaint: Fall History of Present Illness A 59-year-old female with a known cirrhotic and alcohol use disorder presented to the ED after she fell off on the head after feeling dizzy due to consuming 5 lb of schnapps alcohol since the last five days. Patient complains of pain in the back of the head and generalized aching of all body parts. Patient also complains of severe pain in her right thumb with no radiation which is squeezing and dragging in type with a severity of 7/10. Patient also complains of pain in the right side of the abdomen with a severity of 10/10, unable to describe the type of pain which is located in the lower abdomen right lower quadrant. Patient is a poor historian and answers yes to every question. Patient endorses melena over one week and hematemesis. Patient can not tell if she underwent upper GI endoscopy and colonoscopy in the past. Patient's last drink was yesterday Allergies: Coded Allergies: shellfish derived (Verified Allergy, Unknown, 11/10/24) Home Medications Home Medications Active Lactulose 10 Gram/15 Ml Solution 20 Gm PO DAILY 30 Days Folic Acid* (Folic Acid) Y Tab 1 Mg PO DAILY 30 Days Pantoprazole Sodium 40 Mg Tablet.dr 40 Mg PO BID 30 Days Quetiapine Fumarate 100 Mg Tablet 200 Mg PO HS 30 Days Fluoxetine HCl 20 Mg Capsule 40 Mg PO DAILY 30 Days Ferrous Sulfate 325 Mg (65 Mg Iron) Tablet 325 Mg PO DAILY 30 Days Reported Lasix (Furosemide) 40 Mg Tablet 40 Mg PO DAILY Clonidine HCl 0.1 Mg Tablet 1 Tab PO TID PRN 30 Days Past Medical History Past Medical History Cirrhosis, diagnosed in November last year Ascites Alcohol use disorder Past Surgical History Surgical History Comment Hernia surgery Cholecystectomy Orthopedic surgery Family History Family History: FH: breast cancer FATHER MOTHER FH: kidney cancer FATHER, Onset:Unknown FH: pancreatic cancer FATHER MOTHER, Onset:Unknown FH: schizophrenia FATHER Past Social History Social History Comment Drinks about one pt of schnapps every day Does not smoke cigarettes Does not consume marijuana or illicit drugs Lives at home by herself and is independent with ADLs Smoking: Quit greater than 1 year Alcohol Use: Abuse Drug Use: None Lives with: Other Lives In: Home Occupation: unemployed ROS ROS All other systems reviewed in full and negative except for the pertinent positives mentioned in the HGB Exam Vitals: Vital Signs Date Time Temp Pulse Resp B/P (MAP) Pulse Ox O2 Delivery O2 Flow Rate FiO2 11/10/24 23:03 83 11/10/24 20:17 98.4 16 102/69 (80) 99 General: General: Alert, awake, oriented, not in acute distress HEENT: PERRLA, no icterus, pallor, lymphadenopathy, carotid bruit, spider nevi present on the chest, abrasion on the posterior side of the scalp Respiratory system: Bilateral vesicular breath sounds heard, no adventitious breath sounds CVS: S1-S2 heard, no murmurs/rubs/gallop GI: Generalized distention of the abdomen, no fluid thrill, brownish discoloration of the abdominal skin, Soft, nontender, no organomegaly, no guarding/rigidity, bowel sounds present Neuro: No focal neurological deficits present Extremities: Bilateral 1+ pitting edema of the lower extremities, bilateral tremors of the upper extremities, erythema or tenderness present in the right thumb Skin: Warm and dry Diagnostic Data Last Recorded Lab Results: 11/10/24193011/10/241930 Advance Care Planning Advanced Care plannin - 30 Minutes (I spent 20 minutes discussing various resuscitative measures and the patient decided to be full code) Additional Plan Assessment: A 59-year-old female with past medical history of cirrhosis and alcohol use disorder presented to the ED in view of fall after consuming five pt of alcohol over the last five days. Patient is admitted for the evaluation management of mechanical fall, alcohol withdrawal and cirrhosis with decompensation Plan: Mechanical fall 2/2 alcohol use disorder Alcohol withdrawal Hypomagnesemia, hypophosphatemia CT head: Small right posterior scalp hematoma without underlying fracture. Chronic microvascular ischemic changes Face CT: No acute maxillofacial injury Cervical spine CT: No acute displaced fracture. Elevated ethyl alcohol concentration Follow up with bilateral femur and pelvis x-ray On severe alcohol withdrawal protocol On MVT, IV thiamine, folic acid Substance abuse navigator and social media designer consulted Magnesium to be replaced in maintained over to, one time dose of IV 2 g magnesium has been ordered Cirrhosis with decompensation Evaluation for esophageal and rectal varices Mildly elevated liver enzymes, probably secondary to cirrhosis Child Huang Score: Class B H/H stable CT abdomen: Diffuse hypoattenuation of the liver suggestive of hepatic steatosis. Possible cirrhotic hepatic contour. Follow up PT INR, Ammonia, stool occult, Lipase Started on spironolactone 25 mg once daily, carvedilol 6.25 mg b.i.d., rifaximin 550 mg b.i.d., IV Protonix drip and IV octreotide drip, lactulose q.8h Lasix not started in view of hyponatremia Patient does not have ascites. Sodium restricted diet Patient might benefit from upper GI endoscopy and colonoscopy in view of possible varices. Currently seems to be nonemergent, can be done on an outpatient basis. GI consult in a.m. Right thumb fracture Hand x-ray: There is acute mildly displaced fracture through the bases of the proximal and distal phalanges of the 1st digit with intra-articular extension and associated soft tissue edema. Ordered cast Orthopedic consult in a.m. Hypervolemic Hyponatremia Follow up with urine and serum osmolality, urine sodium Fluid restriction and continue IV Lasix as above Monitor sodium q.4h Hypokalemia No EKG changes On potassium replacement protocol Potassium goal: >4 Hypocalcemia Corrected calcium: 7.7 Follow up with ionized calcium, calcium monitoring q.8h One dose of calcium gluconate received in the ED Thyroid nodule and presacral lesion Follow up with outpatient Patient might benefit from ultrasound of the thyroid gland Periapical dental abscesses Outpatient management Probable alcoholic ketoacidosis Follow up with urinalysis and lactic acid Currently fluid restriction on place in view of hypervolemic hyponatremia CASTRO, most likely renal Elevated BUN and creatinine BUN/creatinine ratio: 17.1 Continue to monitor BMP Follow up with urine analysis and U tox Follow up with echo, lipid panel, A1c, TSH Code status: Full code Diet: NPO DVT prophylaxis: SCD Disposition: Admit to PCU, follow up with urine and plasma osmolality, monitor sodium, calcium, magnesium levels Tabatha Tijerina MD Internal Medicine, PGY 2 Date of Service: Nov 11, 2024 Billing Provider: RACHEL WOOD MD Common Visit Codes: [id number] INP/OBS CARE (HIGH) Assessment/Plan Assessment Evalauted with the help of residents. Discussed the case with them Reviewed note sby Dr.Siva DAVION BENOIT Agree with her assessments and plans. I also reviewed labs ,radiologyand notes from other providers. Will - replace lyte sand - follow sodium trends closely FOLLOW HB HCT TABATHA CARRIZALES, RES Nov 10, 2024 23:29 RACHEL WOOD MD Nov 11, 2024 05:31
[2024-11-10] MEDS: octreotide inj. 500 MCG in normal saline 100ml IV soln 97.5 ML IV SCH (23:55)
[2024-11-11] VITALS (9 sets, daily range): BP systolic 90–116; BP diastolic 52–63; PULSE 68–86; RESP 15–19; TEMP 97.3–98; O2SAT 96–100
[2024-11-11] MEDS ORDERED: potassium Cl 40MEQ/1/2NS 520ml 520 ML IV SCH
[2024-11-11] MEDS ORDERED: PERFLUTREN PROTEIN-A MICROSPHR (Optison) 0.22 MG/ML 3ML VIAL IV PRN (00:25)
[2024-11-11] MEDS: lactulose 20gm/30ml cup PO SCH ×2 (00:38→19:26)
[2024-11-11] MEDS: octreotide 200mcg/ml 5ml vial ONE (00:51)
[2024-11-11] MEDS: pantoprazole 40MG/NS 100ML BAG 100 ML IV SCH (01:00)
[2024-11-11 01:13] LABS: CREATININE 0.79 MG/DL (0.40-0.90); eCRCL 68 ML/MIN; eGFR 74 ML/MIN
[2024-11-11] MEDS ORDERED: ringers solution, lacted 1,000 ML IV ONE (01:25)
[2024-11-11] MEDS: magnesium sulf-water 2g/50mL 50 ML IV ONE (01:25)
[2024-11-11] MEDS: pantoprazole 40MG/NS 100ML BAG 100 ML IV ONE ×2 (01:29→05:51)
[2024-11-11] MEDS: rifaximin 550mg tablet PO SCH (01:30)
[2024-11-11] MEDS: normal saline 1000ml 1,000 ML IV ONE ×2 (01:39→21:13)
[2024-11-11 02:14] LABS: UA COLLECTION TYPE STRAIGHT CATH
[2024-11-11 02:15] LABS: LEUKOCYTE ESTERASE ,URINE NEGATIVE (Neg); NITRITES, URINE NEGATIVE (Neg); OCCULT BLOOD,URINE NEGATIVE (Neg)
[2024-11-11 02:24] LABS: OSMOLALITY UA 298 MOSM/K (50-1400)
[2024-11-11 02:41] LABS: OSMOLALITY 281 MOSM/K (280-300)
[2024-11-11 02:42] LABS: URINE AMPHETAMINE SCREEN NEGATIVE (Neg); URINE BARBITUATE SCREEN NEGATIVE (Neg); URINE BENZODIAZEPINES SCREEN NEGATIVE (Neg); URINE COCAINE SCREEN NEGATIVE (Neg); URINE METHADONE SCREEN NEGATIVE (Neg); URINE OPIATE SCREEN NEGATIVE (Neg); URINE PHENCYCLIDINE SCREEN NEGATIVE (Neg)
[2024-11-11] MEDS: K and/or MAG REPLACEMENT MC SCH (08:00)
[2024-11-11] MEDS: docusate sod 100mg capsule PO SCH (08:00)
[2024-11-11] MEDS ORDERED: furosemide 10 MG/1 ML 10ml inj IV SCH (08:00)
[2024-11-11] MEDS: thiamine 100mg/ml 2ml inj. IV SCH (09:00)
[2024-11-11] MEDS: folic acid 1mg/0.2ml inj IV SCH (09:01)
[2024-11-11 09:13] LABS: MEAN PLATELET VOLUME 6.7 FL (7.4-10.4); RED CELL DISTRIBUTION WIDTH 20.2 % (11.5-14.5)
[2024-11-11 09:41] LABS: CHOL/HDL RATIO 1.7 (0.00-4.99); CREATININE 0.77 MG/DL (0.40-0.90); LDL CHOLESTEROL 42 MG/DL (50-100); TOTAL CARBON DIOXIDE 28.7 MMOL/L (24-32); eCRCL 70 ML/MIN; eGFR 76 ML/MIN
[2024-11-11] MEDS: potassium Cl 40MEQ/1/2NS 520ml 520 ML IV PRN (10:41)
--- NOTE | 2024-11-11 10:43 | RADIOLOGY REPORT ---
CLINICAL INDICATION: trauma TECHNIQUE: 1 radiographic views of the pelvis and 2 views of the left hip were obtained. Comparison: None FINDINGS/IMPRESSION: There is no evidence of acute fracture or dislocation. Moderate osteoarthrosis of the bilateral femoroacetabular joints.
--- NOTE | 2024-11-11 18:09 | CARDIOLOGY REPORT ---
APPROVED REPORT EXAM: Comprehensive 2D, Doppler, and color-flow Echocardiogram. Patient Location: [facility]7 B Heart Rate: 70's bpm Rhythm: SINUS Indications CONGESTIVE HEART FAILURE SYNCOPE Willower: NONE PER PATIENT Previous echo: 03-04-21 [facility] EF 60-65%, trMR, trTR 2D Dimensions RVDd 4.0 cm IVSd 0.9 (0.7-1.1cm) LVDd 4.5 cm PWd 0.9 (0.7-1.1cm) IVSs 1.1 (0.8-1.2cm) LVDs 2.9 (2.5-4.0cm) PWs 1.1 (0.8-1.2cm) LVOT Diameter 2.00 (1.8-2.4cm) LVEF(%) 64.0 (>50%) FS (%) 34.7 % SV 58.3 ml CO 7.3 L/min M-Mode Dimensions Left Atrium(MM) 4.51 (2.5-4.0cm) Aortic Root 2.96 (2.2-3.7cm) Aortic Cusp Exc 2.02 (1.5-2.0cm) Aortic Valve AoV Peak Adams. 144.1 cm/s AoV VTI 31.9 cm AO Peak GR. 8.3 mmHg AO Mean GR. 4 mmHg LVOT VTI 21.11 cm LVOT Peak Adams. 97.2 cm/s YELITZA(VTI)/BSA 2.08 cm2/m2 YELITZA (VTI) 2.08 cm2 Mitral Valve MV E Velocity 57.9 cm/s MV Peak Gr. 2 mmHg MV DECEL TIME 240 ms MV A Velocity 59.9 cm/s MV PHT 64 ms E/A Ratio 1.0 MVA (PHT) 3.44 cm2 MV VMax69.1 cm/s TDI Lateral E' P. V7.53 cm/s E/Lateral E' 7.7 Tricuspid Valve TR P. Velocity 266 cm/s RAP ESTIMATE 10 mmHg TR Peak Gr. 28 mmHg RVSP 38 mmHg Pulmonary Vein S1 Velocity 60.1 cm/s D2 Velocity 40.9 cm/s PVa Izcdffcu52.5 cm/s PVa [id number] msec LEFT VENTRICLE Normal LV size and wall thickness. Overall systolic function is normal. LVEF is 60-65%. RIGHT VENTRICLE RV is mildly dilated in size with normal function. Elevated right heart pressures as noted above. ATRIA Left atrium is mildly dilated. AORTIC VALVE Trileaflet AV appears mildly sclerotic without stenosis. No insufficiency. MITRAL VALVE Mild MV annular calcification without stenosis. Trace regurgitation. TRICUSPID VALVE TV appears structurally normal with trace regurgitation. PULMONIC VALVE Normal PV without stenosis, physiologic insufficiency. GREAT VESSELS The aortic root is normal in size. IVC is not well visualized. PERICARDIUM Normal pericardium. No effusion. Other Information Study Quality: Adequate
[2024-11-11] MEDS: HYDROcodone/acetaminophen 5mg/325mg tablet PO PRN (19:27)
--- NOTE | 2024-11-11 19:39 | PROGRESS NOTE ---
Daily Progress Note Providers to CC ~ Antibiotic Timeout Antibiotic Ordered?: No Subjective Patient was seen in her room she was having discomfort over right upper abdomen in feeling thirsty wanted to drink fluids. Patient is aware regarding her cirrhosis of liver diagnosis and she mentioned she was following with a specialist doctor in [place] for her liver cirrhosis. She lives with her son. Objective Vital Signs Date Time Temp Pulse Resp B/P (MAP) Pulse Ox O2 Delivery O2 Flow Rate FiO2 11/11/24 16:11 14 11/11/24 15:00 97.4 68 109/52 (71) 99 Room Air Result Diagram: 11/11/24 0847 11/11/24 2024 General-patient not in any acute distress, awake chronically ill-appearing HEENT-atraumatic normocephalic, neck supple without elevated JVD, no thyromegaly No lymphadenopathy bilaterally. No oozing from scalp hematoma. Eyes-no icterus or pallor seen in eyes Chest-clear to auscultation bilaterally, breathing nonlabored no tachypnea, no wheezing, no crepitation, no crackles. Heart-S1-S2 normal, regular heart rate no murmur Abdomen bowel sounds positive on auscultation, soft nondistended , signs of discomfort present on palpation over upper abdomen. no guarding, no rigidity Skin no active skin rash Neurology-grossly intact, nonfocal awake Extremity- no pedal edema able to move all 4 extremities Psychiatry - patient is not confused or agitated cooperated during physical examination Coagulation Studies Laboratory Tests Test 11/10/24 00:27 Coagulation Comments Problem\Assessment\Plan A 59-year-old female with past medical history of cirrhosis and alcohol use disorder presented to the ED in view of fall after consuming five pt of alcohol over the last five days. Patient is admitted for the evaluation management of mechanical fall, alcohol withdrawal and cirrhosis with decompensation Mechanical fall 2/2 alcohol use disorder Alcohol withdrawal Hypomagnesemia, hypophosphatemia CT head: Small right posterior scalp hematoma without underlying fracture. Chronic microvascular ischemic changes Face CT: No acute maxillofacial injury Cervical spine CT: No acute displaced fracture. Elevated ethyl alcohol concentration bilateral femur and pelvis x-ray showed no evidence of acute fracture or dislocation. On severe alcohol withdrawal protocol On MVT, IV thiamine, folic acid Substance abuse navigator and child protective services social worker consulted Magnesium to be replaced in maintained over to, one time dose of IV 2 g magnesium has been ordered Cirrhosis with decompensation Evaluation for esophageal and rectal varices Mildly elevated liver enzymes, probably secondary to cirrhosis Child Huang Score: Class B H/H stable CT abdomen: Diffuse hypoattenuation of the liver suggestive of hepatic steatosis. Possible cirrhotic hepatic contour. Follow up PT INR, Ammonia, stool occult, Lipase Started on spironolactone 25 mg once daily, carvedilol 6.25 mg b.i.d., rifaximin 550 mg b.i.d., IV Protonix drip and IV octreotide drip, lactulose q.8h Lasix not started in view of hyponatremia Patient does not have ascites. Sodium restricted diet Patient might benefit from upper GI endoscopy and colonoscopy in view of possible varices. Currently seems to be nonemergent, can be done on an outpatient basis. GI consult in a.m. Right thumb fracture Hand x-ray: There is acute mildly displaced fracture through the bases of the proximal and distal phalanges of the 1st digit with intra-articular extension and associated soft tissue edema. Ordered cast will do Orthopedic consult in a.m. Hypervolemic Hyponatremia reviewed urine and serum osmolality, urine sodium levels Fluid restriction and continue IV Lasix as above hyponatremia improved Hypokalemia No EKG changes On potassium replacement protocol Potassium goal: >4 Hypocalcemia Corrected calcium: 7.7 ionized calcium low , calcium monitoring q.8h One dose of calcium gluconate received in the ED Thyroid nodule and presacral lesion Follow up with outpatient Periapical dental abscesses Outpatient management alcoholic ketoacidosis will follow urinalysis and lactic acid Currently fluid restriction on place in view of hypervolemic hyponatremia CASTRO, most likely renal Elevated BUN and creatinine BUN/creatinine ratio: 17.1 Continue to monitor BMP Follow up with urine analysis and U tox will Follow up with echo, lipid panel, A1c, TSH Code status: Full code Diet: NPO DVT prophylaxis: SCD Patient's current condition is guarded we will continue to follow patient in AM . Date of Service: Nov 11, 2024 Billing Provider: SANDRINE GARCIA MD Common Visit Codes: [id number] INP/OBS CARE(HIGH) SANDRINE GARCIA MD Nov 11, 2024 19:39
[2024-11-11] MEDS: carvedilol 6.25mg tablet PO SCH (20:00)
[2024-11-11] MEDS: CALCIUM GLUC 1gm/50ml NACL,iso 50 ML IV ONE (21:13)
[2024-11-12] VITALS (8 sets, daily range): BP systolic 91–127; BP diastolic 52–73; PULSE 71–84; RESP 16–21; TEMP 97.4–98.5; O2SAT 97–99
[2024-11-12 05:11] LABS: MEAN PLATELET VOLUME 7.1 FL (7.4-10.4); RED CELL DISTRIBUTION WIDTH 20.9 % (11.5-14.5)
[2024-11-12 05:40] LABS: CREATININE 0.68 MG/DL (0.40-0.90); TOTAL CARBON DIOXIDE 26.2 MMOL/L (24-32); eCRCL 79 ML/MIN; eGFR 88 ML/MIN
[2024-11-12 08:39] LABS: BANDS% (MANUAL) 1.0 % (0-10); EOSINOPHILS % (MANUAL) 1.0 % (0-6); LYMPHOCYTES % (MANUAL) 20.0 % (21-51); MONOCYTES % (MANUAL) 11.0 % (2-12); NEUTROPHILS % (MANUAL) 67.0 % (42-75)
[2024-11-12 08:40] LABS: PLATELET ESTIMATE DECREASED
[2024-11-12] MEDS: potassium Cl 20 mEq SR tablet PO PRN (13:23)
--- NOTE | 2024-11-12 20:56 | PROGRESS NOTE ---
Daily Progress Note Providers to CC ~ Antibiotic Timeout Antibiotic Ordered?: No Subjective Was seen in her room she looked lethargic and unable to cooperate much during exam Objective Vital Signs Date Time Temp Pulse Resp B/P (MAP) Pulse Ox O2 Delivery O2 Flow Rate FiO2 11/12/24 18:30 82 11/12/24 15:00 98.5 16 123/63 (83) 97 11/12/24 08:00 Room Air Result Diagram: 11/12/24 0419 11/12/24 0419 General-patient not in any acute distress, lethargic chronically ill-appearing HEENT-atraumatic normocephalic, neck supple without elevated JVD, no thyromegaly No lymphadenopathy bilaterally. No oozing from scalp hematoma. Eyes-no icterus or pallor seen in eyes Chest-clear to auscultation bilaterally, breathing nonlabored no tachypnea, no wheezing, no crepitation, no crackles. Heart-S1-S2 normal, regular heart rate no murmur Abdomen bowel sounds positive on auscultation, soft nondistended , no signs of discomfort present on palpation over upper abdomen. no guarding, no rigidity Skin no active skin rash Neurology-grossly intact, nonfocal awake Extremity- no pedal edema able to move all 4 extremities Psychiatry - patient is confused but agitated cooperated during physical examination Coagulation Studies Laboratory Tests Test 11/10/24 00:27 Coagulation Comments Problem\Assessment\Plan A 59-year-old female with past medical history of cirrhosis and alcohol use disorder presented to the ED in view of fall after consuming five pt of alcohol over the last five days. Patient is admitted for the evaluation management of mechanical fall, alcohol withdrawal and cirrhosis with decompensation Mechanical fall 2/2 alcohol use disorder Alcohol withdrawal Hypomagnesemia, hypophosphatemia CT head: Small right posterior scalp hematoma without underlying fracture. Chronic microvascular ischemic changes Face CT: No acute maxillofacial injury Cervical spine CT: No acute displaced fracture. Elevated ethyl alcohol concentration bilateral femur and pelvis x-ray showed no evidence of acute fracture or dislocation. On severe alcohol withdrawal protocol On MVT, IV thiamine, folic acid Substance abuse navigator and child welfare social worker consulted Magnesium to be replaced in maintained over to, one time dose of IV 2 g magnesium has been ordered Cirrhosis with decompensation Evaluation for esophageal and rectal varices Mildly elevated liver enzymes, probably secondary to cirrhosis Child Huang Score: Class B H/H stable CT abdomen: Diffuse hypoattenuation of the liver suggestive of hepatic steatosis. Possible cirrhotic hepatic contour. Follow up PT INR, Ammonia, stool occult, Lipase Started on spironolactone 25 mg once daily, carvedilol 6.25 mg b.i.d., rifaximin 550 mg b.i.d., IV Protonix drip and IV octreotide drip, lactulose q.8h Lasix not started in view of hyponatremia Patient does not have ascites. Sodium restricted diet Patient might benefit from upper GI endoscopy and colonoscopy in view of possible varices. Currently seems to be nonemergent, can be done on an outpatient basis. GI consult in a.m. Right thumb fracture Hand x-ray: There is acute mildly displaced fracture through the bases of the proximal and distal phalanges of the 1st digit with intra-articular extension and associated soft tissue edema. Ordered cast Hypervolemic Hyponatremia reviewed urine and serum osmolality, urine sodium levels Fluid restriction and continue IV Lasix as above hyponatremia improved Hypokalemia No EKG changes On potassium replacement protocol Potassium goal: >4 Hypocalcemia Corrected calcium: 7.7 ionized calcium low , calcium monitoring q.8h One dose of calcium gluconate received in the ED Thyroid nodule and presacral lesion Follow up with outpatient Periapical dental abscesses Outpatient management alcoholic ketoacidosis will follow urinalysis and lactic acid Currently fluid restriction on place in view of hypervolemic hyponatremia CASTRO, most likely renal Elevated BUN and creatinine BUN/creatinine ratio: 17.1 Continue to monitor BMP Follow up with urine analysis and U tox will Follow up with echo, lipid panel, A1c, TSH Code status: Full code Diet: NPO DVT prophylaxis: SCD Patient's current condition is guarded we will continue to follow patient in AM . Date of Service: Nov 12, 2024 Billing Provider: SANDRINE GARCIA MD Common Visit Codes: [id number] INP/OBS CARE(HIGH) SANDRINE GARCIA MD Nov 12, 2024 20:56
[2024-11-12] MEDS: haloperidol lactate 5mg/ml inj IM PRN (21:19)
[2024-11-13 02:00] VITALS: BP 128/57; PULSE 68; RESP 19; TEMP 98; O2SAT 99
[2024-11-13 06:00] VITALS: BP 99/43; PULSE 68; RESP 15; TEMP 96.9; O2SAT 96
[2024-11-13 06:18] LABS: MEAN PLATELET VOLUME 7.4 FL (7.4-10.4); RED CELL DISTRIBUTION WIDTH 21.5 % (11.5-14.5)
[2024-11-13 06:26] LABS: CREATININE 0.68 MG/DL (0.40-0.90); TOTAL CARBON DIOXIDE 25.2 MMOL/L (24-32); eCRCL 79 ML/MIN; eGFR 88 ML/MIN
[2024-11-13 08:00] VITALS: RESP 15; O2SAT 96
[2024-11-13 08:20] LABS: EOSINOPHILS % (MANUAL) 4.0 % (0-6); LYMPHOCYTES % (MANUAL) 32.0 % (21-51); MONOCYTES % (MANUAL) 6.0 % (2-12); NEUTROPHILS % (MANUAL) 58.0 % (42-75); PLATELET ESTIMATE DECREASED
[2024-11-13 08:28] VITALS: BP 127/67; PULSE 76
[2024-11-13 11:00] VITALS: BP 125/71; PULSE 79; RESP 18; TEMP 97.2; O2SAT 96
[2024-11-13 12:28] LABS: OCCULT BLOOD STOOL NEGATIVE (Neg)
[2024-11-13 15:00] VITALS: BP 128/67; PULSE 76; RESP 17; TEMP 97.4; O2SAT 99
--- NOTE | 2024-11-13 20:35 | DISCHARGE SUMMARY ---
Discharge Summary Providers to CC ~ Discharge Summary Admission Diagnosis: FALL AUD, ALCOHOL WITHDRAWAL, HYPONATREMIA Hospital Course DATE OF ADMISSION: November 10, 2024 DATE OF DISCHARGE:November 12, 2024 Patient was seen in presence of patient's son and later we had a family meeting with patient's brother Walter and Walter's in her son Boyd. Patient's current updated detailed medical condition discussed with the family members and code status changed to DNR DNI. It was also discussed that we will try to get her to rehab and housing case manager is working on discharge plan. In her housing case manager already spoke to Mr. Watson in detail in morning. Patient certainly out of blue decided to go AGAINST MEDICAL ADVICE today. Discharge Diagnosis\Comment: Mechanical fall 2/2 alcohol use disorder Alcohol withdrawal Hypomagnesemia, hypophosphatemia Cirrhosis with decompensation Evaluation for esophageal and rectal varices Mildly elevated liver enzymes, probably secondary to cirrhosis Right thumb fracture Hypervolemic Hyponatremia Hypokalemia Hypocalcemia Thyroid nodule and presacral lesion alcoholic ketoacidosis CASTRO, most likely renal Operations\Procedures: None Consultants: None Complications: None Condition on DC: Stable Discharge Summary: A 59-year-old female with past medical history of cirrhosis and alcohol use disorder presented to the ED in view of fall after consuming five pint of alcohol over the last five days. Patient is admitted for the evaluation management of mechanical fall, alcohol withdrawal and cirrhosis with decompensation During hospitalization patient was treated for Mechanical fall 2/2 alcohol use disorder Alcohol withdrawal Hypomagnesemia, hypophosphatemia CT head: Small right posterior scalp hematoma without underlying fracture. Chronic microvascular ischemic changes Face CT: No acute maxillofacial injury Cervical spine CT: No acute displaced fracture. Elevated ethyl alcohol concentration bilateral femur and pelvis x-ray showed no evidence of acute fracture or dislocation. On severe alcohol withdrawal protocol On MVT, IV thiamine, folic acid Substance abuse navigator and social media developer consulted Magnesium to be replaced in maintained over to, one time dose of IV 2 g magnesium has been ordered Cirrhosis with decompensation Evaluation for esophageal and rectal varices Mildly elevated liver enzymes, probably secondary to cirrhosis Child Huang Score: Class B H/H stable CT abdomen: Diffuse hypoattenuation of the liver suggestive of hepatic steatosis. Possible cirrhotic hepatic contour. Follow up PT INR, Ammonia, stool occult, Lipase Started on spironolactone 25 mg once daily, carvedilol 6.25 mg b.i.d., rifaximin 550 mg b.i.d., IV Protonix drip and IV octreotide drip, lactulose q.8h Lasix not started in view of hyponatremia Patient does not have ascites. Sodium restricted diet Patient might benefit from upper GI endoscopy and colonoscopy in view of possible varices. Currently seems to be nonemergent, can be done on an outpatient basis. GI consult in a.m. Right thumb fracture Hand x-ray: There is acute mildly displaced fracture through the bases of the proximal and distal phalanges of the 1st digit with intra-articular extension and associated soft tissue edema. Ordered cast Hypervolemic Hyponatremia reviewed urine and serum osmolality, urine sodium levels Fluid restriction and continue IV Lasix as above hyponatremia improved Hypokalemia No EKG changes On potassium replacement protocol Potassium goal: >4 Hypocalcemia Corrected calcium: 7.7 ionized calcium low , calcium monitoring q.8h One dose of calcium gluconate received in the ED Thyroid nodule and presacral lesion Follow up with outpatient Periapical dental abscesses Outpatient management alcoholic ketoacidosis will follow urinalysis and lactic acid Currently fluid restriction on place in view of hypervolemic hyponatremia CASTRO, most likely renal Elevated BUN and creatinine BUN/creatinine ratio: 17.1 Continue to monitor BMP Follow up with urine analysis and U tox Patient was seen in presence of patient's son and later we had a family meeting with patient's brother Walter and Walter's in her son Boyd. Patient's current updated detailed medical condition discussed with the family members and code status changed to DNR DNI. It was also discussed that we will try to get her to rehab and housing case manager is working on discharge plan. In her housing case manager already spoke to Mr. Watson in detail in morning. Patient certainly out of blue decided to go AGAINST MEDICAL ADVICE today. General-patient not in any acute distress, less lethargic chronically ill- appearing HEENT-atraumatic normocephalic, neck supple without elevated JVD, no thyromegaly No lymphadenopathy bilaterally. No oozing from scalp hematoma. Eyes-no icterus or pallor seen in eyes Chest-clear to auscultation bilaterally, breathing nonlabored no tachypnea, no wheezing, no crepitation, no crackles. Heart-S1-S2 normal, regular heart rate no murmur Abdomen bowel sounds positive on auscultation, soft nondistended , no signs of discomfort present on palpation over upper abdomen. no guarding, no rigidity Skin no active skin rash Neurology-grossly intact, nonfocal awake Extremity- no pedal edema able to move all 4 extremities Psychiatry - patient is less confused , not agitated cooperated during physical examination *Problems/Diagnosis: (1) Alcohol abuse Status: Acute Total Time Spent on D/C: > 30 Minutes Date of Service: Nov 13, 2024 Billing Provider: SANDRINE GARCIA MD Common Visit Codes: [id number] DISCH DAY >30min SANDRINE GARCIA MD Nov 13, 2024 20:33
== END 2024-11-13 16:21 | disposition left against medical advice (07) ==
LOC: ER 19:10 → ED HOLD 21:21 → EDBEDREQ 22:01 → PCU 3S 22:44
PROVIDERS: ADMIT Internal Medicine Critical Care Medicine; ATTEND Internal Medicine
PROC: 05HB33Z Insertion of Infusion Device into Right Basilic Vein, Percutaneous Approach (ICD-10-PCS; principal; 2024-11-11)
PROC: B54MZZA Ultrasonography of Right Upper Extremity Veins, Guidance (ICD-10-PCS; 2024-11-11)
DX: K74.60 Unspecified cirrhosis of liver (principal); N17.9 Acute kidney failure, unspecified; E83.39 Other disorders of phosphorus metabolism; E87.29 Other acidosis; E83.51 Hypocalcemia; E87.8 Other disorders of electrolyte and fluid balance, not elsewhere classified; K04.7 Periapical abscess without sinus; S00.03XA Contusion of scalp, initial encounter; E04.1 Nontoxic single thyroid nodule; E87.1 Hypo-osmolality and hyponatremia; Z66 Do not resuscitate; F41.9 Anxiety disorder, unspecified; E83.42 Hypomagnesemia; E87.6 Hypokalemia; Y90.9 Presence of alcohol in blood, level not specified; E87.70 Fluid overload, unspecified; F10.129 Alcohol abuse with intoxication, unspecified; F10.139 Alcohol abuse with withdrawal, unspecified; F20.9 Schizophrenia, unspecified; S62.511A Displaced fracture of proximal phalanx of right thumb, initial encounter for closed fracture; S62.521A Displaced fracture of distal phalanx of right thumb, initial encounter for closed fracture; F32.A Depression, unspecified; Z79.899 Other long term (current) drug therapy; Z80.3 Family history of malignant neoplasm of breast; Z98.84 Bariatric surgery status; Z56.0 Unemployment, unspecified; Z91.013 Allergy to seafood; Z90.49 Acquired absence of other specified parts of digestive tract; Z80.9 Family history of malignant neoplasm, unspecified; W18.39XA Other fall on same level, initial encounter; Y93.89 Activity, other specified; Y92.89 Other specified places as the place of occurrence of the external cause; Y99.8 Other external cause status; Z53.29 Procedure and treatment not carried out because of patient's decision for other reasons
CPT/HCPCS: 36410; 36415; 70450; 70486; 71250; 72125; 73130; 73521; 74176; 76937; 80048; 80053; 80061; 80305; 80320; 81003; 82140; 82272; 82310; 82330; 82565; 82948; 83036; 83605; 83690; 83735; 83930; 83935; 84100; 84295; 84300; 84443; 85007; 85008; 85025; 87040; 87081; 93005; 93306; 96365; 96375; 97110; 97161; 97530; 99291; A6449; C1751; C1758; G0378; J0612; J1630; J1938; J2060; J2270; J2354; J2470; J2765; J3411; J3475; J3480; J3490; J7030

== ENCOUNTER 2024-11-13 18:09 | Inpatient (IN) | payer MEDICAID ==
[~2024-11-13] VITALS: Ht 162.6 cm; Wt 104.5 kg
--- NOTE | 2024-11-13 18:22 | Physician Documentation ---
History of Present Illness ~ Stated Complaint: RE-EVAL Time Seen by MD: 18:30 Primary Medical Doctor: Dr. Camara. [facility] 59-year-old female returns to the ED after recently being admitted for a a fall. She presents stating she needsa "GLP form" for unknown reasons. The patient is currently AOX2 History as above. Patient was admitted for severe electrolyte disturbances which were corrected aside from calcium. Patient is now altered. She has been treated for alcohol withdrawal as she does endorse significant alcohol consumption. She states she has seeing things. Medication Reconciliation Allergies: Coded Allergies: shellfish derived (Verified Allergy, Unknown, 11/10/24) Scheduled Ferrous Sulfate (Ferrous Sulfate), 325 MG PO DAILY Fluoxetine HCl (Fluoxetine HCl), 40 MG PO DAILY Folic Acid* (Folic Acid*), 1 MG PO DAILY Furosemide (Lasix), 40 MG PO DAILY, (Reported) Lactulose (Lactulose), 20 GM PO DAILY Pantoprazole Sodium (Pantoprazole Sodium), 40 MG PO BID Quetiapine Fumarate (Quetiapine Fumarate), 200 MG PO HS Scheduled PRN Clonidine HCl (Clonidine HCl), 1 TAB PO TID PRN for for anxiety/agitation, (Reported) Past Medical History Past Medical History: Seizures, Cirrohsis, Extremity Fracture, Anxiety, Depression Past Surgical History: cholecystectomy, , gastric bypass, orthopedic surgeries Patient History: FH: breast cancer FATHER MOTHER FH: kidney cancer FATHER, Onset:Unknown FH: pancreatic cancer FATHER MOTHER, Onset:Unknown FH: schizophrenia FATHER Alcohol Use: Abuse Drug Use: none Lives with: Other Lives In: Home Occupation: unemployed Review of Systems ROS All review of systems negative except as per HPI Physical Exam Physical Exam General: Alert, no apparent distress. HEENT: PERRL, EOMI, no injection, moist mucous membranes. white substance surrounding mouth Neck: Full range of motion. Extremities: Normal range of motion, no deformity. Neurologic: Oriented x4. Psychiatric: anxious appearing Skin: Normal color, warm and dry. No edema, no ecchymosis. Progress Results/Orders Results/Orders Orders - ELIO OLMOS MD Ct Head (11/13/24 18:39) Urinalysis, Cult If Indicated (11/13/24 18:41) Drug Screen, Urine (11/13/24 18:47) Page Hospitalist (11/13/24 19:51) Fill Out Med Reconciliation (11/13/24 19:51) Completed Orders - ELIO OLMOS MD Ct Head (11/13/24 18:39) Cbc/Diff (11/13/24 18:41) Lipase (11/13/24 18:41) CMP (11/13/24 18:41) Ammonia (11/13/24 18:41) Lorazepam Inj (Ativan Inj) (11/13/24 18:45) Ethanol (11/13/24 18:47) Medications Received in ER Medications (Trade) Dose Ordered Sig/Denice Route PRN Reason Start Time Stop Time Status Last Admin Dose Admin (Ativan inj) 1 mg ONCE ONCE IV 11/13/24 18:45 11/13/24 18:47 DC 11/13/24 19:40 1 MG Vital Signs 11/13/24 11/13/24 18:16 18:33 Temp 98.4 Pulse 90 Resp 15 18 B/P (MAP) 125/76 Pulse Ox 98 Laboratory Tests Test 11/13/24 18:18 11/13/24 19:30 Glucometer 76 White Blood Count 3.0 L Red Blood Count 3.70 L Hemoglobin 11.1 L Hematocrit 32.2 L Mean Corpuscular Volume 87.0 Mean Corpuscular Hemoglobin 30.1 Mean Corpuscular Hemoglobin Concent 34.6 Red Cell Distribution Width 21.1 H Platelet Count 57 #L Mean Platelet Volume 6.9 L Neutrophils (%) (Auto) 64.5 Lymphocytes (%) (Auto) 22.5 Monocytes (%) (Auto) 9.7 Eosinophils (%) (Auto) 2.9 Basophils (%) (Auto) 0.4 Neutrophils # (Auto) 2.0 Lymphocytes # (Auto) 0.7 L Monocytes # (Auto) 0.3 Eosinophils # (Auto) 0.1 Basophils # (Auto) 0.0 CBC Comment Sodium Level 138 Potassium Level 4.5 Chloride Level 107 Carbon Dioxide Level 25.3 Anion Gap 6 L Blood Urea Nitrogen 7 Creatinine 0.73 Estimated GFR/1.73 m2 81 BUN/Creatinine Ratio 9.6 L Glucose Level 71 Calcium Level 8.4 L Total Bilirubin 1.7 H Aspartate Amino Transf (AST/SGOT) 63 H Alanine Aminotransferase (ALT/SGPT) 37 Alkaline Phosphatase 149 H Ammonia < 10 L Total Protein 5.5 L Albumin 2.6 L Globulin 2.9 Albumin/Globulin Ratio 0.9 L Lipase 55 Chemistry Comments Ethyl Alcohol Level < 10 Medical Decision Making Findings Patient presented to the emergency room for evaluation of confusion. Differentials include but are not limited to head trauma, alcohol intoxication, alcohol withdrawal, metabolic disturbances therefore CT scan of the head and labs were performed. I believe patient is actively withdrawing causing the acute confusion. CT scan reassuring. Departure Admitted to Inpatient Unit: yes, to hospitalist Impression: Primary Impression: Alcohol withdrawal delirium Condition: Guarded Referrals: NO PRIMARY CARE PROVIDER (PCP) Signature Scribe Signature: No scribe Attestation: The note accurately reflects work and decisions made by me.Elio Olmos MD 11/13/24 20:40 KRIS DARLING NP Nov 13, 2024 18:22 ELIO OLMOS MD Nov 13, 2024 18:47
--- NOTE | 2024-11-13 19:09 | RADIOLOGY REPORT ---
EXAM: CT CT HEAD INDICATION: ams TECHNIQUE: CT of the head without intravenous contrast. Radiation Dose Information: CT Dose: CTDI volume is 53.46 mGy. Dose-length product is 955.34 mGy*cm The dose indicators for CT are the volume Computed Tomography (CT) Dose Index (CTDIvol) and the Dose Length Product (DLP), and are measured in units of mGy and mGy-cm, respectively. These indicators are not patient dose, but values generated from the CT scanner acquisition factors. The report includes radiation exposure data for exposures received during this examination. COMPARISON: CT CT HEAD on DOS: 11/10/24, MRI HEAD on DOS: 03/17/21, CT HEAD on DOS: 03/04/21 FINDINGS: Evaluation is degraded by motion artifact. No acute territorial infarct, intracranial hemorrhage, or mass effect. There are global involutional changes with compensatory prominence of the ventricles and sulci. Patchy periventricular and subcorti cecilia white matter hypoattenuation is nonspecific but may be related to small vessel ischemic disease. The orbits are normal. The paranasal sinuses and mastoid air cells are clear. Small right scalp irene eric without underlying fracture. IMPRESSION: 1. No acute territorial infarct, intracranial hemorrhage, or mass effect. 2. Age-related involutional changes. Chronic microvascular changes.
[2024-11-13 19:39] LABS: MEAN PLATELET VOLUME 6.9 FL (7.4-10.4); RED CELL DISTRIBUTION WIDTH 21.1 % (11.5-14.5)
[2024-11-13 19:50] LABS: CREATININE 0.73 MG/DL (0.40-0.90); ETHANOL < 10 MG/DL (<10); TOTAL CARBON DIOXIDE 25.3 MMOL/L (24-32); eCRCL 71 ML/MIN; eGFR 81 ML/MIN
[2024-11-13] MEDS: ziprasidone IM 20mg inj **IM only IM ONE (23:09)
[2024-11-14] MEDS ORDERED: potassium Cl 40MEQ/1/2NS 520ml 520 ML IV PRN (01:20)
[2024-11-14] MEDS ORDERED: dextrose 50%-water 50ml dispensing syringe IV PRN (01:20)
[2024-11-14] MEDS ORDERED: ondansetron/PF 4mg/2ml inj IV PRN (01:20)
[2024-11-14] MEDS ORDERED: potassium Cl 20 mEq SR tablet PO PRN ×2 (01:20)
[2024-11-14] MEDS ORDERED: magnesium sulf-water 2g/50mL 50 ML IV PRN (01:20)
[2024-11-14] MEDS ORDERED: magnesium hydroxide 30ml (MOM) UD suspension PO PRN (01:20)
[2024-11-14] MEDS ORDERED: magnesium sulf-water 4G/100mL 100 ML IV PRN (01:20)
[2024-11-14] MEDS ORDERED: mag hydrox/Alum hydrox/simeth 30ml oral suspension PO PRN (01:20)
--- NOTE | 2024-11-14 01:25 | HISTORY AND PHYSICAL-Residence ---
History & Physical Providers to CC Resident Creating Document: TABATHA TIJERINA, RES CC: RICARDO ALMARAZ MD ~ History of Present Illness Primary Medical Doctor: Dr. Camara. [facility] Reason for Admit\Complaint: Altered mental status History of Present Illness Attestation I agree with the residents assessment and plan as below: Plan: prn ativan for ETOH withdrawal CIWA protocol thiamine and folic acid SW consult CCT 60 min using HIPPA compliant A/V technology A 59-year-old female with known cirrhosis and alcohol use disorder presented to the ED after leaving AMA today. Patient is very rude and non cooperative today. No history could be obtained from her besides her brothers getting her back to the hospital. In the past, she was admitted on the 10 of November in view of fall after alcohol intoxication. All further history is from my previous note from the last admission. Allergies: Coded Allergies: shellfish derived (Verified Allergy, Unknown, 11/10/24) Home Medications Home Medications Active Lactulose 10 Gram/15 Ml Solution 20 Gm PO DAILY 30 Days Folic Acid* (Folic Acid) Y Tab 1 Mg PO DAILY 30 Days Pantoprazole Sodium 40 Mg Tablet.dr 40 Mg PO BID 30 Days Quetiapine Fumarate 100 Mg Tablet 200 Mg PO HS 30 Days Fluoxetine HCl 20 Mg Capsule 40 Mg PO DAILY 30 Days Ferrous Sulfate 325 Mg (65 Mg Iron) Tablet 325 Mg PO DAILY 30 Days Reported Lasix (Furosemide) 40 Mg Tablet 40 Mg PO DAILY Clonidine HCl 0.1 Mg Tablet 1 Tab PO TID PRN 30 Days Past Medical History Past Medical History Cirrhosis, diagnosed in November last year Ascites Alcohol use disorder Past Surgical History Surgical History Comment Hernia surgery Cholecystectomy Orthopedic surgery Family History Family History: FH: breast cancer FATHER MOTHER FH: kidney cancer FATHER, Onset:Unknown FH: pancreatic cancer FATHER MOTHER, Onset:Unknown FH: schizophrenia FATHER Past Social History Social History Comment Drinks about one pt of schnapps every day Does not smoke cigarettes Does not consume marijuana or illicit drugs Lives at home by herself and is independent with ADLs Smoking: Quit greater than 1 year Alcohol Use: Abuse Drug Use: None Lives with: Other Lives In: Home Occupation: unemployed ROS ROS Could not be elicited as the patient does not non cooperative Exam Vitals: Vital Signs Date Time Temp Pulse Resp B/P (MAP) Pulse Ox O2 Delivery O2 Flow Rate FiO2 11/13/24 21:37 74 16 127/57 (80) 98 7/10/25 18:16 98.4 General: General: Alert, awake, oriented, not in acute distress HEENT: PERRLA, no icterus, pallor, lymphadenopathy, carotid bruit, spider nevi present on the chest, abrasion on the posterior side of the scalp Respiratory system: Bilateral vesicular breath sounds heard, no adventitious breath sounds CVS: S1-S2 heard, no murmurs/rubs/gallop GI: Generalized distention of the abdomen, no fluid thrill, brownish discoloration of the abdominal skin, Soft, nontender, no organomegaly, no guarding/rigidity, bowel sounds present Neuro: No focal neurological deficits present Extremities: Bilateral 1+ pitting edema of the lower extremities, bilateral tremors of the upper extremities, erythema or tenderness present in the right thumb Skin: Warm and dry Diagnostic Data Last Recorded Lab Results: 11/13/24192911/13/241929 Advance Care Planning Advanced Care plannin - 30 Minutes (Patient is DNR/DNI after discussion today morning with the family) Additional Plan Altered mental status 2/2 alcohol withdrawal Alcohol use disorder IV thiamine, MVT, folic acid On severe alcohol withdrawal protocol Potassium goal: >4, magnesium goal: >2 fiscal services manager consulted Cirrhosis with decompensation Evaluation for esophageal and rectal varices Mildly elevated liver enzymes, probably secondary to cirrhosis Child Huang Score: Class B H/H stable CT abdomen (11/10/2024): Diffuse hypoattenuation of the liver suggestive of hepatic steatosis. Possible cirrhotic hepatic contour. Follow up PT INR, Ammonia, stool occult, Lipase Continue Lasix 40 mg once daily, spironolactone 25 mg once daily, carvedilol 6.25 mg b.i.d., rifaximin 550 mg b.i.d.lactulose q.8h Patient does not have ascites. Sodium restricted diet Patient might benefit from upper GI endoscopy and colonoscopy in view of possible varices. Currently seems to be nonemergent, can be done on an outpatient basis. Right thumb fracture Hand x-ray (11/10/2024): There is acute mildly displaced fracture through the bases of the proximal and distal phalanges of the 1st digit with intra-articular extension and associated soft tissue edema. Cast Thrombocytopenia secondary to a AUD Continue to monitor Thyroid nodule and presacral lesion Follow up with outpatient Patient might benefit from ultrasound of the thyroid gland Periapical dental abscesses Outpatient management Code status: DNR Diet: Sodium restricted diet DVT prophylaxis: SCD Disposition: Admit to PCU, plan for discharge disposition Tabatha Tijerina MD Internal Medicine, PGY 2 Date of Service: Nov 13, 2024 Billing Provider: RICARDO ALMARAZ MD, SIVA, RES Nov 14, 2024 01:25 RICARDO ALMARAZ MD Nov 14, 2024 05:35
[2024-11-14] MEDS: haloperidol lactate 5mg/ml inj IM PRN (02:06)
[2024-11-14 02:20] LABS: INR 1.1 INR
[2024-11-14 02:22] LABS: CREATININE 0.66 MG/DL (0.40-0.90); eCRCL 78 ML/MIN; eGFR > 90 ML/MIN
[2024-11-14] MEDS ORDERED: heparin, porcine 5000 units/ml vial SQ SCH (08:00)
[2024-11-14] MEDS: folic acid 1mg/0.2ml inj IV SCH (08:00)
[2024-11-14] MEDS: K and/or MAG REPLACEMENT MC SCH (08:00)
[2024-11-14] MEDS: docusate sod 100mg capsule PO SCH (08:00)
[2024-11-14] MEDS: rifaximin 550mg tablet PO SCH (08:14)
[2024-11-14] MEDS: furosemide 10 MG/1 ML 10ml inj IV SCH (08:16)
[2024-11-14] MEDS: lactulose 20gm/30ml cup PO SCH (08:17)
[2024-11-14] MEDS: thiamine 100mg/ml 2ml inj. IV SCH (08:17)
--- NOTE | 2024-11-14 12:30 | PROGRESS NOTE ---
Daily Progress Note Providers to CC ~ Antibiotic Timeout Antibiotic Ordered?: No Subjective No acute events overnight. Patient examined at bedside. No new complaints. Patient denies chest pain, sob, palpitations, abdominal pain, n/v/d. CT abd/pelv on 11/10/24 shows cirrhosis but no acute traumatic abnormality identified in the chest, abdomen, or pelvis. Objective Vital Signs Date Time Temp Pulse Resp B/P (MAP) Pulse Ox O2 Delivery O2 Flow Rate FiO2 11/14/24 11:27 98.4 72 20 138/68 (91) 97 0 Result Diagram: 11/13/24192911/14/24 0159 Physical Exam General: Drowsy, NAD HEENT: Normocephalic, PERRLA Neck: Supple, trachea midline, no JVD Chest: Clear to auscultation bilaterally Cardiovascular: RRR, S1&S2 GI: Soft and nontender Extremities: No cyanosis/clubbing/or edema LEAN MANUFACTURING COORDINATOR: No focal deficits Musculoskeletal: No paraspinal muscle tenderness, no muscle spasm Skin: Warm and intact Coagulation Studies Laboratory Tests Test 11/14/24 01:59 Prothrombin Time 11.2 SECONDS (9.0-12.0) INR International Normalized Ratio 1.1 INR Coagulation Comments Problem\Assessment\Plan Assessment Alcohol withdrawal Alcohol intoxication Acute metabolic encephalopathy Alcohol use disorder Cirrhosis Normocytic anemia Thrombocytopenia -11/14: transaminitis -INR 1.1, negative ammonia, serum glucose wnl, no s/s of infection; CT abd/pelv on 11/10/24 shows cirrhosis but no acute traumatic abnormality identified in the chest, abdomen, or pelvis Right thumb fracture -Hand x-ray (11/10/2024): acute mildly displaced fracture through the bases of the proximal and distal phalanges of the 1st digit with intra-articular extension and associated soft tissue edema. -Cast Thyroid nodule and presacral lesion- follow up with outpatient Plan -severe alcohol withdrawal protocol, thiamine, folic acid, propranolol, seizure precaution, electrolyte replacement per protocol Code status: DNR Diet: Sodium restricted diet DVT/VTE prophylaxis: SCDs Date of Service: Nov 14, 2024 Billing Provider: LARISSA SINGH Common Visit Codes: [id number] INP/OBS CARE(HIGH) LARISAS SINGH Nov 14, 2024 12:30
[2024-11-14 15:01] VITALS: RESP 14; O2SAT 96
[2024-11-14 16:19] VITALS: BP 145/79; PULSE 90; RESP 22; TEMP 97.6; O2SAT 98
[2024-11-14 18:00] VITALS: BP 125/61; PULSE 81; RESP 19; TEMP 97.4; O2SAT 97
[2024-11-14 20:00] VITALS: RESP 19; O2SAT 97
[2024-11-14] MEDS: magnesium Cl slow-release 64mg tablet PO PRN (20:07)
[2024-11-14] MEDS: propranolol 10mg tablet PO SCH (20:07)
[2024-11-14] MEDS: HYDROcodone/acetaminophen 5mg/325mg tablet PO PRN (21:56)
[2024-11-14 22:00] VITALS: BP 130/58; PULSE 58; RESP 20; TEMP 97.4; O2SAT 99
[2024-11-15 02:00] VITALS: BP 137/52; PULSE 77; RESP 18; TEMP 97.4; O2SAT 96
[2024-11-15 05:40] LABS: MEAN PLATELET VOLUME 6.5 FL (7.4-10.4); RED CELL DISTRIBUTION WIDTH 22.6 % (11.5-14.5)
[2024-11-15 05:46] LABS: CREATININE 0.69 MG/DL (0.40-0.90); TOTAL CARBON DIOXIDE 26.8 MMOL/L (24-32); eCRCL 75 ML/MIN; eGFR 87 ML/MIN
[2024-11-15 06:21] LABS: EOSINOPHILS % (MANUAL) 1.0 % (0-6); MONOCYTES % (MANUAL) 10.0 % (2-12); PLATELET ESTIMATE DECREASED
[2024-11-15 06:30] LABS: LYMPHOCYTES % (MANUAL) 30.0 % (21-51); NEUTROPHILS % (MANUAL) 59.0 % (42-75)
[2024-11-15 06:53] VITALS: BP 135/70; PULSE 59; RESP 19; TEMP 97.2; O2SAT 97
[2024-11-15 08:00] VITALS: RESP 19; O2SAT 97
[2024-11-15 11:13] VITALS: BP 140/79; PULSE 64; RESP 20; TEMP 97.4; O2SAT 94
[2024-11-15] MEDS ORDERED: PROP10TA10 PO (12:40)
[2024-11-15] MEDS ORDERED: thiamine tablet PO (12:40)
[2024-11-15] MEDS ORDERED: CHLO25CA10 PO (12:40)
--- NOTE | 2024-11-15 13:17 | DISCHARGE SUMMARY ---
Discharge Summary Providers to CC ~ Discharge Summary Admission Diagnosis: Toxic encephalopathy Hospital Course DATE OF ADMISSION: 11/13/24 DATE OF DISCHARGE: 11/15/24 Discharge Diagnosis\\Comment: Alcohol withdrawal DTs Alcohol intoxication Acute metabolic encephalopathy Alcohol use disorder Cirrhosis Normocytic anemia Thrombocytopenia Operations\\Procedures: None Consultants: None Complications: None Condition on DC: Stable New Medications: Chlordiazepoxide Hcl (Librium) 25 Mg Capsule 25 MG PO DIRECTED for 5 Days, #20 CAP 0 Refills Take 2 tablets by mouth every 6 hours x 1 day, then take 2 tablets every 8 hours x 1 day, then take 2 tablets every 12 hours x 1 day, then take 2 tablets at bedtime x 2 days. Propranolol Hcl* (Inderal*) 10 Mg Tablet 10 MG PO Q12H for 30 Days, #60 TAB [thiamine tablet] () 100 MG TABLET 100 MG PO DAILY for 90 Days, #90 Continued Medications: Ferrous Sulfate (Ferrous Sulfate) 325 Mg (65 Mg Iron) Tablet 325 MG PO DAILY for 30 Days, #30 TAB Fluoxetine HCl (Fluoxetine HCl) 20 Mg Capsule 40 MG PO DAILY for 30 Days, #60 CAP Folic Acid* (Folic Acid*) Y Tab 1 MG PO DAILY for 30 Days, #30 TAB Furosemide (Lasix) 40 Mg Tablet 40 MG PO DAILY, TAB Lactulose (Lactulose) 10 Gram/15 Ml Solution 20 GM PO DAILY for 30 Days, #60 ML Pantoprazole Sodium (Pantoprazole Sodium) 40 Mg Tablet.dr 40 MG PO BID for 30 Days, #60 TAB.SR Quetiapine Fumarate (Quetiapine Fumarate) 100 Mg Tablet 200 MG PO HS for 30 Days, #60 TAB Discontinued Medications: Clonidine HCl (Clonidine HCl) 0.1 Mg Tablet 1 TAB PO TID PRN for for anxiety/agitation for 30 Days, #30 TAB 0 Refills Discharge Summary: History of Present Illness From H&P: "A 59-year-old female with known cirrhosis and alcohol use disorder presented to the ED after leaving [place] today. Patient is very rude and non cooperative today. No history could be obtained from her besides her brothers getting her back to the hospital. In the past, she was admitted on the 10 of November in view of fall after alcohol intoxication. All further history is from my previous note from the last admission." Hospital Course Initial diagnostic findings were notable for notable physical assessment of delirium tremens, transaminitis, CT abdomen/pelvis completed on 11/05/24 revealing cirrhosis without acute abnormalities in chest, abdomen, or pelvis. Pertinent negative findings were INR 1.1, negative ammonia, normal serum glucose, no s/s of infection or ascites. Patient reports that last heavy alcohol intake was one day prior to presentation. Patient was started on alcohol withdrawal protocol, thiamine, folic acid, seizure precaution. Patient did not experience further complications throughout the entire hospital stay. Patient was seen and examined on the day of discharge. On day of discharge, vss and labs unremarkable. DTs have resolved and patient ambulates down hallway independently without venus tance of a person or assistive device. All labs, diagnostic workups, discharge plan discussed with patient in details during visit before discharge. All questions and concerns answered to the best of my professional knowledge. Patient is to be discharged with taper dose Librium and HH and to follow-up with PCP within 2 weeks. Patient was instructed of total abstinence from alcohol. Physical Exam General: Generalized weakness, A&Ox 3, NAD HEENT: Normocephalic, PERRLA Neck: Supple, trachea midline, no JVD Chest: Clear to auscultation bilaterally Cardiovascular: RRR, S1&S2 GI: Soft and nontender Extremities: No cyanosis/clubbing/or edema SLAG WORKER: CN II-XII intact, no focal deficits Musculoskeletal: No paraspinal muscle tenderness, no muscle spasm Skin: Warm and intact *Problems/Diagnosis: (1) Alcohol use disorder, severe, dependence Status: Acute Total Time Spent on D/C: > 30 Minutes Date of Service: Nov 15, 2024 Billing Provider: LARISSA SINGH Common Visit Codes: 71341-EHE/OBS DISCH DAY >30min LARISSA SINGH Nov 15, 2024 13:17
== END 2024-11-15 15:51 | disposition home health service (06) ==
LOC: ER 18:10 → ED HOLD 20:13 → PCU 3S 11-14 13:06
PROVIDERS: ADMIT Internal Medicine; ATTEND Nurse Practitioner Family
DX: K74.60 Unspecified cirrhosis of liver (principal); G93.41 Metabolic encephalopathy; F10.231 Alcohol dependence with withdrawal delirium; D69.59 Other secondary thrombocytopenia; E04.1 Nontoxic single thyroid nodule; D64.9 Anemia, unspecified; S62.511A Displaced fracture of proximal phalanx of right thumb, initial encounter for closed fracture; Z66 Do not resuscitate; F10.229 Alcohol dependence with intoxication, unspecified; F41.9 Anxiety disorder, unspecified; F32.A Depression, unspecified; K04.7 Periapical abscess without sinus; W18.39XA Other fall on same level, initial encounter; Y93.89 Activity, other specified; Y92.89 Other specified places as the place of occurrence of the external cause; Y99.8 Other external cause status; Z85.07 Personal history of malignant neoplasm of pancreas; Z80.3 Family history of malignant neoplasm of breast; Z85.528 Personal history of other malignant neoplasm of kidney; Z98.84 Bariatric surgery status
CPT/HCPCS: 36415; 70450; 80048; 80053; 80320; 82140; 82565; 82948; 83690; 83735; 84132; 85007; 85025; 85610; 87081; 96374; 97161; 97530; 99285; A6250; G0378; J1630; J1938; J2060; J3411; J3486; J3490

== ENCOUNTER 2024-11-23 13:07 | Emergency (ER) | payer MEDICAID ==
[~2024-11-23] VITALS: Ht 165.1 cm; Wt 74.0 kg
[~2024-11-23 13:07] MED LIST changes: +CHLO25CA10 PO; -CLON0.1T2 PO; +PROP10TA10 PO; +thiamine tablet PO
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
[2024-11-23 14:52] LABS: CREATININE 0.88 MG/DL (0.40-0.90); MEAN PLATELET VOLUME 7.2 FL (7.4-10.4); RED CELL DISTRIBUTION WIDTH 22.4 % (11.5-14.5); TOTAL CARBON DIOXIDE 22.6 MMOL/L (24-32); eCRCL 61 ML/MIN; eGFR 66 ML/MIN
[2024-11-23 15:03] LABS: ETHANOL < 10 MG/DL (<10)
[2024-11-23 15:05] LABS: LEUKOCYTE ESTERASE ,URINE NEGATIVE (Neg); NITRITES, URINE NEGATIVE (Neg); OCCULT BLOOD,URINE NEGATIVE (Neg)
[2024-11-23 15:06] LABS: UA COLLECTION TYPE CLN CATCH MIDSTREAM
[2024-11-23 15:18] LABS: URINE AMPHETAMINE SCREEN NEGATIVE (Neg); URINE BARBITUATE SCREEN NEGATIVE (Neg); URINE BENZODIAZEPINES SCREEN POSITIVE (Neg); URINE CANNABINOID SCREEN NEGATIVE (Neg); URINE COCAINE SCREEN NEGATIVE (Neg); URINE METHADONE SCREEN NEGATIVE (Neg); URINE OPIATE SCREEN NEGATIVE (Neg); URINE PHENCYCLIDINE SCREEN NEGATIVE (Neg)
[2024-11-23] MEDS: potassium Cl 20 mEq SR tablet PO STA (15:35)
[2024-11-23 15:39] VITALS: BP 131/68; PULSE 57; RESP 17; TEMP 97.9; O2SAT 100
== END 2024-11-23 15:37 | disposition home or self-care (01) ==
LOC: ER 13:07
DX: E87.6 Hypokalemia (principal); M79.641 Pain in right hand; F31.9 Bipolar disorder, unspecified; F41.9 Anxiety disorder, unspecified; F10.129 Alcohol abuse with intoxication, unspecified; Z88.8 Allergy status to other drugs, medicaments and biological substances; Z90.49 Acquired absence of other specified parts of digestive tract; Z98.84 Bariatric surgery status; Z79.899 Other long term (current) drug therapy; V89.2XXA Person injured in unspecified motor-vehicle accident, traffic, initial encounter; Y93.89 Activity, other specified; Y92.89 Other specified places as the place of occurrence of the external cause; Y99.8 Other external cause status; Y90.9 Presence of alcohol in blood, level not specified
CPT/HCPCS: 36415; 80053; 80305; 80320; 81003; 82140; 83690; 85025; 99284

== ENCOUNTER 2024-12-14 23:42 | Emergency (ER) | payer MEDICAID ==
[~2024-12-14] VITALS: Ht 165.1 cm; Wt 75.0 kg
[2024-12-15] MEDS: normal saline 1000ml 1,000 ML IV ONE ×2 (00:16→01:19)
[2024-12-15 00:36] LABS: MEAN PLATELET VOLUME 7.1 FL (7.4-10.4); RED CELL DISTRIBUTION WIDTH 17.8 % (11.5-14.5)
[2024-12-15 00:57] LABS: CREATININE 0.72 MG/DL (0.40-0.90); ETHANOL 162 MG/DL (<10); TOTAL CARBON DIOXIDE 25.4 MMOL/L (24-32); eCRCL 75 ML/MIN; eGFR 83 ML/MIN
[2024-12-15 02:52] LABS: URINE HCG NEGATIVE (NEG)
[2024-12-15 02:55] LABS: LEUKOCYTE ESTERASE ,URINE NEGATIVE (Neg); NITRITES, URINE NEGATIVE (Neg); OCCULT BLOOD,URINE NEGATIVE (Neg)
[2024-12-15 02:57] LABS: UA COLLECTION TYPE CLN CATCH MIDSTREAM
[2024-12-15 03:05] LABS: URINE AMPHETAMINE SCREEN NEGATIVE (Neg); URINE BARBITUATE SCREEN NEGATIVE (Neg); URINE BENZODIAZEPINES SCREEN POSITIVE (Neg); URINE CANNABINOID SCREEN NEGATIVE (Neg); URINE COCAINE SCREEN NEGATIVE (Neg); URINE METHADONE SCREEN NEGATIVE (Neg); URINE OPIATE SCREEN NEGATIVE (Neg); URINE PHENCYCLIDINE SCREEN NEGATIVE (Neg)
--- NOTE | 2024-12-15 04:10 | RADIOLOGY REPORT ---
CHEST RADIOGRAPH Indication: hypotension Technique: Single frontal view of the chest was obtained COMPARISON: CT CT CHEST ABDOMEN PELVIS on DOS: 11/10/24, DI CHEST,SINGLE VIEW on DOS: 08/03/24, CT CT CH EST ABDOMEN PELVIS on DOS: 04/14/24, CT CT CHEST ABDOMEN PELVIS IV CON on DOS: 01/22/24, DI CHEST,SINGL E VIEW on DOS: 10/17/23 FINDINGS: Lines and Tubes: None Lungs: Clear Pleura: No effusion. No pneumothorax. Cardiomediastinal contours: Cardiomegaly. Bones: Unremarkable IMPRESSION: 1. No acute disease.
--- NOTE | 2024-12-15 06:04 | Physician Documentation ---
History of Present Illness ~ Chief Complaint: Suicidal Ideation Stated Complaint: EMELY Calderon BLS Time Seen by MD: 23:55 Primary Medical Doctor: Dr. Camara. [place] Mode of Arrival: EMS HPI 59 year old female with suicidal ideation. No specific plan. Drank alcohol tonight. Has history of hypotension. Medication Reconciliation Allergies: Coded Allergies: shellfish derived (Verified Allergy, Unknown, 11/10/24) Scheduled Chlordiazepoxide Hcl (Librium), 25 MG PO DIRECTED Ferrous Sulfate (Ferrous Sulfate), 325 MG PO DAILY Fluoxetine HCl (Fluoxetine HCl), 40 MG PO DAILY Folic Acid* (Folic Acid*), 1 MG PO DAILY Furosemide (Lasix), 40 MG PO DAILY, (Reported) Lactulose (Lactulose), 20 GM PO DAILY Pantoprazole Sodium (Pantoprazole Sodium), 40 MG PO BID Propranolol Hcl* (Inderal*), 10 MG PO Q12H Quetiapine Fumarate (Quetiapine Fumarate), 200 MG PO HS [thiamine tablet], 100 MG PO DAILY Past Medical History Past Medical History: Seizures, Cirrohsis, Extremity Fracture, Anxiety, Depression Past Surgical History: cholecystectomy, , gastric bypass, orthopedic surgeries Patient History: FH: breast cancer FATHER MOTHER FH: kidney cancer FATHER, Onset:Unknown FH: pancreatic cancer FATHER MOTHER, Onset:Unknown FH: schizophrenia FATHER Alcohol Use: Abuse Drug Use: none Lives with: Other Lives In: Home Occupation: unemployed Review of Systems All Other Systems at this time: Reviewed and Negative Physical Exam Vital Signs: RN Vital Signs have been reviewed: Yes, Temperature: 97.8, Source: Oral, Heart Rate: 53, Respiratory Rate: 14, BP: 75/54, Pulse Oximetry: 95, Weight: 75.000 Oxygen Flow Rate: 0 Physical Exam HEENT: PERRL, moist oral mucosa, EOMI Pulmonary: No respiratory distress MSK: no deformity Skin: w/d/i, no rash Neuro: alert, nonfocal Psych: normal affect Progress Results/Orders Results/Orders Orders - RICARDA GAMINO MD Close Observation Level (12/14/24 23:55) Covid19 Binax Poc Result Entry (12/14/24 23:55) Chest,Single View (12/15/24 00:56) 1799.11 (12/15/24 ) Completed Orders - RICARDA GAMINO MD Cbc/Diff (12/14/24 23:55) Urinalysis (12/14/24 23:55) Hcg, Ur Ql (12/14/24 23:55) Drug Screen, Urine (12/14/24 23:55) Ethanol (12/14/24 23:55) TSH (12/14/24 23:55) BMP (12/14/24 23:55) Normal Saline 1000ml (0.9% Sodium Chlori (12/15/24 00:10) Chest,Single View (12/15/24 00:56) Normal Saline 1000ml (0.9% Sodium Chlori (12/15/24 01:15) Medications Received in ER Medications (Trade) Dose Ordered Sig/Denice Route PRN Reason Start Time Stop Time Status Last Admin Dose Admin Sodium Chloride 1,000 ml @ 1,000 mls/hr ONCE ONCE IV 12/15/24 00:10 12/15/24 01:09 DC 12/15/24 00:16 1,000 MLS/HR Sodium Chloride 1,000 ml @ 1,000 mls/hr ONCE ONCE IV 12/15/24 01:15 12/15/24 02:14 DC 12/15/24 01:19 1,000 MLS/HR Vital Signs 12/14/24 12/14/24 12/15/24 12/15/24 23:49 23:58 01:03 01:25 Temp 97.8 Pulse 58 55 56 Resp 19 15 14 19 B/P (MAP) 93/57 81/49 (60) 80/46 (57) Pulse Ox 95 95 96 O2 Flow Rate 0 12/15/24 12/15/24 12/15/24 12/15/24 01:57 03:06 03:06 03:50 Temp 97.8 Pulse 57 54 54 55 Resp 14 B/P (MAP) 86/49 (61) 74/42 (53) 74/42 (53) 88/55 (66) Pulse Ox 94 94 92 94 O2 Flow Rate 0 12/15/24 04:59 Pulse 53 B/P (MAP) 75/54 (61) Pulse Ox 95 Laboratory Tests Test 12/15/24 00:18 12/15/24 00:31 12/15/24 02:39 White Blood Count 4.5 Red Blood Count 3.66 L Hemoglobin 11.3 L Hematocrit 32.9 L Mean Corpuscular Volume 89.6 Mean Corpuscular Hemoglobin 30.8 Mean Corpuscular Hemoglobin Concent 34.4 Red Cell Distribution Width 17.8 H Platelet Count 76 L Mean Platelet Volume 7.1 L Neutrophils (%) (Auto) 50.5 Lymphocytes (%) (Auto) 32.3 Monocytes (%) (Auto) 9.9 Eosinophils (%) (Auto) 6.4 H Basophils (%) (Auto) 0.9 Neutrophils # (Auto) 2.3 Lymphocytes # (Auto) 1.4 Monocytes # (Auto) 0.4 Eosinophils # (Auto) 0.3 Basophils # (Auto) 0.0 CBC Comment Sodium Level 137 Potassium Level 3.0 *L Chloride Level 103 Carbon Dioxide Level 25.4 Anion Gap 9 Blood Urea Nitrogen 15 Creatinine 0.72 Estimated GFR/1.73 m2 83 BUN/Creatinine Ratio 20.8 H Glucose Level 92 Calcium Level 8.1 L Albumin 2.5 L Thyroid Stimulating Hormone (TSH) 2.10 Chemistry Comments Ethyl Alcohol Level 162 H SARS-CoV-2 Antigen (Rapid) Negative Urine Specimen Description Cln catch midstream Urine Color Yellow Urine Clarity Clear Urine pH 6.0 Urine Specific [place] <=1.005 Urine Protein Negative Urine Glucose (UA) Negative Urine Ketones Negative Urine Occult Blood Negative Urine Nitrite Negative Urine Bilirubin Negative Urine Urobilinogen 0.2 Urine Leukocyte Esterase Negative Volume Urine Centrifuged 10 ml Urine HCG, Qualitative Negative Urine Comment Urine Opiates Screen Negative Urine Methadone Screen Negative Urine Fentanyl Screen Negative Urine Barbiturates Screen Negative Urine Phencyclidine Screen Negative Urine Amphetamines Screen Negative Urine Benzodiazepines Screen Positive Urine Cocaine Screen Negative Urine Cannabinoids Screen Negative Drug Screen Comment Medical Decision Making Findings 59 year old female with SI. During workup it was noted that she was hypotensive and we questioned her extensively, and she reports clonidine use. It is unclear if she takes this for psychiatric reasons or for hypertension. Awaiting W evaluation, have provided multiple boluses of NS with little change in blood pressure. Will hand off to oncoming ER provider for disposition. Differential Dx:Considerations: Include: Alcohol abuse, Bipolar disorder, Depression, Encephaloathy, Personality disorder, Schizophrenia, Substance abuse, Suicidal Departure Disposition: 01 HOME / SELF CARE / HOMELESS Impression: Primary Impression: Suicidal ideation Additional Impression: Hypotension Condition: Stable Discharge Instructions: Medical Screening Exam Referrals: NO PRIMARY CARE PROVIDER (PCP) Signature Scribe Signature: . Attestation: . RICARDA GAMINO MD Dec 15, 2024 06:04
[2024-12-15] MEDS: POTASSIUM BICARB 20meq eff tab 20 MEQ TABLET.EFF PO ONE (09:26)
[2024-12-15 09:31] VITALS: BP 111/67; PULSE 63; O2SAT 97
[2024-12-15 09:53] VITALS: RESP 22
[2024-12-15] MEDS: loperamide 2mg capsule PO ONE (11:03)
[2024-12-15] MEDS: ondansetron 4mg rapidly disintigrating tab PO ONE (17:06)
[2024-12-15 17:58] VITALS: TEMP 97.8
== END 2024-12-15 18:21 | disposition home or self-care (01) ==
LOC: ER 23:42
DX: R45.851 Suicidal ideations (principal); I95.9 Hypotension, unspecified; E87.6 Hypokalemia; F41.9 Anxiety disorder, unspecified; F32.A Depression, unspecified; Z20.822 Contact with and (suspected) exposure to COVID-19; Z88.8 Allergy status to other drugs, medicaments and biological substances; Z90.49 Acquired absence of other specified parts of digestive tract; Z98.84 Bariatric surgery status; Z79.899 Other long term (current) drug therapy
CPT/HCPCS: 36415; 71045; 80048; 80305; 80320; 81003; 81025; 84443; 85025; 87811; 96360; 96361; 99285; J7030; A4615

== ENCOUNTER 2025-03-16 03:41 | Inpatient (IN) | payer MEDICAID ==
[2025-03-16] VITALS (10 sets, daily range): BP systolic 88–144; BP diastolic 59–80; PULSE 72–98; RESP 11–21; TEMP 97.3–98.1; O2SAT 93–98
[~2025-03-16] VITALS: Ht 165.1 cm; Wt 77.0 kg
--- NOTE | 2025-03-16 03:56 | Physician Documentation ---
History of Present Illness General Chief Complaint: ETOH Stated Complaint: ETOH WITHDRAWL Time Seen by MD: 03:56 Primary Medical Doctor: Dr. Cmaara. [facility] History of Present Illness Initial Comments Patient is a 59-year-old female who states she brings him proximally 500 cc of hard alcohol daily, the patient comes in the emergency room for concerns of alcohol withdrawal, the patient states she has stopped drinking at 11:00 a.m. the day prior to her exam proximally 20 hours ago patient states soon after she stopped drinking she developed shakes and then she developed nausea and vomiting and abdominal pain. Patient denies any fevers or chills. Patient states she has been throwing up repeatedly and has diffuse mid abdominal pain. Patient states her some symptoms are similar to her alcohol withdrawal in the past. The patient states she has a history of alcoholic cirrhosis. The patient states she stopped drink as she wants to stop drinking. The patient's symptoms are moderate and persistent. Medication Reconciliation Allergies: Coded Allergies: shellfish derived (Verified Allergy, Unknown, 03/16/25) Scheduled Chlordiazepoxide Hcl (Librium), 25 MG PO DIRECTED Ferrous Sulfate (Ferrous Sulfate), 325 MG PO DAILY Fluoxetine HCl (Fluoxetine HCl), 40 MG PO DAILY Folic Acid* (Folic Acid*), 1 MG PO DAILY Furosemide (Lasix), 40 MG PO DAILY, (Reported) Lactulose (Lactulose), 20 GM PO DAILY Pantoprazole Sodium (Pantoprazole Sodium), 40 MG PO BID Propranolol Hcl* (Inderal*), 10 MG PO Q12H Quetiapine Fumarate (Quetiapine Fumarate), 200 MG PO HS [thiamine tablet], 100 MG PO DAILY Past Medical History Past Medical History: Seizures, Cirrohsis, Extremity Fracture, Anxiety, Depression Past Surgical History: cholecystectomy, , gastric bypass, orthopedic surgeries Smoking: Quit greater than 1 year Alcohol Use: Abuse Drug Use: none Lives with: Other Lives In: Home Occupation: unemployed Review of Systems All Other Systems at this time: Reviewed and Negative Physical Exam Physical Exam Vital Signs: Temperature: 97.8, Source: Oral, Heart Rate: 92, Respiratory Rate: 18, BP: 119/60, Pulse Oximetry: 100, Weight: 77.000 Physical Exam VITALS: Reviewed and as above. GENERAL: Alert, tremulous mildly ill-appearing HEENT: Normocephalic, atraumatic, PERRL, EOMI, dry mucosa, no erythema; the patient has a white exudative her tongue RESPIRATORY: Lungs clear, normal breath sounds, no respiratory distress. CHEST: No accessory muscle use, no retractions CV: Tachycardic, rhythm, no edema, no murmur, No: JVD GI: Soft, diffuse abdominal tenderness, bowels sounds present, no rebound, guarding, or rigidity BACK: No CVA tenderness, or swelling MUSCULOSKELETAL: No deformities, no edema SKIN: Warm and dry, no rash NEURO: Oriented x4, No motor or sensory deficit, patient has resting tremors PSYCH: Anxious with slight psychomotor agitation Progress Progress Note Shay received in s/o 59 yof heavy AUD, cirrhosis p/w n/v, while in ED was f ound cyanotic and pulseless (VFIB) cardioverted and rosc now in Sinus tach. Awake and alert neuro intact. Vitals with tachycardia. NA low, K low. Received 20meq K and magnesium 2g. S/o pending discussion with crew director for admission. She did develop some chest wall discomfort post cpr. I reviewed CXR no acute findings. troponin ordered but it is clearly palpable on exam. Actions: reviewed post rosc ekg QTC 600ms. ordering 3% NaCL bolus for severe symptomatic hyponatremia with NA 130's in December. repeat K bolus 20meq. Valium ordered for withdrawal. N/V given scopolamine and dexamethasone given severely prolonged QT in setting of v fib arrest. compazine discontinued. Results/Orders Results/Orders Orders - NIKOLAS BERNSTEIN MD Water For Injection... W/Sodium Chloride (03/16/25 06:30) Completed Orders - NIKOLAS BERNSTEIN MD Diazepam Inj (Valium Inj) (03/16/25 06:30) Thiamine Inj. (Thiamine Inj.) (03/16/25 06:35) Dexamethasone Inj (Decadron 4mg/Ml Inj) (03/16/25 06:35) Pantoprazole 40mg Iv (Protonix 40mg Iv) (03/16/25 06:35) Potassium Cl 20meq/100ml Bag (Potassium (03/16/25 06:35) Scopolamine 1mg/72h Patch (Scopolamine 1 (03/16/25 07:35) Phenobarbital Inj (Phenobarbital Inj.) (03/16/25 07:34) LA (03/16/25 07:48) Morphine 4mg/Ml Inj. (Morphine Inj.) (03/16/25 08:10) Ketorolac Trometh 15mg/Ml Vial (Toradol (03/16/25 08:10) Hs Troponin I W Calculations (03/16/25 08:12) Electrocardiogram (03/16/25 05:17) Medications Received in ER Medications (Trade) Dose Ordered Sig/Denice Route PRN Reason Start Time Stop Time Status Last Admin Dose Admin (0.9% sodium chloride (NS) 1000ml IV soln) 1,000 ml ONCE ONCE IVB 03/16/25 04:00 03/16/25 04:01 DC 03/16/25 04:24 1,000 ML (Benadryl inj.) 50 mg ONCE ONCE IV 03/16/25 04:00 03/16/25 04:01 DC 03/16/25 04:30 50 MG Magnesium Sulfate 50 ml @ 25 mls/hr ONCE ONCE IV 03/16/25 04:10 03/16/25 06:09 DC 03/16/25 04:24 25 MLS/HR Potassium Chloride 100 ml @ 100 mls/hr ONCE STAT IV 03/16/25 05:32 03/16/25 06:31 DC 03/16/25 05:52 100 MLS/HR Sodium Chloride 51.2 meq/Sterile Water 100 ml @ 30 mls/hr Q3H20M IV 03/16/25 06:30 03/16/25 07:44 30 MLS/HR (Valium inj) 10 mg ONCE ONCE IV 03/16/25 06:30 03/16/25 06:36 DC 03/16/25 06:39 10 MG (thiamine inj.) 300 mg ONCE ONCE IV 03/16/25 06:35 03/16/25 06:37 DC 03/16/25 06:49 300 MG (Decadron 4mg/ml inj) 6 mg ONCE ONCE IV 03/16/25 06:35 03/16/25 06:36 DC 03/16/25 06:42 6 MG (Protonix 40mg IV) 40 mg ONCE ONCE IV 03/16/25 06:35 03/16/25 06:37 DC 03/16/25 06:49 40 MG Potassium Chloride 100 ml @ 100 mls/hr Q1H ONCE IV 03/16/25 06:35 03/16/25 07:34 DC 03/16/25 06:49 100 MLS/HR (scopolamine 1MG/ 72 HR patch) 1 patch Q72H ONCE TD 03/16/25 07:35 03/16/25 07:44 DC 03/16/25 08:09 1 PATCH (morphine inj.) 4 mg ONCE ONCE IV 03/16/25 08:10 03/16/25 08:11 DC 03/16/25 08:37 4 MG (Toradol injection) 15 mg ONCE ONCE IV 03/16/25 08:10 03/16/25 08:13 DC 03/16/25 08:36 15 MG Vital Signs 03/16/25 03/16/25 03/16/25 03/16/25 03:45 04:00 04:00 04:30 Temp 97.8 Pulse 92 109 80 Resp 18 20 16 22 B/P (MAP) 119/60 125/62 (83) 123/60 (81) Pulse Ox 100 99 99 03/16/25 03/16/25 03/16/25 03/16/25 05:00 05:30 06:00 06:39 Pulse 79 112 105 Resp 20 14 18 23 B/P (MAP) 139/97 (111) 122/82 (95) 107/74 (85) Pulse Ox 98 99 100 O2 Flow Rate 0 6.0 03/16/25 03/16/25 03/16/25 07:00 08:36 08:37 Pulse 112 Resp 29 18 20 B/P (MAP) 94/65 (75) Pulse Ox 100 Laboratory Tests Test 03/16/25 05:15 03/16/25 05:29 03/16/25 08:10 White Blood Count 10.1 Red Blood Count 4.01 L Hemoglobin 11.3 L Hematocrit 31.8 L Mean Corpuscular Volume 79.2 Mean Corpuscular Hemoglobin 28.3 Mean Corpuscular Hemoglobin Concent 35.7 Red Cell Distribution Width 16.2 H Platelet Count 84 L Mean Platelet Volume 7.2 L Neutrophils (%) (Auto) 83.2 H Lymphocytes (%) (Auto) 12.3 L Monocytes (%) (Auto) 4.3 Eosinophils (%) (Auto) 0.1 Basophils (%) (Auto) 0.1 Neutrophils # (Auto) 8.4 H Lymphocytes # (Auto) 1.3 Monocytes # (Auto) 0.4 Eosinophils # (Auto) 0.0 Basophils # (Auto) 0.0 CBC Comment Sodium Level 117 *L Potassium Level 1.7 *L Chloride Level 74 L Carbon Dioxide Level 16.1 L Anion Gap 27 H Blood Urea Nitrogen 16 Creatinine 1.00 H Estimated GFR/1.73 m2 57 BUN/Creatinine Ratio 16.0 13.0 Glucose Level 166 H Calcium Level 6.2 L Magnesium Level 1.7 Total Bilirubin 3.3 H Aspartate Amino Transf (AST/SGOT) 140 H Alanine Aminotransferase (ALT/SGPT) 63 Alkaline Phosphatase 180 H Troponin I High Sensitivity 24 Total Protein 5.5 L Albumin 2.7 L Globulin 2.8 Albumin/Globulin Ratio 1.0 L Lipase 41 Procalcitonin 0.21 Chemistry Comments Ethyl Alcohol Level 62 H Bedside Hemoglobin 11.2 L Bedside Hematocrit 33 L Bedside Sodium 115 *L Bedside Potassium < 2.0 *L Bedside Chloride 74 L Bedside Total CO2 14 *L Bedside Anion Gap 27 H Bedside Blood Urea Nitrogen 13 Bedside Creatinine 1.0 Bedside Estimated GFR (eGFR) 57 Bedside Glucose 160 H Bedside Ionized Calcium (Leeann) 0.79 L Lactic Acid Level 5.9 *H Medical Decision Making Additional information obtaine: N/A Findings The patient has a history of hypomagnesemia and hypokalemia and alcohol abuse as well as significant alcohol withdrawal she had came in on alcohol withdrawal IV fluids were started and she was started on 2 g of magnesium, the patient was noted to become unresponsive she turned blue and she had agonal respirations the patient was found to be pulseless CPR was started. The patient was identified as being ventricular fibrillation and the patient did not have a pulse the patient was cardioverted with 120 joules. The patient was converted to a sinus rhythm with a pulse she was bag-valve ventilated through this episode and she regained consciousness. The patient rangel had received 500 cc of fluid at this time as well as the magnesium has been started on the patient. The magnesium was continued and the patient became lucid and fully responsive. The patient had no good peripheral access other than a small IV in her hand so a right supraclavicular central line was started by me the patient had a sterile prep with chlorhexidine the patient was given 5 cc of 1% lidocaine infiltrated in the supra clavicular region and the patient had a for lumen central line placed with good return of blood in the blood was sent for evaluation. The patient's IV fluids has been temporal barely stopped on the thought that we may have made her more hypokalemic with the IV fluids and precipitated her arrhythmia, the patient has had a i-STAT which shows a potassium less than two and 20 mEq of potassium chloride has been ordered to be administered through the central line. The patient received a proximally 2 minutes of CPR. The patient's EKG shows a heart rate of 100 and 13 with a widened QRS and and an intraventricular conduction delay block there was no ST elevation or ST- depression in EKG was interpreted as abnormal. Time of interpretation was 530. The patient also has Q-waves inferiorly in three and AVF EKG was interpreted as abnormal. The patient's pulse oximetry was interpreted as normal and adequate. The patient's court recording monitor was interpreted as a sinus tach. The patient has a chest x-ray demonstrates central line in good position. Normal cardiac silhouette and normal-appearing lung daily and normal-appearing bony st ructures. The x-ray was interpreted as showing no acute disease process by me Differential Diagnosis alcohol withdrawal, other causes of N/V Departure Disposition: ADMITTED INPATIENT Admitted to Inpatient Unit: yes, to crew director Impression: Primary Impression: Ventricular fibrillation Additional Impressions: Hypomagnesemia Hyponatremia Alcohol withdrawal Qualified Codes: F10.930 - Alcohol use, unspecified with withdrawal, uncomplicated Hypocalcemia Hypokalemia Lactic acidosis Referrals: NO PRIMARY CARE PROVIDER (PCP) Critical Care Note Total Time (mins): 90 Critical Care Note The very real possibility of a deterioration of this patient's condition required the highest level of my preparedness for sudden, emergent intervention. I provided critical care services, which included medication orders, frequent reevaluations of the patient's condition and response to treatment, ordering and reviewing test results, and discussing the case with various consultants. Excludes time spent performing separately billable procedures. The critical care time associated with the care of the patient was 90 minutes. Signature Scribe Signature: [email or web address] Attestation: ERWIN Wilkins MD Mar 16, 2025 03:56 NIKOLAS BERNSTEIN MD Mar 16, 2025 08:58
[2025-03-16] MEDS ORDERED: metoclopramide 5 mg/ml inj IV ONE (04:00)
[2025-03-16] MEDS ORDERED: normal saline 1000ML IV soln IVB ONE (04:00)
[2025-03-16] MEDS ORDERED: MIDAZolam 5mg/ml 2ml vial IV ONE ×2 (04:10)
[2025-03-16] MEDS: normal saline 1000ML IV soln IVB ONE (04:24)
[2025-03-16] MEDS: magnesium sulf-water 2g/50mL 50 ML IV ONE ×2 (04:24→20:05)
[2025-03-16 05:30] LABS: MEAN PLATELET VOLUME 7.2 FL (7.4-10.4); RED CELL DISTRIBUTION WIDTH 16.2 % (11.5-14.5)
[2025-03-16 05:35] LABS: ISTAT ANION GAP 27 (8-12); ISTAT BUN 13 mg/dL (7-18); ISTAT CL 74 mmol/L (99-107); ISTAT CREATININE 1.0 mg/dL (0.6-1.1); ISTAT GLUCOSE 160 mg/dL (70-104); ISTAT HGB 11.2 g/dl (12.0-16.0); ISTAT Hct 33 %PCV (35-45); ISTAT IONIZED CALCIUM 0.79 mmol/L (1.03-1.32); ISTAT eGFR 57 ML/MIN; POC BUN/CREATININE RATIO 13.0 (6.6-38.0)
[2025-03-16 05:45] LABS: CREATININE 1.00 MG/DL (0.40-0.90); TOTAL CARBON DIOXIDE 16.1 MMOL/L (24-32); eCRCL 54 ML/MIN; eGFR 57 ML/MIN
[2025-03-16] MEDS: potassium Cl 20mEq/100mL bag 100 ML IV STA (05:52)
--- NOTE | 2025-03-16 06:02 | RADIOLOGY REPORT ---
CHEST RADIOGRAPH Indication: central line placement Technique: Single frontal view of the chest was obtained COMPARISON: DI CHEST,SINGLE VIEW on DOS: 12/15/24, CT CT CHEST ABDOMEN PELVIS on DOS: 11/10/24, DI CHEST,SINGLE VIEW on DOS: 08/03/24, CT CT CHEST ABDOMEN PELVIS on DOS: 04/14/24, CT CT CHEST ABDOMEN PELVIS IV CON on DOS: 01/22/24 FINDINGS: Lines and Tubes: Right central venous catheter in satisfactory position overlying the superior vena cava. Lungs: Increased interstitial prominence. This may represent pulmonary vascular congestion and/or viral pneumonia. Pleura: No effusion.No pneumothorax. Cardiomediastinal contours: Cardiomegaly. Bones: Unremarkable IMPRESSION: Right central venous catheter in satisfactory position.
[2025-03-16 06:15] LABS: ISTAT K < 2.0 mmol/L (3.5-5.1); ISTAT NA 115 mmol/L (135-145); ISTAT TOTAL CO2 14 mmol/L (24-32)
[2025-03-16 06:19] LABS: ISTAT K CONFIRMATION 1.7 mmol/L; ISTAT NA CONFIRMATION 115 mmol/L
[2025-03-16 06:20] LABS: ISTAT TCO2 CONFIRMATION 15.7 mmol/l
[2025-03-16] MEDS: diazepam inj 5 MG/ML inj. IV ONE (06:39)
[2025-03-16] MEDS: dexamethasone 4mg/ml inj IV ONE (06:42)
[2025-03-16] MEDS: potassium Cl 20mEq/100mL bag 100 ML IV ONE (06:49)
[2025-03-16] MEDS: thiamine 100mg/ml 2ml inj. IV ONE (06:49)
[2025-03-16] MEDS: WATER FOR INJECTION IV SCH (07:44)
[2025-03-16] MEDS: SODIUM CHLORIDE IV SCH (07:44)
[2025-03-16] MEDS: STERILE IV SCH (07:44)
[2025-03-16] MEDS ORDERED: epiNEPHrine 0.1mg/ml 10ml syringe ONE (08:00)
[2025-03-16] MEDS ORDERED: sod chloride 0.9% 10ml flush syringe IV ONE (08:00)
[2025-03-16] MEDS: scopolamine 1MG/72H patch 1 PATCH PATCH.TD.3 TD ONE (08:09)
[2025-03-16 08:14] LABS: ETHANOL 62 MG/DL (<10)
--- NOTE | 2025-03-16 08:19 | ELECTROCARDIOGRAPH REPORT ---
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 ANNA Farias Measurements Intervals [place] Rate: 113 P: -78 SC: 62 QRS: -65 QRSD: 132 T: 88 QT: 498 QTc: 683 Interpretive Statements Sinus or ectopic atrial tachycardia Left bundle branch block Electronically Signed On 03-18-2025 19:23:[address] ANNA Farias Please click the below link to view image of tracing.
[2025-03-16] MEDS: ketorolac trometh 15mg/ml vial 15 MG/ML ML IV ONE (08:36)
[2025-03-16] MEDS: morphine 4 MG/ML inj SYRINge IV ONE (08:37)
[2025-03-16] MEDS ORDERED: ipratropium/albuterol 3ml nebule NEB PRN (08:55)
[2025-03-16] MEDS ORDERED: magnesium hydroxide 30ml (MOM) UD suspension PO PRN (08:55)
[2025-03-16] MEDS ORDERED: ondansetron/PF 4mg/2ml inj IV PRN (08:55)
[2025-03-16] MEDS ORDERED: morphine 4 MG/ML inj SYRINge IV PRN (08:55)
--- NOTE | 2025-03-16 09:10 | ELECTROCARDIOGRAPH REPORT ---
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 ANNA Farias Measurements Intervals [place] Rate: 112 P: -78 [place]: 133 QRS: -18 QRSD: 129 T: 98 QT: 423 QTc: 578 Interpretive Statements Sinus or ectopic atrial tachycardia Left bundle branch block Baseline wander in lead(s) II,III,aVF Electronically Signed On 03-18-2025 19:23:[address] ANNA Farias Please click the below link to view image of tracing.
[2025-03-16] MEDS: diazepam inj 5 MG/ML inj. IV PRN (09:21)
[2025-03-16 09:30] LABS: APTT 30 SECONDS (22-32); INR 1.3 INR
[2025-03-16 10:04] LABS: MEAN PLATELET VOLUME 7.1 FL (7.4-10.4); RED CELL DISTRIBUTION WIDTH 15.9 % (11.5-14.5)
[2025-03-16 10:13] LABS: CREATININE 0.76 MG/DL (0.40-0.90); TOTAL CARBON DIOXIDE 24.3 MMOL/L (24-32); eCRCL 71 ML/MIN; eGFR 78 ML/MIN
[2025-03-16 10:52] LABS: LEUKOCYTE ESTERASE ,URINE NEGATIVE (Neg); NITRITES, URINE NEGATIVE (Neg); OCCULT BLOOD,URINE TRACE-INTACT (Neg)
[2025-03-16 10:54] LABS: UA COLLECTION TYPE FOLEY CATH
[2025-03-16] MEDS: normal saline 1000ml 1,000 ML IV SCH (10:54)
[2025-03-16] MEDS: amiodarone 150mg/dext, iso-os 100 ML IV ONE (10:54)
[2025-03-16] MEDS: amiodarone inj. 450 MG in dextrose 5%-water 241 ML IV SCH (10:55)
[2025-03-16 11:00] LABS: SQUAMOUS EPITHELIAL CELL,UR FEW /LPF (FEW)
[2025-03-16] MEDS ORDERED: potassium CL 10mEq/100ml bag 100 ML IV PRN (11:10)
[2025-03-16] MEDS ORDERED: potassium Cl 20mEq/100mL bag 100 ML IV PRN (11:10)
[2025-03-16] MEDS: potassium Cl 40MEQ/270ML bag 250 ML IV PRN (11:23)
[2025-03-16] MEDS: POTASSIUM CHLORIDE 20 MEQ/15 ML oral solution PO SCH (11:51)
[2025-03-16] MEDS: thiamine 100mg/ml 2ml inj. IV SCH (11:52)
[2025-03-16 12:12] LABS: PRO BRAIN NATRIURETIC PEPTIDE 420 PG/ML (0-125)
[2025-03-16] MEDS ORDERED: POTASSIUM CHLORIDE 20 MEQ/15 ML oral solution PO SCH (14:00)
--- NOTE | 2025-03-16 14:26 | ELECTROCARDIOGRAPH REPORT ---
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 ANNA Farias Measurements Intervals [place] Rate: 90 P: -7 [place]: 165 QRS: -19 QRSD: 107 T: 108 QT: 419 QTc: 513 Interpretive Statements Sinus rhythm Incomplete left bundle branch block Prolonged QT interval Electronically Signed On 03-16-2025 16:43:[address] ANNA Farias Please click the below link to view image of tracing.
[2025-03-16] MEDS: HYDROcodone/acetaminophen 5mg/325mg tablet PO PRN (14:32)
[2025-03-16] MEDS: calcium chloride 100 MG/1 ML inj IV ONE (14:33)
[2025-03-16 14:36] LABS: CREATININE 0.79 MG/DL (0.40-0.90); TOTAL CARBON DIOXIDE 26.3 MMOL/L (24-32); eCRCL 68 ML/MIN; eGFR 74 ML/MIN
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
[2025-03-16] MEDS: calcium chloride 1,000 MG in NS 100ml IV soln (110ml) IV ONE (15:14)
[2025-03-16] MEDS: morphine 4 MG/ML inj SYRINge IV PRN (17:16)
--- NOTE | 2025-03-16 17:46 | CARDIOLOGY REPORT ---
APPROVED REPORT EXAM: Comprehensive 2D, Doppler, and color-flow Echocardiogram. Patient Location: [address] Heart Rate: 80's bpm Rhythm: SINUS Indications ABNORMAL EKG ETOH Bus And Trolley Dispatcher: NONE Previous echo: NONE 2D Dimensions RVDd 3.6 cm LVOT Diameter 1.98 (1.8-2.4cm) M-Mode Dimensions Left Atrium(MM) 3.73 (2.5-4.0cm) Aortic Root 2.82 (2.2-3.7cm) Aortic Cusp Exc 2.01 (1.5-2.0cm) Aortic Valve AoV Peak Adams. 120.2 cm/s AoV VTI 17.0 cm AO Peak GR. 5.8 mmHg AO Mean GR. 3 mmHg LVOT VTI 12.92 cm LVOT Peak Adams. 89.8 cm/s YELITZA(VTI)/BSA 2.34 cm2/m2 YELITZA (VTI) 2.34 cm2 AV DI 0.76 % Mitral Valve MV E Velocity 50.9 cm/s MV Peak Gr. 1 mmHg MV DECEL TIME 128 ms MV A Velocity 43.8 cm/s MV PHT 56 ms E/A Ratio 1.2 MVA (PHT) 3.93 cm2 MV VMax 57.3 cm/s Tricuspid Valve TR P. Velocity 355 cm/s RAP ESTIMATE 10 mmHg TR Peak Gr. 51 mmHg RVSP 61 mmHg LEFT VENTRICLE Normal size and thickness with abnormal systolic fiunction. Contractility is best at the base decreasing toward the apex. EF: 60 % at base, EF: 0% at apex. LVEF is 35%. RIGHT VENTRICLE RV is mildly dilated with normal function. Elevated right heart pressures with an RVSP of 61 mmHg. ATRIA The left atrium size is normal. AORTIC VALVE Trileaflet AV appears normal without stenosis. No insufficiency. MITRAL VALVE Mild MV annular calcification without stenosis. Trace regurgitation. TRICUSPID VALVE TV appears structurally normal with mild regurgitation. PULMONIC VALVE Normal PV without stenosis, physiologic insufficiency. GREAT VESSELS The aortic root is normal in size. PERICARDIUM Normal pericardium. No effusion. Other Information Study Quality: Adequate Conclusion Normal size and thickness with abnormal systolic fiunction. Contractility is best at the base decreasing toward the apex. EF: 60% at base, EF: 0% at apex. Overall EF of 35% RV is mildly dilated with normal function. Elevated right heart pressures with an RVSP of 61 mmHg. The left atrium size is normal. Trileaflet AV appears normal without stenosis. No insufficiency. Mild MV annular calcification without stenosis. Trace regurgitation. TV appears structurally normal with mild regurgitation. Normal pericardium. No effusion.
--- NOTE | 2025-03-16 18:19 | CONSULTATION REPORT - RESIDENT ---
Consult Providers to Resident Creating Document: MIKAELA ANDERSON RES History of Present Illness Allergies: Coded Allergies: shellfish derived (Verified Allergy, Unknown, 03/16/25) Home Medications Home Medications Active Librium (Chlordiazepoxide Hcl) 25 Mg Capsule 25 Mg PO DIRECTED 5 Days Take 2 tablets by mouth every 6 hours x 1 day, then take 2 tablets every 8 hours x 1 day, then take 2 tablets every 12 hours x 1 day, then take 2 tablets at bedtime x 2 days. [thiamine tablet] 100 MG Tablet 100 Mg PO DAILY 90 Days Folic Acid* (Folic Acid) Y Tab 1 Mg PO DAILY 30 Days Pantoprazole Sodium 40 Mg Tablet.dr 40 Mg PO BID 30 Days Quetiapine Fumarate 100 Mg Tablet 200 Mg PO HS 30 Days Fluoxetine HCl 20 Mg Capsule 40 Mg PO DAILY 30 Days Ferrous Sulfate 325 Mg (65 Mg Iron) Tablet 325 Mg PO DAILY 30 Days Reported Lasix (Furosemide) 40 Mg Tablet 40 Mg PO DAILY Family History Family History: FH: breast cancer FATHER MOTHER FH: kidney cancer FATHER, Onset:Unknown FH: pancreatic cancer FATHER MOTHER, Onset:Unknown FH: schizophrenia FATHER Exam Vitals: Vital Signs Date Time Temp Pulse Resp B/P (MAP) Pulse Ox O2 Delivery O2 Flow Rate FiO2 03/16/25 17:16 14 03/16/25 15:00 97.6 92 111/59 (76) 93 Room Air 03/16/25 11:10 0 21 Diagnostic Data Last Recorded Lab Results: 03/16/25 0946 03/16/25 1350 Diagnostic Data: Laboratory Tests Test 03/16/25 05:15 Prothrombin Time 13.0 SECONDS (9.0-12.0) H INR International Normalized Ratio 1.3 INR Activated Partial Thromboplast Time 30 SECONDS (22-32) Coagulation Comments MIKAELA ANDERSON, RK Mar 16, 2025 18:19
--- NOTE | 2025-03-16 18:23 | CONSULTATION REPORT - RESIDENT ---
Consult Providers to CC Resident Creating Document: LOLYKATEBETSYCARMEN RES CC: MAKENZIE SHELBY MD History of Present Illness Reason for Admit\Complaint: Alcohol abuse/withdrawal History of Present Illness This is a 59-year-old female patient with a past medical history of alcohol use disorder, decompensated liver cirrhosis, and recent diagnosis of left breast cancer presented to the hospital with complaints of concerns of alcohol withdrawal. The patient had been trying to cut down her alcohol intake, continues to drink about one pint of schnapps every night. She started developing tremulousness and associated abdominal pain with nausea and vomiting, with concerns of possible alcohol withdrawal she presented to the ER. Soon after, the patient went into ventricular tachycardia and ventricular fibrillation requiring to be defibrillated in the ER in the morning at around 4:45 a.m.. The patient remained stable in the ER after defibrillation. Allergies: Coded Allergies: shellfish derived (Verified Allergy, Unknown, 03/16/25) Home Medications Home Medications Active Librium (Chlordiazepoxide Hcl) 25 Mg Capsule 25 Mg PO DIRECTED 5 Days Take 2 tablets by mouth every 6 hours x 1 day, then take 2 tablets every 8 hours x 1 day, then take 2 tablets every 12 hours x 1 day, then take 2 tablets at bedtime x 2 days. [thiamine tablet] 100 MG Tablet 100 Mg PO DAILY 90 Days Folic Acid* (Folic Acid) Y Tab 1 Mg PO DAILY 30 Days Pantoprazole Sodium 40 Mg Tablet.dr 40 Mg PO BID 30 Days Quetiapine Fumarate 100 Mg Tablet 200 Mg PO HS 30 Days Fluoxetine HCl 20 Mg Capsule 40 Mg PO DAILY 30 Days Ferrous Sulfate 325 Mg (65 Mg Iron) Tablet 325 Mg PO DAILY 30 Days Reported Lasix (Furosemide) 40 Mg Tablet 40 Mg PO DAILY Past Medical History Past Medical History Left breast cancer; active. Reportedly no metastatic findings on recent MRI Decompensated liver cirrhosis Depression Alcohol use disorder Past Surgical History Surgical History Comment Cholecystectomy Orthopedic surgeries Family History Family History: FH: breast cancer FATHER MOTHER FH: kidney cancer FATHER, Onset:Unknown FH: pancreatic cancer FATHER MOTHER, Onset:Unknown FH: schizophrenia FATHER Past Social History Social History Comment Alcohol abuse disorder. No smoking or any other illicit drug abuse Lives at home with the son Ambulates independently ROS ROS As stated above in the HPI, otherwise all systems are reviewed and negative. Exam Vitals: Vital Signs Date Time Temp Pulse Resp B/P (MAP) Pulse Ox O2 Delivery O2 Flow Rate FiO2 03/16/25 17:16 14 03/16/25 15:00 97.6 92 111/59 (76) 93 Room Air 03/16/25 11:10 0 21 General: General: Awake and Alert, no acute distress. HEENT: Conjunctiva pink, Sclera clear, Mucus Membranes moist. Resp: Unlabored. Lungs clear to auscultation bilaterally. Heart: Regular Rate and rhythm, normal S1 and S2 without murmur, rub or gallop. Abdomen: Soft and non tender no organomegaly Extremities: No cyanosis,clubbing or edema. Skin: Warm and Dry. Diagnostic Data Last Recorded Lab Results: 03/16/25 0946 03/16/25 1350 Diagnostic Data: Laboratory Tests Test 03/16/25 05:15 Prothrombin Time 13.0 SECONDS (9.0-12.0) H INR International Normalized Ratio 1.3 INR Activated Partial Thromboplast Time 30 SECONDS (22-32) Coagulation Comments Additional Plan Polymorphic V-tach and VFib Likely secondary to metabolic derangements-severe hypokalemia and hyponatremia Type 2 IL secondary to above Status post defibrillation x1; converted to sinus rhythm Started IV amiodarone drip loading dose followed by maintenance. Switch to p.o. after completing loading dose Cardiology Dr. Farias consulted Correct electrolyte imbalances; potassium replacement with 40 mEq q.6 hours today followed by potassium and Mag replacement per protocol tomorrow Serial EKGs and troponins to be followed Follow BMP q.6 hours Close telemetry monitoring Takatsubo cardiomyopathy: No apical motion detected on the echo Cardiology on board GDMT followed by outpatient repeat echo in 3-6 months Alcohol abuse disorder: Alcoholic liver cirrhosis Hyponatremia secondary to above Meld score of 24 Outpatient evaluation with liver ultrasound, serum AFP and GI consult Protonix daily for GI prophylaxis. No ascites noted. Recommend fluid restriction Continue alcohol withdrawal protocol. Librium scheduled doses Thiamine and folic acid replacements Seizure precautions, PT eval and treat for discharge planning services engineer and substance use navigator consulted Left breast cancer: Active Continue outpatient follow up with Dr. Galeana Code status: Full code DVT prophylaxis: Heparin GI prophylaxis: Protonix daily Carmen Marques PGY3, Internal medicine resident Patient examined and plan of care discussed with Dr. Geoffrey MD Date of Service: Mar 16, 2025 Billing Provider: MAKENZIE SHELBY MD, DEEPANJALI, RES Mar 16, 2025 18:23
--- NOTE | 2025-03-16 19:03 | HISTORY AND PHYSICAL-Residence ---
History & Physical Providers to CC Resident Creating Document: TALIAROXANNSamiMIKAELA, RES ~ History of Present Illness Primary Medical Doctor: Dr. Camara. [facility] Reason for Admit\Complaint: ALCOHOL WITHDRAWAL History of Present Illness 59 years old female with past medical history of alcohol use disorder, left breast cancer, depression, suicidal ideations in the past presented to the ED with concerns of alcohol withdrawal. The patient reports that she is a heavy alcohol user and has been trying to cut down on her alcohol consumption since the last few weeks. She is now down to 500 cc of hard alcohol every day . the patient states that she had her last drink around 11:00 a.m. the previous day and soon after she stopped drinking she developed shakes and then she developed nausea and vomiting and abdominal pain. Patient denies any fevers or chills. Patient states she has been throwing up repeatedly and has diffuse abdominal pain. Patient reports that she experienced similar symptoms in the past. And also states she has a history of alcoholic cirrhosis. Course in the ED: While placing the IV line, patient became unconscious and was found to be in ventricular fibrillation, she was immediately shocked and regained back consciousness immediately. Was converted back to sinus rhythm. EKG after she was coded was found to be in sinus tachycardia. Allergies: Coded Allergies: shellfish derived (Verified Allergy, Unknown, 03/16/25) Home Medications Home Medications Active Librium (Chlordiazepoxide Hcl) 25 Mg Capsule 25 Mg PO DIRECTED 5 Days Take 2 tablets by mouth every 6 hours x 1 day, then take 2 tablets every 8 hours x 1 day, then take 2 tablets every 12 hours x 1 day, then take 2 tablets at bedtime x 2 days. [thiamine tablet] 100 MG Tablet 100 Mg PO DAILY 90 Days Folic Acid* (Folic Acid) Y Tab 1 Mg PO DAILY 30 Days Pantoprazole Sodium 40 Mg Tablet.dr 40 Mg PO BID 30 Days Quetiapine Fumarate 100 Mg Tablet 200 Mg PO HS 30 Days Fluoxetine HCl 20 Mg Capsule 40 Mg PO DAILY 30 Days Ferrous Sulfate 325 Mg (65 Mg Iron) Tablet 325 Mg PO DAILY 30 Days Reported Lasix (Furosemide) 40 Mg Tablet 40 Mg PO DAILY Past Medical History Past Medical History Decompensated liver cirrhosis Left breast cancer Depression with suicide ideation Alcohol use disorder Past Surgical History Surgical History Comment Cholecystectomy Orthopedic surgeries Family History Family History: FH: breast cancer FATHER MOTHER FH: kidney cancer FATHER, Onset:Unknown FH: pancreatic cancer FATHER MOTHER, Onset:Unknown FH: schizophrenia FATHER Past Social History Social History Comment Heavy alcohol use disorder Denies smoking Denies recreational drug use Lives at home with her son Smoking: Quit greater than 1 year Alcohol Use: Abuse Drug Use: None Lives with: Other Lives In: Home Occupation: unemployed ROS All Other Systems: Reviewed and Negative Exam Vitals: Vital Signs Date Time Temp Pulse Resp B/P (MAP) Pulse Ox O2 Delivery O2 Flow Rate FiO2 03/16/25 17:16 14 03/16/25 15:00 97.6 92 111/59 (76) 93 Room Air 03/16/25 11:10 0 21 General: General: Awake and Alert, in moderate distress. HEENT: Conjunctiva pink, Sclera clear, Mucus Membranes moist. Neck: Supple without masses and tenderness. Resp: Unlabored. Mild crackles heard in bilateral bases. Heart: Regular Rate and rhythm, normal S1 and S2 without murmur, rub or gallop. Abdomen: Soft, diffuse tenderness. No guarding or rigidity. No rebound tenderness. Extremities: No cyanosis,clubbing or edema. Skin: Warm and Dry. Neurology: Cranial nerves 2-12 intact. No focal motor or sensory deficits. Psychiatric: Normal mood and affect. Diagnostic Data Last Recorded Lab Results: 03/16/25 0946 03/16/25 1350 Diagnostic Data: Laboratory Tests Test 03/16/25 05:15 Prothrombin Time 13.0 SECONDS (9.0-12.0) H INR International Normalized Ratio 1.3 INR Activated Partial Thromboplast Time 30 SECONDS (22-32) Coagulation Comments Advance Care Planning Advanced Care plannin - 30 Minutes (Full code) Additional Plan Alcohol use disorder Severe alcohol withdrawal anion gap metabolic acidosis Initial anion gap of 27, bicarb 16.1 Ethyl alcohol level is elevated- 62 Increased lactic acid of 5.9 down trending, 2.1 Patient on ETOH protocol-on benzodiazepine, thiamine, folic acid. volunteer services manager and substance use navigator consulted Severe acute electrolyte derangement Hypokalemia, hyponatremia, hypocalcemia Likely due to vomiting Labs show initial potassium of 1.7, improving to 3.3 Na- initially on presentation was 117, improving, currently 120 Ca- 6.4 Phosphorus, magnesium levels ordered. We will follow-up Patient on potassium and calcium replacement protocol Patient receiving fluids NS 75 cc/hour VFib Likely due to underlying electrolyte imbalance Hypokalemia hyponatremia hypocalcemia Recent episodes of severe nausea and vomiting caused significant metabolic derangements leading to ventricular fibrillation. Patient converted back to sinus rhythm after defibrillation. Patient currently on IV amiodarone drip Patient on electrolyte replacement with potassium, magnesium, calcium. We will continue to monitor her electrolytes closely Current EKG shows sinus rhythm, prolonged QT interval. Patient on telemetry monitoring Cardiology has been consulted and recommend weaning the patient off IV amiodarone once electrolytes are stable and starting on beta blockers. Type 2 DE Due to metabolic derangement Due to demand ischemia Initial troponin was 24, trended up to 671, 1655 Currently patient denies any complaints of chest pain, palpitations. Echocardiogram shows Takatsubo cardiomyopathy: No apical motion detected on the echo Cardiology on board CODE STATUS: Full code DVT prophylaxis: Heparin subQ GI prophylaxis: None Disposition: Currently patient on ETOH protocol, electrolyte replacement, youth nutritional monitor. Once the patient's electrolytes improve we will wean the patient off IV amiodarone drip and monitor. Patient was seen, examined and discussed with the attending MD Dr. Rojas Anderson PGY-1 Date of Service: Mar 16, 2025 Billing Provider: MIKAELA ANDERSON RES Common Visit Codes: 65196-MWMJSES INP/OBS CARE (HIGH) Secondary Visit Codes: 63472-[id number] CARE PLAN 30 MINUTES MIKAELA ANDERSON RES Mar 16, 2025 19:03 VIBHA SANCHEZ MD Mar 17, 2025 06:15
[2025-03-16] MEDS ORDERED: normal saline 500ml IV soln 500 ML IV ONE (19:30)
[2025-03-16] MEDS: heparin, porcine 5000 units/ml vial SQ SCH (20:00)
[2025-03-16] MEDS: potassium Cl 20 mEq SR tablet PO PRN (20:28)
[2025-03-17] VITALS (16 sets, daily range): BP systolic 92–119; BP diastolic 52–74; PULSE 66–100; RESP 11–26; TEMP 96.3–98.3; O2SAT 95–99
[2025-03-17 06:27] LABS: CREATININE 0.64 MG/DL (0.40-0.90); PHOSPHORUS 1.8 MG/DL (2.3-4.5); TOTAL CARBON DIOXIDE 26.4 MMOL/L (24-32); eCRCL 84 ML/MIN; eGFR > 90 ML/MIN
[2025-03-17 06:56] LABS: MEAN PLATELET VOLUME 7.3 FL (7.4-10.4); RED CELL DISTRIBUTION WIDTH 16.4 % (11.5-14.5)
[2025-03-17] MEDS: folic acid 1mg/0.2ml inj IV SCH (08:23)
[2025-03-17] MEDS: pantoprazole 40mg Tablet.DR PO SCH (08:27)
[2025-03-17] MEDS: EMPAGLIFLOZIN 10 MG TABLET PO SCH (13:19)
--- NOTE | 2025-03-17 14:53 | CONSULTATION REPORT - RESIDENT ---
Consult Providers to CC Resident Creating Document: ALBIN COATS CC: YAHIR CARSON MD History of Present Illness Reason for Admit\Complaint: ALOC History of Present Illness Patient is a 59-year-old female with history of Left breast cancer; active, reportedly no metastatic findings on recent MRI, liver cirrhosis 2/2 alcohol use disorder, and depression, who was brought to the ER due to altered level of consciousness and tremors after attempting to quit alcohol. Patient has been admitted since03/16/2025 and has been treated for decompensated liver cirrhosis and alcohol withdrawal. Patient did develop cardiac arrest in the ED and was resuscitated successfully. Yesterday morning, patient started experiencing dark stools, described as dark brown per nurse, with another episode this morning described as dark green mixed with black. She initially denied hematemesis or hematochezia, however, patient posteriorly reported having thrown up blood. He believes she has had similar episodes in the past, but she does not recall exactly when. She reports possibly having an EGD 4 years ago, which she was told was normal. She also has history of GERD and takes Protonix. She is not on blood thinners, but takes occasional ibuprofen. Patient does seem forgetful and does not provide a consistent history. Gastroenterology has been consulted for further evaluation and management. Allergies: Coded Allergies: shellfish derived (Verified Allergy, Unknown, 03/16/25) Home Medications Home Medications Active Librium (Chlordiazepoxide Hcl) 25 Mg Capsule 25 Mg PO DIRECTED 5 Days Take 2 tablets by mouth every 6 hours x 1 day, then take 2 tablets every 8 hours x 1 day, then take 2 tablets every 12 hours x 1 day, then take 2 tablets at bedtime x 2 days. [thiamine tablet] 100 MG Tablet 100 Mg PO DAILY 90 Days Folic Acid* (Folic Acid) Y Tab 1 Mg PO DAILY 30 Days Pantoprazole Sodium 40 Mg Tablet.dr 40 Mg PO BID 30 Days Quetiapine Fumarate 100 Mg Tablet 200 Mg PO HS 30 Days Fluoxetine HCl 20 Mg Capsule 40 Mg PO DAILY 30 Days Ferrous Sulfate 325 Mg (65 Mg Iron) Tablet 325 Mg PO DAILY 30 Days Reported Lasix (Furosemide) 40 Mg Tablet 40 Mg PO DAILY Past Medical History Past Medical History Left breast cancer; active, reportedly no metastatic findings on recent MRI, liver cirrhosis 2/2 alcohol use disorder, and depression Past Surgical History Surgical History Comment Ankle surgery x3 Cholecystectomy Hiatal hernia Gastric sleeve Family History Family History: FH: breast cancer FATHER MOTHER FH: kidney cancer FATHER, Onset:Unknown FH: pancreatic cancer FATHER MOTHER, Onset:Unknown FH: schizophrenia FATHER Past Social History Social History Comment Drinks about a pt of hard liquor daily Denies smoking or recreational drugs Lives with son MAYNOR MCGUIRE All systems were reviewed and found negative except for pertinent positives mentioned in HPI Exam Vitals: Vital Signs Date Time Temp Pulse Resp B/P (MAP) Pulse Ox O2 Delivery O2 Flow Rate FiO2 03/17/25 13:26 15 03/17/25 11:10 97.5 84 103/68 (80) 98 Room Air 03/17/25 08:23 0 21 General: General: awake, alert oriented to place, time, and person, does seem forgetful and not coherent at times HEENT: Central line present in right IJ. Mild pallor present, no icterus, moist mucous membranes Neck: No masses and tenderness Resp: Unlabored. Lungs clear to auscultation bilaterally. Chest: Normal expansion Cardiovascular: Regular Rate and rhythm, normal S1 and S2 without murmur, rub or gallop Abdomen: Soft and mildly tender in upper quadrants, no organomegaly, no guarding and rigidity, bowel sounds present Neuro: No focal weakness in the upper and lower limb muscles, power of the muscles 5/5 bilateral upper and lower extremities, normal reflexes bilaterally. Cranial nerves intact Extremities: No cyanosis,clubbing or edema Skin: Warm and Dry. No lesions Diagnostic Data Last Recorded Lab Results: 03/17/25 0455 03/17/25 0455 Diagnostic Data: Laboratory Tests Test 03/16/25 05:15 Prothrombin Time 13.0 SECONDS (9.0-12.0) H INR International Normalized Ratio 1.3 INR Activated Partial Thromboplast Time 30 SECONDS (22-32) Coagulation Comments Additional Plan Gastroenterology consultation note: Assessment: Patient is a 59-year-old female with decompensated liver cirrhosis due to longstanding history of alcohol abuse who underwent cardiac arrest in ED. Patient has a known history of liver cirrhosis, and has had episodes of ascites in the past, most recently June of this year. Laboratory tests show increased AST and bilirubin, normocytic anemia and thrombocytopenia. Albumin is also decreased, INR is relatively normal. She has a MELD score of 12 and child Huang class B. she is currently hemodynamically stable, has not had further arrhythmias and does not have signs of active bleeding. Plan is to perform EGD tomorrow for suspected esophageal varices. Other possible causes include peptic ulcer disease, av malformations and malignancy. Risks and benefits of the procedure were discussed with the patient, including perforation, bleeding and the need for intervention if these were to occur. She understands and wishes to proceed. Recommendations: - Start clear liquid diet - NPO after midnight - Continue monitoring H&H - EGD in a.m. Other comorbidities managed per hospitalist team Patient has been discussed in detail with attending physician, Dr. Mao. Albin Haro MD Internal Medicine Resident PGY-2 Date of Service: Mar 17, 2025 Billing Provider: YAHIR CARSON MD, LEONARDO LUIS Mar 17, 2025 14:53
[2025-03-17] MEDS ORDERED: aminophylline 250mg/10ml inj. IV PRN (18:10)
[2025-03-17] MEDS ORDERED: metoprolol tartrate 1mg/ml inj IV PRN (18:10)
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
--- NOTE | 2025-03-17 19:07 | PROGRESS NOTE- Residence ---
Progress Note - Resident Providers to CC Resident Creating Document: MIKAELA ROSAS RES ~ Antibiotic Timeout Antibiotic Ordered?: No Subjective Patient seen and examined at the bedside today. She stated that she is feeling better and denied any further episodes of chest pain, palpitations, shortness of breath. The patient was noted to be in sinus rhythm on telemetry monitoring and there were no further episodes of V-tach or VFib. Objective Vital Signs Date Time Temp Pulse Resp B/P (MAP) Pulse Ox O2 Delivery O2 Flow Rate FiO2 03/17/25 16:26 98.0 81 15 99/62 (74) 98 Room Air 03/17/25 08:23 0 21 Result Diagram: 03/17/25 0455 03/17/25 0455 General: Awake and Alert HEENT: Conjunctiva pink, Sclera clear, Mucus Membranes moist. Neck: Supple without masses and tenderness. Resp: Unlabored. No adventitious breath sounds heard. Heart: Regular Rate and rhythm, normal S1 and S2 without murmur, rub or gallop. Abdomen: Soft, diffuse tenderness. No guarding or rigidity. No rebound tenderness. Extremities: No cyanosis,clubbing or edema. Skin: Warm and Dry. Neurology: Cranial nerves 2-12 intact. No focal motor or sensory deficits. Psychiatric: Normal mood and affect. Coagulation Studies Laboratory Tests Test 03/16/25 05:15 Prothrombin Time 13.0 SECONDS (9.0-12.0) H INR International Normalized Ratio 1.3 INR Activated Partial Thromboplast Time 30 SECONDS (22-32) Coagulation Comments Assessment Assessment 59 years old female with past medical history of decompensated liver cirrhosis, left breast cancer, depression suicidal ideation, alcohol use disorder is admitted in the hospital for evaluation and management of alcohol use disorder, severe alcohol withdrawal, VFib arrest, congestive heart failure and takotsubo cardiomyopathy. Plan Plan Severe acute electrolyte derangement Hypokalemia, hyponatremia, hypocalcemia Likely due to vomiting, starvation Labs show initial potassium of 1.7, currently back to normal- 3.8 Na- initially on presentation was 117, improving, currently 125 Ca- 7.6, corrected calcium-8.72 Phosphorus low 1.8, Mg-normal 2.2 Patient on potassium and calcium replacement protocol Patient receiving fluids NS 75 cc/hour Alcohol use disorder Severe alcohol withdrawal anion gap metabolic acidosis resolved Anion gap back to normal, bicarb normal Ethyl alcohol level is elevated- 62 Lactic acid back to normal Patient on ETOH protocol-on benzodiazepine, thiamine, folic acid. child and family services worker and substance use navigator consulted Black tarry stools Likely due to upper GI bleed Patient reported 1 episode of black stool this morning Patient on Protonix 40 mg. GI consulted, will likely undergo EGD. VFib Likely due to underlying electrolyte imbalance Hypokalemia hyponatremia hypocalcemia Recent episodes of severe nausea and vomiting caused significant metabolic derangements leading to ventricular fibrillation. Patient converted back to sinus rhythm after defibrillation. Patient currently on IV amiodarone drip Patient on electrolyte replacement with potassium, magnesium, calcium. We will continue to monitor her electrolytes closely Patient's telemetry monitoring showed sinus rhythm. Patient on pvc monitor Cardiology recommended Lexiscan tomorrow in the a.m. Type 2 W[place] Due to metabolic derangement Due to demand ischemia Initial troponin was 24, trended up to 671, 1655 Current troponin trending down Currently patient denies any complaints of chest pain, palpitations. Takatsubo cardiomyopathy: No apical motion detected on the echo Cardiology on board CODE STATUS: Full code DVT prophylaxis: Heparin subQ GI prophylaxis: None Disposition: Currently patient on ETOH protocol, electrolyte replacement, pvc monitor. Patient to undergo Lexiscan in the a.m. GI consulted in view of possible upper GI bleed. Patient was seen, examined and discussed with the attending MD Dr. Rojas Rosas PGY-1 Date of Service: Mar 17, 2025 Billing Provider: VIBHA SANCHEZ MD Common Visit Codes: 31385-THSNIFOMIX INP/OBS CARE(HIGH) MIKAELA ROSAS, RES Mar 17, 2025 19:07 VIBHA SANCHEZ MD Mar 18, 2025 06:26
[2025-03-17] MEDS: HYDROcodone/acetaminophen 10/325mg tab PO PRN (19:14)
[2025-03-17] MEDS: metoprolol tartrate 12.5mg (1/2 tablet) PO SCH (19:14)
[2025-03-17] MEDS: haloperidol lactate 5mg/ml inj IM PRN (21:44)
[2025-03-18] VITALS (12 sets, daily range): BP systolic 80–111; BP diastolic 46–69; PULSE 61–116; RESP 11–18; TEMP 96.3–97.6; O2SAT 91–100
[2025-03-18 05:09] LABS: MEAN PLATELET VOLUME 7.0 FL (7.4-10.4); RED CELL DISTRIBUTION WIDTH 16.2 % (11.5-14.5)
[2025-03-18 05:25] LABS: CREATININE 0.49 MG/DL (0.40-0.90); PHOSPHORUS 1.9 MG/DL (2.3-4.5); TOTAL CARBON DIOXIDE 26.6 MMOL/L (24-32); eCRCL 110 ML/MIN; eGFR > 90 ML/MIN
[2025-03-18] MEDS ORDERED: LIDOcaine 2% Viscous 15ml cup ONE (08:22)
[2025-03-18 08:54] LABS: PLATELET ESTIMATE DECREASED
[2025-03-18] MEDS: regadenoson 0.4mg/5ml syringe IV PRN (12:15)
[2025-03-18] MEDS: normal saline 500ml IV soln 500 ML IV ONE ×2 (12:56→16:32)
[2025-03-18] MEDS ORDERED: aminophylline 250mg/10ml inj. IV PRN (17:15)
[2025-03-18] MEDS ORDERED: metoprolol tartrate 1mg/ml inj IV PRN (17:15)
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
--- NOTE | 2025-03-18 18:00 | PROGRESS NOTE- Residence ---
Progress Note - Resident Providers to CC Resident Creating Document: MIKAELA ROSAS, RES ~ Antibiotic Timeout Antibiotic Ordered?: No Subjective Patient seen and examined at the bedside today. The patient appeared drowsy, was reportedly hallucinating today most likely secondary to alcohol withdrawal. She was planned to undergo Michelle stress test and EGD today which was not done in view of the patient's significantly low blood pressures. Objective Vital Signs Date Time Temp Pulse Resp B/P (MAP) Pulse Ox O2 Delivery O2 Flow Rate FiO2 03/18/25 16:36 116 16 96 Room Air* 0 21 03/18/25 11:00 97.0 94/46 (62) Result Diagram: 03/18/25 0455 03/18/25 1600 General: Patient seemed a bit disoriented HEENT: Conjunctiva pink, Sclera clear, Mucus Membranes moist. Neck: Supple without masses and tenderness. Resp: Unlabored. No adventitious breath sounds heard. Heart: Regular Rate and rhythm, normal S1 and S2 without murmur, rub or gallop. Abdomen: Soft, diffuse tenderness. No guarding or rigidity. No rebound tenderness. Extremities: No cyanosis,clubbing or edema. Skin: Warm and Dry. Neurology: Cranial nerves 2-12 intact. No focal motor or sensory deficits. Psychiatric: Normal mood and affect. Coagulation Studies Laboratory Tests Test 03/16/25 05:15 Prothrombin Time 13.0 SECONDS (9.0-12.0) H INR International Normalized Ratio 1.3 INR Activated Partial Thromboplast Time 30 SECONDS (22-32) Coagulation Comments Assessment Assessment 59 years old female with past medical history of decompensated liver cirrhosis, left breast cancer, depression suicidal ideation, alcohol use disorder is admitted in the hospital for evaluation and management of alcohol use disorder, severe alcohol withdrawal, VFib arrest, congestive heart failure and takotsubo cardiomyopathy. Plan Plan Severe acute electrolyte derangement improving Hypokalemia, hyponatremia, hypocalcemia Likely due to vomiting, starvation Labs show initial potassium of 1.7, currently back to normal- 3.9 Na- initially on presentation was 117, improving, currently 132 Ca- 7.4, corrected calcium-8.68 Phosphorus low 1.9, Mg-normal 1.8 Patient on potassium, phosphorus and calcium replacement protocol Patient receiving fluids NS 75 cc/hour Alcohol use disorder Severe alcohol withdrawal anion gap metabolic acidosis resolved Anion gap back to normal, bicarb normal Ethyl alcohol level is elevated- 62 Lactic acid back to normal Patient on ETOH protocol-on benzodiazepine, thiamine, folic acid. manager technical services and substance use navigator consulted Black tarry stools Likely due to upper GI bleed Patient on Protonix 40 mg. GI consulted, patient to undergo EGD tomorrow in the a.m. VFib Likely due to underlying electrolyte imbalance Hypokalemia hyponatremia hypocalcemia Recent episodes of severe nausea and vomiting caused significant metabolic derangements leading to ventricular fibrillation. Patient converted back to sinus rhythm after defibrillation. Patient was recording low blood pressure in view of which 1 L bolus NS was given. Home medication losartan, metoprolol, spironolactone are held. We will continue to monitor her blood pressures and continue medications as needed. Patient on amiodarone p.o. 200 mg b.i.d. Patient on electrolyte replacement with potassium, magnesium, calcium. We will continue to monitor her electrolytes closely Patient's telemetry monitoring showed sinus rhythm. Patient on hospital monitor Lexiscan not done today in view of soft blood pressures. will undergo Michelle tomorrow. Type 2 NM Due to metabolic derangement Due to demand ischemia Initial troponin was 24, trended up to 671, 1655 Current troponin trending down Currently patient denies any complaints of chest pain, palpitations. Takatsubo cardiomyopathy: No apical motion detected on the echo Cardiology on board CODE STATUS: Full code DVT prophylaxis: Heparin subQ GI prophylaxis: None Disposition: Currently patient on ETOH protocol, electrolyte replacement, hospital monitor. Patient to undergo EGD and Lexiscan in the a.m. Patient was seen, examined and discussed with the attending MD Dr. Rojas Rosas PGY-1 Date of Service: Mar 18, 2025 Billing Provider: VIBHA SANCHEZ MD Common Visit Codes: [id number] INP/OBS CARE(HIGH) MIKAELA ROSAS, RES Mar 18, 2025 18:00 VIBHA SANCHEZ MD Mar 19, 2025 07:45
[2025-03-18] MEDS: dextrose 50%-water 50ml dispensing syringe IV PRN (18:17)
--- NOTE | 2025-03-18 22:37 | PROGRESS NOTE- Residence ---
Progress Note - Resident Providers to CC Resident Creating Document: ALBIN COATS CC: YAHIR CARSON MD ~ Antibiotic Timeout Antibiotic Ordered?: No Subjective Patient seen and examined at the bedside today. Patient is drowsy with bouts of agitation. Per nurse, patient was also having hallucinations. All this in the context of alcohol withdrawal Objective Vital Signs Date Time Temp Pulse Resp B/P (MAP) Pulse Ox O2 Delivery O2 Flow Rate FiO2 03/18/25 21:38 18 03/18/25 20:35 82 96 Room Air* 0 21 03/18/25 17:15 96.4 102/57 (72) Result Diagram: 03/18/25 0455 03/18/25 1600 General: drowsy, agitated at times HEENT: Central line present in right IJ. Mild pallor present, no icterus, moist mucous membranes Neck: No masses and tenderness Resp: Unlabored. Lungs clear to auscultation bilaterally Chest: Normal expansion Cardiovascular: Regular Rate and rhythm, normal S1 and S2 without murmur, rub or gallop Abdomen: Soft and mildly tender in upper quadrants, no organomegaly, no guarding and rigidity, bowel sounds present Neuro: No focal weakness in the upper and lower limb muscles, power of the muscles 5/5 bilateral upper and lower extremities, normal reflexes bilaterally. Cranial nerves intact Extremities: No cyanosis,clubbing or edema Skin: Warm and Dry. No lesions Coagulation Studies Laboratory Tests Test 03/16/25 05:15 Prothrombin Time 13.0 SECONDS (9.0-12.0) H INR International Normalized Ratio 1.3 INR Activated Partial Thromboplast Time 30 SECONDS (22-32) Coagulation Comments Plan Plan Gastroenterology progress note: Assessment: Patient has been hypotensive today with bouts of agitation. We were able to confirm with cardiology that she is safe to undergo the EGD, however, we were not able to get anesthesia to be present for the procedure today. Will reschedule for tomorrow. In the meantime, her hemoglobin has remained relatively stable with less than 1gr drop compared to yesterday. Recommendations: - NPO after midnight - Continue monitoring H&H - Continue protonix - EGD tomorrow Other comorbidities managed per hospitalist team Patient has been discussed in detail with attending physician, Dr. Mao. Albin Haro MD Internal Medicine Resident PGY-2 Date of Service: Mar 19, 2025 Billing Provider: YAHIR CARSON MD, LEONARDO LUIS Mar 18, 2025 22:37
[2025-03-18] MEDS: dextrose 50%-water 50ml dispensing syringe IV ONE (23:16)
[2025-03-19] VITALS (17 sets, daily range): BP systolic 87–140; BP diastolic 42–74; PULSE 80–97; RESP 12–20; TEMP 96.9–98.3; O2SAT 95–100
[2025-03-19] MEDS: diazepam inj 5 MG/ML inj. IV PRN (02:38)
[2025-03-19 05:14] LABS: MEAN PLATELET VOLUME 7.0 FL (7.4-10.4); RED CELL DISTRIBUTION WIDTH 16.4 % (11.5-14.5)
[2025-03-19 05:30] LABS: CHOL/HDL RATIO 1.9 (0.00-4.99); CREATININE 0.61 MG/DL (0.40-0.90); LDL CHOLESTEROL 38 MG/DL (50-100); PHOSPHORUS 2.3 MG/DL (2.3-4.5); TOTAL CARBON DIOXIDE 24.5 MMOL/L (24-32); eCRCL 88 ML/MIN; eGFR > 90 ML/MIN
[2025-03-19] MEDS: magnesium sulf-water 4G/100mL 100 ML IV PRN (07:01)
[2025-03-19] MEDS: regadenoson 0.4mg/5ml syringe IV PRN (09:38)
[2025-03-19] MEDS ORDERED: LIDOcaine 2% Viscous 15ml cup ONE (11:05)
--- NOTE | 2025-03-19 11:20 | RADIOLOGY REPORT ---
Procedure: KS NM EMILY SCAN Exam Date: 03/18/2025 11:16 AM Reason for study/Clinical History: CAD Comparison Study: None Myocardial Perfusion Study with SPECT Technique: The patient received an intravenous injection of mCi of technetium- 99m sestamibi while at rest. After a short delay, SPECT tomographic images of the heart were obtained. The patient then went to the stress lab where they received an intravenous infusion of 0.4 mg lexiscan utilizing standard protocol. mCi of technetium-99m sestamibi was injected intravenously immediately after the start of the lexiscan infusion. Gated SPECT tomographic images of the heart were acquired and processed. Findings: No reversible perfusion defect. End diastolic volume: 68 mL End systolic volume: 27 mL The left ventricular ejection fraction is 60 %. (normal greater than 50%) Impression: No reversible defect. The left ventricular ejection fraction is 60 %.
[2025-03-19] MEDS ORDERED: midazolam 1 mg/ML 2ml injection ONE (11:31)
[2025-03-19] MEDS ORDERED: propofol inj 20 ML IV ONE (11:43)
--- NOTE | 2025-03-19 12:43 | PROGRESS NOTE- Residence ---
Progress Note - Resident Providers to CC Resident Creating Document: WILLIAM WOLF, RES ~ Objective Vital Signs Date Time Temp Pulse Resp B/P (MAP) Pulse Ox O2 Delivery O2 Flow Rate FiO2 03/19/25 11:50 85 16 113/65 (81) 100 Nasal Cannula 3.0 03/19/25 11:45 96.6 03/18/25 20:35 21 Result Diagram: 03/19/25 0400 03/19/25 0400 Coagulation Studies Laboratory Tests Test 03/16/25 05:15 Prothrombin Time 13.0 SECONDS (9.0-12.0) H INR International Normalized Ratio 1.3 INR Activated Partial Thromboplast Time 30 SECONDS (22-32) Coagulation Comments Date of Service: Mar 19, 2025 Billing Provider: BEHZAD PEPE MD, SURYA PRATIK, RES Mar 19, 2025 12:43
--- NOTE | 2025-03-19 16:56 | PROGRESS NOTE- Residence ---
Progress Note - Resident Providers to CC Resident Creating Document: MIKAELA ROSAS RES ~ Antibiotic Timeout Antibiotic Ordered?: No Subjective Patient was seen at the bedside today. She was looking much better than yesterday, but disoriented, resting well. No new complaints. No acute overnight events recorded. Objective Vital Signs Date Time Temp Pulse Resp B/P (MAP) Pulse Ox O2 Delivery O2 Flow Rate FiO2 03/19/25 15:27 19 03/19/25 11:50 85 113/65 (81) 100 Nasal Cannula 3.0 03/19/25 11:45 96.6 03/18/25 20:35 21 Result Diagram: 03/19/25 0400 03/19/25 0400 General: Patient was sleeping HEENT: Conjunctiva pink, Sclera clear, Neck: Supple without masses and tenderness. Resp: Unlabored. No adventitious breath sounds heard. Heart: Regular Rate and rhythm, normal S1 and S2 without murmur, rub or gallop. Abdomen: Soft, diffuse tenderness. No guarding or rigidity. No rebound tenderness. Extremities: No cyanosis,clubbing or edema. Skin: Warm and Dry. Neurology: Cranial nerves 2-12 intact. No focal motor or sensory deficits. Psychiatric: Normal mood and affect. Coagulation Studies Laboratory Tests Test 03/16/25 05:15 Prothrombin Time 13.0 SECONDS (9.0-12.0) H INR International Normalized Ratio 1.3 INR Activated Partial Thromboplast Time 30 SECONDS (22-32) Coagulation Comments Plan Plan Severe acute electrolyte derangement resolved Labs show initial potassium of 1.7, currently back to normal- 3.6 Na- initially on presentation was 117, currently back to normal- 140. Ca- 7.4, corrected calcium-8.68 Phosphorus back to normal 2.3, Mg-normal 1.6 Patient on potassium, phosphorus and calcium replacement protocol Patient receiving fluids NS 75 cc/hour Alcohol use disorder Severe alcohol withdrawal anion gap metabolic acidosis resolved Anion gap back to normal, bicarb normal Ethyl alcohol level was elevated- 62 Lactic acid normal Patient on ETOH protocol-on benzodiazepine, thiamine, folic acid. convention services director and substance use navigator consulted Thrombocytopenia- Patient currently has no signs of bleeding. H and H stable. Patient's platelet count dropping, currently is 38 Stopped heparin. We will continue to monitor her platelet count. Black tarry stools Likely due to upper GI bleed Patient underwent EGD and the results show- LA grade B reflux esophagitis with no bleeding, portal hypertensive gastropathy. Biopsy, normal duodenal bulb and 2nd portion of the duodenum. Patient on Protonix 40 mg. VFib Likely due to underlying electrolyte imbalance currently resolved Hypokalemia hyponatremia hypocalcemia Patient currently is in sinus rhythm. Patient on telemetry monitoring Patient on amiodarone p.o. 200 mg b.i.d. Patient on electrolyte replacement with potassium, magnesium, calcium. We will continue to monitor her electrolytes closely Lexiscan shows no ischemic changes. Type 2 [place] Due to metabolic derangement Due to demand ischemia Initial troponin was 24, trended up to 671, 1655 Current troponin trending down Currently patient denies any complaints of chest pain, palpitations. Michelle negative for any reversible defects. Takatsubo cardiomyopathy: No apical motion detected on the echo Patient started on GDM T with , Jardiance 10 mg p.o. daily, losartan 25 mg p.o. daily. We will advance GDM T as tolerated. 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 Patient underwent Lexiscan in EGD this morning. Continue to monitor patient's platelet count. Patient was seen, examined and discussed with the attending MD Dr. Rojas Rosas PGY-1 Date of Service: Mar 19, 2025 Billing Provider: VIBHA SANCHEZ MD Common Visit Codes: [id number] INP/OBS CARE(HIGH) MIKAELA ROSAS, RES Mar 19, 2025 16:56 VIBHA SANCHEZ MD Mar 20, 2025 06:55
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
[2025-03-20] VITALS (10 sets, daily range): BP systolic 82–138; BP diastolic 42–69; PULSE 69–111; RESP 13–30; TEMP 97.2–97.8; O2SAT 93–100
[2025-03-20 02:54] LABS: MEAN PLATELET VOLUME 6.5 FL (7.4-10.4); RED CELL DISTRIBUTION WIDTH 16.7 % (11.5-14.5)
[2025-03-20 03:05] LABS: CREATININE 0.54 MG/DL (0.40-0.90); TOTAL CARBON DIOXIDE 25.7 MMOL/L (24-32); eCRCL 100 ML/MIN; eGFR > 90 ML/MIN
[2025-03-20] MEDS: potassium Cl 40MEQ/1/2NS 520ml 520 ML IV PRN (08:22)
[2025-03-20] MEDS: metoprolol tartrate 12.5mg (1/2 tablet) PO SCH (08:44)
--- NOTE | 2025-03-20 08:48 | PROGRESS NOTE- Residence ---
Progress Note - Resident Providers to CC Resident Creating Document: ALBIN COATS CC: YAHIR CARSON MD ~ Antibiotic Timeout Antibiotic Ordered?: No Subjective Patient was seen at the bedside today. She seems more alert and coherent today. She denies any pain or any signs of bleeding. She feels weak and she is concerned about going home, since her son is going back to work, she reports she worried about being alone. Objective Vital Signs Date Time Temp Pulse Resp B/P (MAP) Pulse Ox O2 Delivery O2 Flow Rate FiO2 03/20/25 08:23 18 03/20/25 07:54 87 100 Nasal Cannula* 2 28 03/20/25 02:00 97.2 138/65 (89) Result Diagram: 03/20/25 0230 03/20/25 0230 General: alert, awake, oriented x3, cooperative with care HEENT: Mild pallor present, no icterus, moist mucous membranes Neck: No masses and tenderness Resp: Unlabored. Lungs clear to auscultation bilaterally Chest: Normal expansion Cardiovascular: Regular Rate and rhythm, normal S1 and S2 without murmur, rub or gallop Abdomen: Soft and nontender in upper quadrants, no organomegaly, no guarding and rigidity, bowel sounds present Neuro: No focal weakness in the upper and lower limb muscles, power of the muscles 5/5 bilateral upper and lower extremities, normal reflexes bilaterally. Cranial nerves intact Extremities: No cyanosis,clubbing or edema Skin: Warm and Dry. No lesions Coagulation Studies Laboratory Tests Test 03/16/25 05:15 Prothrombin Time 13.0 SECONDS (9.0-12.0) H INR International Normalized Ratio 1.3 INR Activated Partial Thromboplast Time 30 SECONDS (22-32) Coagulation Comments Plan Plan Gastroenterology progress note: Assessment: Patient has been more stable hemodynamically, and her hb has remained stable as well. Her EGD did not show signs of acute bleeding or esophageal varices. Recommendations: - Continue current diet - Continue monitoring H&H - Continue protonix Other comorbidities managed per hospitalist team Patient has been discussed in detail with attending physician, Dr. Mao. Albin Haro MD Internal Medicine Resident PGY-2 Date of Service: Mar 20, 2025 Billing Provider: YAHIR CARSON MD, LEONARDO LUIS Mar 20, 2025 08:48
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
--- NOTE | 2025-03-20 17:50 | PROGRESS NOTE- Residence ---
Progress Note - Resident Providers to CC Resident Creating Document: SAL TAYLOR RES ~ Antibiotic Timeout Antibiotic Ordered?: Yes Subjective Patient was seen and examined on bedside reports she is feeling shaky, and was complaining of chest pain radiating to neck and arm. Objective Vital Signs Date Time Temp Pulse Resp B/P (MAP) Pulse Ox O2 Delivery O2 Flow Rate FiO2 03/20/25 16:35 14 03/20/25 14:24 74 03/20/25 08:00 96 Room Air 03/20/25 07:54 2 28 03/20/25 02:00 97.2 138/65 (89) Result Diagram: 03/20/25 0230 03/20/25 0230 General: ALERT ORIENTED TO TIME PLACE AND PERSON. HEENT: Conjunctiva pink, Sclera clear, Neck: Supple without masses and tenderness. Resp: Unlabored. No adventitious breath sounds heard. Heart: Regular Rate and rhythm, normal S1 and S2 without murmur, rub or gallop. Abdomen: Soft, non tender. No guarding or rigidity. No rebound tenderness. Extremities: No cyanosis,clubbing or edema. Skin: Warm and Dry. Neurology: Cranial nerves 2-12 intact. No focal motor or sensory deficits. She is feeling shaky. Psychiatric: Normal mood and affect. Coagulation Studies Laboratory Tests Test 03/16/25 05:15 Prothrombin Time 13.0 SECONDS (9.0-12.0) H INR International Normalized Ratio 1.3 INR Activated Partial Thromboplast Time 30 SECONDS (22-32) Coagulation Comments Advance Care Planning Advanced Care plannin - 30 Minutes Assessment Assessment 59 years old female with past medical history of decompensated liver cirrhosis, left breast cancer, depression suicidal ideation, alcohol use disorder is admitted in the hospital for evaluation and management of alcohol use disorder, severe alcohol withdrawal, VFib arrest, congestive heart failure and takotsubo cardiomyopathy. Plan Plan Hypokalemia Potassium 3.2 On replacement protocol Follow up with CMP Hypophosphatemia, hypomagnesemia resolved Alcohol use disorder Severe alcohol withdrawal anion gap metabolic acidosis resolved Anion gap back to normal, bicarb normal Ethyl alcohol level was elevated- 62 Lactic acid normal Patient on ETOH protocol-on benzodiazepine, thiamine, folic acid. customer technical services manager and substance use navigator consulted Thrombocytopenia Platelets 39 Stopped heparin. We will continue to monitor her platelet count. Black tarry stools Likely due to upper GI bleed Patient underwent EGD and the results show- LA grade B reflux esophagitis with no bleeding, portal hypertensive gastropathy. Biopsy, normal duodenal bulb and 2nd portion of the duodenum. Continue proton Protonix 40 mg. VFib Likely due to underlying electrolyte imbalance hyponatremia hypocalcemia, hypokalemia Patient currently is in sinus rhythm. Patient on telemetry monitoring Patient on amiodarone p.o. 200 mg b.i.d. Patient on electrolyte replacement with potassium, magnesium, calcium. We will continue to monitor her electrolytes closely Lexiscan shows no ischemic changes. Type 2 [place] Due to metabolic derangement Due to demand ischemia Initial troponin was 24, trended up to 671, 1655 Current troponin trending down Currently patient denies any complaints of chest pain, palpitations. Michelle negative for any reversible defects. Takatsubo cardiomyopathy: No apical motion detected on the echo Patient started on GDM T with , Jardiance 10 mg p.o. daily, losartan 25 mg p.o. daily. We will advance GDM T as tolerated. CODE STATUS: Full code GI prophylaxis: Protonix 40 mg IV. Disposition: Currently patient on ETOH protocol, electrolyte replacement, wind farm engineer ,Continue to monitor patient's platelet count. Sal Taylor PGY 1 IM Patient was seen, examined and discussed with the attending MD Dr. Sanchez Date of Service: Mar 20, 2025 Billing Provider: VIBHA SANCHEZ MD Common Visit Codes: [id number] INP/OBS CARE(HIGH) SAL TAYLOR, RK Mar 20, 2025 17:50 VIBHA SANCHEZ MD Mar 21, 2025 07:23
--- NOTE | 2025-03-20 20:38 | ELECTROCARDIOGRAPH REPORT ---
[facility] Test Date: 2025-03-20 Test Time: 20:35:24 Pat Name: HOANG WALTON Department: [facility] 3S Patient ID: [id number] Room: [place] [id number] A Gender: F Neurosurgical Physician Assistant: : [id number] Requested By: OMAR TAYLOR Order Number: [id number] Reading MD: Dr. ANNA Farias Measurements Intervals [place] Rate: 74 P: 11 ID: [id number] QRS: 15 QRSD: 98 T: 184 QT: 450 QTc: 500 Interpretive Statements Sinus rhythm Abnrm T, consider ischemia, anterolateral lds Electronically Signed On 03-22-2025 15:11:[address] ANNA Farias Please click the below link to view image of tracing.
[2025-03-21] VITALS (10 sets, daily range): BP systolic 86–125; BP diastolic 55–68; PULSE 68–80; RESP 12–20; TEMP 96.9–97.9; O2SAT 95–99
[2025-03-21 07:27] LABS: MEAN PLATELET VOLUME 6.5 FL (7.4-10.4); RED CELL DISTRIBUTION WIDTH 16.9 % (11.5-14.5)
[2025-03-21 07:43] LABS: CREATININE 0.70 MG/DL (0.40-0.90); TOTAL CARBON DIOXIDE 25.8 MMOL/L (24-32); eCRCL 77 ML/MIN; eGFR 85 ML/MIN
[2025-03-21 08:16] LABS: ELLIPTOCYTES FEW; EOSINOPHILS % (MANUAL) 4.0 % (0-6); LYMPHOCYTES % (MANUAL) 40.0 % (21-51); MONOCYTES % (MANUAL) 12.0 % (2-12); NEUTROPHILS % (MANUAL) 44.0 % (42-75); PLATELET ESTIMATE DECREASED
--- NOTE | 2025-03-21 12:26 | RADIOLOGY REPORT ---
Technique: Real-time ultrasound imaging of the abdomen was performed with grayscale and color Doppler. Indication: abd pain Comparison: US ULTRASOUND OF ABDOMEN on DOS: 08/04/24, US ULTRASOUND OF ABDOMEN on DOS: 06/18/24, VASC VL PORTAL on DOS: 10/17/23, VASC VL PORTAL on DOS: 10/14/23, ULTRASOUND OF ABDOMEN on DOS: 03/06/21 Findings: Liver measures 12.5 cm. It is increased in echogenicity and echotexture without focal mass. Portal vein is normal in caliber and demonstrates normal hepatopetal flow. There is perihepatic ascites fluid. Gallbladder removed. The common bile duct measures 3 mm. No intrahepatic biliary ductal dilatation. The right kidney measures 10.2 cm, overall suboptimally characterizedThere is no hydronephrosis or sonographic evidence of nephrolithiasis. The pancreas is obscured. Impression: Echogenic liver which can be seen with hepatic steatosis, cirrhosis. Perihepatic Ascites Fluid Cholecystectomy.
--- NOTE | 2025-03-21 16:40 | PROGRESS NOTE- Residence ---
Progress Note - Resident Providers to CC Resident Creating Document: MIKAELA ROSAS RES ~ Antibiotic Timeout Antibiotic Ordered?: No Subjective Patient was seen and examined on bedside reports she is having abdominal tenderness which is new. Ultrasound abdomen was ordered. Objective Vital Signs Date Time Temp Pulse Resp B/P (MAP) Pulse Ox O2 Delivery O2 Flow Rate FiO2 03/21/25 15:00 97.9 75 12 121/61 (81) 96 Room Air 03/21/25 09:37 0 21 Result Diagram: 03/22/2558 03/22/25 0558 General: Patient was sleeping HEENT: Conjunctiva pink, Sclera clear, Neck: Supple without masses and tenderness. Resp: Unlabored. No adventitious breath sounds heard. Heart: Regular Rate and rhythm, normal S1 and S2 without murmur, rub or gallop. Abdomen: Soft, diffuse tenderness. No guarding or rigidity. No rebound tenderness. Extremities: No cyanosis,clubbing or edema. Skin: Warm and Dry. Neurology: Cranial nerves 2-12 intact. No focal motor or sensory deficits. Psychiatric: Normal mood and affect. Coagulation Studies Laboratory Tests Test 03/16/25 05:15 Prothrombin Time 13.0 SECONDS (9.0-12.0) H INR International Normalized Ratio 1.3 INR Activated Partial Thromboplast Time 30 SECONDS (22-32) Coagulation Comments Assessment Assessment 59 years old female with past medical history of decompensated liver cirrhosis, left breast cancer, depression suicidal ideation, alcohol use disorder is admitted in the hospital for evaluation and management of alcohol use disorder, severe alcohol withdrawal, VFib arrest, congestive heart failure and takotsubo cardiomyopathy. Plan Plan Hypokalemia resolved Potassium 3.8 On replacement protocol We will continue monitoring potassium levels Hypophosphatemia, hypomagnesemia resolved Alcohol use disorder Severe alcohol withdrawal anion gap metabolic acidosis resolved Anion gap back to normal, bicarb normal Ethyl alcohol level was elevated- 62 Lactic acid normal Patient on ETOH protocol-on benzodiazepine, thiamine, folic acid. administrative services officer and substance use navigator consulted Liver cirrhosis- Ultrasound abdomen shows- Echogenic liver which can be seen with hepatic steatosis, cirrhosis. Perihepatic Ascites Fluid Patient's ammonia slightly increased- 36. Patient on Aldactone 12.5 mg Thrombocytopenia Platelets 34 Stopped heparin. We will continue to monitor her platelet count. Black tarry stools Likely due to upper GI bleed Patient underwent EGD and the results show- LA grade B reflux esophagitis with no bleeding, portal hypertensive gastropathy. Biopsy, normal duodenal bulb and 2nd portion of the duodenum. Continue proton Protonix 40 mg. VFib Likely due to underlying electrolyte imbalance hyponatremia hypocalcemia, hypokalemia Patient currently is in sinus rhythm. Patient on telemetry monitoring Patient on amiodarone p.o. 200 mg b.i.d. Patient on electrolyte replacement with potassium, magnesium, calcium. We will continue to monitor her electrolytes closely Lexiscan shows no ischemic changes. Type 2 [place] Due to metabolic derangement Due to demand ischemia Initial troponin was 24, trended up to 671, 1655 Current troponin trending down Currently patient denies any complaints of chest pain, palpitations. Michelle negative for any reversible defects. Takatsubo cardiomyopathy: No apical motion detected on the echo Patient started on GDM T with , Jardiance 10 mg p.o. daily, losartan 25 mg p.o. daily. We will advance GDM T as tolerated. CODE STATUS: Full code GI prophylaxis: Protonix 40 mg IV. Disposition: Currently patient on ETOH protocol, electrolyte replacement, school lunch monitor ,Continue to monitor patient's platelet count. Mikaelakatiana Rosas PGY-1 Addendum abd pain, abd US with min ascites; paracentesiis to r/o sbp; add lasix, increased spironolactone Date of Service: Mar 21, 2025 Billing Provider: VIBHA SANCHEZ MD Common Visit Codes: [id number] INP/OBS CARE(HIGH) MIKAELA ROSAS, RES Mar 21, 2025 16:40 VIBHA SANCHEZ MD Mar 22, 2025 09:17
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
[2025-03-21] MEDS: lactulose 20gm/30ml cup PO SCH (17:54)
[2025-03-22] VITALS (9 sets, daily range): BP systolic 102–134; BP diastolic 58–75; PULSE 62–86; RESP 15–20; TEMP 97.6–98.5; O2SAT 93–99
[2025-03-22 06:36] LABS: CREATININE 0.70 MG/DL (0.40-0.90); TOTAL CARBON DIOXIDE 25.9 MMOL/L (24-32); eCRCL 77 ML/MIN; eGFR 85 ML/MIN
[2025-03-22 07:32] LABS: MEAN PLATELET VOLUME 7.3 FL (7.4-10.4); RED CELL DISTRIBUTION WIDTH 18.9 % (11.5-14.5)
[2025-03-22] MEDS: magnesium sulf-water 2g/50mL 50 ML IV PRN (13:37)
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
--- NOTE | 2025-03-22 16:03 | PROGRESS NOTE- Residence ---
Progress Note - Resident Providers to CC Resident Creating Document: MIKAELA ROSAS RES ~ Antibiotic Timeout Antibiotic Ordered?: No Subjective Patient was seen and examined on bedside reports she is feeling fine, abdominal pain decreased, no new complaints. Objective Vital Signs Date Time Temp Pulse Resp B/P (MAP) Pulse Ox O2 Delivery O2 Flow Rate FiO2 03/22/25 11:19 62 20 97 Room Air* 0 21 03/22/25 10:58 98.5 134/72 (92) Result Diagram: 03/22/25 0558 03/22/25 0558 General: Patient awake, well oriented, not in distress HEENT: Conjunctiva pink, Sclera clear, Neck: Supple without masses and tenderness. Resp: Unlabored. No adventitious breath sounds heard. Heart: Regular Rate and rhythm, normal S1 and S2 without murmur, rub or gallop. Abdomen: Soft, no tenderness. No guarding or rigidity. No rebound tenderness. Extremities: No cyanosis,clubbing or edema. Skin: Warm and Dry. Neurology: Cranial nerves 2-12 intact. No focal motor or sensory deficits. Psychiatric: Normal mood and affect. Coagulation Studies Laboratory Tests Test 03/16/25 05:15 Prothrombin Time 13.0 SECONDS (9.0-12.0) H INR International Normalized Ratio 1.3 INR Activated Partial Thromboplast Time 30 SECONDS (22-32) Coagulation Comments Assessment Assessment 59 years old female with past medical history of decompensated liver cirrhosis, left breast cancer, depression suicidal ideation, alcohol use disorder is admitted in the hospital for evaluation and management of alcohol use disorder, severe alcohol withdrawal, VFib arrest, congestive heart failure and takotsubo cardiomyopathy. Plan Plan Hypokalemia resolved Potassium 4.2 On replacement protocol We will continue monitoring potassium levels Hypophosphatemia resolved Mild hypomagnesemia - Mg- patient on replacement We will continue to monitor Alcohol use disorder Severe alcohol withdrawal anion gap metabolic acidosis resolved Anion gap back to normal, bicarb normal Ethyl alcohol level was elevated- 62 Lactic acid normal Patient on ETOH protocol-on benzodiazepine, thiamine, folic acid. Liver cirrhosis- Ultrasound abdomen shows- Echogenic liver which can be seen with hepatic steatosis, cirrhosis. Perihepatic Ascites Fluid Patient's ammonia slightly increased- 36. Patient on spironolactone 100 mg p.o. daily and lactulose 20 gm p.o. b.i.d. Patient is also on furosemide 40 mg p.o. daily. Thrombocytopenia improving Platelets increased to 51L Stopped heparin. We will continue to monitor her platelet count. Black tarry stools resolved Likely due to upper GI bleed ruled out Patient underwent EGD and the results show- LA grade B reflux esophagitis with no bleeding, portal hypertensive gastropathy. Biopsy, normal duodenal bulb and 2nd portion of the duodenum. Continue proton Protonix 40 mg. VFib Likely due to underlying electrolyte imbalance hyponatremia hypocalcemia, hypokalemia Patient currently is in sinus rhythm. Patient on telemetry monitoring Patient on amiodarone p.o. 200 mg . Patient on electrolyte replacement with potassium, magnesium, calcium. We will continue to monitor her electrolytes closely Lexiscan shows no ischemic changes. Type 2 OK Due to metabolic derangement Due to demand ischemia Initial troponin was 24, trended up to 671, 1655 Current troponin trending down Currently patient denies any complaints of chest pain, palpitations. Michelle negative for any reversible defects. Takatsubo cardiomyopathy: No apical motion detected on the echo Patient started on GDM T with , Jardiance 10 mg p.o. daily, losartan 25 mg p.o. daily metoprolol 12.5 mg b.i.d. We will advance GDM T as tolerated. CODE STATUS: Full code GI prophylaxis: Protonix 40 mg IV. Disposition: Currently patient on ETOH protocol, electrolyte replacement, compliance monitor . Patient has been cleared by PT, home independent. Patient will be discharged home tomorrow. Mikaela Rosas PGY-1 Date of Service: Mar 22, 2025 Billing Provider: VIBHA SANCHEZ MD Common Visit Codes: [id number] INP/OBS CARE(HIGH) MIKAELA ROSAS, RES Mar 22, 2025 16:03 VIBHA SANCHEZ MD Mar 23, 2025 06:58
[2025-03-22] MEDS: lactulose 20gm/30ml cup PO SCH (21:57)
[2025-03-23] VITALS (7 sets, daily range): BP systolic 78–111; BP diastolic 42–69; PULSE 62–88; RESP 15–18; TEMP 97.8–98.2; O2SAT 95–97
[2025-03-23 06:25] LABS: MEAN PLATELET VOLUME 7.0 FL (7.4-10.4); RED CELL DISTRIBUTION WIDTH 27.4 % (11.5-14.5)
[2025-03-23 06:48] LABS: CREATININE 0.71 MG/DL (0.40-0.90); TOTAL CARBON DIOXIDE 28.9 MMOL/L (24-32); eCRCL 76 ML/MIN; eGFR 84 ML/MIN
[2025-03-23] MEDS ORDERED: albuterol 2.5 MG/3 ML nebule CONTNEB PRN (08:25)
[2025-03-23 09:00] LABS: EOSINOPHILS % (MANUAL) 2.0 % (0-6); LYMPHOCYTES % (MANUAL) 42.0 % (21-51); MONOCYTES % (MANUAL) 9.0 % (2-12); NEUTROPHILS % (MANUAL) 47.0 % (42-75); PLATELET ESTIMATE DECREASED
--- NOTE | 2025-03-23 11:51 | PROGRESS NOTE- Residence ---
Progress Note - Resident Providers to CC Resident Creating Document: GIRMA MAYBERRY RES ~ Antibiotic Timeout Antibiotic Ordered?: No Subjective Patient was seen and examined at bedside. She is doing well, no issues or concerns reported. BP is soft, she is on room air, heart rate in mid 60s. Clinically stable. Objective Vital Signs Date Time Temp Pulse Resp B/P (MAP) Pulse Ox O2 Delivery O2 Flow Rate FiO2 03/23/25 08:00 62 03/23/25 05:49 18 03/23/25 02:00 97.9 88/42 (57) 97 Room Air 03/22/25 23:34 0 21 Result Diagram: 03/23/25 0608 03/23/25 0608 Coagulation Studies Laboratory Tests Test 03/16/25 05:15 Prothrombin Time 13.0 SECONDS (9.0-12.0) H INR International Normalized Ratio 1.3 INR Activated Partial Thromboplast Time 30 SECONDS (22-32) Coagulation Comments Advance Care Planning Advanced Care plannin - 30 Minutes Assessment Assessment This is a 59-year-old female with severe alcohol use disorder who presented with severe alcohol withdrawal complicated by alcohol withdrawal seizures and hallucinations. She is also admitted with suspected decompensated liver cirrhosis, and upper GI bleeding. Her course has been further complicated by episodes of polymorphic V-tach and VFib in the setting of profound electrolyte abnormalities, including severe hypokalemia hyponatremia, hypocalcemia, and a high anion gap metabolic acidosis, all of which are now being actively corrected. She additionally has takotsubo cardiomyopathy with a reduced ejection fraction of approximately 35% in his being started on Denisha MT as tolerated. She also have type 2 MN likely due to demand ischemia along with the underlying hyperlipidemia. Plan Plan Episodes of Polymorphic V-tach, VFib Secondary to profound electrolyte abnormalities. Significant electrolyte derangements, including: Severe hypokalemia, hyponatremia, hypocalcemia, and high anion gap metabolic acidosis; electrolytes now being actively corrected Continue telemetry Takotsubo cardiomyopathy/CHFrEF Suspected pulmonary hypertension EF is 60% at the base and 0% in the apex. Overall left ventricular ejection fraction is 35%. RVSP 61 mmHg Continue GDMT: - Metoprolol tartrate 12.5 mg p.o. b.i.d - Jardiance 10 mg p.o. daily - Losartan 25 mg p.o. daily - Spironolactone 12.5 mg p.o. daily IV Lasix p.r.n. to maintain euvolemia STRICT I&OS Heart healthy diet; Fluid restriction to 1.5 L daily. Sodium restriction; < 2 g/day Type 2 MN/demand ischemia No acute ischemic changes on EKGs. Troponins down trended Lexiscan test negative for any reversible defects Continue telemetry Severe alcohol use disorder Severe alcohol withdrawal, withdrawal seizures, and hallucination Management per [facility] protocol. Continue management per primary team Decompensated liver cirrhosis Suspected upper GI bleeding Undergone EGD, no signs of active bleeding. 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 Kervin Mayberry Internal Medicine Resident, PGY-3 (Cardiology) Patient seen and examined before transfer/discharge. Patient educated about cardiac medications. Stop amiodarone after 30 days. Also get follow up echocardiogram with through her primary physician decide on further mode of action. Date of Service: Mar 23, 2025 Billing Provider: BEHZAD PEPE MD, SHAMS, RES Mar 23, 2025 11:51 BEHZAD PEPE MD Mar 23, 2025 17:27
[2025-03-23] MEDS ORDERED: AMIO200T76 PO (13:09)
[2025-03-23] MEDS ORDERED: METO-395 PO (13:09)
[2025-03-23] MEDS ORDERED: SPIR50TA5 PO (13:09)
[2025-03-23] MEDS ORDERED: FURO40TA4 PO (13:09)
[2025-03-23] MEDS ORDERED: EMPA10TA PO (13:09)
[2025-03-23] MEDS ORDERED: LACT-373 PO (13:09)
[2025-03-23] MEDS ORDERED: LOSA25TA41 PO (13:09)
[2025-03-23] MEDS ORDERED: POTA-208 PO (13:13)
--- NOTE | 2025-03-23 16:37 | DISCHARGE SUMMARY-Residence ---
Discharge Summary Providers to CC Resident Creating Document: FAYETABATHA PENG, RES CC: VIBHA SANCHEZ MD ~ Discharge Summary Admission Diagnosis: Vfib s/p resuscutation Hospital Course DATE OF ADMISSION: 03/16/25 DATE OF DISCHARGE: 03/23/25 Discharge Diagnosis\Comment: VFib/V-tach secondary to hypokalemia, hypophosphatemia and hypomagnesemia Alcohol use disorder Severe alcohol withdrawal Anion gap metabolic acidosis Decompensated liver cirrhosis Pancytopenia Melena, GI bleed ruled out Type 2 ID Takotsubo cardiomyopathy Operations\Procedures: Upper GI endoscopy Consultants: Dr. Farias (cardiology) Dr. Mao (GI) Complications: None Condition on DC: Stable New Medications: Metoprolol Succinate (Metoprolol Succinate) 25 Mg Tab.sr.24h 1 TAB PO DAILY for 30 Days, #30 TAB 0 Refills Potassium Chloride (Potassium Chloride) 20 Meq Tab.prt.sr 1 TAB PO DAILY for 10 Days, #10 TAB 0 Refills Amiodarone Hcl (Cordarone) 200 Mg Tablet 200 MG PO DAILY for 30 Days, #30 TAB Empagliflozin (Jardiance) 10 Mg Tablet 10 MG PO DAILY for 30 Days, #30 TAB Furosemide (Furosemide) 40 Mg Tablet 40 MG PO DAILY for 30 Days, #30 TAB Lactulose (Lactulose) 10 Gram/15 Ml Solution 20 GM PO BID for 30 Days, #1800 ML Losartan Potassium (Losartan Potassium) 25 Mg Tablet 25 MG PO DAILY for 30 Days, #30 TAB Spironolactone (Spironolactone) 50 Mg Tablet 100 MG PO DAILY for 30 Days, #30 TAB Continued Medications: Ferrous Sulfate (Ferrous Sulfate) 325 Mg (65 Mg Iron) Tablet 325 MG PO DAILY for 30 Days, #30 TAB Fluoxetine HCl (Fluoxetine HCl) 20 Mg Capsule 40 MG PO DAILY for 30 Days, #60 CAP Folic Acid* (Folic Acid*) Y Tab 1 MG PO DAILY for 30 Days, #30 TAB Pantoprazole Sodium (Pantoprazole Sodium) 40 Mg Tablet.dr 40 MG PO BID for 30 Days, #60 TAB.SR Quetiapine Fumarate (Quetiapine Fumarate) 100 Mg Tablet 200 MG PO HS for 30 Days, #60 TAB [thiamine tablet] () 100 MG TABLET 100 MG PO DAILY for 90 Days, #90 Discontinued Medications: Chlordiazepoxide Hcl (Librium) 25 Mg Capsule 25 MG PO DIRECTED for 5 Days, #20 CAP 0 Refills Take 2 tablets by mouth every 6 hours x 1 day, then take 2 tablets every 8 hours x 1 day, then take 2 tablets every 12 hours x 1 day, then take 2 tablets at bedtime x 2 days. Furosemide (Lasix) 40 Mg Tablet 40 MG PO DAILY, TAB Discharge Summary: 59-year-old female with PMH of decompensated liver cirrhosis, alcohol use disorder, depression with suicidal ideation presented to the ED with concerns for alcohol withdrawal. Has been consuming a lot of alcohol, was trying to cut down for the past few weeks. She currently takes about 500 cc of hard alcohol every day. On the day of admission patient has started to develop tremors with nausea and vomitings. Patient had an episode of seizures in the ED. Patient has history of grand mal seizures in the past when she tried to quit alcohol. In the ED, patient was found unresponsive around 4:45 a.m., was noted to have polymorphic V-tach, VFib. Patient was defibrillated in the ER, coded for 3 minutes for chest compressions. Patient converted back to sinus rhythm after the shock. She was started on IV amiodarone drip and placement continuous telemetry monitoring. On further evaluation, patient was found to have low phosphorus, magnesium, potassium levels which were corrected. Patient was gradually discontinued of the amiodarone drip and started on amiodarone 200 mg p.o. b.i.d. for another five days followed by amiodarone 200 mg once daily for 30 days. Patient had mildly elevated troponins which were probably secondary to type 2 ID from V- tach/VFib. Was placed on alcohol withdrawal protocol. On further evaluation patient is was found to have takotsubo cardiomyopathy with ejection fraction being 60% with a base and 0% in the apex. Overall ejection fraction being 35%. Patient was started on GDM T. That has admission, patient did not have ascites and did not require any paracentesis. Patient underwent Lexiscan which was unremarkable. In view of, dropping hemoglobin and melena patient underwent upper GI endoscopy that reported to be unremarkable. Patient had variceal gastropathy as findings but no active bleeding ulcers or varices. After continuous monitoring and evaluation patient is being discharged as she is hemodynamically stable. Physical examination at discharge: General: Awake, oriented to time place and person. HEENT: Conjunctiva pink, Sclera clear, Mucus Membranes moist. Neck: Supple without masses and tenderness. Resp: Unlabored. No adventitious breath sounds heard. Heart: Regular Rate and rhythm, normal S1 and S2 without murmur, rub or gallop. Abdomen: Soft, diffuse tenderness. No guarding or rigidity. No rebound tenderness. Extremities: No cyanosis,clubbing or edema. Skin: Warm and Dry. Neurology: Cranial nerves 2-12 intact. No focal motor or sensory deficits. Labs at discharge: WBC: 1.7, hemoglobin: 10.2, platelet count: 54 Sodium: 142, potassium: 3.3, BUN: Nine, creatinine: 0.7 Imaging: Echo: Normal size and thickness with abnormal systolic fiunction. Contractility is best at the base decreasing toward the apex. EF: 60% at base, EF: 0% at apex. Overall EF of 35% RV is mildly dilated with normal function. Elevated right heart pressures with an RVSP of 61 mmHg. Lexiscan: No reversible defect. Abdominal ultrasound: Echogenic liver which can be seen with hepatic steatosis, cirrhosis. Perihepatic Ascites Fluid Discharge medications can be found above patient is discharged home with the following recommendations: Follow up with primary care within two weeks of discharge. Repeat BMP at two weeks. We are giving you potassium tablets for 10 days, please re-evaluate with primary care doctor for further requirement based on your repeat BMP. Ideally potassium should be greater than four and magnesium to be greater than two. Take Lasix and Aldactone as prescribed in view of alcoholic cirrhosis and heart failure. Primarily because you have alcoholic cirrhosis you need scheduled doses of these medications. Space losartan and metoprolol succinate by taking losartan in the morning and metoprolol succinate in the night so that your blood pressures remain stable and does not cause sudden decrease. Hold these medications for systolic blood pressure less than 100 mmHg Please take amiodarone for 30 days and discontinue it further. Follow up with visual effects artist within 4-6 weeks of discharge. Strongly encouraged to discontinue alcohol consumption. Return to ER in view of palpitations, chest pain, shortness of breaths, abdominal pain/tenderness. *Problems/Diagnosis: (1) Decompensation of cirrhosis of liver (2) Ventricular fibrillation Total Time Spent on D/C: > 30 Minutes Date of Service: Mar 23, 2025 Billing Provider: VIBHA SANCHEZ MD Common Visit Codes: 37379-KOT/OBS DISCH DAY >30min TABATHA RICARDO, RES Mar 23, 2025 16:25 VIBHA SANCHEZ MD Mar 24, 2025 07:52
== END 2025-03-23 16:27 | disposition home health service (06) | DRG 280 ==
LOC: ER 03:42 → ED HOLD 08:56 → PCU 3S 13:22
PROVIDERS: ADMIT Internal Medicine Critical Care Medicine; ATTEND Internal Medicine Critical Care Medicine
PROC: 5A12012 Performance of Cardiac Output, Single, Manual (ICD-10-PCS; 2025-03-16)
PROC: 5A2204Z Restoration of Cardiac Rhythm, Single (ICD-10-PCS; 2025-03-16)
PROC: 3E073KZ Introduction of Other Diagnostic Substance into Coronary Artery, Percutaneous Approach (ICD-10-PCS; 2025-03-18)
PROC: 4A02XM4 Measurement of Cardiac Total Activity, External Approach (ICD-10-PCS; 2025-03-18)
PROC: 0DB68ZX Excision of Stomach, Via Natural or Artificial Opening Endoscopic, Diagnostic (ICD-10-PCS; principal; 2025-03-19 11:31)
DX: K70.30 Alcoholic cirrhosis of liver without ascites (principal); I49.01 Ventricular fibrillation; E87.20 Acidosis, unspecified; E83.39 Other disorders of phosphorus metabolism; D61.818 Other pancytopenia; D69.6 Thrombocytopenia, unspecified; F32.A Depression, unspecified; R56.9 Unspecified convulsions; I50.20 Unspecified systolic (congestive) heart failure; K76.6 Portal hypertension; I21.A1 Myocardial infarction type 2; E83.51 Hypocalcemia; E87.1 Hypo-osmolality and hyponatremia; E83.42 Hypomagnesemia; F10.930 Alcohol use, unspecified with withdrawal, uncomplicated; E87.6 Hypokalemia; E78.5 Hyperlipidemia, unspecified; I51.81 Takotsubo syndrome; R44.3 Hallucinations, unspecified; F41.9 Anxiety disorder, unspecified; K31.89 Other diseases of stomach and duodenum; K21.00 Gastro-esophageal reflux disease with esophagitis, without bleeding; Z87.891 Personal history of nicotine dependence; Z98.84 Bariatric surgery status
CPT/HCPCS: 36415; 43239; 71045; 76700; 78452; 80047; 80048; 80053; 80061; 80320; 81001; 82140; 82310; 82330; 82550; 82800; 82948; 83605; 83690; 83735; 83880; 84100; 84132; 84145; 84443; 84484; 85007; 85008; 85025; 85610; 85730; 87081; 92950; 93005; 93017; 93306; 94760; 97116; 97161; 97530; 99291; 99292; A4314; A4615; A4620; A6258; A6449; A9500; C1751; G0378; J0169; J0282; J1100; J1200; J1630; J1644; J1885; J2250; J2270; J2470; J2704; J2785; J3360; J3411; J3475; J3480; J3490; J7030; J7040; J7042; J7060